=== PATIENT | male | born 1945 | race African-American/Black ===

== ENCOUNTER 2016-12-04 13:03 | Inpatient (IN) | payer MEDICARE, OTHER ==
[~2016-12-04] VITALS: Ht 182.9 cm; Wt 66.2 kg
[~2016-12-04 13:03] MED LIST: AMLO5TAB2 PEG; ENOX40DI3 SQ; HYDR-2666 PEG; HYDR20VI5 IJ; IPRA0.2S5 NEB; ONDA4DIS4 IJ; PRED-220 PO
[2016-12-04] MEDS ORDERED: IPRATRPIUM/ALBUTEROL 0.5/2.5MG 3 ML NEBU. ONE (13:21)
--- NOTE | 2016-12-04 13:21 | EKG ---
[facility] [address] [place] [address] Test Date: 2016-12-04 Test Time: 13:11:05 Pat Name: ELIESER DAVID Department: Room: Gender: Male Site Acquisition Manager: : 1945 Requested By: JIM DIAZ Order Number: [id number] Reading MD: Omari Boone Measurements Intervals [place] Rate: 104 P: 90 OR: 136 QRS: 25 QRSD: 86 T: 36 QT: 332 QTc: 437 Interpretive Statements SINUS TACHYCARDIA OTHERWISE NORMAL ECG Electronically Signed On 12-23-2016 15:46:49 CDT by Omari Boone
[2016-12-04] MEDS ORDERED: IPRATRPIUM/ALBUTEROL 0.5/2.5MG 3 ML NEBU. NEB ONE (13:30)
[2016-12-04 13:37] LABS: BASO % 0 % (0-3); EOS % 4 % (0-3); HEMATOCRIT 35.8 % (39.0-53.0); HEMOGLOBIN 11.9 g/dL (13.0-17.5); LYMPH # 1.1 x10^3/uL (1.0-4.8); LYMPH % 17 % (24-48); MEAN CORPUSCULAR HEMOGLOBIN 28 pg (25-35); MEAN CORPUSCULAR HGB CONC 33 g/dL (31-37); MEAN CORPUSCULAR VOLUME 85 fL (79-100); MONO % 12 % (0-9); NEUT % 67 % (31-73); PLATELET COUNT 177 x10^3/uL (140-400); RED BLOOD COUNT 4.22 x10^6/uL (4.30-5.70); RED CELL DISTRIBUTION WIDTH 15.8 % (11.5-14.5); WHITE BLOOD COUNT 6.4 x10^3/uL (4.0-11.0)
[2016-12-04 13:39] LABS: FIO2 ABG 40%; HCO3 ABG 24 mmol/L (21-28); PCO2 ABG 39 mmHg (35-46); PO2 ABG 67 mmHg (65-108); SAT O2 ABG 92 % (92-99)
[2016-12-04 13:55] LABS: CALCIUM 9.7 mg/dL (8.5-10.1); CREATININE 0.6 mg/dL (0.7-1.3); GFR 160.7; POTASSIUM 4.3 mmol/L (3.5-5.1)
[2016-12-04 14:01] LABS: ALBUMIN 2.6 g/dL (3.4-5.0); ALBUMIN/GLOBULIN RATIO 0.5 (1.0-1.7); TOTAL BILIRUBIN 0.3 mg/dL (0.2-1.0); TOTAL PROTEIN 8.2 g/dL (6.4-8.2)
--- NOTE | 2016-12-04 14:06 | RAD ---
EXAM: Chest one view. HISTORY: Respiratory distress, shortness of breath. COMPARISON: 11/10/2016. FINDINGS: A frontal view of the chest is obtained. The previously noted left lower lobe infiltrates have mostly resolved. There is mild residual atelectasis and left lower lobe volume loss. There is no pneumothorax or pleural effusion. The heart is not enlarged. IMPRESSION: 1. The previously noted left lower lobe pneumonia has mostly resolved, but there is residual volume loss. Correlate with bronchoscopic findings to exclude a left hilar mass and central obstruction as better demonstrated on recent CT.
[2016-12-04 14:11] LABS: CKMB MASS < 0.5 ng/mL (0.0-3.6); CREATINE KINASE 41 U/L (39-308)
[2016-12-04 14:12] LABS: OBC FLU VALID
--- NOTE | 2016-12-04 14:24 | PHYS DOC ---
Past Medical History Past Medical History: Dementia, Hypertension, Pneumonia, UTI Additional Past Medical Histor: dysphagia, urinary retention, falls, ARF, APHASIA Past Surgical History: Other Additional Past Surgical Histo: peg tube Alcohol Use: None Drug Use: None Adult General Chief Complaint Chief Complaint: DYSPNEA/RESPIRATOY DISTRESS HPI HPI Patient is a 71 year old male who presents with acute respiratory distress. Patient was brought to the emergency department by [facility] from his care home due to reported low oxygen saturation. Patient was found by nursing staff to have elevated oxygen saturation 79%. Patient has history of severe dementia and aphasia and is unable to provide any history. The patient was recently admitted to the hospital in October for treatment of left lower lobe pneumonia. The patient was treated with meropenem and doxycycline. Currently patient is off of antibiotics. Patient was given 2 breathing treatments by EMS prior to arrival with mild improvement in symptoms. Patient is currently on 8 L of oxygen to keep his oxygen saturation at 94%. Review of Systems Review of Systems Unable to obtain from patient due to severe dementia and aphasia Current Medications Current Medications Current Medications Medications (Trade) Dose Ordered Sig/Anh Start Time Stop Time Status Last Admin Dose Admin Acetaminophen (Tylenol) 650 mg PRN Q4HRS PRN 12/04/16 15:00 12/05/16 14:59 Albuterol/ Ipratropium (Duoneb) 3 ml RTQID 12/04/16 16:00 12/05/16 15:59 Info (Do NOT chart on this entry -- for MONITORING) 1 each PRN DAILY PRN 12/04/16 15:15 12/06/16 15:14 Iohexol (Omnipaque 300 Mg/ml) 75 ml 1X ONCE 12/04/16 15:00 12/04/16 15:09 DC 12/04/16 15:10 75 ML Methylprednisolone Sodium Succinate (Solu-Medrol 125mg Vial) 60 mg Q6HRS 12/04/16 16:00 12/04/16 15:32 60 MG Ondansetron HCl 4 mg 4 mg PRN Q8HRS PRN 12/04/16 15:00 12/05/16 14:59 Sodium Chloride (Iv Sodium Chloride 0.9% 1000ml Bag) 1,000 ml @ 100 mls/hr Q10H 12/04/16 14:52 12/05/16 14:51 12/04/16 15:27 100 MLS/HR Allergies Allergies Allergies Coded Allergies Type Severity Reaction Last Updated Verified No Known Drug Allergies 11/19/16 No Physical Exam Physical Exam Constitutional: Alert, afebrile, appears in chronically poor health, moderate respiratory distress present. [] HENT: Normocephalic, atraumatic, bilateral external ears normal, oral thrush present, nose normal. [] Eyes: PERRLA, EOMI, conjunctiva normal, no discharge. [] Neck: Normal range of motion, no tenderness, supple, no stridor. [] Cardiovascular: Tachycardia, regular rhythm, no murmur [] Lungs & Thorax: Moderate restriction of air movement bilaterally, decreased breath sounds in the left lower lobe, expiratory wheezes bilaterally [] Abdomen: Bowel sounds normal, soft, no tenderness, no masses, no pulsatile masses. [] Skin: Warm, dry, no erythema, no rash. [] Extremities: No tenderness, no cyanosis, no clubbing, ROM intact, no edema. [] Neurologic: Alert, aphasic, oriented to self, follows commands. [] Current Patient Data Vital Signs Vital Signs Date Time Temp Pulse Resp B/P Pulse Ox O2 Delivery O2 Flow Rate FiO2 12/04/16 14:34 98 26 132/86 98 Nasal Cannula 4 12/04/16 13:33 97.1 97.1 Lab Values Laboratory Tests Test 12/04/16 13:23 12/04/16 13:25 O2 Saturation 92% (92-99) Arterial Blood pH 7.40 (7.35-7.45) Arterial Blood pCO2 at Patient Temp 39mmHg (35-46) Arterial Blood pO2 at Patient Temp 67mmHg (65-108) Arterial Blood HCO3 24mmol/L (21-28) Arterial Blood Base Excess -1mmol/L (-3-3) FiO2 40% White Blood Count 6.4x10^3/uL (4.0-11.0) Red Blood Count 4.22x10^6/uL (4.30-5.70) L Hemoglobin 11.9g/dL (13.0-17.5) L Hematocrit 35.8% (39.0-53.0) L Mean Corpuscular Volume 85fL (79-100) Mean Corpuscular Hemoglobin 28pg (25-35) Mean Corpuscular Hemoglobin Concent 33g/dL (31-37) Red Cell Distribution Width 15.8% (11.5-14.5) H Platelet Count 177x10^3/uL (140-400) Neutrophils (%) (Auto) 67% (31-73) Lymphocytes (%) (Auto) 17% (24-48) L Monocytes (%) (Auto) 12% (0-9) H Eosinophils (%) (Auto) 4% (0-3) H Basophils (%) (Auto) 0% (0-3) Neutrophils # (Auto) 4.3x10^3uL (1.8-7.7) Lymphocytes # (Auto) 1.1x10^3/uL (1.0-4.8) Monocytes # (Auto) 0.7x10^3/uL (0.0-1.1) Eosinophils # (Auto) 0.3x10^3/uL (0.0-0.7) Basophils # (Auto) 0.0x10^3/uL (0.0-0.2) Sodium Level 140mmol/L (136-145) Potassium Level 4.3mmol/L (3.5-5.1) Chloride Level 103mmol/L (98-107) Carbon Dioxide Level 27mmol/L (21-32) Anion Gap 10 (6-14) Blood Urea Nitrogen 13mg/dL (8-26) Creatinine 0.6mg/dL (0.7-1.3) L Estimated GFR (Cockcroft-Gault) 160.7 BUN/Creatinine Ratio 22 (6-20) H Glucose Level 132mg/dL (70-99) H Lactic Acid Level 1.2mmol/L (0.4-2.0) Calcium Level 9.7mg/dL (8.5-10.1) Total Bilirubin 0.3mg/dL (0.2-1.0) Aspartate Amino Transferase (AST) 64U/L (15-37) H Alanine Aminotransferase (ALT) 115U/L (16-63) H Alkaline Phosphatase 118U/L (46-116) H Creatine Kinase 41U/L (39-308) Creatine Kinase MB (Mass) < 0.5ng/mL (0.0-3.6) Creatine Kinase MB Relative Index % (0-4) Troponin I Quantitative < 0.017ng/mL (0.000-0.055) WX-Igv-P-Type Natriuretic Peptide 26pg/mL (0-124) Total Protein 8.2g/dL (6.4-8.2) Albumin 2.6g/dL (3.4-5.0) L Albumin/Globulin Ratio 0.5 (1.0-1.7) L Influenza Type A Antigen Negative (NEGATIVE) Influenza Type B Antigen Negative (NEGATIVE) Laboratory Tests 12/04/16 13:25 Laboratory Tests 12/04/16 13:25 EKG EKG Interpreted by me: Heart rate 104, sinus tachycardia, normal intervals, normal axis, no acute ST/T-wave abnormalities present [] Radiology/Procedures Radiology/Procedures [facility] [address] [place], [place] [id number] IMAGING REPORT Signed PATIENT: ELIESER DAVID ACCOUNT: [id number] : 1945 LOCATION: ER AGE: 71 SEX: M EXAM STATUS: REG ER ORD. PHYSICIAN: JIM DIAZ MD REASON: respiratory distress PROCEDURE: PORTABLE CHEST 1V EXAM: Chest one view. HISTORY: Respiratory distress, shortness of breath. COMPARISON: 11/10/2016. FINDINGS: A frontal view of the chest is obtained. The previously noted left lower lobe infiltrates have mostly resolved. There is mild residual atelectasis and left lower lobe volume loss. There is no pneumothorax or pleural effusion. The heart is not enlarged. IMPRESSION: 1. The previously noted left lower lobe pneumonia has mostly resolved, but there is residual volume loss. Correlate with bronchoscopic findings to exclude a left hilar mass and central obstruction as better demonstrated on recent CT. DICTATED and SIGNED BY: SARAN HOU MD DATE: 12/04/16 [id number] CC: JIM DIAZ MD; LILIANA REN MD ~ [] Course & Med Decision Making Course & Med Decision Making Pertinent Labs and Imaging studies reviewed. (See chart for details) Patient was given 2 doses of DuoNeb in the emergency department. The patient's chest x-ray showed resolving left lower lobe infiltrates. The patient is afebrile with no leukocytosis. The patient appears to be in acute on chronic hypoxic respiratory failure. Patient will continue on IV Solu-Medrol and DuoNeb breathing treatments in hospital with a consult placed to Dr. Roman. I spoke with Dr. eRn who accepted care patient in hospital. Dragon Disclaimer Dragon Disclaimer This electronic medical record was generated, in whole or in part, using a voice recognition dictation system. Departure Departure Impression: Primary Impression: Acute on chronic respiratory failure with hypoxia Additional Impressions: Dementia Severe protein-calorie malnutrition Disposition: ADMITTED INPATIENT Admitting Physician: Other Condition: GUARDED Referrals: LILIANA REN MD (PCP) Problem Qualifiers Additional Impressions: Dementia Dementia type: unspecified type Dementia behavioral disturbance: without behavioral disturbance Qualified Code: F03.90 - Unspecified dementia without behavioral disturbance JIM DIZA MD Dec 04, 2016 14:24
[2016-12-04] MEDS ORDERED: ONDANSETRON PF 4 MG/2 ML VIAL. IV PRN (15:00)
[2016-12-04] MEDS ORDERED: IOHEXOL 300 MG/ML 75 ML VIAL IV ONE (15:00)
[2016-12-04] MEDS ORDERED: ACETAMINOPHEN 325 MG TABLET. PO PRN (15:00)
[2016-12-04] MEDS ORDERED: CONTRAST GIVEN MC PRN (15:15)
[2016-12-04] MEDS: IV NORMAL SALINE 1000ML BAG 1,000 ML IV SCH (15:27)
[2016-12-04] MEDS: methylPREDNISolone SOD SUCC PF 125 MG/2 ML VIAL. IV SCH (15:32)
--- NOTE | 2016-12-04 15:40 | ACF ---
Admission Forms Criteria RESPIRATORY FAILURE [facility] Clinical Indications for Admission to Inpatient Care (Place 'X' for any and all applicable criteria): Hospital admission is needed for appropriate care of the patient because of acute respiratory failure or insufficiency as indicated by ANY ONE of the following(1)(2)(3)(4)(5)(6)(7)(8): [ ]I. Mechanical ventilation needed (acute invasive or noninvasive) [ ]II. Severe ventilation deficit as indicated by ANY ONE of the following (9) [ ]a) Respiratory acidosis (pH less than 7.32 and partial pressure of carbon dioxide greater than 40 mm Hg (5.3 kPa)) [ ]b) Partial pressure of carbon dioxide greater than 44 mm Hg (5.9 kPa ) (new) [ ]c) Airflow measurements less than 25% of predicted (eg, peak expiratory flow rate less than 100 L/minute) [ ]d) Forced vital capacity less than 15 mL/kg of ideal body weight, or 50% decrease in vital capacity from baseline [ ]III. Noncardiac pulmonary edema not resolving with rapid emergency treatment (8) [X]IV. Severe respiratory distress as indicated by ANY ONE of the following: [X]a) Severe tachypnea (respiratory rate greater than 30, greater than 45 for 6-month-old, greater than 60 for ) [ ]b) Severe hypoxemia (partial pressure of oxygen less than 50 mm Hg ( 6.7 kPa) on greater than 50% oxygen or partial pressure of oxygen to FIO2 ratio less than 200) [ ]c) Mental status deterioration from respiratory disease [ ]V. Airway obstruction or inadequate protection [A](10)(11) The original [employer] content created by [employer] has been revised. The portions of the content which have been revised are identified through the use of italic text or in bold, and [employer] has neither reviewed nor approved the modified material. All other unmodified content is copyright [employer]. Please see references footnoted in the original [employer] edition 2016 Admission Criteria Met?: Yes SOPHY FORD Dec 04, 2016 15:40
--- NOTE | 2016-12-04 16:07 | RAD ---
CTA of the chest with contrast, 12/04/2016: History: Hypoxia, shortness of breath Multidetector CT imaging was performed following an IV bolus injection of iodinated contrast material. Multiplanar reconstructions were produced including coronal MIP images. No filling defects are seen in the central pulmonary arteries to suggest pulmonary emboli. Some of the smaller pulmonary arteries are less clearly defined due to artifacts. There is debris in the posterior aspect of the trachea extending predominantly into the left main bronchus.. The left main and upper and lower lobe left bronchi are nonaerated due to this material. The possibility of underlying tumor cannot be excluded. There is moderate infiltrate in the left lower lobe and posterior aspect of the left upper lobe. Left lower lobe atelectasis/consolidation has improved since 11/06/2016. The mild left upper lobe infiltrate has worsened. Increased density at the left hilum is inseparable from the pulmonary infiltrates. There is a small amount of debris in the posterior aspect of the right main bronchus. No significant right lung infiltrate is evident. No pleural fluid is seen. No mediastinal adenopathy is evident. A gastrostomy tube is in place extending into the body of the stomach. IMPRESSION: 1. No CT evidence of central pulmonary emboli. 2. Extensive inflammatory debris in the trachea and left bronchial tree, with moderate associated pneumonitis in the left lower and upper lobes. Left lower lobe consolidation has improved since 11/06/2016 while the left upper lobe infiltrates have worsened slightly. The possibility of underlying tumor at the left hilum cannot be excluded. PQRS Compliance Statement: One or more of the following individualized dose reduction techniques were utilized for this examination: 1. Automated exposure control 2. Adjustment of the mA and/or kV according to patient size 3. Use of iterative reconstruction technique
[2016-12-04] MEDS: IPRATRPIUM/ALBUTEROL 0.5/2.5MG 3 ML NEBU. NEB SCH ×2 (17:00→20:26)
[2016-12-04 17:30] VITALS: BP 162/86
[2016-12-04] MEDS ORDERED: ACET325T21 PEG (18:33)
[2016-12-04] MEDS ORDERED: CHLO473M MM (18:33)
[2016-12-04] MEDS ORDERED: INSU100C SQ (18:33)
[2016-12-04] MEDS ORDERED: DEXT1TAB7 PO (18:33)
[2016-12-04] MEDS ORDERED: PANT40GR PEG (18:33)
[2016-12-04 19:00] VITALS: BP 143/84
[2016-12-04 23:00] VITALS: BP 121/70
[2016-12-05] VITALS (11 sets, daily range): BP systolic 114–219; BP diastolic 68–102
[2016-12-05] MEDS: methylPREDNISolone SOD SUCC PF 125 MG/2 ML VIAL. IV SCH ×5 (01:14→23:54)
[2016-12-05] MEDS: IV NORMAL SALINE 1000ML BAG 1,000 ML IV SCH ×2 (01:14→16:35)
[2016-12-05] MEDS ORDERED: IPRATRPIUM/ALBUTEROL 0.5/2.5MG 3 ML NEBU. NEB ONE (02:30)
[2016-12-05 05:27] LABS: BASO % 0 % (0-3); EOS % 0 % (0-3); HEMATOCRIT 36.5 % (39.0-53.0); LYMPH # 0.4 x10^3/uL (1.0-4.8); LYMPH % 4 % (24-48); MEAN CORPUSCULAR HEMOGLOBIN 28 pg (25-35); MEAN CORPUSCULAR HGB CONC 33 g/dL (31-37); MEAN CORPUSCULAR VOLUME 85 fL (79-100); MONO % 2 % (0-9); NEUT % 94 % (31-73); PLATELET COUNT 208 x10^3/uL (140-400); RED BLOOD COUNT 4.28 x10^6/uL (4.30-5.70); RED CELL DISTRIBUTION WIDTH 15.8 % (11.5-14.5); WHITE BLOOD COUNT 10.1 x10^3/uL (4.0-11.0)
[2016-12-05 06:00] LABS: CALCIUM 9.6 mg/dL (8.5-10.1); GFR 89.1; POTASSIUM 4.5 mmol/L (3.5-5.1)
[2016-12-05] MEDS: IPRATRPIUM/ALBUTEROL 0.5/2.5MG 3 ML NEBU. NEB SCH ×3 (06:44→15:10)
--- NOTE | 2016-12-05 09:55 | PDOC ---
Provider Note Provider Note dictated mucous plug Bronch today MAT KEARNS MD Dec 05, 2016 09:55
[2016-12-05] MEDS ORDERED: PIP/TAZO PER PHARMACY MC PRN (10:00)
[2016-12-05 10:22] LABS: ANISOCYTOSIS SLIGHT; OVALOCYTES FEW; PLT ESTIMATE ADEQUATE (ADEQUATE)
[2016-12-05] MEDS ORDERED: IV RINGERS,LACTATED 1000ML 1,000 ML IV SCH (10:50)
[2016-12-05] MEDS ORDERED: FENTANYL PF 100 MCG/2 ML VIAL. IV PRN ×2 (11:00)
[2016-12-05] MEDS ORDERED: LIDOCAINE 1% 1 ML SYRINGE. ID PRN (11:00)
[2016-12-05] MEDS ORDERED: MORPHINE SULFATE 2 MG/ML DISP.SYRIN. IV PRN (11:00)
[2016-12-05] MEDS ORDERED: ONDANSETRON PF 4 MG/2 ML VIAL. IV PRN (11:00)
[2016-12-05] MEDS ORDERED: PROCHLORPERAZINE 10 MG/2 ML VIAL. IV PRN (11:00)
[2016-12-05] MEDS ORDERED: HYDROMORPHONE 2 MG/ML VIAL. IV PRN (11:00)
[2016-12-05] MEDS: PIPERACILLIN/TAZOBACTAM 4.5 GM in IV NORMAL SALINE 100ML 100 ML IV SCH ×3 (11:09→23:53)
--- NOTE | 2016-12-05 11:19 | CONS ---
DATE OF CONSULTATION: ATTENDING PHYSICIAN: Dr. Ren. REASON FOR CONSULTATION: Abnormal CT chest with complete collapse of lung due to mucus plug. HISTORY OF PRESENT ILLNESS: The patient is a 71-year-old male who has a history of aphasia. History of underlying dementia. He has a history of pneumonia and mucus plug in the past. He was brought into the Emergency Department ____ [facility] due to hypoxia. His saturation was 79% when first evaluated. The patient was initially placed on high flow oxygen and saturation went up to 94%. He is currently on 4 liters of oxygen. He underwent CT chest with PE protocol. There was no evidence of pulmonary emboli. There was extensive mucus debris in the trachea and left mainstem bronchus suggesting mucus plug. There was also left lower lobe consolidation, which could be mucus as well, and left upper lobe infiltrates which is slightly worsened. I have been asked to see him for further evaluation. I am unable to obtain much history from the patient due to his aphasia. PAST MEDICAL HISTORY: History of dementia, hypertension, pneumonia, UTI, aphasia, dysphagia, urinary retention and falls. PAST SURGICAL HISTORY: History of PEG tube. ALLERGIES: None. CURRENT MEDICATIONS: Reviewed including Solu-Medrol, DuoNebs. REVIEW OF SYSTEMS: Unable to obtain from the patient. SOCIAL HISTORY: Lives in ____ [facility]pc. PHYSICAL EXAMINATION: VITAL SIGNS: Blood pressure stable, afebrile, pulse ox 97% on 4 liters. NECK: Supple. LUNGS: Diminished breath sounds left lung. CARDIOVASCULAR: Regular rate and rhythm. ABDOMEN: Soft. EXTREMITIES: With no pitting edema. LABORATORY DATA: Reviewed. White cell count was ____, hemoglobin ____ and platelets are 208. BUN is 18, creatinine 1.0. Influenza is negative. IMPRESSION: 1. Acute hypoxic respiratory failure secondary to highly suspected mucus plug with significant collapse of the distal trachea and left mainstem bronchus. He would benefit from a repeat bronchoscopy. He had bronchoscopy done in the past as well. 2. Cannot exclude pneumonia. 3. Aphasia with inability to clear secretions. 4. Dysphagia. RECOMMENDATIONS: 1. Discussed with the patient's DPJERALD, Marya who agrees to proceed with bronchoscopy. All risk and benefits were explained. 2. Add empiric antibiotic. 3. Further recommendations to follow after bronchoscopy. 4. Continue DuoNebs. 5. Continue to taper steroids. We will follow along with you. MAT KEARNS MD DR: ADONIS/andres JOB#: [id number] / [id number] CODEY
--- NOTE | 2016-12-05 12:47 | HP ---
ADMIT DATE: 12/04/2016 HISTORY OF PRESENT ILLNESS: The patient is a 71-year-old -[place] male patient, a resident at [facility] who was noted yesterday by the nursing staff to be extremely hypoxic with an oxygen saturation of only 70% despite being on 4 liters of oxygen. He denied any chest pain, did complain of shortness of breath and given that he is mostly bedridden, I was concerned that he might have pulmonary embolism and therefore I recommended that he transfer to the Emergency Room of [facility] where he was initially evaluated. His lab works were mostly unremarkable. His chest x-ray was also unremarkable with previously noted left lower lobe pneumonia has mostly resolved but there is residual volume loss and the radiologist stated to correlate with bronchoscopic findings to exclude the left hilar mass and central obstruction as it will better demonstrate on that than the CT scan. I did consult Dr. Roman to evaluate the patient and recommended also to do a CT scan of the chest with PE protocol that was apparently done later on. The patient himself has severe dysarthria and very difficult to understand. PAST MEDICAL HISTORY: Significant for dementia, hypertension, urinary tract infection, dysphagia, recurrent falls. He has dysphagia for which he underwent percutaneous endoscopic gastrostomy tube placement. PAST SURGICAL HISTORY: Significant for PEG tube placement and previous bronchoscopy as he has a totally atelectatic left lower lobe with partially obstructed left mainstem. He was also intubated electively before bronchoscopy. ALLERGIES: APPARENTLY HE HAS KNOWN DRUG ALLERGIES. MEDICATIONS: He is currently on the following medications, acetaminophen 650 mg per feeding tube every 4 hours as needed, amlodipine 5 mg daily, chlorhexidine gluconate 15 mL swish and spit 3 times a day. He is on Lovenox 40 mg subcutaneously daily, hydrocodone/APAP 5/325 one tablet every 4 hours as needed. He is on Humalog insulin as insulin sliding scale every 6 hours, Protonix 40 mg once a day. FAMILY HISTORY: Unremarkable. SOCIAL HISTORY: He is currently a resident at [facility]. He does not smoke, drink alcohol, or use any recreational drugs. REVIEW OF SYSTEMS: As per history of present illness. PHYSICAL EXAMINATION: GENERAL: On arrival to the Emergency Room, patient was resting slightly propped up in bed, slightly tachypneic, tachycardic, but there is no pallor, jaundice, cyanosis, or thyromegaly. No jugular distention. No limb edema. His heart rate was 112, blood pressure was 219/112, temperature was 97.1, respiratory rate was 26, and oxygen saturation was 96% on 4 liters of oxygen by nasal cannula. HEAD: Showed normocephalic, atraumatic. NECK: Supple. HEART: Showed normal first and second heart sounds with no gallop, rub, or murmur. CHEST: Clear to auscultation. No crepitation or rhonchi. ABDOMEN: Distended, soft, nontender with a gastrostomy tube in place. There is no guarding or rigidity. No organomegaly. Hernial orifices intact. Bowel sounds normal. NEUROLOGIC: He is awake, alert. He is demented with dysarthria, difficult to understand. However, all his cranial nerves are intact. He seem to be able to move his upper extremities much greater extent than his lower extremities, although he is mostly bed bound. LABORATORY DATA: On admission showed that his serum sodium 140, potassium 4.3, chloride 103, bicarbonate 27, anion gap of 10, BUN 13, creatinine 0.6, estimated GFR was 160 mL/minute. His glucose was 132, calcium was 9.7, total bilirubin normal. AST, ALT, alkaline phosphatase are all elevated. CK is 41. Total protein was 8.2, albumin was 2.6. His white cell count was 6400, hemoglobin 12, hematocrit 36, MCV 85, and platelet count of 177,000 with normal manual differential. Blood gases showed a pH of 7.40, pCO2 of 39, pO2 of 67, bicarbonate 24, and oxygen saturation was 92% on FiO2 of 40%. His influenza A and B were negative. He has had a chest x-ray, which showed that the previously noted left lower lobe infiltrates have mostly resolved. There is mild degenerative atelectasis and left lower lobe volume loss. There is no pneumothorax or pleural effusion. The heart is not enlarged. ASSESSMENT AND PLAN: The impression is that the previously noted left lower lobe pneumonia has mostly resolved, but there is residual volume loss correlate with bronchoscopic finding to exclude a left hilar mass and central obstruction that are better demonstrated on CT scan. I did recommend to continue with his current medication, start him on IV antibiotic, and also consult the rod filler and also to arrange for him to have a CT scan of the chest with PE protocol. LILIANA ENCINAS MD DR: MAI/andres JOB#: [id number] / [id number]
[2016-12-05] MEDS ORDERED: PROPOFOL 20 ML IV ONE ×2 (12:52→13:35)
[2016-12-05] MEDS ORDERED: ALBUTEROL SULFATE 2.5 MG/3 ML NEBU. NEB ONE (13:15)
[2016-12-05] MEDS ORDERED: VANCOMYCIN 1.5 GM in IV NORMAL SALINE 500ML BAG 500 ML IV ONE (15:00)
--- NOTE | 2016-12-05 17:49 | OP ---
DATE OF SURGERY: INDICATIONS: Diffuse pneumonia and mucus plug and abnormal CT chest. DESCRIPTION OF THE PROCEDURE: Informed consent was obtained from the patient's daughter, who agreed to proceed with the procedure. All risks and benefits were explained. The patient had bronchoscopy in the past as well. Propofol was used by anesthesia for sedation. Bronch was introduced through the right nostril. The upper airways was passed. There were moderate amount of secretions which were aspirated. Vocal cords moves equally with respiration, but sluggish. Trachea was entered. There were thick white secretions seen in the distal trachea, which were aspirated. The left main stem bronchus was first examined. Thick purulent secretions seen throughout the left mainstem, left lower lobe and lingula. Saline irrigation and all secretions were removed. Multiple passes were made via bronchoscope as the secretions were very thick. Therapeutic bronchoscope was eventually use. All subsegments were examined. No endobronchial lesions seen. Bronchoalveolar lavage performed from the left lower lobe. Bronch was then introduced into the right lung. Again seen with thick purulent secretion in the right main stem bronchus. There were present all the way to the lower lobes. No endobronchial lesions seen. Secretions were removed. A bronchoalveolar lavage performed from right middle lobe. The patient tolerated the procedure well. IMPRESSION: 1. Diffuse mucus plug and mucopurulent secretions nearly completely occluding both the lungs. 2. Therapeutic bronchoscope was performed and all secretions were removed. There were very purulent and consistent with pneumonia. Broad-spectrum antibiotics will be initiated. 3. Bronchoalveolar lavage performed from the right middle lobe and left lower lobe and bronchoalveolar lavage performed from both mainstem and sent for appropriate studies. MAT KEARNS MD DR: ADONIS/andres JOB#: [id number] / [id number] CODEY
[2016-12-05] MEDS: VANCOMYCIN PER PHARMACY MC PRN ×2 (18:32→18:33)
[2016-12-05] MEDS: hydrALAZINE 20 MG/ML VIAL. IVP PRN (20:39)
[2016-12-05 20:43] LABS: BODY TEMP ABG 100.8 DEG; CORRECTED PCO2 ABG 90 mmHg; CORRECTED PH ABG 7.07; CORRECTED PO2 ABG 100 mmHg; HCO3 ABG 25 mmol/L (21-28); SAT O2 ABG 93 % (92-99)
[2016-12-05 20:44] LABS: PCO2 ABG 86 mmHg (35-46); PH ABG 7.09 (7.35-7.45); PO2 ABG 93 mmHg (65-108)
--- NOTE | 2016-12-05 20:54 | RAD ---
PROCEDURE Single-view chest. HISTORY Respiratory distress COMPARISON December 04, 2016 FINDINGS AP upright portable view of the chest is submitted. There has been progression of patchy airspace and interstitial opacity of the left ralph thorax. There is no pneumothorax or significant pleural fluid. Heart size is stable. There is likely some gas distention of stomach, not fully included. IMPRESSION There has been progression of airspace and interstitial opacity of the left ralph thorax, may be due to asymmetric pulmonary edema versus infiltrate. Electronically signed by: Mars Marin MD (Dec 05, 2016 20:53:21)
[2016-12-05 22:24] LABS: HCO3 ABG 20 mmol/L (21-28); PCO2 ABG 31 mmHg (35-46); PO2 ABG 80 mmHg (65-108); SAT O2 ABG 95 % (92-99)
[2016-12-05 22:26] LABS: PH ABG 7.43 (7.35-7.45)
[2016-12-05] MEDS ORDERED: FUROSEMIDE 20 MG/2 ML VIAL IVP ONE (22:45)
--- NOTE | 2016-12-05 23:08 | PN ---
DATE: 12/05/2016 SUBJECTIVE: The patient is resting slightly propped up in bed, in no apparent distress. On questioning him, he denied any chest pain. Did complain of mild shortness of breath, denied any cough, phlegm or hemoptysis. The nursing staff did not voice any concern and stated that he had an uneventful night. The patient has had a CT scan of the chest with PE protocol done yesterday, which showed that there is no CT scan evidence of central pulmonary emboli. He has extensive inflammatory debris in the trachea and left main bronchial tree with moderate associated pneumonitis in the left lower lobe and upper lobe and left lower lobe consolidation has improved since 11/06/2016 while the left upper lobe infiltrate has worsened slightly. The possibility of underlying tumor at the left hilum cannot be excluded. We did consult Dr. Roman and apparently he saw the patient and he is now scheduled for bronchoscopy, apparently has not had bronchoscopy before. PHYSICAL EXAMINATION: GENERAL: When I examined him, he looked well and was clearly in no apparent respiratory distress, pale, but no jaundice, cyanosis or thyromegaly. No jugular venous distention. No limb edema. VITAL SIGNS: His heart rate was 110, blood pressure 142/77, temperature was 97.7, respiratory rate was 18 and oxygen saturation was 97% on 4 liters of oxygen. HEAD, EYES, EARS, NOSE AND THROAT: Showed normocephalic, atraumatic. NECK: Supple. HEART: Showed normal first and second heart sounds with no gallop, rub or murmur. CHEST: Clear to auscultation. No crepitation or rhonchi. ABDOMEN: Distended, soft, nontender. No guarding or rigidity. No organomegaly. Hernial orifices intact. Bowel sounds normal. He has a gastrostomy tube in place. NEUROLOGIC: He is demented, but awake, alert. All his cranial nerves are intact, he moves upper extremities ____ his lower extremities had marked muscle wasting, is mostly bed bound. LABORATORY DATA: Today his lab showed a white cell count of 10,000, hemoglobin 12, hematocrit 36, MCV 85 and platelet count 208,000. His chemistry showed a serum sodium 145, potassium 4.5, chloride 107, bicarbonate 24, anion gap of 14, BUN 18, creatinine 1, estimated GFR was 89 mL per minute, his glucose 149 and calcium was 9.6. ASSESSMENT: In summary, this is a 71-year-old male patient who was admitted with marked hypoxemia and acute on chronic hypoxic respiratory failure. He has obviously dementia with aphasia and dysphagia. He has severe protein-calorie malnutrition with serum albumin is only 2.6 g/dL, has deranged liver enzymes. The patient was continued on bronchodilator, IV antibiotic, steroids and he was seen by Dr. Roman and plan is to be scheduled today for bronchoscopy as the CT scan of the chest showed that he has almost total occlusion of his left main bronchus. LILIANA ENCINAS MD DR: MAI/andres JOB#: [id number] / [id number]
[2016-12-06] VITALS (24 sets, daily range): BP systolic 103–203; BP diastolic 62–93
[2016-12-06] MEDS: VANCOMYCIN 1 GM in IV NORMAL SALINE 250ML 250 ML IV SCH ×2 (04:17→18:06)
[2016-12-06] MEDS: methylPREDNISolone SOD SUCC PF 125 MG/2 ML VIAL. IV SCH ×3 (06:06→18:08)
[2016-12-06] MEDS: PIPERACILLIN/TAZOBACTAM 4.5 GM in IV NORMAL SALINE 100ML 100 ML IV SCH ×3 (06:07→18:07)
[2016-12-06 06:10] LABS: BASO % 0 % (0-3); EOS % 0 % (0-3); HEMATOCRIT 35.4 % (39.0-53.0); HEMOGLOBIN 11.7 g/dL (13.0-17.5); LYMPH # 0.8 x10^3/uL (1.0-4.8); LYMPH % 5 % (24-48); MEAN CORPUSCULAR HEMOGLOBIN 28 pg (25-35); MEAN CORPUSCULAR HGB CONC 33 g/dL (31-37); MEAN CORPUSCULAR VOLUME 85 fL (79-100); MONO % 4 % (0-9); NEUT % 92 % (31-73); PLATELET COUNT 216 x10^3/uL (140-400); RED BLOOD COUNT 4.18 x10^6/uL (4.30-5.70); RED CELL DISTRIBUTION WIDTH 16.6 % (11.5-14.5); WHITE BLOOD COUNT 16.1 x10^3/uL (4.0-11.0)
[2016-12-06 06:15] LABS: ALBUMIN 2.6 g/dL (3.4-5.0); ALBUMIN/GLOBULIN RATIO 0.5 (1.0-1.7); CALCIUM 9.7 mg/dL (8.5-10.1); GFR 89.1; TOTAL BILIRUBIN 0.5 mg/dL (0.2-1.0); TOTAL PROTEIN 7.9 g/dL (6.4-8.2)
[2016-12-06] MEDS: IPRATRPIUM/ALBUTEROL 0.5/2.5MG 3 ML NEBU. NEB SCH ×4 (07:50→20:05)
[2016-12-06 08:05] LABS: HCO3 ABG 24 mmol/L (21-28); PCO2 ABG 30 mmHg (35-46); PH ABG 7.52 (7.35-7.45); PO2 ABG 75 mmHg (65-108); SAT O2 ABG 96 % (92-99)
[2016-12-06 08:08] LABS: FIO2 ABG 40
[2016-12-06] MEDS: VANCOMYCIN PER PHARMACY MC PRN (08:14)
--- NOTE | 2016-12-06 09:44 | PDOC ---
Infectious Disease Note Vital Sign Vital Signs Vital Signs Date Time Temp Pulse Resp B/P Pulse Ox O2 Delivery O2 Flow Rate FiO2 12/06/16 09:00 106 25 164/87 Nasal Cannula 5.0 12/06/16 08:00 97.8 97 97.8 Labs Lab Laboratory Tests Test 12/05/16 20:34 12/05/16 22:23 12/06/16 05:00 12/06/16 08:00 O2 Saturation 93% (92-99) 95% (92-99) 96% (92-99) Arterial Blood pH 7.09 (7.35-7.45) 7.43 (7.35-7.45) 7.52 (7.35-7.45) Arterial Blood pH (Temp corrected) 7.07 Arterial Blood pCO2 at Patient Temp 86mmHg (35-46) 31mmHg (35-46) 30mmHg (35-46) Arterial Blood pCO2 (Temp correct) 90mmHg Arterial Blood pO2 at Patient Temp 93mmHg (65-108) 80mmHg (65-108) 75mmHg (65-108) Arterial Blood pO2 (Temp corrected) 100mmHg Arterial Blood HCO3 25mmol/L (21-28) 20mmol/L (21-28) 24mmol/L (21-28) Arterial Blood Base Excess -6mmol/L (-3-3) -3mmol/L (-3-3) 2mmol/L (-3-3) White Blood Count 16.1x10^3/uL (4.0-11.0) Red Blood Count 4.18x10^6/uL (4.30-5.70) Hemoglobin 11.7g/dL (13.0-17.5) Hematocrit 35.4% (39.0-53.0) Mean Corpuscular Volume 85fL (79-100) Mean Corpuscular Hemoglobin 28pg (25-35) Mean Corpuscular Hemoglobin Concent 33g/dL (31-37) Red Cell Distribution Width 16.6% (11.5-14.5) Platelet Count 216x10^3/uL (140-400) Neutrophils (%) (Auto) 92% (31-73) Lymphocytes (%) (Auto) 5% (24-48) Monocytes (%) (Auto) 4% (0-9) Eosinophils (%) (Auto) 0% (0-3) Basophils (%) (Auto) 0% (0-3) Neutrophils # (Auto) 14.7x10^3uL (1.8-7.7) Lymphocytes # (Auto) 0.8x10^3/uL (1.0-4.8) Monocytes # (Auto) 0.6x10^3/uL (0.0-1.1) Eosinophils # (Auto) 0.0x10^3/uL (0.0-0.7) Basophils # (Auto) 0.0x10^3/uL (0.0-0.2) Sodium Level 146mmol/L (136-145) Potassium Level 4.0mmol/L (3.5-5.1) Chloride Level 106mmol/L (98-107) Carbon Dioxide Level 29mmol/L (21-32) Anion Gap 11 (6-14) Blood Urea Nitrogen 24mg/dL (8-26) Creatinine 1.0mg/dL (0.7-1.3) Estimated GFR (Cockcroft-Gault) 89.1 BUN/Creatinine Ratio 24 (6-20) Glucose Level 170mg/dL (70-99) Calcium Level 9.7mg/dL (8.5-10.1) Total Bilirubin 0.5mg/dL (0.2-1.0) Aspartate Amino Transf (AST/SGOT) 85U/L (15-37) Alanine Aminotransferase (ALT/SGPT) 140U/L (16-63) Alkaline Phosphatase 115U/L (46-116) Total Protein 7.9g/dL (6.4-8.2) Albumin 2.6g/dL (3.4-5.0) Albumin/Globulin Ratio 0.5 (1.0-1.7) FiO2 40 CXR IMPRESSION There has been progression of airspace and interstitial opacity of the left ralph thorax, may be due to asymmetric pulmonary edema versus infiltrate. Micro BLOOD CULTURE Preliminary NO GROWTH AFTER 1 DAY Sputum GRAM STAIN Final WBCS MANY GRAM NEGATIVE RODS MANY Objective Assessment HCAP. GNR Fever Leukocytosis, on steroids h/o latent syphilis. -Recently finished IV PCN Acute respiratory failure - refusing Bipap - states he wants to go home -s/p bronch/BAL 12/05. Thick purulent secretions Dementia PEG Plan Plan of Care Cont Vanc and Zosyn Await GNR ID Monitor WBC, Cr and temp Supportive care Thank you [id number] D/w Dr. Roman Attending Co-Sign Attending Co-Sign The patient was seen and interviewed as well as examined at the bedside. The chart was reviewed. The case was discussed. Agree with the plan of care. FRANCISCO SHAH APRN Dec 06, 2016 09:44 SHANNA FRANCIS MD Dec 06, 2016 12:38
[2016-12-06] MEDS: hydrALAZINE 20 MG/ML VIAL. IVP PRN (10:51)
--- NOTE | 2016-12-06 11:57 | PDOC ---
PULMONARY PROGRESS NOTES Subjective transfer to ICU last evening due to hypercapnic RF IMPROVED WITH BIPAP Vitals Vital Signs Date Time Temp Pulse Resp B/P Pulse Ox O2 Delivery O2 Flow Rate FiO2 12/06/16 11:17 94 Venturi Mask 12/06/16 11:00 116 20 168/81 5.0 12/06/16 08:00 97.8 97.8 General: Alert HEENT: Other Lungs: Other (rhonchi bilateral) Cardiovascular: S1 Abdomen: Soft, Non-tender, Other Extremities: No Edema Skin: Warm Labs Laboratory Tests Test 12/04/16 13:23 12/04/16 13:25 12/04/16 19:20 12/05/16 00:44 O2 Saturation 92% (92-99) Arterial Blood pH 7.40 (7.35-7.45) Arterial Blood pCO2 at Patient Temp 39mmHg (35-46) Arterial Blood pO2 at Patient Temp 67mmHg (65-108) Arterial Blood HCO3 24mmol/L (21-28) Arterial Blood Base Excess -1mmol/L (-3-3) FiO2 40% White Blood Count 6.4x10^3/uL (4.0-11.0) Red Blood Count 4.22x10^6/uL (4.30-5.70) Hemoglobin 11.9g/dL (13.0-17.5) Hematocrit 35.8% (39.0-53.0) Mean Corpuscular Volume 85fL (79-100) Mean Corpuscular Hemoglobin 28pg (25-35) Mean Corpuscular Hemoglobin Concent 33g/dL (31-37) Red Cell Distribution Width 15.8% (11.5-14.5) Platelet Count 177x10^3/uL (140-400) Neutrophils (%) (Auto) 67% (31-73) Lymphocytes (%) (Auto) 17% (24-48) Monocytes (%) (Auto) 12% (0-9) Eosinophils (%) (Auto) 4% (0-3) Basophils (%) (Auto) 0% (0-3) Neutrophils # (Auto) 4.3x10^3uL (1.8-7.7) Lymphocytes # (Auto) 1.1x10^3/uL (1.0-4.8) Monocytes # (Auto) 0.7x10^3/uL (0.0-1.1) Eosinophils # (Auto) 0.3x10^3/uL (0.0-0.7) Basophils # (Auto) 0.0x10^3/uL (0.0-0.2) Sodium Level 140mmol/L (136-145) Potassium Level 4.3mmol/L (3.5-5.1) Chloride Level 103mmol/L (98-107) Carbon Dioxide Level 27mmol/L (21-32) Anion Gap 10 (6-14) Blood Urea Nitrogen 13mg/dL (8-26) Creatinine 0.6mg/dL (0.7-1.3) Estimated GFR (Cockcroft-Gault) 160.7 BUN/Creatinine Ratio 22 (6-20) Glucose Level 132mg/dL (70-99) Lactic Acid Level 1.2mmol/L (0.4-2.0) Calcium Level 9.7mg/dL (8.5-10.1) Total Bilirubin 0.3mg/dL (0.2-1.0) Aspartate Amino Transf (AST/SGOT) 64U/L (15-37) Alanine Aminotransferase (ALT/SGPT) 115U/L (16-63) Alkaline Phosphatase 118U/L (46-116) Creatine Kinase 41U/L (39-308) Creatine Kinase MB (Mass) < 0.5ng/mL (0.0-3.6) Creatine Kinase MB Relative Index % (0-4) Troponin I Quantitative < 0.017ng/mL (0.000-0.055) XF-Ewz-P-Type Natriuretic Peptide 26pg/mL (0-124) Total Protein 8.2g/dL (6.4-8.2) Albumin 2.6g/dL (3.4-5.0) Albumin/Globulin Ratio 0.5 (1.0-1.7) Influenza Type A Antigen Negative (NEGATIVE) Influenza Type B Antigen Negative (NEGATIVE) Nasal Screen MRSA (PCR) Negative (Negative) Glucose (Fingerstick) 206mg/dL (70-99) Test 12/05/16 04:15 12/05/16 05:05 12/05/16 06:40 12/05/16 20:34 White Blood Count 10.1x10^3/uL (4.0-11.0) Red Blood Count 4.28x10^6/uL (4.30-5.70) Hemoglobin 12.0g/dL (13.0-17.5) Hematocrit 36.5% (39.0-53.0) Mean Corpuscular Volume 85fL (79-100) Mean Corpuscular Hemoglobin 28pg (25-35) Mean Corpuscular Hemoglobin Concent 33g/dL (31-37) Red Cell Distribution Width 15.8% (11.5-14.5) Platelet Count 208x10^3/uL (140-400) Neutrophils (%) (Auto) 94% (31-73) Lymphocytes (%) (Auto) 4% (24-48) Monocytes (%) (Auto) 2% (0-9) Eosinophils (%) (Auto) 0% (0-3) Basophils (%) (Auto) 0% (0-3) Neutrophils # (Auto) 9.4x10^3uL (1.8-7.7) Lymphocytes # (Auto) 0.4x10^3/uL (1.0-4.8) Monocytes # (Auto) 0.2x10^3/uL (0.0-1.1) Eosinophils # (Auto) 0.0x10^3/uL (0.0-0.7) Basophils # (Auto) 0.0x10^3/uL (0.0-0.2) Segmented Neutrophils % 74% (35-66) Band Neutrophils % 18% (0-9) Lymphocytes % 6% (24-48) Monocytes % 2% (0-10) Platelet Estimate Adequate (ADEQUATE) Anisocytosis Slight Ovalocytes Few Sodium Level 145mmol/L (136-145) Potassium Level 4.5mmol/L (3.5-5.1) Chloride Level 107mmol/L (98-107) Carbon Dioxide Level 24mmol/L (21-32) Anion Gap 14 (6-14) Blood Urea Nitrogen 18mg/dL (8-26) Creatinine 1.0mg/dL (0.7-1.3) Estimated GFR (Cockcroft-Gault) 89.1 Glucose Level 149mg/dL (70-99) Calcium Level 9.6mg/dL (8.5-10.1) Glucose (Fingerstick) 158mg/dL (70-99) O2 Saturation 93% (92-99) Arterial Blood pH 7.09 (7.35-7.45) Arterial Blood pH (Temp corrected) 7.07 Arterial Blood pCO2 at Patient Temp 86mmHg (35-46) Arterial Blood pCO2 (Temp correct) 90mmHg Arterial Blood pO2 at Patient Temp 93mmHg (65-108) Arterial Blood pO2 (Temp corrected) 100mmHg Arterial Blood HCO3 25mmol/L (21-28) Arterial Blood Base Excess -6mmol/L (-3-3) Test 12/05/16 22:23 12/06/16 05:00 12/06/16 08:00 O2 Saturation 95% (92-99) 96% (92-99) Arterial Blood pH 7.43 (7.35-7.45) 7.52 (7.35-7.45) Arterial Blood pCO2 at Patient Temp 31mmHg (35-46) 30mmHg (35-46) Arterial Blood pO2 at Patient Temp 80mmHg (65-108) 75mmHg (65-108) Arterial Blood HCO3 20mmol/L (21-28) 24mmol/L (21-28) Arterial Blood Base Excess -3mmol/L (-3-3) 2mmol/L (-3-3) White Blood Count 16.1x10^3/uL (4.0-11.0) Red Blood Count 4.18x10^6/uL (4.30-5.70) Hemoglobin 11.7g/dL (13.0-17.5) Hematocrit 35.4% (39.0-53.0) Mean Corpuscular Volume 85fL (79-100) Mean Corpuscular Hemoglobin 28pg (25-35) Mean Corpuscular Hemoglobin Concent 33g/dL (31-37) Red Cell Distribution Width 16.6% (11.5-14.5) Platelet Count 216x10^3/uL (140-400) Neutrophils (%) (Auto) 92% (31-73) Lymphocytes (%) (Auto) 5% (24-48) Monocytes (%) (Auto) 4% (0-9) Eosinophils (%) (Auto) 0% (0-3) Basophils (%) (Auto) 0% (0-3) Neutrophils # (Auto) 14.7x10^3uL (1.8-7.7) Lymphocytes # (Auto) 0.8x10^3/uL (1.0-4.8) Monocytes # (Auto) 0.6x10^3/uL (0.0-1.1) Eosinophils # (Auto) 0.0x10^3/uL (0.0-0.7) Basophils # (Auto) 0.0x10^3/uL (0.0-0.2) Sodium Level 146mmol/L (136-145) Potassium Level 4.0mmol/L (3.5-5.1) Chloride Level 106mmol/L (98-107) Carbon Dioxide Level 29mmol/L (21-32) Anion Gap 11 (6-14) Blood Urea Nitrogen 24mg/dL (8-26) Creatinine 1.0mg/dL (0.7-1.3) Estimated GFR (Cockcroft-Gault) 89.1 BUN/Creatinine Ratio 24 (6-20) Glucose Level 170mg/dL (70-99) Calcium Level 9.7mg/dL (8.5-10.1) Total Bilirubin 0.5mg/dL (0.2-1.0) Aspartate Amino Transf (AST/SGOT) 85U/L (15-37) Alanine Aminotransferase (ALT/SGPT) 140U/L (16-63) Alkaline Phosphatase 115U/L (46-116) Total Protein 7.9g/dL (6.4-8.2) Albumin 2.6g/dL (3.4-5.0) Albumin/Globulin Ratio 0.5 (1.0-1.7) FiO2 40 Laboratory Tests Test 12/05/16 20:34 12/05/16 22:23 12/06/16 05:00 12/06/16 08:00 O2 Saturation 93% (92-99) 95% (92-99) 96% (92-99) Arterial Blood pH 7.09 (7.35-7.45) 7.43 (7.35-7.45) 7.52 (7.35-7.45) Arterial Blood pH (Temp corrected) 7.07 Arterial Blood pCO2 at Patient Temp 86mmHg (35-46) 31mmHg (35-46) 30mmHg (35-46) Arterial Blood pCO2 (Temp correct) 90mmHg Arterial Blood pO2 at Patient Temp 93mmHg (65-108) 80mmHg (65-108) 75mmHg (65-108) Arterial Blood pO2 (Temp corrected) 100mmHg Arterial Blood HCO3 25mmol/L (21-28) 20mmol/L (21-28) 24mmol/L (21-28) Arterial Blood Base Excess -6mmol/L (-3-3) -3mmol/L (-3-3) 2mmol/L (-3-3) White Blood Count 16.1x10^3/uL (4.0-11.0) Red Blood Count 4.18x10^6/uL (4.30-5.70) Hemoglobin 11.7g/dL (13.0-17.5) Hematocrit 35.4% (39.0-53.0) Mean Corpuscular Volume 85fL (79-100) Mean Corpuscular Hemoglobin 28pg (25-35) Mean Corpuscular Hemoglobin Concent 33g/dL (31-37) Red Cell Distribution Width 16.6% (11.5-14.5) Platelet Count 216x10^3/uL (140-400) Neutrophils (%) (Auto) 92% (31-73) Lymphocytes (%) (Auto) 5% (24-48) Monocytes (%) (Auto) 4% (0-9) Eosinophils (%) (Auto) 0% (0-3) Basophils (%) (Auto) 0% (0-3) Neutrophils # (Auto) 14.7x10^3uL (1.8-7.7) Lymphocytes # (Auto) 0.8x10^3/uL (1.0-4.8) Monocytes # (Auto) 0.6x10^3/uL (0.0-1.1) Eosinophils # (Auto) 0.0x10^3/uL (0.0-0.7) Basophils # (Auto) 0.0x10^3/uL (0.0-0.2) Sodium Level 146mmol/L (136-145) Potassium Level 4.0mmol/L (3.5-5.1) Chloride Level 106mmol/L (98-107) Carbon Dioxide Level 29mmol/L (21-32) Anion Gap 11 (6-14) Blood Urea Nitrogen 24mg/dL (8-26) Creatinine 1.0mg/dL (0.7-1.3) Estimated GFR (Cockcroft-Gault) 89.1 BUN/Creatinine Ratio 24 (6-20) Glucose Level 170mg/dL (70-99) Calcium Level 9.7mg/dL (8.5-10.1) Total Bilirubin 0.5mg/dL (0.2-1.0) Aspartate Amino Transf (AST/SGOT) 85U/L (15-37) Alanine Aminotransferase (ALT/SGPT) 140U/L (16-63) Alkaline Phosphatase 115U/L (46-116) Total Protein 7.9g/dL (6.4-8.2) Albumin 2.6g/dL (3.4-5.0) Albumin/Globulin Ratio 0.5 (1.0-1.7) FiO2 40 Medications Active Scripts Medications Dose Route/Sig Days Date Category Acetaminophen 325 Mg Tablet 325 Mg PEG PRN Q6HRS PRN 12/04/16 Reported Chlorhexidine Gluconate 473 Ml Mouthwash 473 Ml MM TID 12/04/16 Reported Glucose (Dextrose) 1 Each Tab.chew 1 Each PO PRN PRN 12/04/16 Reported Protonix (Pantoprazole Sodium) 40 Mg Granpkt.dr 40 Mg PEG DAILY 12/04/16 Reported Humalog (Insulin Lispro) 100 Unit/1 Ml Cartridge Unknown Dose SQ 12/04/16 Reported Hydrocodone-Apap 5-325 (Hydrocodone Bit/Acetaminophen) 1 Each Tablet 1 Tab PEG PRN Q6HRS PRN 11/21/16 Reported Enoxaparin Sodium 40 Mg/0.4 Ml Disp.syrin 40 Mg SQ 11/19/16 Reported Amlodipine Besylate 5 Mg Tablet 5 Mg PEG DAILY 11/06/16 Reported Impression . 1. Acute hypoxic/ hypercapnic respiratory failure secondary to diffuse purulent mucus plug with significant collapse of the distal trachea and left mainstem bronchus. He is s/p therapeutic bronchoscopy 2. Diffuse pneumonia. 3. Aphasia with inability to clear secretions. 4. Dysphagia. Plan . 1. Try off BIPAP 2. BS antibiotic. 3. Follow bronchoscopy cultures 4. Continue DuoNebs. 5. Continue to taper steroids. 6. Need to address advance directives. poor prognosis MAT KEARNS MD Dec 06, 2016 11:57
--- NOTE | 2016-12-06 12:31 | CONS ---
DATE OF CONSULTATION: 12/05/2016 REQUESTING PHYSICIAN: Vidal Ren MD. REASON FOR CONSULTATION: Neurosyphilis and postobstructive pneumonia. HISTORY OF PRESENT ILLNESS: The patient is a 71-year-old -[place]wegian gentleman with dementia who was transferred to [facility] ER from the long term for hypoxia. A CT of the chest showed no evidence of pulmonary emboli. However, extensive inflammatory debris in the trachea and left bronchial tree with moderate associated pneumonitis in the left lower and upper lobes noted. Left lower lobe consolidation improved since 11/06/2016 while the left upper lobe infiltrates were worsened slightly. The possibility of underlining tumor at the left hilum could not be excluded. He was seen by pulmonology and underwent a bronchoscopy. Diffuse mucous plug and mucoid purulent secretions nearly completely occluded both the lungs. Secretions were removed. Cultures were sent. Gram-negative rods seen on Gram stain. Vancomycin and piperacillin/tazobactam were initiated empirically. The patient is currently in the intensive care unit. Oxygen saturation improved on 5 liters of oxygen nasal cannula. He developed a low grade temperature of 100.4. He is aphasic. Additional history of present illness, past medical history and review of systems are unobtainable. He was recently hospitalized a couple weeks ago for sepsis and respiratory failure. At that time, he was on antibiotics consisting of vancomycin, meropenem and doxycycline, which were eventually weaned off. Cultures were negative. He has a history of latent syphilis. Recent RPR titer was 1-4. He had undergone a lumbar puncture on . CSF fluid, clear. Analysis unavailable. He did complete 5-day course of IV penicillin. PAST MEDICAL HISTORY: History of latent syphilis with recent completion of a 5-day course of IV penicillin. Dementia, aphasia, dysphagia. History of intervertebral disk disorder, urinary retention, atherosclerosis of aorta. PAST SURGICAL HISTORY: PEG tube placement. FAMILY HISTORY: Unable to obtain. SOCIAL HISTORY: halfway resident. ALLERGIES: No known drug allergies. CURRENT MEDICATIONS: Vancomycin, piperacillin/tazobactam, methylprednisolone. Other medications are available and have been reviewed on the NOV. REVIEW OF SYSTEMS: Unobtainable. PHYSICAL EXAMINATION: GENERAL: A thin -[place]wegian male, propped up in bed, in no apparent distress. VITAL SIGNS: Temperature is 97.8. T-max 100.4. Blood pressure 164/87, heart rate 106, respiratory rate 25, pulse oximetry is 97% on 5 L nasal cannula. Weight is 141 pounds. HEENT: Pupils equally round. Normal conjunctivae. Oral cavity, pharynx dry with buildup of secretions. NECK: Supple. LUNGS: Diminished aeration in the bases. Nonlabored. HEART: Normal S1 and S2. ABDOMEN: Soft, no grimace or guarding to palpation. EXTREMITIES: No gross edema or cyanosis. SKIN: Without rash. Warm to touch. NEUROLOGIC: Alert. Speech is mumbled. Does not follow commands. LABORATORY DATA: Today's WBC 6.1 from 6.4 on admission, hemoglobin 11.7, platelet count 216,000. Electrolytes are unremarkable. Creatinine 1.0, BUN 24, glucose 170. Lactic acid 1.2, total bilirubin 0.5, AST 85, ALT 140, albumin 2.6. MRSA screen negative. Influenza screen negative. Gram-negative rods on sputum gram stain. Recent chest x-ray shows progression of airspace and interstitial opacity of the left hemothorax, may be due to asymmetric pulmonary edema versus infiltrate. Chest CT per HPI. IMPRESSION: 1. Healthcare acquired pneumonia with gram-negative rods. 2. Fever. 3. Leukocytosis. 4. History of latent syphilis status post-treatment. 5. Acute respiratory failure status post bronchoscopy. 6. Dementia. PLAN: Continue the vancomycin and piperacillin/tazobactam. Await gram-negative rods' identification. Monitor WBC count, creatinine and temperature . Supportive care. Thank you, Dr. Ren, for asking us to participate in this patient's care. SHANNA FRANCIS MD DR: SAMREEN/andres JOB#: [id number] / [id number] CODEY
[2016-12-06 12:47] LABS: HCO3 ABG 26 mmol/L (21-28); PCO2 ABG 49 mmHg (35-46); PH ABG 7.35 (7.35-7.45); PO2 ABG 51 mmHg (65-108); SAT O2 ABG 83 % (92-99)
[2016-12-06 12:50] LABS: FIO2 ABG 100
[2016-12-06 19:41] LABS: PLT ESTIMATE ADEQUATE (ADEQUATE)
--- NOTE | 2016-12-06 22:12 | PN ---
DATE: SUBJECTIVE: The patient he has had bronchoscopy yesterday and was found to have diffuse mucus plugs and mucopurulent secretions clearly completely occluding both lungs. Therapeutic bronchoscope was performed and all secretions were removed. They were very purulent and consistent with pneumonia. Broad spectrum antibiotics were initiated and the bronchoalveolar lavage was sent for culture and sensitivity. Unfortunately he went into severe hypoxic hypercapnic respiratory failure. His blood gases done around 10:30 in the last night showed a pH of 7.01. His pCO2 was 86 and pO2 was 90. The patient was transferred to the ICU and was started on BiPAP machine and his blood gases have improved. His pH was 7.43, pCO2 came down to 31 and pO2 was 80 and oxygen saturation was 95% on FIO2 of 40%. The patient is extremely weak and has difficulty clearing his secretions. I spoke to his daughter Frida and recommended palliative care and hospice care. She seems to be receptive to the idea and I advised her that she can come to the ICU. I can explain to her and show her the picture of his CT scans and that we feel that the palliative or hospice care will be more appropriate for him given that his weakness is unfixable. PHYSICAL EXAMINATION: GENERAL: When I examined him this afternoon, he was resting slightly propped up in bed, clearly tachypneic, tachycardic. VITAL SIGNS: His heart rate was 127, blood pressure was 192/89, temperature was 97.7, respiratory rate was 22 and oxygen saturation was 95% on FiO2 of 40% on BiPAP machine. HEAD, EYES, EARS, NOSE AND THROAT: Showed normocephalic, atraumatic. NECK: Supple. HEART: Showed normal first and second heart sounds with no gallop, rub or murmur. CHEST: Clear to auscultation. No crepitation or rhonchi. ABDOMEN: Distended, soft, nontender. No guarding or rigidity. No organomegaly. All hernial orifices intact. Bowel sounds normal. NEUROLOGIC: He was awake, alert, responding appropriately. Cranial nerves intact. He moves all extremities; however, is mostly bed bound. His intake over the last 24 hours was 915, output was 1118. LABORATORY DATA: This morning showed that his serum sodium was 146, potassium 4, chloride 106, bicarbonate 29, anion gap of 11, BUN 24, creatinine 1, estimated GFR was 89 mL per minute. His glucose was 170, calcium was 9.7. Total bilirubin and alkaline phosphatase normal. AST, ALT elevated. Total protein was 7.9, albumin 2.6. His white cell count was 16,000, hemoglobin 11, hematocrit 35, MCV 85 and platelet count of 216,000. ASSESSMENT: The patient developed acute hypoxic hypercapnic respiratory failure growing gram-negative rods. He has marked leukocytosis with steroids, history of latent syphilis. He is status post bronchoscopy and bronchoalveolar lavage during which thick purulent secretions were recovered and sent for culture and sensitivity. He has aphasia and dysphagia, severe cognitive impairment. He is status post PEG tube placement. PLAN: To continue with the BiPAP machine, continue with vancomycin and Zosyn. I did speak with his daughter and recommended that he should be on palliative care. She has not made up her mind, but she will discuss it with her family. LILIANA ENCINAS MD DR: MAI/andres JOB#: [id number] / [id number]
[2016-12-07] VITALS (23 sets, daily range): BP systolic 103–192; BP diastolic 57–94
[2016-12-07] MEDS: PIPERACILLIN/TAZOBACTAM 4.5 GM in IV NORMAL SALINE 100ML 100 ML IV SCH ×5 (00:41→22:53)
[2016-12-07] MEDS: methylPREDNISolone SOD SUCC PF 125 MG/2 ML VIAL. IV SCH ×5 (00:41→22:53)
[2016-12-07 04:20] LABS: BASO % 0 % (0-3); EOS % 0 % (0-3); HEMATOCRIT 28.8 % (39.0-53.0); HEMOGLOBIN 9.3 g/dL (13.0-17.5); LYMPH # 0.5 x10^3/uL (1.0-4.8); LYMPH % 4 % (24-48); MEAN CORPUSCULAR HEMOGLOBIN 28 pg (25-35); MEAN CORPUSCULAR HGB CONC 32 g/dL (31-37); MEAN CORPUSCULAR VOLUME 86 fL (79-100); MONO % 8 % (0-9); NEUT % 88 % (31-73); PLATELET COUNT 172 x10^3/uL (140-400); RED BLOOD COUNT 3.36 x10^6/uL (4.30-5.70); RED CELL DISTRIBUTION WIDTH 16.4 % (11.5-14.5); WHITE BLOOD COUNT 12.1 x10^3/uL (4.0-11.0)
[2016-12-07 04:41] LABS: ALBUMIN 2.1 g/dL (3.4-5.0); ALBUMIN/GLOBULIN RATIO 0.5 (1.0-1.7); GFR 89.1; POTASSIUM 3.9 mmol/L (3.5-5.1); TOTAL BILIRUBIN 0.3 mg/dL (0.2-1.0); TOTAL PROTEIN 6.5 g/dL (6.4-8.2)
[2016-12-07] MEDS: VANCOMYCIN 1 GM in IV NORMAL SALINE 250ML 250 ML IV SCH (04:49)
[2016-12-07] MEDS: VANCOMYCIN PER PHARMACY MC PRN (05:13)
[2016-12-07] MEDS: IPRATRPIUM/ALBUTEROL 0.5/2.5MG 3 ML NEBU. NEB SCH ×4 (08:01→20:33)
[2016-12-07 09:20] LABS: HCO3 ABG 25 mmol/L (21-28); PCO2 ABG 35 mmHg (35-46); PO2 ABG 98 mmHg (65-108); SAT O2 ABG 97 % (92-99)
[2016-12-07 09:21] LABS: FIO2 ABG 40; PH ABG 7.48 (7.35-7.45)
--- NOTE | 2016-12-07 11:10 | PDOC ---
PULMONARY PROGRESS NOTES Subjective Off BIPAP this am Vitals Vital Signs Date Time Temp Pulse Resp B/P Pulse Ox O2 Delivery O2 Flow Rate FiO2 12/07/16 09:00 77 22 123/66 99 BiPAP/CPAP 12/07/16 08:00 97.4 97.4 12/06/16 12:00 10.0 General: No acute distress, Confused HEENT: Other Lungs: Other (rhonchi ant) Cardiovascular: S1 Abdomen: Soft, Non-tender, Other Extremities: No Edema Skin: Warm Labs Laboratory Tests Test 12/05/16 20:34 12/05/16 22:23 12/06/16 05:00 12/06/16 08:00 O2 Saturation 93% (92-99) 95% (92-99) 96% (92-99) Arterial Blood pH 7.09 (7.35-7.45) 7.43 (7.35-7.45) 7.52 (7.35-7.45) Arterial Blood pH (Temp corrected) 7.07 Arterial Blood pCO2 at Patient Temp 86mmHg (35-46) 31mmHg (35-46) 30mmHg (35-46) Arterial Blood pCO2 (Temp correct) 90mmHg Arterial Blood pO2 at Patient Temp 93mmHg (65-108) 80mmHg (65-108) 75mmHg (65-108) Arterial Blood pO2 (Temp corrected) 100mmHg Arterial Blood HCO3 25mmol/L (21-28) 20mmol/L (21-28) 24mmol/L (21-28) Arterial Blood Base Excess -6mmol/L (-3-3) -3mmol/L (-3-3) 2mmol/L (-3-3) White Blood Count 16.1x10^3/uL (4.0-11.0) Red Blood Count 4.18x10^6/uL (4.30-5.70) Hemoglobin 11.7g/dL (13.0-17.5) Hematocrit 35.4% (39.0-53.0) Mean Corpuscular Volume 85fL (79-100) Mean Corpuscular Hemoglobin 28pg (25-35) Mean Corpuscular Hemoglobin Concent 33g/dL (31-37) Red Cell Distribution Width 16.6% (11.5-14.5) Platelet Count 216x10^3/uL (140-400) Neutrophils (%) (Auto) 92% (31-73) Lymphocytes (%) (Auto) 5% (24-48) Monocytes (%) (Auto) 4% (0-9) Eosinophils (%) (Auto) 0% (0-3) Basophils (%) (Auto) 0% (0-3) Neutrophils # (Auto) 14.7x10^3uL (1.8-7.7) Lymphocytes # (Auto) 0.8x10^3/uL (1.0-4.8) Monocytes # (Auto) 0.6x10^3/uL (0.0-1.1) Eosinophils # (Auto) 0.0x10^3/uL (0.0-0.7) Basophils # (Auto) 0.0x10^3/uL (0.0-0.2) Segmented Neutrophils % 73% (35-66) Band Neutrophils % 21% (0-9) Lymphocytes % 3% (24-48) Monocytes % 3% (0-10) Platelet Estimate Adequate (ADEQUATE) Large Platelets Few Sodium Level 146mmol/L (136-145) Potassium Level 4.0mmol/L (3.5-5.1) Chloride Level 106mmol/L (98-107) Carbon Dioxide Level 29mmol/L (21-32) Anion Gap 11 (6-14) Blood Urea Nitrogen 24mg/dL (8-26) Creatinine 1.0mg/dL (0.7-1.3) Estimated GFR (Cockcroft-Gault) 89.1 BUN/Creatinine Ratio 24 (6-20) Glucose Level 170mg/dL (70-99) Calcium Level 9.7mg/dL (8.5-10.1) Total Bilirubin 0.5mg/dL (0.2-1.0) Aspartate Amino Transf (AST/SGOT) 85U/L (15-37) Alanine Aminotransferase (ALT/SGPT) 140U/L (16-63) Alkaline Phosphatase 115U/L (46-116) Total Protein 7.9g/dL (6.4-8.2) Albumin 2.6g/dL (3.4-5.0) Albumin/Globulin Ratio 0.5 (1.0-1.7) FiO2 40 Test 3/11/17 12:31 12/07/16 04:15 12/07/16 08:38 O2 Saturation 83% (92-99) 97% (92-99) Arterial Blood pH 7.35 (7.35-7.45) 7.48 (7.35-7.45) Arterial Blood pCO2 at Patient Temp 49mmHg (35-46) 35mmHg (35-46) Arterial Blood pO2 at Patient Temp 51mmHg (65-108) 98mmHg (65-108) Arterial Blood HCO3 26mmol/L (21-28) 25mmol/L (21-28) Arterial Blood Base Excess 0mmol/L (-3-3) 2mmol/L (-3-3) FiO2 100 40 White Blood Count 12.1x10^3/uL (4.0-11.0) Red Blood Count 3.36x10^6/uL (4.30-5.70) Hemoglobin 9.3g/dL (13.0-17.5) Hematocrit 28.8% (39.0-53.0) Mean Corpuscular Volume 86fL (79-100) Mean Corpuscular Hemoglobin 28pg (25-35) Mean Corpuscular Hemoglobin Concent 32g/dL (31-37) Red Cell Distribution Width 16.4% (11.5-14.5) Platelet Count 172x10^3/uL (140-400) Neutrophils (%) (Auto) 88% (31-73) Lymphocytes (%) (Auto) 4% (24-48) Monocytes (%) (Auto) 8% (0-9) Eosinophils (%) (Auto) 0% (0-3) Basophils (%) (Auto) 0% (0-3) Neutrophils # (Auto) 10.6x10^3uL (1.8-7.7) Lymphocytes # (Auto) 0.5x10^3/uL (1.0-4.8) Monocytes # (Auto) 1.0x10^3/uL (0.0-1.1) Eosinophils # (Auto) 0.0x10^3/uL (0.0-0.7) Basophils # (Auto) 0.0x10^3/uL (0.0-0.2) Sodium Level 146mmol/L (136-145) Potassium Level 3.9mmol/L (3.5-5.1) Chloride Level 111mmol/L (98-107) Carbon Dioxide Level 29mmol/L (21-32) Anion Gap 6 (6-14) Blood Urea Nitrogen 31mg/dL (8-26) Creatinine 1.0mg/dL (0.7-1.3) Estimated GFR (Cockcroft-Gault) 89.1 BUN/Creatinine Ratio 31 (6-20) Glucose Level 236mg/dL (70-99) Calcium Level 9.0mg/dL (8.5-10.1) Total Bilirubin 0.3mg/dL (0.2-1.0) Aspartate Amino Transf (AST/SGOT) 91U/L (15-37) Alanine Aminotransferase (ALT/SGPT) 151U/L (16-63) Alkaline Phosphatase 95U/L (46-116) Total Protein 6.5g/dL (6.4-8.2) Albumin 2.1g/dL (3.4-5.0) Albumin/Globulin Ratio 0.5 (1.0-1.7) Vancomycin Level Trough 13.4mcg/mL (10.0-20.0) Vancomycin Last Dose Date [id number] Vancomycin Last Dose Time 1630 Laboratory Tests Test 12/06/16 12:31 12/07/16 04:15 12/07/16 08:38 O2 Saturation 83% (92-99) 97% (92-99) Arterial Blood pH 7.35 (7.35-7.45) 7.48 (7.35-7.45) Arterial Blood pCO2 at Patient Temp 49mmHg (35-46) 35mmHg (35-46) Arterial Blood pO2 at Patient Temp 51mmHg (65-108) 98mmHg (65-108) Arterial Blood HCO3 26mmol/L (21-28) 25mmol/L (21-28) Arterial Blood Base Excess 0mmol/L (-3-3) 2mmol/L (-3-3) FiO2 100 40 White Blood Count 12.1x10^3/uL (4.0-11.0) Red Blood Count 3.36x10^6/uL (4.30-5.70) Hemoglobin 9.3g/dL (13.0-17.5) Hematocrit 28.8% (39.0-53.0) Mean Corpuscular Volume 86fL (79-100) Mean Corpuscular Hemoglobin 28pg (25-35) Mean Corpuscular Hemoglobin Concent 32g/dL (31-37) Red Cell Distribution Width 16.4% (11.5-14.5) Platelet Count 172x10^3/uL (140-400) Neutrophils (%) (Auto) 88% (31-73) Lymphocytes (%) (Auto) 4% (24-48) Monocytes (%) (Auto) 8% (0-9) Eosinophils (%) (Auto) 0% (0-3) Basophils (%) (Auto) 0% (0-3) Neutrophils # (Auto) 10.6x10^3uL (1.8-7.7) Lymphocytes # (Auto) 0.5x10^3/uL (1.0-4.8) Monocytes # (Auto) 1.0x10^3/uL (0.0-1.1) Eosinophils # (Auto) 0.0x10^3/uL (0.0-0.7) Basophils # (Auto) 0.0x10^3/uL (0.0-0.2) Sodium Level 146mmol/L (136-145) Potassium Level 3.9mmol/L (3.5-5.1) Chloride Level 111mmol/L (98-107) Carbon Dioxide Level 29mmol/L (21-32) Anion Gap 6 (6-14) Blood Urea Nitrogen 31mg/dL (8-26) Creatinine 1.0mg/dL (0.7-1.3) Estimated GFR (Cockcroft-Gault) 89.1 BUN/Creatinine Ratio 31 (6-20) Glucose Level 236mg/dL (70-99) Calcium Level 9.0mg/dL (8.5-10.1) Total Bilirubin 0.3mg/dL (0.2-1.0) Aspartate Amino Transf (AST/SGOT) 91U/L (15-37) Alanine Aminotransferase (ALT/SGPT) 151U/L (16-63) Alkaline Phosphatase 95U/L (46-116) Total Protein 6.5g/dL (6.4-8.2) Albumin 2.1g/dL (3.4-5.0) Albumin/Globulin Ratio 0.5 (1.0-1.7) Vancomycin Level Trough 13.4mcg/mL (10.0-20.0) Vancomycin Last Dose Date Vancomycin Last Dose Time 163 Medications Active Scripts Medications Dose Route/Sig Days Date Category Acetaminophen 325 Mg Tablet 325 Mg PEG PRN Q6HRS PRN 12/04/16 Reported Chlorhexidine Gluconate 473 Ml Mouthwash 473 Ml MM TID 12/04/16 Reported Glucose (Dextrose) 1 Each Tab.chew 1 Each PO PRN PRN 12/04/16 Reported Protonix (Pantoprazole Sodium) 40 Mg Granpkt.dr 40 Mg PEG DAILY 12/04/16 Reported Humalog (Insulin Lispro) 100 Unit/1 Ml Cartridge Unknown Dose SQ 12/04/16 Reported Hydrocodone-Apap 5-325 (Hydrocodone Bit/Acetaminophen) 1 Each Tablet 1 Tab PEG PRN Q6HRS PRN 11/21/16 Reported Enoxaparin Sodium 40 Mg/0.4 Ml Disp.syrin 40 Mg SQ 11/19/16 Reported Amlodipine Besylate 5 Mg Tablet 5 Mg PEG DAILY 11/06/16 Reported Impression . 1. Acute hypoxic/ hypercapnic respiratory failure secondary to diffuse purulent mucus plug/ pneumonia with significant collapse of the distal trachea and left mainstem bronchus by secretions. He is s/p therapeutic bronchoscopy 2. Diffuse pneumonia. 3. Aphasia with inability to clear secretions. 4. Dysphagia. Plan . 1. off BIPAP/ VM 2. BS antibiotic. 3. Follow bronchoscopy cultures/ GRAM NEG RODS 4. Continue DuoNebs. 5. Continue to taper steroids. 6. Need to address advance directives. poor prognosis consult palliative care in am to determine goals of care MTA KEARNS MD Dec 07, 2016 11:10
--- NOTE | 2016-12-07 12:35 | PDOC ---
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 SKIN: No rash IV: ok Labs Lab Laboratory Tests Test 12/07/16 04:15 12/07/16 08:38 White Blood Count 12.1x10^3/uL (4.0-11.0) Red Blood Count 3.36x10^6/uL (4.30-5.70) Hemoglobin 9.3g/dL (13.0-17.5) Hematocrit 28.8% (39.0-53.0) Mean Corpuscular Volume 86fL (79-100) Mean Corpuscular Hemoglobin 28pg (25-35) Mean Corpuscular Hemoglobin Concent 32g/dL (31-37) Red Cell Distribution Width 16.4% (11.5-14.5) Platelet Count 172x10^3/uL (140-400) Neutrophils (%) (Auto) 88% (31-73) Lymphocytes (%) (Auto) 4% (24-48) Monocytes (%) (Auto) 8% (0-9) Eosinophils (%) (Auto) 0% (0-3) Basophils (%) (Auto) 0% (0-3) Neutrophils # (Auto) 10.6x10^3uL (1.8-7.7) Lymphocytes # (Auto) 0.5x10^3/uL (1.0-4.8) Monocytes # (Auto) 1.0x10^3/uL (0.0-1.1) Eosinophils # (Auto) 0.0x10^3/uL (0.0-0.7) Basophils # (Auto) 0.0x10^3/uL (0.0-0.2) Sodium Level 146mmol/L (136-145) Potassium Level 3.9mmol/L (3.5-5.1) Chloride Level 111mmol/L (98-107) Carbon Dioxide Level 29mmol/L (21-32) Anion Gap 6 (6-14) Blood Urea Nitrogen 31mg/dL (8-26) Creatinine 1.0mg/dL (0.7-1.3) Estimated GFR (Cockcroft-Gault) 89.1 BUN/Creatinine Ratio 31 (6-20) Glucose Level 236mg/dL (70-99) Calcium Level 9.0mg/dL (8.5-10.1) Total Bilirubin 0.3mg/dL (0.2-1.0) Aspartate Amino Transf (AST/SGOT) 91U/L (15-37) Alanine Aminotransferase (ALT/SGPT) 151U/L (16-63) Alkaline Phosphatase 95U/L (46-116) Total Protein 6.5g/dL (6.4-8.2) Albumin 2.1g/dL (3.4-5.0) Albumin/Globulin Ratio 0.5 (1.0-1.7) Vancomycin Level Trough 13.4mcg/mL (10.0-20.0) Vancomycin Last Dose Date Vancomycin Last Dose Time 1630 O2 Saturation 97% (92-99) Arterial Blood pH 7.48 (7.35-7.45) Arterial Blood pCO2 at Patient Temp 35mmHg (35-46) Arterial Blood pO2 at Patient Temp 98mmHg (65-108) Arterial Blood HCO3 25mmol/L (21-28) Arterial Blood Base Excess 2mmol/L (-3-3) FiO2 40 Objective Assessment HCAP. GNR Fever Leukocytosis, on steroids - better h/o latent syphilis. -Recently finished IV PCN Acute respiratory failure - refusing Bipap - states he wants to go home -s/p bronch/BAL 12/05. Thick purulent secretions Dementia PEG Plan Plan of Care Discont Vanc now Cont Zosyn Await GNR ID Monitor WBC, Cr and temp Supportive care D/w SHANNA Dunbar MD Dec 07, 2016 12:35
[2016-12-07] MEDS: hydrALAZINE 20 MG/ML VIAL. IVP PRN (15:40)
[2016-12-07] MEDS ORDERED: VANCOMYCIN 1.25 GM in IV NORMAL SALINE 250ML 250 ML IV SCH (16:30)
[2016-12-07] MEDS: HYDROCODONE/APAP 7.5/325MG ORAL 15 ML SOLUTION. PEG PRN ×2 (16:46→22:54)
--- NOTE | 2016-12-07 23:34 | PN ---
DATE: 12/06/2016 SUBJECTIVE: The patient is resting slightly propped up in bed, in no apparent respiratory distress. He was on BiPAP overnight and he was switched to a facemask and it also was not tolerated by him and he is now on nasal cannula. PHYSICAL EXAMINATION: GENERAL: On examining him, he looked well and was clearly in no apparent respiratory distress, pale, cachectic, but no jaundice, cyanosis or thyromegaly. No jugular venous distention. No limb edema. VITAL SIGNS: His heart rate was 77, blood pressure was 123/66, temperature was 97.4, respiratory rate was 22. His oxygen saturation was 99% on FiO2 at 40% with a facemask. HEAD, EYES, EARS, NOSE AND THROAT: Showed normocephalic, atraumatic. NECK: Supple. HEART: Showed normal first and second heart sounds with no gallop, rub or murmur. CHEST: Clear to auscultation. No crepitation or rhonchi. ABDOMEN: Distended, soft, nontender. No guarding or rigidity. No organomegaly. Hernial orifices intact. Bowel sounds normal. NEUROLOGIC: Awake, alert, is dysarthric. All his cranial nerves are intact, has marked muscle wasting and weakness, is mostly bed bound. His intake over the last 24 hours was 1150, output was 1180. LABORATORY WORK: Showed a white cell count of 12,100, hemoglobin 9.3, hematocrit 29, MCV 86 and platelet count of 172,000. His chemistry showed a serum sodium 146, potassium 3.9, chloride 111, bicarbonate 29, anion gap of 6, BUN 31, creatinine 1, estimated GFR was 89 mL per minute. His glucose was 236, calcium was 9. Total bilirubin and alkaline phosphatase normal. AST, ALT were slightly elevated, pH was 7.48, pCO2 of 35, pO2 of 98, bicarbonate 25, oxygen saturation was 97% on FiO2 of 40%. His sputum culture has grown gram-negative rods. The identification and sensitivity is still pending. PLAN: To continue with oxygen supplementation, BiPAP machine and continue with Zosyn, continue with steroids and inhalers, will consult the palliative care team to discuss with the family the option of hospice care and palliative care. LILIANA ENCINAS MD DR: MAI/andres JOB#: [id number] / [id number]
[2016-12-08] VITALS (24 sets, daily range): BP systolic 132–181; BP diastolic 59–92
[2016-12-08] MEDS: PIPERACILLIN/TAZOBACTAM 4.5 GM in IV NORMAL SALINE 100ML 100 ML IV SCH ×3 (04:52→18:22)
[2016-12-08] MEDS: methylPREDNISolone SOD SUCC PF 125 MG/2 ML VIAL. IV SCH ×3 (04:52→18:22)
[2016-12-08 05:30] LABS: BASO % 0 % (0-3); EOS % 0 % (0-3); HEMATOCRIT 32.4 % (39.0-53.0); HEMOGLOBIN 10.3 g/dL (13.0-17.5); LYMPH # 0.5 x10^3/uL (1.0-4.8); LYMPH % 4 % (24-48); MEAN CORPUSCULAR HEMOGLOBIN 27 pg (25-35); MEAN CORPUSCULAR HGB CONC 32 g/dL (31-37); MEAN CORPUSCULAR VOLUME 86 fL (79-100); MONO % 7 % (0-9); NEUT % 90 % (31-73); PLATELET COUNT 210 x10^3/uL (140-400); RED BLOOD COUNT 3.76 x10^6/uL (4.30-5.70); RED CELL DISTRIBUTION WIDTH 16.3 % (11.5-14.5)
[2016-12-08 05:48] LABS: ALBUMIN 2.2 g/dL (3.4-5.0); ALBUMIN/GLOBULIN RATIO 0.5 (1.0-1.7); CALCIUM 9.1 mg/dL (8.5-10.1); CREATININE 0.8 mg/dL (0.7-1.3); GFR 115.3; MAGNESIUM 2.3 mg/dL (1.8-2.4); TOTAL BILIRUBIN 0.3 mg/dL (0.2-1.0); TOTAL PROTEIN 6.7 g/dL (6.4-8.2)
[2016-12-08] MEDS: IPRATRPIUM/ALBUTEROL 0.5/2.5MG 3 ML NEBU. NEB SCH ×4 (07:44→18:38)
[2016-12-08 08:02] LABS: HCO3 ABG 28 mmol/L (21-28); PCO2 ABG 39 mmHg (35-46); PH ABG 7.48 (7.35-7.45); PO2 ABG 152 mmHg (65-108); SAT O2 ABG 99 % (92-99)
--- NOTE | 2016-12-08 08:02 | PDOC ---
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 SKIN: No rash IV: ok Labs Lab Laboratory Tests Test 12/07/16 08:38 12/08/16 04:25 12/08/16 04:50 O2 Saturation 97% (92-99) Arterial Blood pH 7.48 (7.35-7.45) Arterial Blood pCO2 at Patient Temp 35mmHg (35-46) Arterial Blood pO2 at Patient Temp 98mmHg (65-108) Arterial Blood HCO3 25mmol/L (21-28) Arterial Blood Base Excess 2mmol/L (-3-3) FiO2 40 White Blood Count 12.0x10^3/uL (4.0-11.0) Red Blood Count 3.76x10^6/uL (4.30-5.70) Hemoglobin 10.3g/dL (13.0-17.5) Hematocrit 32.4% (39.0-53.0) Mean Corpuscular Volume 86fL (79-100) Mean Corpuscular Hemoglobin 27pg (25-35) Mean Corpuscular Hemoglobin Concent 32g/dL (31-37) Red Cell Distribution Width 16.3% (11.5-14.5) Platelet Count 210x10^3/uL (140-400) Neutrophils (%) (Auto) 90% (31-73) Lymphocytes (%) (Auto) 4% (24-48) Monocytes (%) (Auto) 7% (0-9) Eosinophils (%) (Auto) 0% (0-3) Basophils (%) (Auto) 0% (0-3) Neutrophils # (Auto) 10.7x10^3uL (1.8-7.7) Lymphocytes # (Auto) 0.5x10^3/uL (1.0-4.8) Monocytes # (Auto) 0.8x10^3/uL (0.0-1.1) Eosinophils # (Auto) 0.0x10^3/uL (0.0-0.7) Basophils # (Auto) 0.0x10^3/uL (0.0-0.2) Sodium Level 151mmol/L (136-145) Potassium Level 4.0mmol/L (3.5-5.1) Chloride Level 114mmol/L (98-107) Carbon Dioxide Level 30mmol/L (21-32) Anion Gap 7 (6-14) Blood Urea Nitrogen 27mg/dL (8-26) Creatinine 0.8mg/dL (0.7-1.3) Estimated GFR (Cockcroft-Gault) 115.3 BUN/Creatinine Ratio 34 (6-20) Glucose Level 228mg/dL (70-99) Calcium Level 9.1mg/dL (8.5-10.1) Magnesium Level 2.3mg/dL (1.8-2.4) Total Bilirubin 0.3mg/dL (0.2-1.0) Aspartate Amino Transf (AST/SGOT) 75U/L (15-37) Alanine Aminotransferase (ALT/SGPT) 181U/L (16-63) Alkaline Phosphatase 93U/L (46-116) Total Protein 6.7g/dL (6.4-8.2) Albumin 2.2g/dL (3.4-5.0) Albumin/Globulin Ratio 0.5 (1.0-1.7) Micro Serratia marcescens Heavy growth SPUTUM CULT RES 2 Final Proteus mirabilis Light growth ANTIMICROBIAL SUSCEPTIBILITY Final Comment S = Susceptible; I = Intermediate; R = Resistant P = Positive; N = Negative MICS are expressed in micrograms per mL Antibiotic RSLT#1 RSLT#2 RSLT#3 RSLT#4 Amikacin S Amoxicillin/Clavulanic Acid S Ampicillin S Cefepime S S Cefotaxime S Ceftazidime S Ceftriaxone S S Cefuroxime S Ciprofloxacin S S Ertapenem S Gentamicin S S Imipenem S Levofloxacin S S Meropenem S Piperacillin S S Tetracycline S R Ticarcillin S Tigecycline S Tobramycin S S Objective Assessment HCAP. Serratia/Proteus 12/05 Fever Leukocytosis, on steroids - better h/o latent syphilis. -Recently finished IV PCN Acute respiratory failure - on Bipap - states he wants to go home -s/p bronch/BAL 12/05. Thick purulent secretions Dementia PEG Hypernatremia Plan Plan of Care Cont Zosyn Monitor WBC, Cr and temp Supportive care ? Palliative SHANNA Avelar MD Dec 08, 2016 08:02
[2016-12-08 08:47] LABS: FIO2 ABG 60
[2016-12-08] MEDS: HYDROCODONE/APAP 7.5/325MG ORAL 15 ML SOLUTION. PEG PRN (10:38)
--- NOTE | 2016-12-08 10:42 | PDOC ---
PULMONARY PROGRESS NOTES Subjective Off BIPAP this am Vitals Vital Signs Date Time Temp Pulse Resp B/P Pulse Ox O2 Delivery O2 Flow Rate FiO2 12/08/16 10:38 40 BiPAP/CPAP 12/08/16 10:00 88 30 181/92 12/08/16 08:07 4.0 12/08/16 04:00 98.2 98.2 General: No acute distress HEENT: Other Lungs: Crackles Cardiovascular: S1 Abdomen: Soft, Non-tender, Other Extremities: No Edema Skin: Warm Labs Laboratory Tests Test 12/06/16 12:31 12/07/16 04:15 12/07/16 08:38 12/08/16 04:25 O2 Saturation 83% (92-99) 97% (92-99) Arterial Blood pH 7.35 (7.35-7.45) 7.48 (7.35-7.45) Arterial Blood pCO2 at Patient Temp 49mmHg (35-46) 35mmHg (35-46) Arterial Blood pO2 at Patient Temp 51mmHg (65-108) 98mmHg (65-108) Arterial Blood HCO3 26mmol/L (21-28) 25mmol/L (21-28) Arterial Blood Base Excess 0mmol/L (-3-3) 2mmol/L (-3-3) FiO2 100 40 White Blood Count 12.1x10^3/uL (4.0-11.0) 12.0x10^3/uL (4.0-11.0) Red Blood Count 3.36x10^6/uL (4.30-5.70) 3.76x10^6/uL (4.30-5.70) Hemoglobin 9.3g/dL (13.0-17.5) 10.3g/dL (13.0-17.5) Hematocrit 28.8% (39.0-53.0) 32.4% (39.0-53.0) Mean Corpuscular Volume 86fL (79-100) 86fL (79-100) Mean Corpuscular Hemoglobin 28pg (25-35) 27pg (25-35) Mean Corpuscular Hemoglobin Concent 32g/dL (31-37) 32g/dL (31-37) Red Cell Distribution Width 16.4% (11.5-14.5) 16.3% (11.5-14.5) Platelet Count 172x10^3/uL (140-400) 210x10^3/uL (140-400) Neutrophils (%) (Auto) 88% (31-73) 90% (31-73) Lymphocytes (%) (Auto) 4% (24-48) 4% (24-48) Monocytes (%) (Auto) 8% (0-9) 7% (0-9) Eosinophils (%) (Auto) 0% (0-3) 0% (0-3) Basophils (%) (Auto) 0% (0-3) 0% (0-3) Neutrophils # (Auto) 10.6x10^3uL (1.8-7.7) 10.7x10^3uL (1.8-7.7) Lymphocytes # (Auto) 0.5x10^3/uL (1.0-4.8) 0.5x10^3/uL (1.0-4.8) Monocytes # (Auto) 1.0x10^3/uL (0.0-1.1) 0.8x10^3/uL (0.0-1.1) Eosinophils # (Auto) 0.0x10^3/uL (0.0-0.7) 0.0x10^3/uL (0.0-0.7) Basophils # (Auto) 0.0x10^3/uL (0.0-0.2) 0.0x10^3/uL (0.0-0.2) Sodium Level 146mmol/L (136-145) Potassium Level 3.9mmol/L (3.5-5.1) Chloride Level 111mmol/L (98-107) Carbon Dioxide Level 29mmol/L (21-32) Anion Gap 6 (6-14) Blood Urea Nitrogen 31mg/dL (8-26) Creatinine 1.0mg/dL (0.7-1.3) Estimated GFR (Cockcroft-Gault) 89.1 BUN/Creatinine Ratio 31 (6-20) Glucose Level 236mg/dL (70-99) Calcium Level 9.0mg/dL (8.5-10.1) Total Bilirubin 0.3mg/dL (0.2-1.0) Aspartate Amino Transf (AST/SGOT) 91U/L (15-37) Alanine Aminotransferase (ALT/SGPT) 151U/L (16-63) Alkaline Phosphatase 95U/L (46-116) Total Protein 6.5g/dL (6.4-8.2) Albumin 2.1g/dL (3.4-5.0) Albumin/Globulin Ratio 0.5 (1.0-1.7) Vancomycin Level Trough 13.4mcg/mL (10.0-20.0) Vancomycin Last Dose Date [id number] Vancomycin Last Dose Time 1630 Test 12/08/16 04:50 12/08/16 07:40 Sodium Level 151mmol/L (136-145) Potassium Level 4.0mmol/L (3.5-5.1) Chloride Level 114mmol/L (98-107) Carbon Dioxide Level 30mmol/L (21-32) Anion Gap 7 (6-14) Blood Urea Nitrogen 27mg/dL (8-26) Creatinine 0.8mg/dL (0.7-1.3) Estimated GFR (Cockcroft-Gault) 115.3 BUN/Creatinine Ratio 34 (6-20) Glucose Level 228mg/dL (70-99) Calcium Level 9.1mg/dL (8.5-10.1) Magnesium Level 2.3mg/dL (1.8-2.4) Total Bilirubin 0.3mg/dL (0.2-1.0) Aspartate Amino Transf (AST/SGOT) 75U/L (15-37) Alanine Aminotransferase (ALT/SGPT) 181U/L (16-63) Alkaline Phosphatase 93U/L (46-116) Total Protein 6.7g/dL (6.4-8.2) Albumin 2.2g/dL (3.4-5.0) Albumin/Globulin Ratio 0.5 (1.0-1.7) O2 Saturation 99% (92-99) Arterial Blood pH 7.48 (7.35-7.45) Arterial Blood pCO2 at Patient Temp 39mmHg (35-46) Arterial Blood pO2 at Patient Temp 152mmHg (65-108) Arterial Blood HCO3 28mmol/L (21-28) Arterial Blood Base Excess 5mmol/L (-3-3) FiO2 60 Laboratory Tests Test 12/08/16 04:25 12/08/16 04:50 12/08/16 07:40 White Blood Count 12.0x10^3/uL (4.0-11.0) Red Blood Count 3.76x10^6/uL (4.30-5.70) Hemoglobin 10.3g/dL (13.0-17.5) Hematocrit 32.4% (39.0-53.0) Mean Corpuscular Volume 86fL (79-100) Mean Corpuscular Hemoglobin 27pg (25-35) Mean Corpuscular Hemoglobin Concent 32g/dL (31-37) Red Cell Distribution Width 16.3% (11.5-14.5) Platelet Count 210x10^3/uL (140-400) Neutrophils (%) (Auto) 90% (31-73) Lymphocytes (%) (Auto) 4% (24-48) Monocytes (%) (Auto) 7% (0-9) Eosinophils (%) (Auto) 0% (0-3) Basophils (%) (Auto) 0% (0-3) Neutrophils # (Auto) 10.7x10^3uL (1.8-7.7) Lymphocytes # (Auto) 0.5x10^3/uL (1.0-4.8) Monocytes # (Auto) 0.8x10^3/uL (0.0-1.1) Eosinophils # (Auto) 0.0x10^3/uL (0.0-0.7) Basophils # (Auto) 0.0x10^3/uL (0.0-0.2) Sodium Level 151mmol/L (136-145) Potassium Level 4.0mmol/L (3.5-5.1) Chloride Level 114mmol/L (98-107) Carbon Dioxide Level 30mmol/L (21-32) Anion Gap 7 (6-14) Blood Urea Nitrogen 27mg/dL (8-26) Creatinine 0.8mg/dL (0.7-1.3) Estimated GFR (Cockcroft-Gault) 115.3 BUN/Creatinine Ratio 34 (6-20) Glucose Level 228mg/dL (70-99) Calcium Level 9.1mg/dL (8.5-10.1) Magnesium Level 2.3mg/dL (1.8-2.4) Total Bilirubin 0.3mg/dL (0.2-1.0) Aspartate Amino Transf (AST/SGOT) 75U/L (15-37) Alanine Aminotransferase (ALT/SGPT) 181U/L (16-63) Alkaline Phosphatase 93U/L (46-116) Total Protein 6.7g/dL (6.4-8.2) Albumin 2.2g/dL (3.4-5.0) Albumin/Globulin Ratio 0.5 (1.0-1.7) O2 Saturation 99% (92-99) Arterial Blood pH 7.48 (7.35-7.45) Arterial Blood pCO2 at Patient Temp 39mmHg (35-46) Arterial Blood pO2 at Patient Temp 152mmHg (65-108) Arterial Blood HCO3 28mmol/L (21-28) Arterial Blood Base Excess 5mmol/L (-3-3) FiO2 60 Medications Active Scripts Medications Dose Route/Sig Days Date Category Acetaminophen 325 Mg Tablet 325 Mg PEG PRN Q6HRS PRN 12/04/16 Reported Chlorhexidine Gluconate 473 Ml Mouthwash 473 Ml MM TID 12/04/16 Reported Glucose (Dextrose) 1 Each Tab.chew 1 Each PO PRN PRN 12/04/16 Reported Protonix (Pantoprazole Sodium) 40 Mg Granpkt.dr 40 Mg PEG DAILY 12/04/16 Reported Humalog (Insulin Lispro) 100 Unit/1 Ml Cartridge Unknown Dose SQ 12/04/16 Reported Hydrocodone-Apap 5-325 (Hydrocodone Bit/Acetaminophen) 1 Each Tablet 1 Tab PEG PRN Q6HRS PRN 11/21/16 Reported Enoxaparin Sodium 40 Mg/0.4 Ml Disp.syrin 40 Mg SQ 11/19/16 Reported Amlodipine Besylate 5 Mg Tablet 5 Mg PEG DAILY 11/06/16 Reported Impression . 1. Acute hypoxic/ hypercapnic respiratory failure secondary to diffuse purulent mucus plug/ pneumonia with significant collapse of the distal trachea and left mainstem bronchus by secretions. He is s/p therapeutic bronchoscopy 2. Diffuse pneumonia. 3. Aphasia with inability to clear secretions. 4. Dysphagia. 5. Negative CT for PE Plan . Antibs per ID 1. off BIPAP/ VM 2. BS antibiotic. 3. Follow bronchoscopy cultures/ GRAM NEG RODS 4. Continue DuoNebs. 5. Continue to taper steroids. 6. Need to address advance directives. poor prognosis consult palliative care in am to determine goals of care HUSSEIN BREEN MD Dec 08, 2016 10:42
[2016-12-08] MEDS: hydrALAZINE 20 MG/ML VIAL. IVP PRN (11:45)
[2016-12-08] MEDS ORDERED: FAMOTIDINE 20 MG TABLET. PO SCH (12:00)
[2016-12-08] MEDS: FAMOTIDINE 20 MG/2 ML VIAL IVP SCH (12:15)
--- NOTE | 2016-12-08 13:26 | PDOC2 ---
PALLIATIVE CARE Palliative Care Note Palliative Care Consult requested by Dr Roman and Dr. Ren to address goals of care Diagnosis; Respiratory Failure--off Bipap Bronchoscopy with mucous plugging; pneumonia, aphasia, dysphagia Attempt to reach daughter Miguelina to arrange family meeting. Message to return call. STEPHEN BELCHER Dec 08, 2016 13:26
[2016-12-08] MEDS: DO NOT USE 40 MG/0.4 ML DISP.SYRIN SQ SCH (16:36)
[2016-12-09] VITALS (24 sets, daily range): BP systolic 116–224; BP diastolic 63–106
[2016-12-09] MEDS: PIPERACILLIN/TAZOBACTAM 4.5 GM in IV NORMAL SALINE 100ML 100 ML IV SCH ×6 (00:19→19:20)
[2016-12-09] MEDS: methylPREDNISolone SOD SUCC PF 125 MG/2 ML VIAL. IV SCH ×6 (00:19→19:20)
--- NOTE | 2016-12-09 01:07 | PN ---
DATE: SUBJECTIVE: The patient is resting slightly propped up on BiPAP machine, maintaining his oxygen saturation at 95% on FiO2 40%. PHYSICAL EXAMINATION: GENERAL: When I examined him this morning, he looked well and was clearly in no apparent respiratory distress. He was pale, extremely cachectic, but not jaundiced, cyanosis, or thyromegaly. No jugular venous distension. No limb edema. VITAL SIGNS: His heart rate was 88, blood pressure was 181/92, temperature was 97, respiratory rate was 20, and oxygen saturation was 95% on FiO2 of 40% on BiPAP. HEAD, EYES, EARS, NOSE AND THROAT: Showed normocephalic, atraumatic. NECK: Supple. HEART: Showed normal first and second heart sounds with no gallop, rub or murmur. CHEST: Clear to auscultation. No crepitation or rhonchi. ABDOMEN: Distended, soft, nontender. No guarding or rigidity. No organomegaly. All hernial orifices intact. Bowel sounds normal. NEUROLOGIC: He was awake, alert. He is extremely dysarthric and difficult to understand. He has marked muscle wasting and weakness. His intake was 1400, output was 1100. LABORATORY DATA: As of this morning, his serum sodium was 151, potassium 4, chloride 114, bicarbonate 30, anion gap of 7, BUN 27, creatinine 0.8, estimated GFR was 115 mL per minute. His glucose was 125, calcium was 9.1, magnesium was 2.3. Total bilirubin and alkaline phosphatase normal. AST, ALT are elevated. Total protein 6.7, albumin 2.2. His white cell count was 12,000, hemoglobin 10.3, hematocrit 32, MCV 86 and platelet count of 210,000. As of this morning, his pH was 7.48, pCO2 of 39, pO2 of 152, bicarbonate 28, and oxygen saturation was 99%. ASSESSMENT: 1. Healthcare-associated pneumonia with growth of Serratia, Proteus mirabilis from the bronchoalveolar lavage. 2. Acute respiratory failure, on BiPAP. He was admitted with severe hypoxia marked mucus plugging that was cleared by bronchoscopy, has dementia with dysphagia and dysarthria and ____ hypernatremia. PLAN: I will increase his water flushes and his daughter is coming, ____ have already consulted the palliative care team as his problem is unsolvable, this is the second time comes with large amount of mucus plugging causing severe hypoxic respiratory failure. LILIANA ENCINAS MD DR: MAI/andres JOB#: [id number] / [id number]
[2016-12-09] MEDS: hydrALAZINE 20 MG/ML VIAL. IVP PRN ×4 (02:36→21:29)
[2016-12-09 05:56] LABS: BASO % 0 % (0-3); EOS % 0 % (0-3); HEMATOCRIT 33.3 % (39.0-53.0); HEMOGLOBIN 10.5 g/dL (13.0-17.5); LYMPH # 0.2 x10^3/uL (1.0-4.8); LYMPH % 1 % (24-48); MEAN CORPUSCULAR HEMOGLOBIN 28 pg (25-35); MEAN CORPUSCULAR HGB CONC 31 g/dL (31-37); MEAN CORPUSCULAR VOLUME 87 fL (79-100); MONO % 10 % (0-9); NEUT % 89 % (31-73); PLATELET COUNT 229 x10^3/uL (140-400); RED BLOOD COUNT 3.81 x10^6/uL (4.30-5.70); RED CELL DISTRIBUTION WIDTH 16.5 % (11.5-14.5); WHITE BLOOD COUNT 14.2 x10^3/uL (4.0-11.0)
[2016-12-09 06:11] LABS: CALCIUM 9.3 mg/dL (8.5-10.1); CREATININE 0.8 mg/dL (0.7-1.3); GFR 115.3; MAGNESIUM 2.5 mg/dL (1.8-2.4); POTASSIUM 3.9 mmol/L (3.5-5.1)
--- NOTE | 2016-12-09 07:22 | PDOC ---
Infectious Disease Note Subjective Subjective States ok - on BiPAP ROS ROS Difficult to ascertain Vital Sign Vital Signs Vital Signs Date Time Temp Pulse Resp B/P Pulse Ox O2 Delivery O2 Flow Rate FiO2 12/09/16 06:01 88 18 119/67 98 BiPAP/CPAP 12/09/16 04:00 4.0 12/09/16 03:00 98.2 98.2 Physical Exam PHYSICAL EXAM GENERAL: NAD, Alert, on Bipap HEENT: PERRL, OC/OP -dry NECK: Supple, no JVD, no LN LUNGS: Min rhonchi HEART: S1S2, no gallop, no murmur ABD: Soft, NT, no organomegaly, no rebound, PEG Pérez EXT: No edema, no cyanosis. ? 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, no focal neurologic deficit SKIN: No rash IV: ok Labs Lab Laboratory Tests Test 12/08/16 07:40 12/09/16 03:01 12/09/16 04:45 O2 Saturation 99% (92-99) Arterial Blood pH 7.48 (7.35-7.45) Arterial Blood pCO2 at Patient Temp 39mmHg (35-46) Arterial Blood pO2 at Patient Temp 152mmHg (65-108) Arterial Blood HCO3 28mmol/L (21-28) Arterial Blood Base Excess 5mmol/L (-3-3) FiO2 60 Glucose (Fingerstick) 210mg/dL (70-99) White Blood Count 14.2x10^3/uL (4.0-11.0) Red Blood Count 3.81x10^6/uL (4.30-5.70) Hemoglobin 10.5g/dL (13.0-17.5) Hematocrit 33.3% (39.0-53.0) Mean Corpuscular Volume 87fL (79-100) Mean Corpuscular Hemoglobin 28pg (25-35) Mean Corpuscular Hemoglobin Concent 31g/dL (31-37) Red Cell Distribution Width 16.5% (11.5-14.5) Platelet Count 229x10^3/uL (140-400) Neutrophils (%) (Auto) 89% (31-73) Lymphocytes (%) (Auto) 1% (24-48) Monocytes (%) (Auto) 10% (0-9) Eosinophils (%) (Auto) 0% (0-3) Basophils (%) (Auto) 0% (0-3) Neutrophils # (Auto) 12.6x10^3uL (1.8-7.7) Lymphocytes # (Auto) 0.2x10^3/uL (1.0-4.8) Monocytes # (Auto) 1.4x10^3/uL (0.0-1.1) Eosinophils # (Auto) 0.0x10^3/uL (0.0-0.7) Basophils # (Auto) 0.0x10^3/uL (0.0-0.2) Sodium Level 151mmol/L (136-145) Potassium Level 3.9mmol/L (3.5-5.1) Chloride Level 113mmol/L (98-107) Carbon Dioxide Level 30mmol/L (21-32) Anion Gap 8 (6-14) Blood Urea Nitrogen 29mg/dL (8-26) Creatinine 0.8mg/dL (0.7-1.3) Estimated GFR (Cockcroft-Gault) 115.3 Glucose Level 285mg/dL (70-99) Calcium Level 9.3mg/dL (8.5-10.1) Magnesium Level 2.5mg/dL (1.8-2.4) Micro Serratia marcescens Heavy growth SPUTUM CULT RES 2 Final Proteus mirabilis Light growth ANTIMICROBIAL SUSCEPTIBILITY Final Comment S = Susceptible; I = Intermediate; R = Resistant P = Positive; N = Negative MICS are expressed in micrograms per mL Antibiotic RSLT#1 RSLT#2 RSLT#3 RSLT#4 Amikacin S Amoxicillin/Clavulanic Acid S Ampicillin S Cefepime S S Cefotaxime S Ceftazidime S Ceftriaxone S S Cefuroxime S Ciprofloxacin S S Ertapenem S Gentamicin S S Imipenem S Levofloxacin S S Meropenem S Piperacillin S S Tetracycline S R Ticarcillin S Tigecycline S Tobramycin S S Objective Assessment HCAP. Serratia/Proteus 12/05 Fever Leukocytosis, on steroids - better h/o latent syphilis. -Recently finished IV PCN Acute respiratory failure - on Bipap - states he wants to go home -s/p bronch/BAL 12/05. Thick purulent secretions Dementia PEG Hypernatremia Plan Plan of Care Cont Zosyn F/u Temp/Cr and temp Supportive care Await Palliative SHANNA Avelar MD Dec 09, 2016 07:22
[2016-12-09] MEDS: IPRATRPIUM/ALBUTEROL 0.5/2.5MG 3 ML NEBU. NEB SCH ×4 (08:37→20:09)
[2016-12-09] MEDS: FAMOTIDINE 20 MG/2 ML VIAL IVP SCH (08:52)
[2016-12-09 09:01] LABS: HCO3 ABG 30 mmol/L (21-28); PCO2 ABG 47 mmHg (35-46); PH ABG 7.42 (7.35-7.45); PO2 ABG 94 mmHg (65-108); SAT O2 ABG 97 % (92-99)
[2016-12-09 09:03] LABS: FIO2 ABG 40
[2016-12-09] MEDS: HYDROCODONE/APAP 7.5/325MG ORAL 15 ML SOLUTION. PEG PRN ×2 (09:27→19:22)
--- NOTE | 2016-12-09 09:42 | PDOC ---
PULMONARY PROGRESS NOTES Subjective Off BIPAP this am Vitals Vital Signs Date Time Temp Pulse Resp B/P Pulse Ox O2 Delivery O2 Flow Rate FiO2 12/09/16 08:52 211/101 12/09/16 08:25 96 BiPAP/CPAP 12/09/16 06:01 88 18 12/09/16 04:00 4.0 12/09/16 03:00 98.2 98.2 General: No acute distress HEENT: Other Lungs: Crackles Cardiovascular: S1 Abdomen: Soft, Non-tender, Other Extremities: No Edema Skin: Warm Labs Laboratory Tests Test 12/08/16 04:25 12/08/16 04:50 12/08/16 07:40 12/09/16 03:01 White Blood Count 12.0x10^3/uL (4.0-11.0) Red Blood Count 3.76x10^6/uL (4.30-5.70) Hemoglobin 10.3g/dL (13.0-17.5) Hematocrit 32.4% (39.0-53.0) Mean Corpuscular Volume 86fL (79-100) Mean Corpuscular Hemoglobin 27pg (25-35) Mean Corpuscular Hemoglobin Concent 32g/dL (31-37) Red Cell Distribution Width 16.3% (11.5-14.5) Platelet Count 210x10^3/uL (140-400) Neutrophils (%) (Auto) 90% (31-73) Lymphocytes (%) (Auto) 4% (24-48) Monocytes (%) (Auto) 7% (0-9) Eosinophils (%) (Auto) 0% (0-3) Basophils (%) (Auto) 0% (0-3) Neutrophils # (Auto) 10.7x10^3uL (1.8-7.7) Lymphocytes # (Auto) 0.5x10^3/uL (1.0-4.8) Monocytes # (Auto) 0.8x10^3/uL (0.0-1.1) Eosinophils # (Auto) 0.0x10^3/uL (0.0-0.7) Basophils # (Auto) 0.0x10^3/uL (0.0-0.2) Sodium Level 151mmol/L (136-145) Potassium Level 4.0mmol/L (3.5-5.1) Chloride Level 114mmol/L (98-107) Carbon Dioxide Level 30mmol/L (21-32) Anion Gap 7 (6-14) Blood Urea Nitrogen 27mg/dL (8-26) Creatinine 0.8mg/dL (0.7-1.3) Estimated GFR (Cockcroft-Gault) 115.3 BUN/Creatinine Ratio 34 (6-20) Glucose Level 228mg/dL (70-99) Calcium Level 9.1mg/dL (8.5-10.1) Magnesium Level 2.3mg/dL (1.8-2.4) Total Bilirubin 0.3mg/dL (0.2-1.0) Aspartate Amino Transf (AST/SGOT) 75U/L (15-37) Alanine Aminotransferase (ALT/SGPT) 181U/L (16-63) Alkaline Phosphatase 93U/L (46-116) Total Protein 6.7g/dL (6.4-8.2) Albumin 2.2g/dL (3.4-5.0) Albumin/Globulin Ratio 0.5 (1.0-1.7) O2 Saturation 99% (92-99) Arterial Blood pH 7.48 (7.35-7.45) Arterial Blood pCO2 at Patient Temp 39mmHg (35-46) Arterial Blood pO2 at Patient Temp 152mmHg (65-108) Arterial Blood HCO3 28mmol/L (21-28) Arterial Blood Base Excess 5mmol/L (-3-3) FiO2 60 Glucose (Fingerstick) 210mg/dL (70-99) Test 12/09/16 04:45 12/09/16 08:00 White Blood Count 14.2x10^3/uL (4.0-11.0) Red Blood Count 3.81x10^6/uL (4.30-5.70) Hemoglobin 10.5g/dL (13.0-17.5) Hematocrit 33.3% (39.0-53.0) Mean Corpuscular Volume 87fL (79-100) Mean Corpuscular Hemoglobin 28pg (25-35) Mean Corpuscular Hemoglobin Concent 31g/dL (31-37) Red Cell Distribution Width 16.5% (11.5-14.5) Platelet Count 229x10^3/uL (140-400) Neutrophils (%) (Auto) 89% (31-73) Lymphocytes (%) (Auto) 1% (24-48) Monocytes (%) (Auto) 10% (0-9) Eosinophils (%) (Auto) 0% (0-3) Basophils (%) (Auto) 0% (0-3) Neutrophils # (Auto) 12.6x10^3uL (1.8-7.7) Lymphocytes # (Auto) 0.2x10^3/uL (1.0-4.8) Monocytes # (Auto) 1.4x10^3/uL (0.0-1.1) Eosinophils # (Auto) 0.0x10^3/uL (0.0-0.7) Basophils # (Auto) 0.0x10^3/uL (0.0-0.2) Sodium Level 151mmol/L (136-145) Potassium Level 3.9mmol/L (3.5-5.1) Chloride Level 113mmol/L (98-107) Carbon Dioxide Level 30mmol/L (21-32) Anion Gap 8 (6-14) Blood Urea Nitrogen 29mg/dL (8-26) Creatinine 0.8mg/dL (0.7-1.3) Estimated GFR (Cockcroft-Gault) 115.3 Glucose Level 285mg/dL (70-99) Calcium Level 9.3mg/dL (8.5-10.1) Magnesium Level 2.5mg/dL (1.8-2.4) O2 Saturation 97% (92-99) Arterial Blood pH 7.42 (7.35-7.45) Arterial Blood pCO2 at Patient Temp 47mmHg (35-46) Arterial Blood pO2 at Patient Temp 94mmHg (65-108) Arterial Blood HCO3 30mmol/L (21-28) Arterial Blood Base Excess 5mmol/L (-3-3) FiO2 40 Laboratory Tests Test 12/09/16 03:01 12/09/16 04:45 12/09/16 08:00 Glucose (Fingerstick) 210mg/dL (70-99) White Blood Count 14.2x10^3/uL (4.0-11.0) Red Blood Count 3.81x10^6/uL (4.30-5.70) Hemoglobin 10.5g/dL (13.0-17.5) Hematocrit 33.3% (39.0-53.0) Mean Corpuscular Volume 87fL (79-100) Mean Corpuscular Hemoglobin 28pg (25-35) Mean Corpuscular Hemoglobin Concent 31g/dL (31-37) Red Cell Distribution Width 16.5% (11.5-14.5) Platelet Count 229x10^3/uL (140-400) Neutrophils (%) (Auto) 89% (31-73) Lymphocytes (%) (Auto) 1% (24-48) Monocytes (%) (Auto) 10% (0-9) Eosinophils (%) (Auto) 0% (0-3) Basophils (%) (Auto) 0% (0-3) Neutrophils # (Auto) 12.6x10^3uL (1.8-7.7) Lymphocytes # (Auto) 0.2x10^3/uL (1.0-4.8) Monocytes # (Auto) 1.4x10^3/uL (0.0-1.1) Eosinophils # (Auto) 0.0x10^3/uL (0.0-0.7) Basophils # (Auto) 0.0x10^3/uL (0.0-0.2) Sodium Level 151mmol/L (136-145) Potassium Level 3.9mmol/L (3.5-5.1) Chloride Level 113mmol/L (98-107) Carbon Dioxide Level 30mmol/L (21-32) Anion Gap 8 (6-14) Blood Urea Nitrogen 29mg/dL (8-26) Creatinine 0.8mg/dL (0.7-1.3) Estimated GFR (Cockcroft-Gault) 115.3 Glucose Level 285mg/dL (70-99) Calcium Level 9.3mg/dL (8.5-10.1) Magnesium Level 2.5mg/dL (1.8-2.4) O2 Saturation 97% (92-99) Arterial Blood pH 7.42 (7.35-7.45) Arterial Blood pCO2 at Patient Temp 47mmHg (35-46) Arterial Blood pO2 at Patient Temp 94mmHg (65-108) Arterial Blood HCO3 30mmol/L (21-28) Arterial Blood Base Excess 5mmol/L (-3-3) FiO2 40 Medications Active Scripts Medications Dose Route/Sig Days Date Category Acetaminophen 325 Mg Tablet 325 Mg PEG PRN Q6HRS PRN 12/04/16 Reported Chlorhexidine Gluconate 473 Ml Mouthwash 473 Ml MM TID 12/04/16 Reported Glucose (Dextrose) 1 Each Tab.chew 1 Each PO PRN PRN 12/04/16 Reported Protonix (Pantoprazole Sodium) 40 Mg Granpkt.dr 40 Mg PEG DAILY 12/04/16 Reported Humalog (Insulin Lispro) 100 Unit/1 Ml Cartridge Unknown Dose SQ 12/04/16 Reported Hydrocodone-Apap 5-325 (Hydrocodone Bit/Acetaminophen) 1 Each Tablet 1 Tab PEG PRN Q6HRS PRN 11/21/16 Reported Enoxaparin Sodium 40 Mg/0.4 Ml Disp.syrin 40 Mg SQ 11/19/16 Reported Amlodipine Besylate 5 Mg Tablet 5 Mg PEG DAILY 11/06/16 Reported Impression . 1. Acute hypoxic/ hypercapnic respiratory failure secondary to diffuse purulent mucus plug/ pneumonia with significant collapse of the distal trachea and left mainstem bronchus by secretions. He is s/p therapeutic bronchoscopy 2. Diffuse pneumonia. 3. Aphasia with inability to clear secretions. 4. Dysphagia. 5. Negative CT for PE Plan . Antibs per ID pt does not tolerated being off BIPAP d/w RT 1. off BIPAP/ VM 2. BS antibiotic. 3. Follow bronchoscopy cultures/ GRAM NEG RODS 4. Continue DuoNebs. 5. Continue to taper steroids. 6. Need to address advance directives. poor prognosis consult palliative care in am to determine goals of care HUSSEIN BREEN MD Dec 09, 2016 09:42
--- NOTE | 2016-12-09 10:33 | PDOC2 ---
PALLIATIVE CARE Palliative Care Note Palliative Care Patient alert. Answers "yes" to all questions. Does not have the capacity to make his own health care decisions. Attempted to reach Marya --daughter. Message left to return call to discuss her father's care. Code Status: Full Code. 1052; spoke with daughter Marya unable to come to meeting today. Plan family meeting 1100 tomorrow. STEPHEN BELCHER Dec 09, 2016 10:33
[2016-12-09] MEDS: DO NOT USE 40 MG/0.4 ML DISP.SYRIN SQ SCH (19:27)
[2016-12-09] MEDS: LORAZEPAM 2 MG/ML VIAL IV PRN (21:29)
[2016-12-09] MEDS ORDERED: HYDROCODONE/APAP 7.5/325MG ORAL 15 ML SOLUTION. PEG PRN (23:00)
[2016-12-10] VITALS (24 sets, daily range): BP systolic 112–201; BP diastolic 63–95
[2016-12-10] MEDS: PIPERACILLIN/TAZOBACTAM 4.5 GM in IV NORMAL SALINE 100ML 100 ML IV SCH ×4 (00:32→17:18)
[2016-12-10] MEDS: methylPREDNISolone SOD SUCC PF 125 MG/2 ML VIAL. IV SCH ×4 (00:35→17:18)
[2016-12-10] MEDS: LORAZEPAM 2 MG/ML VIAL IV PRN (01:57)
--- NOTE | 2016-12-10 06:29 | PDOC ---
Infectious Disease Note Subjective Subjective States ok - on BiPAP ROS ROS Unobtainable Vital Sign Vital Signs Vital Signs Date Time Temp Pulse Resp B/P Pulse Ox O2 Delivery O2 Flow Rate FiO2 12/10/16 06:08 98.2 82 20 131/74 100 4.0 98.2 12/10/16 05:00 BiPAP/CPAP Physical Exam PHYSICAL EXAM GENERAL: NAD, Resting on Bipap HEENT: PERRL, OC/OP -dry NECK: Supple, no JVD, no LN LUNGS: Improved rhonchi HEART: S1S2, no gallop, no murmur ABD: Soft, NT, no organomegaly, no rebound, PEG Pérez EXT: No edema, no cyanosis. 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, no focal neurologic deficit SKIN: No rash IV: ok Labs Lab Laboratory Tests Test 12/09/16 08:00 O2 Saturation 97% (92-99) Arterial Blood pH 7.42 (7.35-7.45) Arterial Blood pCO2 at Patient Temp 47mmHg (35-46) Arterial Blood pO2 at Patient Temp 94mmHg (65-108) Arterial Blood HCO3 30mmol/L (21-28) Arterial Blood Base Excess 5mmol/L (-3-3) FiO2 40 Micro Serratia marcescens Heavy growth SPUTUM CULT RES 2 Final Proteus mirabilis Light growth ANTIMICROBIAL SUSCEPTIBILITY Final Comment S = Susceptible; I = Intermediate; R = Resistant P = Positive; N = Negative MICS are expressed in micrograms per mL Antibiotic RSLT#1 RSLT#2 RSLT#3 RSLT#4 Amikacin S Amoxicillin/Clavulanic Acid S Ampicillin S Cefepime S S Cefotaxime S Ceftazidime S Ceftriaxone S S Cefuroxime S Ciprofloxacin S S Ertapenem S Gentamicin S S Imipenem S Levofloxacin S S Meropenem S Piperacillin S S Tetracycline S R Ticarcillin S Tigecycline S Tobramycin S S Objective Assessment HCAP. Serratia/Proteus 12/05 Fever - better Leukocytosis, on steroids - better h/o latent syphilis. -Recently finished IV PCN Acute respiratory failure - on Bipap -s/p bronch/BAL 12/05. Thick purulent secretions Dementia PEG Hypernatremia Plan Plan of Care Cont Zosyn F/u Temp/Cr and temp Supportive care Await Palliative meeting today SHANNA FRANCIS MD Dec 10, 2016 06:29
[2016-12-10] MEDS: IPRATRPIUM/ALBUTEROL 0.5/2.5MG 3 ML NEBU. NEB SCH ×4 (07:12→20:00)
--- NOTE | 2016-12-10 07:25 | PN ---
DATE: 12/09/2016 SUBJECTIVE: The patient has continued to require BiPAP constantly. He desaturates immediately ____ on oxygen by nasal cannula and his blood pressure becomes extremely elevated. In fact, today even after he was put on BiPAP machine, his blood pressure continued to be extremely high. On examining him this morning, he was resting slightly propped up in bed, continues to be on BiPAP machine maintaining his oxygen saturation at 96% on FiO2 of 40%. PHYSICAL EXAMINATION: HEAD, EYES, EARS, NOSE AND THROAT: Showed normocephalic, atraumatic. NECK: Supple. HEART: Showed normal first and second heart sounds with no gallop, rub or murmur. CHEST: Clear to auscultation. No crepitation or rhonchi. ABDOMEN: Distended, soft, nontender. NEUROLOGIC: He was awake, alert, has marked dysarthria and dysphagia, some generalized weakness. His intake was 3650, and output was 1500. LABORATORY DATA: As of this morning showed a white cell count of 14,200, hemoglobin 10.5, hematocrit 33, MCV 87, and platelet count 259,000. His chemistry showed a serum sodium 151, potassium 3.9, chloride 113, bicarbonate 30, anion gap of 8, BUN 29, creatinine 0.8, estimated GFR was 115 mL per minute. His glucose was 255, calcium was 9.3, and magnesium was 2.5. ASSESSMENT: 1. Acute hypercapnic hypoxic respiratory failure secondary to diffuse purulent mucus plug pneumonia with significant collapse in distal trachea and left mainstem bronchus. He is status post therapeutic bronchoscopy. 2. Diffuse pneumonia. 3. Aphasia; inability to clear secretions, dysphagia, negative CT scan for pulmonary embolism. PLAN: Continue with BiPAP machine, continue with intravenous antibiotic. He has hypernatremia for which I increased his water flushes. Continue to monitor his blood pressure and adjust his insulin as needed. Start him on hydralazine 20 mg IV ____ hours for systolic pressure more than 160. Continue with tapering dose of steroids. I spoke with his son regarding advanced directives given his overall poor prognosis. He is in [place], and he would be here in the next few days or one week. LILIANA ENCINAS MD DR: MAI/andres JOB#: [id number] / [id number]
[2016-12-10 07:46] LABS: CALCIUM 8.6 mg/dL (8.5-10.1); CREATININE 0.9 mg/dL (0.7-1.3); GFR 100.7; MAGNESIUM 2.4 mg/dL (1.8-2.4); POTASSIUM 4.4 mmol/L (3.5-5.1)
[2016-12-10 08:15] LABS: HCO3 ABG 31 mmol/L (21-28); PCO2 ABG 42 mmHg (35-46); PH ABG 7.48 (7.35-7.45); PO2 ABG 120 mmHg (65-108); SAT O2 ABG 98 % (92-99)
[2016-12-10 08:17] LABS: FIO2 ABG 50
[2016-12-10] MEDS: FAMOTIDINE 20 MG/2 ML VIAL IVP SCH (08:53)
[2016-12-10] MEDS: hydrALAZINE 20 MG/ML VIAL. IVP PRN ×2 (10:19→14:39)
[2016-12-10] MEDS: HYDROCODONE/APAP 7.5/325MG ORAL 15 ML SOLUTION. PEG PRN ×3 (10:20→23:10)
--- NOTE | 2016-12-10 10:56 | PDOC ---
PULMONARY PROGRESS NOTES Subjective Off BIPAP this am Confused Vitals Vital Signs Date Time Temp Pulse Resp B/P Pulse Ox O2 Delivery O2 Flow Rate FiO2 12/10/16 10:19 201/95 12/10/16 09:39 100 BiPAP/CPAP 12/10/16 09:00 87 20 12/10/16 08:00 4.0 12/10/16 08:00 98.4 98.4 General: No acute distress HEENT: Other Lungs: Crackles Cardiovascular: S1 Abdomen: Soft, Non-tender, Other Extremities: No Edema Skin: Warm Labs Laboratory Tests Test 12/09/16 03:01 12/09/16 04:45 12/09/16 08:00 12/10/16 07:20 Glucose (Fingerstick) 210mg/dL (70-99) White Blood Count 14.2x10^3/uL (4.0-11.0) Red Blood Count 3.81x10^6/uL (4.30-5.70) Hemoglobin 10.5g/dL (13.0-17.5) Hematocrit 33.3% (39.0-53.0) Mean Corpuscular Volume 87fL (79-100) Mean Corpuscular Hemoglobin 28pg (25-35) Mean Corpuscular Hemoglobin Concent 31g/dL (31-37) Red Cell Distribution Width 16.5% (11.5-14.5) Platelet Count 229x10^3/uL (140-400) Neutrophils (%) (Auto) 89% (31-73) Lymphocytes (%) (Auto) 1% (24-48) Monocytes (%) (Auto) 10% (0-9) Eosinophils (%) (Auto) 0% (0-3) Basophils (%) (Auto) 0% (0-3) Neutrophils # (Auto) 12.6x10^3uL (1.8-7.7) Lymphocytes # (Auto) 0.2x10^3/uL (1.0-4.8) Monocytes # (Auto) 1.4x10^3/uL (0.0-1.1) Eosinophils # (Auto) 0.0x10^3/uL (0.0-0.7) Basophils # (Auto) 0.0x10^3/uL (0.0-0.2) Sodium Level 151mmol/L (136-145) 150mmol/L (136-145) Potassium Level 3.9mmol/L (3.5-5.1) 4.4mmol/L (3.5-5.1) Chloride Level 113mmol/L (98-107) 113mmol/L (98-107) Carbon Dioxide Level 30mmol/L (21-32) 31mmol/L (21-32) Anion Gap 8 (6-14) 6 (6-14) Blood Urea Nitrogen 29mg/dL (8-26) 29mg/dL (8-26) Creatinine 0.8mg/dL (0.7-1.3) 0.9mg/dL (0.7-1.3) Estimated GFR (Cockcroft-Gault) 115.3 100.7 Glucose Level 285mg/dL (70-99) 301mg/dL (70-99) Calcium Level 9.3mg/dL (8.5-10.1) 8.6mg/dL (8.5-10.1) Magnesium Level 2.5mg/dL (1.8-2.4) 2.4mg/dL (1.8-2.4) O2 Saturation 97% (92-99) Arterial Blood pH 7.42 (7.35-7.45) Arterial Blood pCO2 at Patient Temp 47mmHg (35-46) Arterial Blood pO2 at Patient Temp 94mmHg (65-108) Arterial Blood HCO3 30mmol/L (21-28) Arterial Blood Base Excess 5mmol/L (-3-3) FiO2 40 Test 12/10/16 08:15 O2 Saturation 98% (92-99) Arterial Blood pH 7.48 (7.35-7.45) Arterial Blood pCO2 at Patient Temp 42mmHg (35-46) Arterial Blood pO2 at Patient Temp 120mmHg (65-108) Arterial Blood HCO3 31mmol/L (21-28) Arterial Blood Base Excess 7mmol/L (-3-3) FiO2 50 Laboratory Tests Test 12/10/16 07:20 12/10/16 08:15 Sodium Level 150mmol/L (136-145) Potassium Level 4.4mmol/L (3.5-5.1) Chloride Level 113mmol/L (98-107) Carbon Dioxide Level 31mmol/L (21-32) Anion Gap 6 (6-14) Blood Urea Nitrogen 29mg/dL (8-26) Creatinine 0.9mg/dL (0.7-1.3) Estimated GFR (Cockcroft-Gault) 100.7 Glucose Level 301mg/dL (70-99) Calcium Level 8.6mg/dL (8.5-10.1) Magnesium Level 2.4mg/dL (1.8-2.4) O2 Saturation 98% (92-99) Arterial Blood pH 7.48 (7.35-7.45) Arterial Blood pCO2 at Patient Temp 42mmHg (35-46) Arterial Blood pO2 at Patient Temp 120mmHg (65-108) Arterial Blood HCO3 31mmol/L (21-28) Arterial Blood Base Excess 7mmol/L (-3-3) FiO2 50 Medications Active Scripts Medications Dose Route/Sig Days Date Category Acetaminophen 325 Mg Tablet 325 Mg PEG PRN Q6HRS PRN 12/04/16 Reported Chlorhexidine Gluconate 473 Ml Mouthwash 473 Ml MM TID 12/04/16 Reported Glucose (Dextrose) 1 Each Tab.chew 1 Each PO PRN PRN 12/04/16 Reported Protonix (Pantoprazole Sodium) 40 Mg Granpkt.dr 40 Mg PEG DAILY 12/04/16 Reported Humalog (Insulin Lispro) 100 Unit/1 Ml Cartridge Unknown Dose SQ 12/04/16 Reported Hydrocodone-Apap 5-325 (Hydrocodone Bit/Acetaminophen) 1 Each Tablet 1 Tab PEG PRN Q6HRS PRN 11/21/16 Reported Enoxaparin Sodium 40 Mg/0.4 Ml Disp.syrin 40 Mg SQ 11/19/16 Reported Amlodipine Besylate 5 Mg Tablet 5 Mg PEG DAILY 11/06/16 Reported Impression . 1. Acute hypoxic/ hypercapnic respiratory failure secondary to diffuse purulent mucus plug/ pneumonia with significant collapse of the distal trachea and left mainstem bronchus by secretions. He is s/p therapeutic bronchoscopy 2. Diffuse pneumonia. 3. Aphasia with inability to clear secretions. 4. Dysphagia. 5. Negative CT for PE Plan . Antibs per ID off Bipap for now on venturi mask d/w RT 1. off BIPAP/ VM 2. BS antibiotic. 3. Follow bronchoscopy cultures/ GRAM NEG RODS normal kavon 4. Continue DuoNebs. 5. Continue to taper steroids. 6. follow palliative care input HUSSEIN BREEN MD Dec 10, 2016 10:56
[2016-12-10] MEDS ORDERED: DEXTROSE 50% 25 GM / 50ML DISP.SYRIN. IV PRN (11:45)
[2016-12-10] MEDS: INSULIN ASPART 300 UNITS/3 ML INSULN.PEN SQ SCH ×2 (12:43→17:24)
--- NOTE | 2016-12-10 14:12 | PDOC2 ---
PALLIATIVE CARE Palliative Care Note Palliative Care Met with daughter Marya and her daughter Tianna. Patient has two sons Darwin (has not seen for 10-15 years per Marya) and son Andres; daughter Erika who is not involved in his life. Offered to include sons or other members of family per conference phone. Marya declined. Reviewed medical condition: Respiratory failure requiring BiPap. Patient unable to clear airway--purulent thick secretions. weak non-effective cough. Dementia, Aphagia and Dysphagia; PEG tube in place. PMH: CVA; latent syphilis Patient had multiple falls at home and in longterm. Family has seen progressive decline. Patient had indicated through gestures that he did not want intubation or BiPap. Patient tolerating BiPAP but has periods of restlessness/agitation, elevated blood pressure. Patient was able to rest more comfortable, remove Bipap with sedative. this am. Discussed goals of care; current aggressive care then returning to [facility] vs comfort care vs limitation of some aggressive care such as resuscitation. Daughter and granddaughter request DNR/DNI... Understand that without this attempt he likely would . Family would like to have [facility] at [facility] evaluate patient. Granddaughter is familiar with this facility. Informed that the goal of care would be comfort. Stopping those medications not adding to his comfort. They have concerns with stopping tube feedings and BiPap. This will be addressed with Hospice. Outside the Hospital DNR/DNI form completed. Brianne GOODMAN informed of above goals, Dr. Ren paged and informed. Plan: DNR/DNI outside the hospital form signed by daughter. [facility] evaluation Pastora HILL informed and will assist with discharge plan. STEPHEN BELCHER Dec 10, 2016 14:11
[2016-12-10] MEDS: DO NOT USE 40 MG/0.4 ML DISP.SYRIN SQ SCH (17:18)
[2016-12-11] VITALS (24 sets, daily range): BP systolic 120–181; BP diastolic 52–87
[2016-12-11] MEDS: methylPREDNISolone SOD SUCC PF 125 MG/2 ML VIAL. IV SCH ×4 (00:15→22:17)
[2016-12-11] MEDS: PIPERACILLIN/TAZOBACTAM 4.5 GM in IV NORMAL SALINE 100ML 100 ML IV SCH ×2 (00:15→06:00)
[2016-12-11] MEDS: HYDROCODONE/APAP 7.5/325MG ORAL 15 ML SOLUTION. PEG PRN (04:42)
--- NOTE | 2016-12-11 06:04 | PN ---
DATE: 12/10/2016 SUBJECTIVE: The patient was on BiPAP machine, which is now taken off. He is now on 50% Ventimask, maintaining his oxygen saturation at 92%. He has aphasia and dysarthria and it is very difficult to understand him. Continues to have excessive secretions requiring frequent suctioning. PHYSICAL EXAMINATION: GENERAL: When I examined him, he looked pale, cachectic, but not jaundiced, cyanosed. No lymphadenopathy or thyromegaly. No jugular venous distention. No lower limb edema. VITAL SIGNS: His heart rate was 87, blood pressure was 133/73, temperature was 98.4, respiratory rate was 20, and oxygen saturation was 92% on 50% Ventimask. HEAD, EYES, EARS, NOSE AND THROAT: Showed normocephalic, atraumatic. NECK: Supple. HEART: Showed normal first and second heart sounds. No gallop, rub or murmur. CHEST: Shows central trachea, equally reduced expansion, reduced air entry, has bilateral crepitations and scattered rhonchi. ABDOMEN: Scaphoid, soft, nontender. NEUROLOGIC: He is awake, alert, opens eyes, tracks. He ____ words, but it is difficult to understand what he says. All his cranial nerves are grossly intact. He has marked muscle wasting and weakness. He is mostly bed bound. His intake over the last 24 hours was 2950, output was 1300. LABORATORY DATA: Most recent lab work showed a white cell count of 14,000, hemoglobin 10.5, hematocrit 33, MCV was 87 and platelet count of 229,000. His chemistry showed a serum sodium 150, potassium 4.4, chloride 113, bicarbonate 31, anion gap of 6, BUN 29, creatinine 0.9, estimated GFR was 100 mL per minute. His glucose was 301. Calcium was 8.6 and magnesium was 2.4. His blood gases this morning showed a pH of 7.48, pCO2 of 42, pO2 of 120, bicarbonate 31, and oxygen saturation was 98% and FiO2 of 50%. ASSESSMENT: 1. Acute hypercapnic hypoxic respiratory failure secondary to diffuse purulent mucus plugging with pneumonia with significant collapse in the distal trachea and left main bronchus. 2. He is status post therapeutic bronchoscopy. 3. Diffuse pneumonia. 4. Aphasia, inability to clear secretions and dysphagia. CT scan was negative for pulmonary embolism. PLAN: Continue with BiPAP machine. Continue with intravenous antibiotic. Has hypernatremia, for which I increased his water flushes. Continue to monitor his blood sugar and adjust insulin as needed. Start him on hydralazine 20 mg IV every 4 hours for systolic pressure more than 160. Continue with tapering dose of steroids. I spoke with his son regarding advance directives given his overall poor prognosis. He is in [place]. He would be here in the next few days or one week. LILIANA ENCINAS MD DR: MAI/andres JOB#: [id number] / [id number]
[2016-12-11 06:41] LABS: CALCIUM 8.9 mg/dL (8.5-10.1); CREATININE 0.9 mg/dL (0.7-1.3); GFR 100.7; POTASSIUM 4.2 mmol/L (3.5-5.1)
[2016-12-11] MEDS: IPRATRPIUM/ALBUTEROL 0.5/2.5MG 3 ML NEBU. NEB SCH ×4 (06:58→20:01)
[2016-12-11 07:10] LABS: HCO3 ABG 29 mmol/L (21-28); PCO2 ABG 38 mmHg (35-46); PO2 ABG 175 mmHg (65-108); SAT O2 ABG 99 % (92-99)
[2016-12-11 07:11] LABS: FIO2 ABG 50; PH ABG 7.49 (7.35-7.45)
--- NOTE | 2016-12-11 07:26 | PDOC ---
Infectious Disease Note Subjective Subjective States ok - on BiPAP ROS ROS Denies pain or nausea but difficult to ascertain any more Vital Sign Vital Signs Vital Signs Date Time Temp Pulse Resp B/P Pulse Ox O2 Delivery O2 Flow Rate FiO2 12/11/16 06:58 100 BiPAP/CPAP 12/11/16 06:27 100 20 154/81 12/11/16 04:42 4.0 12/11/16 00:00 98.4 98.4 Physical Exam PHYSICAL EXAM GENERAL: NAD, Resting on Bipap. Alert HEENT: PERRL, OC/OP -dry NECK: Supple, no JVD, no LN LUNGS: Improved rhonchi HEART: S1S2, no gallop, no murmur ABD: Soft, NT, no organomegaly, no rebound, PEG Pérez EXT: No edema, no cyanosis. BODY FORMER: Alert, no focal neurologic deficit SKIN: No rash IV: ok Labs Lab Laboratory Tests Test 12/10/16 08:15 12/10/16 12:38 12/10/16 17:20 12/11/16 00:12 O2 Saturation 98% (92-99) Arterial Blood pH 7.48 (7.35-7.45) Arterial Blood pCO2 at Patient Temp 42mmHg (35-46) Arterial Blood pO2 at Patient Temp 120mmHg (65-108) Arterial Blood HCO3 31mmol/L (21-28) Arterial Blood Base Excess 7mmol/L (-3-3) FiO2 50 Glucose (Fingerstick) 199mg/dL (70-99) 193mg/dL (70-99) 194mg/dL (70-99) Test 12/11/16 05:55 12/11/16 06:19 12/11/16 07:00 Sodium Level 150mmol/L (136-145) Potassium Level 4.2mmol/L (3.5-5.1) Chloride Level 112mmol/L (98-107) Carbon Dioxide Level 31mmol/L (21-32) Anion Gap 7 (6-14) Blood Urea Nitrogen 35mg/dL (8-26) Creatinine 0.9mg/dL (0.7-1.3) Estimated GFR (Cockcroft-Gault) 100.7 Glucose Level 223mg/dL (70-99) Calcium Level 8.9mg/dL (8.5-10.1) Glucose (Fingerstick) 185mg/dL (70-99) O2 Saturation 99% (92-99) Arterial Blood pH 7.49 (7.35-7.45) Arterial Blood pCO2 at Patient Temp 38mmHg (35-46) Arterial Blood pO2 at Patient Temp 175mmHg (65-108) Arterial Blood HCO3 29mmol/L (21-28) Arterial Blood Base Excess 5mmol/L (-3-3) FiO2 50 Micro Serratia marcescens Heavy growth SPUTUM CULT RES 2 Final Proteus mirabilis Light growth ANTIMICROBIAL SUSCEPTIBILITY Final Comment S = Susceptible; I = Intermediate; R = Resistant P = Positive; N = Negative MICS are expressed in micrograms per mL Antibiotic RSLT#1 RSLT#2 RSLT#3 RSLT#4 Amikacin S Amoxicillin/Clavulanic Acid S Ampicillin S Cefepime S S Cefotaxime S Ceftazidime S Ceftriaxone S S Cefuroxime S Ciprofloxacin S S Ertapenem S Gentamicin S S Imipenem S Levofloxacin S S Meropenem S Piperacillin S S Tetracycline S R Ticarcillin S Tigecycline S Tobramycin S S Objective Assessment HCAP. Serratia/Proteus 12/05 Fever - better Leukocytosis, on steroids - better h/o latent syphilis. -Recently finished IV PCN Acute respiratory failure - on Bipap -s/p bronch/BAL 12/05. Thick purulent secretions Dementia PEG Hypernatremia Plan Plan of Care Notes reviewed Will discont Zosyn begin Cefpodoxime via PEG thru 12/14 Ok to transfer from ID standpoint SHANNA FRANCIS MD Dec 11, 2016 07:26
[2016-12-11] MEDS: INSULIN ASPART 300 UNITS/3 ML INSULN.PEN SQ SCH ×3 (08:00→18:27)
[2016-12-11] MEDS: FAMOTIDINE 20 MG/2 ML VIAL IVP SCH (10:35)
[2016-12-11] MEDS: CEFPODOXIME PROXETIL 100 MG TABLET PEG SCH ×2 (10:35→22:17)
--- NOTE | 2016-12-11 11:03 | PDOC ---
PULMONARY PROGRESS NOTES Subjective Off BIPAP this am Confused Vitals Vital Signs Date Time Temp Pulse Resp B/P Pulse Ox O2 Delivery O2 Flow Rate FiO2 12/11/16 10:00 65 15 147/77 97 Venturi Mask 15.0 12/11/16 08:00 98.4 98.4 General: No acute distress HEENT: Other Lungs: Crackles Cardiovascular: S1 Abdomen: Soft, Non-tender, Other Extremities: No Edema Skin: Warm Labs Laboratory Tests Test 12/10/16 07:20 12/10/16 08:15 12/10/16 12:38 12/10/16 17:20 Sodium Level 150mmol/L (136-145) Potassium Level 4.4mmol/L (3.5-5.1) Chloride Level 113mmol/L (98-107) Carbon Dioxide Level 31mmol/L (21-32) Anion Gap 6 (6-14) Blood Urea Nitrogen 29mg/dL (8-26) Creatinine 0.9mg/dL (0.7-1.3) Estimated GFR (Cockcroft-Gault) 100.7 Glucose Level 301mg/dL (70-99) Calcium Level 8.6mg/dL (8.5-10.1) Magnesium Level 2.4mg/dL (1.8-2.4) O2 Saturation 98% (92-99) Arterial Blood pH 7.48 (7.35-7.45) Arterial Blood pCO2 at Patient Temp 42mmHg (35-46) Arterial Blood pO2 at Patient Temp 120mmHg (65-108) Arterial Blood HCO3 31mmol/L (21-28) Arterial Blood Base Excess 7mmol/L (-3-3) FiO2 50 Glucose (Fingerstick) 199mg/dL (70-99) 193mg/dL (70-99) Test 12/11/16 00:12 12/11/16 05:55 12/11/16 06:19 12/11/16 07:00 Glucose (Fingerstick) 194mg/dL (70-99) 185mg/dL (70-99) Sodium Level 150mmol/L (136-145) Potassium Level 4.2mmol/L (3.5-5.1) Chloride Level 112mmol/L (98-107) Carbon Dioxide Level 31mmol/L (21-32) Anion Gap 7 (6-14) Blood Urea Nitrogen 35mg/dL (8-26) Creatinine 0.9mg/dL (0.7-1.3) Estimated GFR (Cockcroft-Gault) 100.7 Glucose Level 223mg/dL (70-99) Calcium Level 8.9mg/dL (8.5-10.1) O2 Saturation 99% (92-99) Arterial Blood pH 7.49 (7.35-7.45) Arterial Blood pCO2 at Patient Temp 38mmHg (35-46) Arterial Blood pO2 at Patient Temp 175mmHg (65-108) Arterial Blood HCO3 29mmol/L (21-28) Arterial Blood Base Excess 5mmol/L (-3-3) FiO2 50 Laboratory Tests Test 12/10/16 12:38 12/10/16 17:20 12/11/16 00:12 12/11/16 05:55 Glucose (Fingerstick) 199mg/dL (70-99) 193mg/dL (70-99) 194mg/dL (70-99) Sodium Level 150mmol/L (136-145) Potassium Level 4.2mmol/L (3.5-5.1) Chloride Level 112mmol/L (98-107) Carbon Dioxide Level 31mmol/L (21-32) Anion Gap 7 (6-14) Blood Urea Nitrogen 35mg/dL (8-26) Creatinine 0.9mg/dL (0.7-1.3) Estimated GFR (Cockcroft-Gault) 100.7 Glucose Level 223mg/dL (70-99) Calcium Level 8.9mg/dL (8.5-10.1) Test 12/11/16 06:19 12/11/16 07:00 Glucose (Fingerstick) 185mg/dL (70-99) O2 Saturation 99% (92-99) Arterial Blood pH 7.49 (7.35-7.45) Arterial Blood pCO2 at Patient Temp 38mmHg (35-46) Arterial Blood pO2 at Patient Temp 175mmHg (65-108) Arterial Blood HCO3 29mmol/L (21-28) Arterial Blood Base Excess 5mmol/L (-3-3) FiO2 50 Medications Active Scripts Medications Dose Route/Sig Days Date Category Acetaminophen 325 Mg Tablet 325 Mg PEG PRN Q6HRS PRN 12/04/16 Reported Chlorhexidine Gluconate 473 Ml Mouthwash 473 Ml MM TID 12/04/16 Reported Glucose (Dextrose) 1 Each Tab.chew 1 Each PO PRN PRN 12/04/16 Reported Protonix (Pantoprazole Sodium) 40 Mg Granpkt.dr 40 Mg PEG DAILY 12/04/16 Reported Humalog (Insulin Lispro) 100 Unit/1 Ml Cartridge Unknown Dose SQ 12/04/16 Reported Hydrocodone-Apap 5-325 (Hydrocodone Bit/Acetaminophen) 1 Each Tablet 1 Tab PEG PRN Q6HRS PRN 11/21/16 Reported Enoxaparin Sodium 40 Mg/0.4 Ml Disp.syrin 40 Mg SQ 11/19/16 Reported Amlodipine Besylate 5 Mg Tablet 5 Mg PEG DAILY 11/06/16 Reported Impression . 1. Acute hypoxic/ hypercapnic respiratory failure secondary to diffuse purulent mucus plug/ pneumonia with significant collapse of the distal trachea and left mainstem bronchus by secretions. He is s/p therapeutic bronchoscopy 2. Diffuse pneumonia. 3. Aphasia with inability to clear secretions. 4. Dysphagia. 5. Negative CT for PE Plan . Antibs per ID off Bipap for now on venturi mask d/w RT 1. off BIPAP/ VM 2. BS antibiotic. 3. Follow bronchoscopy cultures/ GRAM NEG RODS normal kavon 4. Continue DuoNebs. 5. Continue to taper steroids. 6. follow palliative care input HUSSEIN BREEN MD Dec 11, 2016 11:03
--- NOTE | 2016-12-11 11:41 | PDOC2 ---
PALLIATIVE CARE Palliative Care Note Palliative Care Patient alert. Answers questions--not sure if he understands Per staff family had declined Hospice visit. Spoke with daughter Marya. Stated that "I flipped on you,I know I told you hospice yesterday, this is my Dad and this is all I have. I want him to live as long as he can no matter what I have to do." I want a tracheostomy" Going to hospice he is just going to . I can't make these decisions myself. My brother will arrive from out of state tomorrow if I buy the ticket and Thursday if he buys the ticket." Attempted to reach son Cosmo and granddaughter Tianna. Discussed option of going back to the [facility] with BiPap. No decision made. Concerned that he is not getting better. Informed this may be the best he is going to get --since we have been doing aggressive treatments. Informed that he indicated that he did not want breathing tubes when asked earlier in his hospitalization and that we have followed his wishes. Will inform physicians of daughters concern and decisions. Spoke with Pastora HILL. Will also screen for LTAC for options to be considered. STEPHEN BELCHER Dec 11, 2016 11:41
[2016-12-11] MEDS: DO NOT USE 40 MG/0.4 ML DISP.SYRIN SQ SCH (18:24)
[2016-12-11] MEDS: hydrALAZINE 20 MG/ML VIAL. IVP PRN (22:17)
--- NOTE | 2016-12-11 23:47 | PN ---
DATE: 12/11/2016 SUBJECTIVE: The patient is resting slightly propped up in bed, in no apparent distress. He is on a facemask ____ his oxygen saturation was 100% on FIO2 of 50% via Ventimask. He is awake, alert, stating that he wants to eat. He has dysphagia and severe tendency to aspirate. He has already had gastrostomy tube and he is on tube feeding. His family has changed their mind. Yesterday, they wanted to go on hospice and today they wanted tracheostomy and all the aggressive management that comes with it. PHYSICAL EXAMINATION: GENERAL: When I examined him this afternoon, he looked well and was clearly in no apparent respiratory distress, pale, but no jaundice, cyanosis or thyromegaly. No jugular venous distention. No limb edema. VITAL SIGNS: His heart rate was 64, blood pressure 156/75, temperature was 98.4, respiratory rate was 30 and oxygen saturation was 99% on 50% Ventimask. HEAD, EYES, EARS, NOSE AND THROAT: Showed normocephalic, atraumatic. NECK: Supple. HEART: Showed normal first and second heart sounds. No gallop, rub or murmur. CHEST: Showed central trachea, equally reduced expansion, reduced air entry, bilateral scattered rhonchi and crepitations posteriorly. ABDOMEN: Distended, soft. Gastrostomy tube in place. NEUROLOGIC: He is awake, alert, opens eyes, tracks and responds appropriately. He has severe dysarthria and difficult to understand. He moves upper extremities to a much greater extent than lower extremities, mostly bed bound. His intake over the last 24 hours was 3466, output was 1000. LABORATORY DATA: His lab work this morning showed a white cell count of 14,200, hemoglobin 10.5, hematocrit 33, MCV 87, and platelet count 229,000. His chemistry showed a serum sodium continues to be high at 150, potassium 4.2, chloride 112, bicarbonate 31, anion gap of 7, BUN 35, creatinine 0.9, estimated GFR was 100 mL per minute. His glucose was 223 and calcium was 89. His serial blood gas showed a pH of 7.49, pCO2 of 38, pO2 175, bicarbonate 29, oxygen saturation was 99% on FIO2 of 50%. ASSESSMENT: 1. Acute hypoxic hypercapnic respiratory failure secondary to diffuse purulent mucus plug/pneumonia with significant distal trachea and left main bronchus by secretion. He is status post therapeutic bronchoscopy. 2. Diffuse pneumonitis. 3. Aphagia with inability ____ secretion. 4. Dysphagia. 5. His CT scan was negative for pulmonary embolism. PLAN: To arrange for a tracheostomy tube. Continue with BiPAP and Ventimask. Continue with IV antibiotic as recommended by Infectious Disease. He is now on cefpodoxime 200 mg per feeding tube twice a day. Continue with DVT prophylaxis. We will arrange for him to have a tracheostomy tube and he will be discharged to [facility]. LILIANA ENCINAS MD DR: MAI/andres JOB#: [id number] / [id number]
[2016-12-12] VITALS (24 sets, daily range): BP systolic 151–198; BP diastolic 76–112
[2016-12-12] MEDS: hydrALAZINE 20 MG/ML VIAL. IVP PRN ×2 (06:05→21:19)
[2016-12-12] MEDS: methylPREDNISolone SOD SUCC PF 125 MG/2 ML VIAL. IV SCH ×3 (06:06→21:19)
--- NOTE | 2016-12-12 07:01 | PDOC ---
Infectious Disease Note Subjective Subjective Wants to go home ELDON COLÓN Difficult to understand as he mumbles Vital Sign Vital Signs Vital Signs Date Time Temp Pulse Resp B/P Pulse Ox O2 Delivery O2 Flow Rate FiO2 12/12/16 06:05 68 191/86 12/12/16 06:00 17 99 Venturi Mask 12.0 12/12/16 04:00 97.4 97.4 Physical Exam PHYSICAL EXAM GENERAL: NAD, On facemask. Very Alert HEENT: PERRL, OC/OP -dry NECK: Supple, no JVD, no LN LUNGS: Improved rhonchi HEART: S1S2, no gallop, no murmur ABD: Soft, NT, no organomegaly, no rebound, PEG Pérez EXT: No edema, no cyanosis. 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, no focal neurologic deficit SKIN: No rash IV: ok Labs Lab Laboratory Tests Test 12/11/16 07:00 12/11/16 16:41 12/11/16 22:29 O2 Saturation 99% (92-99) Arterial Blood pH 7.49 (7.35-7.45) Arterial Blood pCO2 at Patient Temp 38mmHg (35-46) Arterial Blood pO2 at Patient Temp 175mmHg (65-108) Arterial Blood HCO3 29mmol/L (21-28) Arterial Blood Base Excess 5mmol/L (-3-3) FiO2 50 Glucose (Fingerstick) 178mg/dL (70-99) 161mg/dL (70-99) Micro Serratia marcescens Heavy growth SPUTUM CULT RES 2 Final Proteus mirabilis Light growth ANTIMICROBIAL SUSCEPTIBILITY Final Comment S = Susceptible; I = Intermediate; R = Resistant P = Positive; N = Negative MICS are expressed in micrograms per mL Antibiotic RSLT#1 RSLT#2 RSLT#3 RSLT#4 Amikacin S Amoxicillin/Clavulanic Acid S Ampicillin S Cefepime S S Cefotaxime S Ceftazidime S Ceftriaxone S S Cefuroxime S Ciprofloxacin S S Ertapenem S Gentamicin S S Imipenem S Levofloxacin S S Meropenem S Piperacillin S S Tetracycline S R Ticarcillin S Tigecycline S Tobramycin S S Objective Assessment HCAP. Serratia/Proteus 12/05 Fever - better Leukocytosis, on steroids h/o latent syphilis. -Recently finished IV PCN Acute respiratory failure - on Bipap -s/p bronch/BAL 12/05. Thick purulent secretions Dementia PEG Hypernatremia Plan Plan of Care Cont Cefpodoxime via PEG thru 12/14 Await ? trach Please call with questions SHANNA FRANCIS MD Dec 12, 2016 07:01
--- NOTE | 2016-12-12 08:01 | PDOC ---
PULMONARY PROGRESS NOTES Subjective Off BIPAP this am Confused, has cough, on 02 Vitals Vital Signs Date Time Temp Pulse Resp B/P Pulse Ox O2 Delivery O2 Flow Rate FiO2 12/12/16 07:00 79 21 177/86 97 Venturi Mask 12.0 12/12/16 04:00 97.4 97.4 Comments discussed w viola daley as mentioned as above other sys otherwise neg General: No acute distress HEENT: Other (nc at perrl, nose throat clear) Lungs: Crackles Cardiovascular: S1, S2 Abdomen: Soft, Non-tender, Other Extremities: No Edema Skin: Warm Labs Laboratory Tests Test 12/10/16 08:15 12/10/16 12:38 12/10/16 17:20 12/11/16 00:12 O2 Saturation 98% (92-99) Arterial Blood pH 7.48 (7.35-7.45) Arterial Blood pCO2 at Patient Temp 42mmHg (35-46) Arterial Blood pO2 at Patient Temp 120mmHg (65-108) Arterial Blood HCO3 31mmol/L (21-28) Arterial Blood Base Excess 7mmol/L (-3-3) FiO2 50 Glucose (Fingerstick) 199mg/dL (70-99) 193mg/dL (70-99) 194mg/dL (70-99) Test 12/11/16 05:55 12/11/16 06:19 12/11/16 07:00 12/11/16 16:41 Sodium Level 150mmol/L (136-145) Potassium Level 4.2mmol/L (3.5-5.1) Chloride Level 112mmol/L (98-107) Carbon Dioxide Level 31mmol/L (21-32) Anion Gap 7 (6-14) Blood Urea Nitrogen 35mg/dL (8-26) Creatinine 0.9mg/dL (0.7-1.3) Estimated GFR (Cockcroft-Gault) 100.7 Glucose Level 223mg/dL (70-99) Calcium Level 8.9mg/dL (8.5-10.1) Glucose (Fingerstick) 185mg/dL (70-99) 178mg/dL (70-99) O2 Saturation 99% (92-99) Arterial Blood pH 7.49 (7.35-7.45) Arterial Blood pCO2 at Patient Temp 38mmHg (35-46) Arterial Blood pO2 at Patient Temp 175mmHg (65-108) Arterial Blood HCO3 29mmol/L (21-28) Arterial Blood Base Excess 5mmol/L (-3-3) FiO2 50 Test 12/11/16 22:29 Glucose (Fingerstick) 161mg/dL (70-99) Laboratory Tests Test 12/11/16 16:41 12/11/16 22:29 Glucose (Fingerstick) 178mg/dL (70-99) 161mg/dL (70-99) Medications Active Scripts Medications Dose Route/Sig Days Date Category Acetaminophen 325 Mg Tablet 325 Mg PEG PRN Q6HRS PRN 12/04/16 Reported Chlorhexidine Gluconate 473 Ml Mouthwash 473 Ml MM TID 12/04/16 Reported Glucose (Dextrose) 1 Each Tab.chew 1 Each PO PRN PRN 12/04/16 Reported Protonix (Pantoprazole Sodium) 40 Mg Granpkt.dr 40 Mg PEG DAILY 12/04/16 Reported Humalog (Insulin Lispro) 100 Unit/1 Ml Cartridge Unknown Dose SQ 12/04/16 Reported Hydrocodone-Apap 5-325 (Hydrocodone Bit/Acetaminophen) 1 Each Tablet 1 Tab PEG PRN Q6HRS PRN 11/21/16 Reported Enoxaparin Sodium 40 Mg/0.4 Ml Disp.syrin 40 Mg SQ 11/19/16 Reported Amlodipine Besylate 5 Mg Tablet 5 Mg PEG DAILY 11/06/16 Reported Comments cxr reviewed, Impression . 1. Acute hypoxic/ hypercapnic respiratory failure secondary to diffuse purulent mucus plug/ pneumonia with significant collapse of the distal trachea and left mainstem bronchus by secretions. He is s/p therapeutic bronchoscopy 2. Diffuse pneumonia, Serratia, proteus. 3. Aphasia with inability to clear secretions. 4. Dysphagia. 5. Negative CT for PE Plan . Antibs per ID off Bipap for now on venturi mask, 02 titration d/w RT 1. elevate hob 2. antibiotic. 3. Serratia, proteus 4. Continue DuoNebs. 5. Continue to taper steroids. 6. follow palliative care input 7. bronchodilator 8. lovenox, pepcid for prophylaxis discussed w rn, rt. VANNESA LEOS MD Dec 12, 2016 08:01
[2016-12-12] MEDS: HYDROCODONE/APAP 7.5/325MG ORAL 15 ML SOLUTION. PEG PRN ×2 (08:05→21:20)
[2016-12-12] MEDS: CEFPODOXIME PROXETIL 100 MG TABLET PEG SCH ×2 (08:06→21:20)
[2016-12-12] MEDS: FAMOTIDINE 20 MG/2 ML VIAL IVP SCH (08:07)
[2016-12-12] MEDS: INSULIN ASPART 300 UNITS/3 ML INSULN.PEN SQ SCH ×3 (08:18→17:57)
[2016-12-12] MEDS: IPRATRPIUM/ALBUTEROL 0.5/2.5MG 3 ML NEBU. NEB SCH ×4 (08:57→19:24)
[2016-12-12] MEDS: AMLODIPINE BESYLATE 10 MG TABLET PO SCH (10:35)
--- NOTE | 2016-12-12 11:05 | PDOC2 ---
PALLIATIVE CARE Palliative Care Note Palliative Care Patient confused this am. Had increased respiratory distress this am with large mucous plugs removed with aggressive suctioning. Assisted by RT Son Andres to arrive tonight. He was made aware of patient's respiratory distress. Does not want to make any decisions until he has seen his father. Attempted to reach daughter Miguelina to confirm Code Status and plan of care. Message to return call to [phone] or [phone]. STEPHEN BELCHER Dec 12, 2016 11:05
--- NOTE | 2016-12-12 13:06 | RAD ---
Portable chest, 12/12/2016: History: Worsening shortness of breath Comparison is made to a study from 12/05/2016. Left lung consolidation has worsened with increasing volume loss. The heart and mediastinum are now shifted to the left. The right lung is clear. The pulmonary vascularity as visualized on the right is within normal limits. IMPRESSION: Increasing left lung consolidation and volume loss compatible with pneumonia and mucous plugging.
--- NOTE | 2016-12-12 17:26 | PDOC2 ---
CONSULT Date of Consult Date of Consult DATE: 12/12/16 TIME: 17:16 Reason for Consult Reason for Consult: Tracheostomy Referring Physician Referring Physician: Dr. Del Cid Identification/Chief Complaint Chief Complaint Hypoxia, recurrent mucus plugging Source Source: Chart review History of Present Illness Reason for Visit: The patient is a 71-year-old male who lives in a alf. He has severe oropharyngeal dysphagia following a stroke 5 years ago. He receives enteral nutrition through PEG. Owing to his dysphasia he's had long-term issues clearing his respiratory secretions. He develops recurrent mucus plugging. He was admitted last week with severe hypoxia secondary to a large mucous plug. This has occurred recurrently throughout his ICU stay. This morning he had a brief respiratory arrest again from a mucous plug which was successfully suctioned. The patient has dementia and his power of personal injury attorney is his daughter. I was consulted to consider the patient for a tracheostomy to help improve manage his secretions. Past Medical History CENTRAL NERVOUS SYSTEM: Dementia GI: Other Past Surgical History Past Surgical History: Other Family History Family History: Family History Unknown Social History ALCOHOL: none Lives: Senior [facility] Current Problem List Problem List Problems Medical Problems: (1) Acute on chronic respiratory failure with hypoxia Status: Acute (2) Dementia Status: Acute (3) Severe protein-calorie malnutrition Status: Acute Current Medications Current Medications Current Medications Albuterol/ Ipratropium (Duoneb) 3 ml STK-MED ONCE .ROUTE ; Start 12/04/16 at 13: 21; Stop 12/04/16 at 13:22; Status DC Albuterol/ Ipratropium (Duoneb) 6 ml 1X ONCE NEB Last administered on 13:29; Start 12/04/16 at 13:30; Stop 12/04/16 at 13:31; Status DC Ondansetron HCl 4 mg 4 mg PRN Q8HRS PRN IV NAUSEA/VOMITING; Start 12/04/16 at 15 :00; Stop 12/05/16 at 14:59; Status DC Sodium Chloride (Iv Sodium Chloride 0.9% 1000ml Bag) 1,000 ml @ 100 mls/hr Q10H IV Last administered on 12/05/16 16:35; Start 12/04/16 at 14:52; Stop 07/14 at 14:51; Status DC Acetaminophen (Tylenol) 650 mg PRN Q4HRS PRN PO FEVER; Start 12/04/16 at 15:00; Stop 12/05/16 at 14:59; Status DC Albuterol/ Ipratropium (Duoneb) 3 ml RTQID NEB Last administered on 12/06/16 07:50; Start 12/04/16 at 16:00; Stop 12/05/16 at 15:59; Status DC Methylprednisolone Sodium Succinate (Solu-Medrol 125mg Vial) 60 mg Q6HRS IV Last administered on 12/11/16 06:00; Start 12/04/16 at 16:00; Stop 12/11/16 at 12:22; Status DC Iohexol (Omnipaque 300 Mg/ml) 75 ml 1X ONCE IV Last administered on 12/04/16 15:10; Start 12/04/16 at 15:00; Stop 12/04/16 at 15:09; Status DC Info (Do NOT chart on this entry -- for MONITORING) 1 each PRN DAILY PRN MC SEE COMMENTS; Start 12/04/16 at 15:15; Stop 12/06/16 at 15:14; Status DC Albuterol/ Ipratropium (Duoneb) 3 ml 1X ONCE NEB Last administered on 02:33; Start 12/05/16 at 02:30; Stop 12/05/16 at 02:31; Status DC Piperacillin Sod/ Tazobactam Sod 1 each 1 each PRN DAILY PRN MC SEE COMMENTS; Start 12/05/16 at 10:00; Stop 12/11/16 at 07:27; Status DC Piperacillin Sod/ Tazobactam Sod/ Sodium Chloride (Zosyn/Iv Sodium Chloride 0.9 % 100ml) 100 ml @ 200 mls/hr Q6HRS IV Last administered on 12/11/16 06:00; Start 12/05/16 at 10:30; Stop 12/11/16 at 07:27; Status DC Ondansetron HCl (Zofran) 4 mg PRN Q6HRS PRN IV Nausea; Start 12/05/16 at 11:00 ; Stop 12/05/16 at 18:00; Status DC Fentanyl Citrate (Fentanyl 2ml Vial) 25 mcg PRN Q5MIN PRN IV MILD PAIN; Start 12/05/16 at 11:00; Stop 12/05/16 at 18:00; Status DC Fentanyl Citrate (Fentanyl 2ml Vial) 50 mcg PRN Q5MIN PRN IV MODERATE PAIN; Start 12/05/16 at 11:00; Stop 12/05/16 at 18:00; Status DC Morphine Sulfate 1 mg 1 mg PRN Q10MIN PRN IV SEVERE PAIN; Start 12/05/16 at 11: 00; Stop 12/05/16 at 18:00; Status DC Lactated Ringer's (Iv Lactated Ringers) 1,000 ml @ 30 mls/hr Q24H IV Last administered on 12/05/16 13:18; Start 12/05/16 at 10:50; Stop 12/05/16 at 22:49 ; Status DC Lidocaine HCl 2 ml 1X PRN PRN ID IV START; Start 12/05/16 at 11:00; Stop at 18:00; Status DC Hydromorphone HCl (Dilaudid) 0.5 mg PRN Q10MIN PRN IV SEV PAIN,Second choice; Start 12/05/16 at 11:00; Stop 12/05/16 at 18:00; Status DC Prochlorperazine Edisylate 5 mg 5 mg PACU PRN PRN IV NAUSEA; Start 12/05/16 at 11:00; Stop 12/05/16 at 18:00; Status DC Propofol (Diprivan) 20 ml @ As Directed STK-MED ONCE IV ; Start 12/05/16 at 12: 52; Stop 12/05/16 at 12:53; Status DC Albuterol Sulfate 2.5 mg 2.5 mg 1X ONCE NEB Last administered on 12/05/16 13: 05; Start 12/05/16 at 13:15; Stop 12/05/16 at 13:16; Status DC Propofol (Diprivan) 20 ml @ As Directed STK-MED ONCE IV ; Start 12/05/16 at 13: 35; Stop 12/05/16 at 13:36; Status DC Vancomycin HCl 1 each 1 each PRN DAILY PRN MC SEE COMMENTS Last administered on 12/07/16 05:13; Start 12/05/16 at 14:15; Stop 12/07/16 at 12:05; Status DC Vancomycin HCl 1.5 gm/Sodium Chloride 500 ml @ 250 mls/hr 1X ONCE IV Last administered on 12/05/16 16:35; Start 12/05/16 at 15:00; Stop 12/05/16 at 16:59 ; Status DC Vancomycin HCl/ Sodium Chloride (Iv Sodium Chloride 0.9% 250ml) 250 ml @ 250 mls/hr Q12H IV Last administered on 12/07/16 04:49; Start 12/06/16 at 04:30; Stop 12/07/16 at 05:05; Status DC Vancomycin HCl 1 each 1X ONCE MC Last administered on 12/07/16 04:00; Start 12/07/16 at 04:00; Stop 12/07/16 at 04:01; Status DC Hydralazine HCl (Apresoline) 10 mg PRN Q4HRS PRN IVP ELEVATED BP, SEE COMMENTS Last administered on 12/09/16 08:52; Start 12/05/16 at 20:15; Stop 12/09/16 at 11:26; Status DC Furosemide (Lasix) 20 mg 1X ONCE IVP Last administered on 12/05/16 22:57; Start 12/05/16 at 22:45; Stop 12/05/16 at 22:46; Status DC Acetaminophen/ Hydrocodone Bitart (Lortab 7.5-325/ 15ml Oral Solution) 10 ml PRN Q6HRS PRN PEG PAIN Last administered on 12/09/16 19:22; Start 12/05/16 at 23:00; Stop 12/09/16 at 20:59; Status DC Albuterol/ Ipratropium 3 ml 3 ml RTQID NEB Last administered on 12/12/16 11:34 ; Start 12/06/16 at 12:00 Vancomycin HCl/ Sodium Chloride (Iv Sodium Chloride 0.9% 250ml) 250 ml @ 167 mls/hr Q12H IV ; Start 12/07/16 at 16:30; Stop 12/07/16 at 16:30; Status DC Vancomycin HCl 1 each 1X ONCE MC ; Start 12/08/16 at 16:00; Stop 12/08/16 at 16 :01; Status Cancel Enoxaparin Sodium (Lovenox Per Pharmacy Prophylaxis Dosing) 1 each PRN DAILY PRN MC SEE COMMENTS; Start 12/08/16 at 11:30; Stop 12/11/16 at 10:17; Status DC Famotidine (Pepcid) 20 mg BID PO ; Start 12/08/16 at 12:00; Status Cancel Enoxaparin Sodium (Lovenox 40mg Syringe) 40 mg DAILY16 SQ Last administered on 12/11/16 18:24; Start 12/08/16 at 16:00 Famotidine (Pepcid) 20 mg DAILY IVP Last administered on 12/12/16 08:07; Start 12/08/16 at 12:00 Hydralazine HCl (Apresoline) 20 mg PRN Q4HRS PRN IVP ELEVATED BP, SEE COMMENTS Last administered on 12/12/16 06:05; Start 12/09/16 at 11:30 Acetaminophen/ Hydrocodone Bitart (Lortab 7.5-325/ 15ml Oral Solution) 10 ml PRN Q4HRS PRN PEG PAIN Last administered on 12/10/16 00:36; Start 12/09/16 at 23:00; Stop 12/10/16 at 08:48; Status DC Lorazepam (Ativan) 1 mg PRN Q4HRS PRN IV ANXIETY / AGITATION Last administered on 12/10/16 01:57; Start 12/09/16 at 21:00 Acetaminophen/ Hydrocodone Bitart (Lortab 7.5-325/ 15ml Oral Solution) 15 ml PRN Q4HRS PRN PEG PAIN Last administered on 12/12/16 08:05; Start 12/10/16 at 08:45 Insulin Aspart (Novolog) 0-7 UNITS TIDWMEALS SQ Last administered on 12/12/16 13:46; Start 12/10/16 at 12:00 Dextrose 12.5 gm PRN Q15MIN PRN IV SEE COMMENTS; Start 12/10/16 at 11:45 Cefpodoxime Proxetil (Vantin) 200 mg BID PEG Last administered on 12/12/16 08: 06; Start 12/11/16 at 09:00 Methylprednisolone Sodium Succinate (Solu-Medrol 125mg Vial) 60 mg Q8HRS IV Last administered on 12/12/16 06:06; Start 12/11/16 at 14:00; Stop 12/12/16 at 08:01; Status DC Methylprednisolone Sodium Succinate (Solu-Medrol 125mg Vial) 40 mg Q8HRS IV Last administered on 12/12/16t 14:24; Start 12/12/16 at 14:00 Amlodipine Besylate (Norvasc) 10 mg DAILY PO Last administered on 12/12/16t 10: 35; Start 12/12/16 at 10:00 Labetalol HCl (Normodyne) 10 mg Q4H PRN IVP HYPERTENSION, SEE COMMENTS; Start 12/12/16 at 09:15 Active Scripts Active Reported Acetaminophen 325 Mg Tablet 325 Mg PEG PRN Q6HRS PRN Chlorhexidine Gluconate 473 Ml Mouthwash 473 Ml MM TID Glucose (Dextrose) 1 Each Tab.chew 1 Each PO PRN PRN Protonix (Pantoprazole Sodium) 40 Mg Granpkt.dr 40 Mg PEG DAILY Humalog (Insulin Lispro) 100 Unit/1 Ml Cartridge Unknown Dose SQ Hydrocodone-Apap 5-325 (Hydrocodone Bit/Acetaminophen) 1 Each Tablet 1 Tab PEG PRN Q6HRS PRN Enoxaparin Sodium 40 Mg/0.4 Ml Disp.syrin 40 Mg SQ Amlodipine Besylate 5 Mg Tablet 5 Mg PEG DAILY Allergies Allergies: Coded Allergies: No Known Drug Allergies (Unverified , 12/05/16) ROS Review of System Unable to perform, patient severely demented Physical Exam General: Other (dementia, cachexia) HEENT: Atraumatic Lungs: Clear to auscultation Heart: Regular rate, Normal S1, Normal S2 Abdomen: Soft, No tenderness Extremities: No edema Skin: No significant lesion Psych/Mental Status: Other (dementia) MUSCULOSKELETAL: No deformity Vitals VITALS Vital Signs Date Time Temp Pulse Resp B/P Pulse Ox O2 Delivery O2 Flow Rate FiO2 12/12/16 16:00 97.8 89 15 170/85 96 Nasal Cannula 2.5 97.8 Labs Labs Laboratory Tests Test 12/10/16 17:20 12/11/16 00:12 12/11/16 05:55 12/11/16 06:19 Glucose (Fingerstick) 193mg/dL (70-99) 194mg/dL (70-99) 185mg/dL (70-99) Sodium Level 150mmol/L (136-145) Potassium Level 4.2mmol/L (3.5-5.1) Chloride Level 112mmol/L (98-107) Carbon Dioxide Level 31mmol/L (21-32) Anion Gap 7 (6-14) Blood Urea Nitrogen 35mg/dL (8-26) Creatinine 0.9mg/dL (0.7-1.3) Estimated GFR (Cockcroft-Gault) 100.7 Glucose Level 223mg/dL (70-99) Calcium Level 8.9mg/dL (8.5-10.1) Test 12/11/16 07:00 12/11/16 16:41 12/11/16 22:29 12/12/16 08:12 O2 Saturation 99% (92-99) Arterial Blood pH 7.49 (7.35-7.45) Arterial Blood pCO2 at Patient Temp 38mmHg (35-46) Arterial Blood pO2 at Patient Temp 175mmHg (65-108) Arterial Blood HCO3 29mmol/L (21-28) Arterial Blood Base Excess 5mmol/L (-3-3) FiO2 50 Glucose (Fingerstick) 178mg/dL (70-99) 161mg/dL (70-99) 187mg/dL (70-99) Laboratory Tests Test 12/11/16 22:29 12/12/16 08:12 Glucose (Fingerstick) 161mg/dL (70-99) 187mg/dL (70-99) Assessment/Plan Assessment/Plan 71-year-old male with severe oropharyngeal dysphagia following a stroke 5 years ago, he receives enteral nutrition via PEG, admitted a week ago with severe hypoxia secondary to mucous plugging. He's had a chronic issue clearing his respiratory secretions because of his dysphasia. He's had recurrent episodes of mucous plugging throughout his hospitalization. He had a respiratory arrest this morning again secondary to mucous plug. The patient has dementia and his power of personal injury attorney is his daughter. In terms of better managing his secretions, I think a tracheostomy would be beneficial. Obviously the tracheostomy would be permanent. His daughter who is his clinical decision maker and power of personal injury attorney is waiting for her brother to arrive in [place] from [facility]. They will together decide if they think a tracheostomy is what their father would've wanted. I have tentatively scheduled the patient for tracheostomy on Thursday, December 15, 2016. If they decide not to proceed with a tracheostomy, then I think hospice care would be a reasonable option. JV HALE MD Dec 12, 2016 17:26
[2016-12-12] MEDS: DO NOT USE 40 MG/0.4 ML DISP.SYRIN SQ SCH (17:56)
[2016-12-12] MEDS: LABETALOL 20 MG/4 ML DISP.SYRIN. IVP PRN (18:31)
[2016-12-13] VITALS (24 sets, daily range): BP systolic 109–207; BP diastolic 58–117
[2016-12-13] MEDS: hydrALAZINE 20 MG/ML VIAL. IVP PRN ×3 (01:09→10:06)
[2016-12-13] MEDS: LORAZEPAM 2 MG/ML VIAL IV PRN ×3 (01:57→22:00)
--- NOTE | 2016-12-13 02:19 | PN ---
DATE: SUBJECTIVE: The patient is resting slightly propped up in bed, in no apparent distress. He did become extremely distressed, hypoxic, tachypneic, and tachycardic. His blood pressure was extremely high when they tried to suction him and a large amount of mucus was suctioned. He was given amlodipine 10 mg through his gastrostomy tube, and by the time I saw him, he was resting slightly propped up in bed, in no apparent respiratory distress. PHYSICAL EXAMINATION: GENERAL: When I saw him, he was resting slightly propped up in bed, in no apparent respiratory distress, pale, and cachectic, but no jaundice, cyanosis, or thyromegaly. No jugular venous distention. No limb edema. VITAL SIGNS: Her heart rate was 89, blood pressure was 160/97, temperature was 98, respiratory rate was ____, and oxygen saturation was 98% by nasal cannula. HEAD, EYES, EARS, NOSE, AND THROAT: Showed normocephalic, atraumatic. NECK: Supple. HEART: Showed normal first and second heart sounds with no gallop, rub, or murmur. CHEST: Clear to auscultation. No crepitation or rhonchi. ABDOMEN: Distended, soft, and nontender. No guarding or rigidity. No organomegaly. Hernial orifices intact. Bowel sounds normal. NEUROLOGIC: He was awake, alert, had severe dysarthria, and was difficult to understand, had severe dysphagia tendency to aspirate. He moves all extremities without difficulty, although he has severe muscle wasting and weakness. He is mostly bed-bound. His intake over the last 24 hours was 4100, output was 1850. LABORATORY DATA: As of this morning, showed that his serum sodium continues to be high at 150, potassium 4.2, chloride 112, bicarbonate 31, anion gap of 7, BUN 35, creatinine 0.9, estimated GFR was 100 mL per minute, his glucose was 100-123, and calcium was 8.9. His blood sugar is much better controlled. ASSESSMENT: Acute hypoxic-hypercapnic respiratory failure secondary to diffuse purulent mucus plug/pneumonia, and significant collapse____ of distal trachea and left main bronchus. For light secretion, he is status post therapeutic bronchoscopy, diffuse pneumonia, growing Serratia marcescens and Proteus mirabilis, aphasia, and inability to clear secretions, dysphagia with tendency to aspirate, although his CT scan was negative for pulmonary embolism. PLAN: To continue with IV antibiotic. Continue with steroids, continue with nutritional support, and await the family's decision regarding tracheostomy tube placement. LILIANA ENCINAS MD DR: MAI/andres JOB#: [id number] / [id number]
[2016-12-13] MEDS: LABETALOL 20 MG/4 ML DISP.SYRIN. IVP PRN ×2 (03:07→07:07)
[2016-12-13] MEDS: methylPREDNISolone SOD SUCC PF 125 MG/2 ML VIAL. IV SCH ×3 (05:26→21:45)
[2016-12-13] MEDS: HYDROCODONE/APAP 7.5/325MG ORAL 15 ML SOLUTION. PEG PRN ×2 (06:06→21:45)
--- NOTE | 2016-12-13 06:57 | PDOC ---
PULMONARY PROGRESS NOTES Subjective ON BIPAP, has cough, secretion Confused, Vitals Vital Signs Date Time Temp Pulse Resp B/P Pulse Ox O2 Delivery O2 Flow Rate FiO2 12/13/16 06:28 92 BiPAP/CPAP 12/13/16 06:06 22 12/13/16 06:00 82 180/91 12/13/16 01:00 2.5 12/13/16 00:00 97.9 97.9 Comments discussed w rn, viola as mentioned as above other sys otherwise neg General: Alert, No acute distress HEENT: Other (nc at perrl, nose throat clear) Lungs: Wheezing, Crackles Cardiovascular: S1, S2 Abdomen: Soft, Non-tender, Other Extremities: No Edema Skin: Warm Labs Laboratory Tests Test 12/11/16 07:00 12/11/16 16:41 12/11/16 22:29 12/12/16 08:12 O2 Saturation 99% (92-99) Arterial Blood pH 7.49 (7.35-7.45) Arterial Blood pCO2 at Patient Temp 38mmHg (35-46) Arterial Blood pO2 at Patient Temp 175mmHg (65-108) Arterial Blood HCO3 29mmol/L (21-28) Arterial Blood Base Excess 5mmol/L (-3-3) FiO2 50 Glucose (Fingerstick) 178mg/dL (70-99) 161mg/dL (70-99) 187mg/dL (70-99) Laboratory Tests Test 12/12/16 08:12 Glucose (Fingerstick) 187mg/dL (70-99) Medications Active Scripts Medications Dose Route/Sig Days Date Category Acetaminophen 325 Mg Tablet 325 Mg PEG PRN Q6HRS PRN 12/04/16 Reported Chlorhexidine Gluconate 473 Ml Mouthwash 473 Ml MM TID 12/04/16 Reported Glucose (Dextrose) 1 Each Tab.chew 1 Each PO PRN PRN 12/04/16 Reported Protonix (Pantoprazole Sodium) 40 Mg Granpkt. 40 Mg PEG DAILY 12/04/16 Reported Humalog (Insulin Lispro) 100 Unit/1 Ml Cartridge Unknown Dose SQ 12/04/16 Reported Hydrocodone-Apap 5-325 (Hydrocodone Bit/Acetaminophen) 1 Each Tablet 1 Tab PEG PRN Q6HRS PRN 11/21/16 Reported Enoxaparin Sodium 40 Mg/0.4 Ml Disp.syrin 40 Mg SQ 11/19/16 Reported Amlodipine Besylate 5 Mg Tablet 5 Mg PEG DAILY 11/06/16 Reported Comments cxr reviewed, left lung consolidation and volume loss compatible with pneumonia and mucous plugging. Impression . 1. Acute hypoxic/ hypercapnic respiratory failure secondary to diffuse purulent mucus plug/ pneumonia with significant collapse of the distal trachea and left mainstem bronchus by secretions. He is s/p therapeutic bronchoscopy 2. Diffuse pneumonia, Serratia, proteus. 3. Aphasia with inability to clear secretions. 4. Dysphagia. 5. Negative CT for PE Plan . Antibs per ID Bipap prn, setting reviewed, 02 titration d/w RT 1. elevate hob 2. antibiotic. 3. Serratia, proteus 4. Continue DuoNebs. 5. steroids, no change in dose today. 6. follow palliative care input 7. increase bronchodilator, add ics, add pd and v of l lung 8. lovenox, pepcid for prophylaxis discussed w rn, rt. VANNESA LEOS MD Dec 13, 2016 06:57
[2016-12-13 07:58] LABS: HEMATOCRIT 39.3 % (39.0-53.0); HEMOGLOBIN 12.3 g/dL (13.0-17.5); RED BLOOD COUNT 4.5 x10^6/uL (4.30-5.70); RED CELL DISTRIBUTION WIDTH 17.4 % (11.5-14.5); WHITE BLOOD COUNT 19.7 x10^3/uL (4.0-11.0)
[2016-12-13 07:59] LABS: ALBUMIN 2.4 g/dL (3.4-5.0); ALBUMIN/GLOBULIN RATIO 0.6 (1.0-1.7); CALCIUM 9.3 mg/dL (8.5-10.1); CREATININE 0.7 mg/dL (0.7-1.3); GFR 134.5; MAGNESIUM 2.1 mg/dL (1.8-2.4); POTASSIUM 4.2 mmol/L (3.5-5.1); TOTAL BILIRUBIN 0.4 mg/dL (0.2-1.0); TOTAL PROTEIN 6.2 g/dL (6.4-8.2)
[2016-12-13] MEDS: FAMOTIDINE 20 MG/2 ML VIAL IVP SCH (08:12)
[2016-12-13] MEDS: AMLODIPINE BESYLATE 10 MG TABLET PO SCH (08:12)
[2016-12-13] MEDS: CEFPODOXIME PROXETIL 100 MG TABLET PEG SCH ×2 (08:12→21:46)
[2016-12-13] MEDS: INSULIN ASPART 300 UNITS/3 ML INSULN.PEN SQ SCH ×4 (08:15→23:43)
[2016-12-13] MEDS: BUDESONIDE 0.5 MG/2 ML NEBU NEB SCH ×2 (08:21→20:06)
[2016-12-13] MEDS: IPRATRPIUM/ALBUTEROL 0.5/2.5MG 3 ML NEBU. NEB SCH ×5 (09:00→23:30)
[2016-12-13] MEDS ORDERED: PROPOFOL 100 ML IV PRN (14:45)
[2016-12-13] MEDS: DO NOT USE 40 MG/0.4 ML DISP.SYRIN SQ SCH (17:03)
[2016-12-14] VITALS (24 sets, daily range): BP systolic 104–199; BP diastolic 58–101
[2016-12-14] MEDS: LORAZEPAM 2 MG/ML VIAL IV PRN ×3 (02:05→22:41)
[2016-12-14] MEDS: IPRATRPIUM/ALBUTEROL 0.5/2.5MG 3 ML NEBU. NEB SCH ×6 (03:44→23:21)
[2016-12-14] MEDS: methylPREDNISolone SOD SUCC PF 125 MG/2 ML VIAL. IV SCH ×3 (06:17→22:31)
[2016-12-14] MEDS: hydrALAZINE 20 MG/ML VIAL. IVP PRN (06:18)
[2016-12-14 06:45] LABS: BASO # 0.1 x10^3/uL (0.0-0.2); BASO % 1 % (0-3); EOS % 0 % (0-3); HEMATOCRIT 38.7 % (39.0-53.0); HEMOGLOBIN 12.1 g/dL (13.0-17.5); LYMPH # 0.3 x10^3/uL (1.0-4.8); LYMPH % 1 % (24-48); MEAN CORPUSCULAR HEMOGLOBIN 27 pg (25-35); MEAN CORPUSCULAR HGB CONC 31 g/dL (31-37); MEAN CORPUSCULAR VOLUME 87 fL (79-100); MONO % 2 % (0-9); NEUT % 96 % (31-73); PLATELET COUNT 191 x10^3/uL (140-400); RED BLOOD COUNT 4.44 x10^6/uL (4.30-5.70); RED CELL DISTRIBUTION WIDTH 17.1 % (11.5-14.5); WHITE BLOOD COUNT 28.4 x10^3/uL (4.0-11.0)
--- NOTE | 2016-12-14 06:50 | PN ---
DATE: 12/13/2016 SUBJECTIVE: The patient is resting slightly propped up in bed on BiPAP with an FIO2 of 100%. Nursing staff stated that he continues to desaturate and that she has to increase the FIO2 to 100% to be able to maintain his oxygen saturation more than 90. We had a lengthy discussion with his son and daughter explaining that his muscle weakness is the problem and is not something which can be cured and there two options either to consider palliative and hospice care or be aggressive and consider tracheostomy tube. The son has unrealistic expectation that his father is going to improve and get better. I explained to him this is a recurring problem that his muscles are so weak that he cannot expectorate his secretions and even tracheostomy just makes suctioning easier, but is not going to solve the problem, but we are happy to do whatever he and his family thinks good for his father. The plan was for him to talk to his father when he is in much better situation ____ perhaps on a nasal cannula and he is not in respiratory distress. PHYSICAL EXAMINATION: GENERAL: In any case, when I examined him today, he looked pale, cachectic, but not jaundiced, cyanosis, or thyromegaly. No jugular venous distension. No limb edema. VITAL SIGNS: His heart rate was 94, blood pressure was 158/79, temperature was 97, respiratory rate was 23, and oxygen saturation was 85% on FiO2 of 100%. HEAD, EYES, EARS, NOSE AND THROAT: Showed normocephalic, atraumatic. NECK: Supple. HEART: Showed normal first and second heart sounds with no gallop, rub or murmur. CHEST: Shows central trachea, equally reduced expansion, reduced air entry, vesicular breath sounds. No crepitation or rhonchi. ABDOMEN: Distended, soft, nontender with a gastrostomy tube in place. There is no guarding or rigidity. No organomegaly. Hernial orifices intact. Bowel sounds normal. NEUROLOGIC: He was arousable, opens his eyes, tracks and responds. He has very severe dysarthria, difficult to understand what he says even when on a nasal cannula only. He has marked muscle wasting and weakness. He moves upper extremities to much good extent than his lower extremities, mostly bed bound. His intake over the last 24 hours was 2481, output was 1380. LABORATORY DATA: As of this morning showed a white cell count of 19,700, hemoglobin 12, hematocrit 39, MCV 87, and platelet count 267,000. His chemistry this morning showed a serum sodium of 141, potassium 4.2, chloride 103, bicarbonate 26, anion gap of 12, BUN 29, creatinine 0.7, estimated GFR was 134 mL per minute. His glucose was 321 mg/dL. Calcium was 9.3, magnesium was 2.1. Total bilirubin, AST, ALT were normal. His total protein was 6.2, albumin was 2.4. ASSESSMENT: 1. Acute hypoxic hypercapnic respiratory failure secondary to diffuse purulent mucus plug/pneumonia, significant collapse of the distal trachea and left main bronchus. 2. Status post therapeutic bronchoscopy. 3. Diffuse pneumonia growing Serratia marcescens as well as Proteus mirabilis. 4. Aphasia, dysphagia and dysarthria. The patient is unable to clear secretion with marked tendency to aspirate; however, his CT scan was negative for pulmonary embolism. PLAN: To continue with BiPAP machine, continue with IV antibiotic. Continue with steroids. Continue with nutritional support. As I stated, we have a lengthy discussion with his son and we are awaiting his final decision regarding further management, which I believe that probably will involve tracheostomy tube that will be hopefully placed on Thursday or Thursday. LILIANA ENCINAS MD DR: MAI/andres JOB#: [id number] / [id number]
[2016-12-14 07:02] LABS: CALCIUM 9.4 mg/dL (8.5-10.1); CREATININE 0.6 mg/dL (0.7-1.3); GFR 160.7; POTASSIUM 4.9 mmol/L (3.5-5.1)
--- NOTE | 2016-12-14 07:33 | PDOC ---
PULMONARY PROGRESS NOTES Subjective ON BIPAP 00%, sat 97%, has cough, secretion Confused, Vitals Vital Signs Date Time Temp Pulse Resp B/P Pulse Ox O2 Delivery O2 Flow Rate FiO2 12/14/16 06:18 86 170/82 12/14/16 06:00 29 100 BiPAP/CPAP 12/14/16 04:00 98.0 98.0 12/13/16 21:45 2.5 Comments discussed w rn, viola as mentioned as above other sys otherwise neg lymphatics, no lap General: Alert HEENT: Other (nc at perrl, bipap mask on) Lungs: Wheezing, Crackles Cardiovascular: S1, S2 Abdomen: Soft, Non-tender, Other (no mass) Neuro Exam: Alert Extremities: No Edema Skin: Warm Labs Laboratory Tests Test 12/12/16 08:12 12/13/16 07:25 12/14/16 06:30 Glucose (Fingerstick) 187mg/dL (70-99) White Blood Count 19.7x10^3/uL (4.0-11.0) 28.4x10^3/uL (4.0-11.0) Red Blood Count 4.50x10^6/uL (4.30-5.70) 4.44x10^6/uL (4.30-5.70) Hemoglobin 12.3g/dL (13.0-17.5) 12.1g/dL (13.0-17.5) Hematocrit 39.3% (39.0-53.0) 38.7% (39.0-53.0) Mean Corpuscular Volume 87fL (79-100) 87fL (79-100) Mean Corpuscular Hemoglobin 27pg (25-35) 27pg (25-35) Mean Corpuscular Hemoglobin Concent 31g/dL (31-37) 31g/dL (31-37) Red Cell Distribution Width 17.4% (11.5-14.5) 17.1% (11.5-14.5) Platelet Count 267x10^3/uL (140-400) 191x10^3/uL (140-400) Sodium Level 141mmol/L (136-145) 140mmol/L (136-145) Potassium Level 4.2mmol/L (3.5-5.1) 4.9mmol/L (3.5-5.1) Chloride Level 103mmol/L (98-107) 103mmol/L (98-107) Carbon Dioxide Level 26mmol/L (21-32) 29mmol/L (21-32) Anion Gap 12 (6-14) 8 (6-14) Blood Urea Nitrogen 29mg/dL (8-26) 27mg/dL (8-26) Creatinine 0.7mg/dL (0.7-1.3) 0.6mg/dL (0.7-1.3) Estimated GFR (Cockcroft-Gault) 134.5 160.7 BUN/Creatinine Ratio 41 (6-20) Glucose Level 321mg/dL (70-99) 278mg/dL (70-99) Calcium Level 9.3mg/dL (8.5-10.1) 9.4mg/dL (8.5-10.1) Magnesium Level 2.1mg/dL (1.8-2.4) Total Bilirubin 0.4mg/dL (0.2-1.0) Aspartate Amino Transf (AST/SGOT) 35U/L (15-37) Alanine Aminotransferase (ALT/SGPT) 106U/L (16-63) Alkaline Phosphatase 95U/L (46-116) Total Protein 6.2g/dL (6.4-8.2) Albumin 2.4g/dL (3.4-5.0) Albumin/Globulin Ratio 0.6 (1.0-1.7) Neutrophils (%) (Auto) 96% (31-73) Lymphocytes (%) (Auto) 1% (24-48) Monocytes (%) (Auto) 2% (0-9) Eosinophils (%) (Auto) 0% (0-3) Basophils (%) (Auto) 1% (0-3) Neutrophils # (Auto) 27.3x10^3uL (1.8-7.7) Lymphocytes # (Auto) 0.3x10^3/uL (1.0-4.8) Monocytes # (Auto) 0.7x10^3/uL (0.0-1.1) Eosinophils # (Auto) 0.0x10^3/uL (0.0-0.7) Basophils # (Auto) 0.1x10^3/uL (0.0-0.2) Laboratory Tests Test 12/14/16 06:30 White Blood Count 28.4x10^3/uL (4.0-11.0) Red Blood Count 4.44x10^6/uL (4.30-5.70) Hemoglobin 12.1g/dL (13.0-17.5) Hematocrit 38.7% (39.0-53.0) Mean Corpuscular Volume 87fL (79-100) Mean Corpuscular Hemoglobin 27pg (25-35) Mean Corpuscular Hemoglobin Concent 31g/dL (31-37) Red Cell Distribution Width 17.1% (11.5-14.5) Platelet Count 191x10^3/uL (140-400) Neutrophils (%) (Auto) 96% (31-73) Lymphocytes (%) (Auto) 1% (24-48) Monocytes (%) (Auto) 2% (0-9) Eosinophils (%) (Auto) 0% (0-3) Basophils (%) (Auto) 1% (0-3) Neutrophils # (Auto) 27.3x10^3uL (1.8-7.7) Lymphocytes # (Auto) 0.3x10^3/uL (1.0-4.8) Monocytes # (Auto) 0.7x10^3/uL (0.0-1.1) Eosinophils # (Auto) 0.0x10^3/uL (0.0-0.7) Basophils # (Auto) 0.1x10^3/uL (0.0-0.2) Sodium Level 140mmol/L (136-145) Potassium Level 4.9mmol/L (3.5-5.1) Chloride Level 103mmol/L (98-107) Carbon Dioxide Level 29mmol/L (21-32) Anion Gap 8 (6-14) Blood Urea Nitrogen 27mg/dL (8-26) Creatinine 0.6mg/dL (0.7-1.3) Estimated GFR (Cockcroft-Gault) 160.7 Glucose Level 278mg/dL (70-99) Calcium Level 9.4mg/dL (8.5-10.1) Medications Active Scripts Medications Dose Route/Sig Days Date Category Acetaminophen 325 Mg Tablet 325 Mg PEG PRN Q6HRS PRN 12/04/16 Reported Chlorhexidine Gluconate 473 Ml Mouthwash 473 Ml MM TID 12/04/16 Reported Glucose (Dextrose) 1 Each Tab.chew 1 Each PO PRN PRN 12/04/16 Reported Protonix (Pantoprazole Sodium) 40 Mg Granpkt.dr 40 Mg PEG DAILY 12/04/16 Reported Humalog (Insulin Lispro) 100 Unit/1 Ml Cartridge Unknown Dose SQ 12/04/16 Reported Hydrocodone-Apap 5-325 (Hydrocodone Bit/Acetaminophen) 1 Each Tablet 1 Tab PEG PRN Q6HRS PRN 11/21/16 Reported Enoxaparin Sodium 40 Mg/0.4 Ml Disp.syrin 40 Mg SQ 11/19/16 Reported Amlodipine Besylate 5 Mg Tablet 5 Mg PEG DAILY 11/06/16 Reported Comments cxr reviewed, left lung consolidation and volume loss compatible with pneumonia and mucous plugging. Impression . 1. Acute hypoxic/ hypercapnic respiratory failure secondary to diffuse purulent mucus plug/ pneumonia with significant collapse of the distal trachea and left mainstem bronchus by secretions. He is s/p therapeutic bronchoscopy 2. Diffuse pneumonia, Serratia, proteus. 3. Aphasia with inability to clear secretions. 4. Dysphagia. 5. Negative CT for PE Plan . Antibs per ID Bipap, setting reviewed, changed to titration d/w RT 1. elevate hob 2. antibiotic. 3. Serratia, proteus 4. Continue DuoNebs. 5. steroids, no change in dose today. 6. follow palliative care input 7. bronchodilator, ics, pd and v of l lung 8. lovenox, pepcid for prophylaxis 9. cxr prognosis is poor discussed w rn, rt. VANNESA LEOS MD Dec 14, 2016 07:33
[2016-12-14] MEDS: INSULIN ASPART 300 UNITS/3 ML INSULN.PEN SQ SCH ×4 (07:47→20:42)
[2016-12-14] MEDS ORDERED: IV NORMAL SALINE 1000ML BAG 1,000 ML IV ONE ×2 (08:15)
[2016-12-14] MEDS: CEFPODOXIME PROXETIL 100 MG TABLET PEG SCH ×2 (08:48→20:41)
[2016-12-14] MEDS: AMLODIPINE BESYLATE 10 MG TABLET PO SCH (08:50)
[2016-12-14] MEDS: FAMOTIDINE 20 MG/2 ML VIAL IVP SCH (08:50)
[2016-12-14] MEDS: BUDESONIDE 0.5 MG/2 ML NEBU NEB SCH ×2 (08:52→20:46)
[2016-12-14] MEDS: LABETALOL 20 MG/4 ML DISP.SYRIN. IVP PRN ×2 (09:07→20:41)
--- NOTE | 2016-12-14 09:48 | PDOC ---
Infectious Disease Note Subjective Subjective Sepsis screen triggered per RN Asked to see for leukocytosis. No fever, diarrhea, or vomiting. On BiPAP FiO2 at 50% Tube feedings ROS ROS Unobtainable Vital Sign Vital Signs Vital Signs Date Time Temp Pulse Resp B/P Pulse Ox O2 Delivery O2 Flow Rate FiO2 12/14/16 09:07 91 194/96 12/14/16 09:04 25 99 BiPAP/CPAP 12/14/16 07:55 2.5 12/14/16 07:00 98.1 98.1 Physical Exam PHYSICAL EXAM GENERAL: Minimally responsive, on BiPAP LUNGS: Clear HEART: S1S2, no gallop, no murmur ABD: Soft, BS present, No grimace or guarding to palpation. PEG : Pérez EXT: Generalized trace edema SKIN: No rash. warm to touch IV: ok Labs Lab Laboratory Tests Test 12/14/16 06:30 White Blood Count 28.4x10^3/uL (4.0-11.0) Red Blood Count 4.44x10^6/uL (4.30-5.70) Hemoglobin 12.1g/dL (13.0-17.5) Hematocrit 38.7% (39.0-53.0) Mean Corpuscular Volume 87fL (79-100) Mean Corpuscular Hemoglobin 27pg (25-35) Mean Corpuscular Hemoglobin Concent 31g/dL (31-37) Red Cell Distribution Width 17.1% (11.5-14.5) Platelet Count 191x10^3/uL (140-400) Neutrophils (%) (Auto) 96% (31-73) Lymphocytes (%) (Auto) 1% (24-48) Monocytes (%) (Auto) 2% (0-9) Eosinophils (%) (Auto) 0% (0-3) Basophils (%) (Auto) 1% (0-3) Neutrophils # (Auto) 27.3x10^3uL (1.8-7.7) Lymphocytes # (Auto) 0.3x10^3/uL (1.0-4.8) Monocytes # (Auto) 0.7x10^3/uL (0.0-1.1) Eosinophils # (Auto) 0.0x10^3/uL (0.0-0.7) Basophils # (Auto) 0.1x10^3/uL (0.0-0.2) Sodium Level 140mmol/L (136-145) Potassium Level 4.9mmol/L (3.5-5.1) Chloride Level 103mmol/L (98-107) Carbon Dioxide Level 29mmol/L (21-32) Anion Gap 8 (6-14) Blood Urea Nitrogen 27mg/dL (8-26) Creatinine 0.6mg/dL (0.7-1.3) Estimated GFR (Cockcroft-Gault) 160.7 Glucose Level 278mg/dL (70-99) Calcium Level 9.4mg/dL (8.5-10.1) Objective Assessment HCAP. Serratia/Proteus 12/05 Fever - better Leukocytosis, on steroids h/o latent syphilis. -Recently finished IV PCN Acute respiratory failure - on Bipap -s/p bronch/BAL 12/05. Thick purulent secretions Dementia PEG Hypernatremia Plan Plan of Care Continue Cefpodoxime via PEG thru 12/14 Trach tentatively scheduled for Thursday, await family decision f/u cxr/cultures Attending Co-Sign The patient was seen and interviewed as well as examined at the bedside. The chart was reviewed. The case was discussed. Agree with the plan of care. prognosis poor FRANCISCO SHAH APRN Dec 14, 2016 09:36 MINDY TAI MD Dec 14, 2016 11:26
--- NOTE | 2016-12-14 10:59 | RAD ---
Indication: Pneumonia. Technique: Upright portable chest radiograph was obtained. Comparison is from 2 days earlier. Findings: Left hemithorax is now nearly completely opacified. Minimal patchy consolidation is now noted in the right mid and lower lung mario. Cardiomediastinal silhouette is not well evaluated. Leads overlie the patient. Impression: Further opacification of the left hemithorax may represent a combination of pneumonia and pleural fluid. Atelectasis related to bronchial plugging likely also contributes given appearance on recent CT chest. There are new infiltrates in the right mid and lower lung mario.
[2016-12-14 11:10] LABS: ANISOCYTOSIS SLIGHT; PLT ESTIMATE ADEQUATE (ADEQUATE)
[2016-12-14] MEDS: HYDROCODONE/APAP 7.5/325MG ORAL 15 ML SOLUTION. PEG PRN (15:33)
[2016-12-14] MEDS: DO NOT USE 40 MG/0.4 ML DISP.SYRIN SQ SCH (16:31)
--- NOTE | 2016-12-14 20:47 | PN ---
DATE: 12/14/2016 SUBJECTIVE: The patient is resting slightly propped up in bed, slightly tachypneic. He was on 100% oxygen which was titrated down to 50%. He is now draining it at around 96%. He continues to be tachypneic. PHYSICAL EXAMINATION: VITAL SIGNS: His heart rate was 75, blood pressure was 169/76, temperature was 98.1, respiratory rate was 32, and oxygen saturation was 97% on FiO2 of 50%. HEAD, EYES, EARS, NOSE, AND THROAT: Showed normocephalic, atraumatic. NECK: Supple. HEART: Showed normal first and second sounds. No gallop, rub, or murmur. CHEST: Clear to auscultation. No crepitation or rhonchi. ABDOMEN: Distended, soft. Gastrostomy tube in place. NEUROLOGIC: He is awake, alert. He is extremely aphasic, dysarthric, and difficult to understand. His intake was 2800, output was 2375. LABORATORY DATA: His lab work this morning showed a white cell count that has risen to 28.4, hemoglobin 12, hematocrit 38, MCV 87, and platelet count of 191,000. His chemistry showed a serum sodium 140, potassium 4.9, chloride 102, bicarbonate 29, anion gap of 8, BUN 27, creatinine 0.6, estimated GFR 160, blood sugar was 278, and calcium was 9.4. ASSESSMENT: 1. Healthcare-associated pneumonia growing Serratia and Proteus. 2. History of latent syphilis, recently finished IV penicillin. 3. Acute respiratory failure, on BiPAP, status post therapeutic bronchoscopy. 4. Dementia. 5. Dysphagia with status post PEG tube placement. 6. Hyponatremia, resolved. His serum sodium is down to 114. PLAN: To continue with current plan of management. Awaiting the decision by the family regarding tracheostomy tube placement. LILIANA ENCINAS MD DR: MAI/andres JOB#: [id number] / [id number]
[2016-12-15] VITALS (12 sets, daily range): BP systolic 130–181; BP diastolic 61–97
[2016-12-15] MEDS: HYDROCODONE/APAP 7.5/325MG ORAL 15 ML SOLUTION. PEG PRN (01:13)
[2016-12-15] MEDS: IPRATRPIUM/ALBUTEROL 0.5/2.5MG 3 ML NEBU. NEB SCH ×6 (03:55→22:57)
[2016-12-15] MEDS: methylPREDNISolone SOD SUCC PF 125 MG/2 ML VIAL. IV SCH ×3 (05:45→22:00)
[2016-12-15 05:52] LABS: BASO % 0 % (0-3); EOS % 0 % (0-3); HEMATOCRIT 33.6 % (39.0-53.0); HEMOGLOBIN 10.7 g/dL (13.0-17.5); LYMPH # 0.2 x10^3/uL (1.0-4.8); LYMPH % 1 % (24-48); MEAN CORPUSCULAR HEMOGLOBIN 27 pg (25-35); MEAN CORPUSCULAR HGB CONC 32 g/dL (31-37); MEAN CORPUSCULAR VOLUME 86 fL (79-100); MONO % 3 % (0-9); NEUT % 96 % (31-73); PLATELET COUNT 176 x10^3/uL (140-400); RED BLOOD COUNT 3.89 x10^6/uL (4.30-5.70); RED CELL DISTRIBUTION WIDTH 17.5 % (11.5-14.5); WHITE BLOOD COUNT 23.3 x10^3/uL (4.0-11.0)
[2016-12-15 06:15] LABS: ALBUMIN 1.8 g/dL (3.4-5.0); ALBUMIN/GLOBULIN RATIO 0.6 (1.0-1.7); CALCIUM 8.8 mg/dL (8.5-10.1); CREATININE 0.7 mg/dL (0.7-1.3); GFR 134.5; POTASSIUM 4.8 mmol/L (3.5-5.1); TOTAL BILIRUBIN 0.4 mg/dL (0.2-1.0); TOTAL PROTEIN 4.9 g/dL (6.4-8.2)
--- NOTE | 2016-12-15 07:49 | RAD ---
Portable chest, 12/15/2016: History: Respiratory failure Comparison is made yesterday study. The left chest remains opaque with a right to left shift of the heart and mediastinum. The findings suggest consolidation and atelectasis due to mucous plugging. A component of pleural fluid cannot be excluded. There is mild unchanged patchy infiltrate in the right midlung and right base. No right-sided pleural fluid is seen. IMPRESSION: 1. Ongoing extensive atelectasis and consolidation in the left lung. 2. Unchanged patchy right lung infiltrates.
--- NOTE | 2016-12-15 08:16 | PDOC ---
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 SKIN: No rash IV: ok Labs Lab Laboratory Tests Test 12/14/16 08:40 12/14/16 12:15 12/15/16 05:41 Lactic Acid Level 2.2mmol/L (0.4-2.0) 2.2mmol/L (0.4-2.0) Procalcitonin 5.91ng/mL (0.00-0.10) White Blood Count 23.3x10^3/uL (4.0-11.0) Red Blood Count 3.89x10^6/uL (4.30-5.70) Hemoglobin 10.7g/dL (13.0-17.5) Hematocrit 33.6% (39.0-53.0) Mean Corpuscular Volume 86fL (79-100) Mean Corpuscular Hemoglobin 27pg (25-35) Mean Corpuscular Hemoglobin Concent 32g/dL (31-37) Red Cell Distribution Width 17.5% (11.5-14.5) Platelet Count 176x10^3/uL (140-400) Neutrophils (%) (Auto) 96% (31-73) Lymphocytes (%) (Auto) 1% (24-48) Monocytes (%) (Auto) 3% (0-9) Eosinophils (%) (Auto) 0% (0-3) Basophils (%) (Auto) 0% (0-3) Neutrophils # (Auto) 22.5x10^3uL (1.8-7.7) Lymphocytes # (Auto) 0.2x10^3/uL (1.0-4.8) Monocytes # (Auto) 0.6x10^3/uL (0.0-1.1) Eosinophils # (Auto) 0.0x10^3/uL (0.0-0.7) Basophils # (Auto) 0.0x10^3/uL (0.0-0.2) Sodium Level 142mmol/L (136-145) Potassium Level 4.8mmol/L (3.5-5.1) Chloride Level 105mmol/L (98-107) Carbon Dioxide Level 30mmol/L (21-32) Anion Gap 7 (6-14) Blood Urea Nitrogen 25mg/dL (8-26) Creatinine 0.7mg/dL (0.7-1.3) Estimated GFR (Cockcroft-Gault) 134.5 BUN/Creatinine Ratio 36 (6-20) Glucose Level 305mg/dL (70-99) Calcium Level 8.8mg/dL (8.5-10.1) Total Bilirubin 0.4mg/dL (0.2-1.0) Aspartate Amino Transf (AST/SGOT) 23U/L (15-37) Alanine Aminotransferase (ALT/SGPT) 64U/L (16-63) Alkaline Phosphatase 79U/L (46-116) Total Protein 4.9g/dL (6.4-8.2) Albumin 1.8g/dL (3.4-5.0) Albumin/Globulin Ratio 0.6 (1.0-1.7) Objective Assessment HCAP. Serratia/Proteus 12/05 Fever - better Leukocytosis, on steroids h/o latent syphilis. -Recently finished IV PCN Acute respiratory failure - on Bipap -s/p bronch/BAL 12/05. Thick purulent secretions Dementia PEG Hypernatremia Plan Plan of Care Continue Cefpodoxime via PEG thru 12/14 Trach tentatively scheduled for Thursday, await family decision f/u cxr/cultures MINDY TAI MD Dec 15, 2016 08:16
[2016-12-15] MEDS: FAMOTIDINE 20 MG/2 ML VIAL IVP SCH (08:43)
[2016-12-15] MEDS: AMLODIPINE BESYLATE 10 MG TABLET PO SCH (08:43)
[2016-12-15] MEDS: CEFPODOXIME PROXETIL 100 MG TABLET PEG SCH ×3 (08:43→22:00)
[2016-12-15] MEDS: INSULIN ASPART 300 UNITS/3 ML INSULN.PEN SQ SCH ×4 (08:45→21:00)
[2016-12-15] MEDS: BUDESONIDE 0.5 MG/2 ML NEBU NEB SCH ×2 (09:24→19:48)
--- NOTE | 2016-12-15 13:18 | PDOC ---
PULMONARY PROGRESS NOTES Subjective ON BIPAP pt not seen Vitals Vital Signs Date Time Temp Pulse Resp B/P Pulse Ox O2 Delivery O2 Flow Rate FiO2 12/15/16 12:40 96 Venturi Mask 15.0 12/15/16 08:43 89 146/76 12/15/16 06:00 20 12/15/16 04:00 98.6 98.6 HEENT: Other (nc at perrl, bipap mask on) Labs Laboratory Tests Test 12/14/16 06:30 12/14/16 08:40 12/14/16 12:15 12/15/16 05:41 White Blood Count 28.4x10^3/uL (4.0-11.0) 23.3x10^3/uL (4.0-11.0) Red Blood Count 4.44x10^6/uL (4.30-5.70) 3.89x10^6/uL (4.30-5.70) Hemoglobin 12.1g/dL (13.0-17.5) 10.7g/dL (13.0-17.5) Hematocrit 38.7% (39.0-53.0) 33.6% (39.0-53.0) Mean Corpuscular Volume 87fL (79-100) 86fL (79-100) Mean Corpuscular Hemoglobin 27pg (25-35) 27pg (25-35) Mean Corpuscular Hemoglobin Concent 31g/dL (31-37) 32g/dL (31-37) Red Cell Distribution Width 17.1% (11.5-14.5) 17.5% (11.5-14.5) Platelet Count 191x10^3/uL (140-400) 176x10^3/uL (140-400) Neutrophils (%) (Auto) 96% (31-73) 96% (31-73) Lymphocytes (%) (Auto) 1% (24-48) 1% (24-48) Monocytes (%) (Auto) 2% (0-9) 3% (0-9) Eosinophils (%) (Auto) 0% (0-3) 0% (0-3) Basophils (%) (Auto) 1% (0-3) 0% (0-3) Neutrophils # (Auto) 27.3x10^3uL (1.8-7.7) 22.5x10^3uL (1.8-7.7) Lymphocytes # (Auto) 0.3x10^3/uL (1.0-4.8) 0.2x10^3/uL (1.0-4.8) Monocytes # (Auto) 0.7x10^3/uL (0.0-1.1) 0.6x10^3/uL (0.0-1.1) Eosinophils # (Auto) 0.0x10^3/uL (0.0-0.7) 0.0x10^3/uL (0.0-0.7) Basophils # (Auto) 0.1x10^3/uL (0.0-0.2) 0.0x10^3/uL (0.0-0.2) Segmented Neutrophils % 69% (35-66) Band Neutrophils % 30% (0-9) Lymphocytes % 1% (24-48) Platelet Estimate Adequate (ADEQUATE) Anisocytosis Slight Sodium Level 140mmol/L (136-145) 142mmol/L (136-145) Potassium Level 4.9mmol/L (3.5-5.1) 4.8mmol/L (3.5-5.1) Chloride Level 103mmol/L (98-107) 105mmol/L (98-107) Carbon Dioxide Level 29mmol/L (21-32) 30mmol/L (21-32) Anion Gap 8 (6-14) 7 (6-14) Blood Urea Nitrogen 27mg/dL (8-26) 25mg/dL (8-26) Creatinine 0.6mg/dL (0.7-1.3) 0.7mg/dL (0.7-1.3) Estimated GFR (Cockcroft-Gault) 160.7 134.5 Glucose Level 278mg/dL (70-99) 305mg/dL (70-99) Calcium Level 9.4mg/dL (8.5-10.1) 8.8mg/dL (8.5-10.1) Lactic Acid Level 2.2mmol/L (0.4-2.0) 2.2mmol/L (0.4-2.0) Procalcitonin 5.91ng/mL (0.00-0.10) BUN/Creatinine Ratio 36 (6-20) Total Bilirubin 0.4mg/dL (0.2-1.0) Aspartate Amino Transf (AST/SGOT) 23U/L (15-37) Alanine Aminotransferase (ALT/SGPT) 64U/L (16-63) Alkaline Phosphatase 79U/L (46-116) Total Protein 4.9g/dL (6.4-8.2) Albumin 1.8g/dL (3.4-5.0) Albumin/Globulin Ratio 0.6 (1.0-1.7) Laboratory Tests Test 12/15/16 05:41 White Blood Count 23.3x10^3/uL (4.0-11.0) Red Blood Count 3.89x10^6/uL (4.30-5.70) Hemoglobin 10.7g/dL (13.0-17.5) Hematocrit 33.6% (39.0-53.0) Mean Corpuscular Volume 86fL (79-100) Mean Corpuscular Hemoglobin 27pg (25-35) Mean Corpuscular Hemoglobin Concent 32g/dL (31-37) Red Cell Distribution Width 17.5% (11.5-14.5) Platelet Count 176x10^3/uL (140-400) Neutrophils (%) (Auto) 96% (31-73) Lymphocytes (%) (Auto) 1% (24-48) Monocytes (%) (Auto) 3% (0-9) Eosinophils (%) (Auto) 0% (0-3) Basophils (%) (Auto) 0% (0-3) Neutrophils # (Auto) 22.5x10^3uL (1.8-7.7) Lymphocytes # (Auto) 0.2x10^3/uL (1.0-4.8) Monocytes # (Auto) 0.6x10^3/uL (0.0-1.1) Eosinophils # (Auto) 0.0x10^3/uL (0.0-0.7) Basophils # (Auto) 0.0x10^3/uL (0.0-0.2) Sodium Level 142mmol/L (136-145) Potassium Level 4.8mmol/L (3.5-5.1) Chloride Level 105mmol/L (98-107) Carbon Dioxide Level 30mmol/L (21-32) Anion Gap 7 (6-14) Blood Urea Nitrogen 25mg/dL (8-26) Creatinine 0.7mg/dL (0.7-1.3) Estimated GFR (Cockcroft-Gault) 134.5 BUN/Creatinine Ratio 36 (6-20) Glucose Level 305mg/dL (70-99) Calcium Level 8.8mg/dL (8.5-10.1) Total Bilirubin 0.4mg/dL (0.2-1.0) Aspartate Amino Transf (AST/SGOT) 23U/L (15-37) Alanine Aminotransferase (ALT/SGPT) 64U/L (16-63) Alkaline Phosphatase 79U/L (46-116) Total Protein 4.9g/dL (6.4-8.2) Albumin 1.8g/dL (3.4-5.0) Albumin/Globulin Ratio 0.6 (1.0-1.7) Medications Active Scripts Medications Dose Route/Sig Days Date Category Acetaminophen 325 Mg Tablet 325 Mg PEG PRN Q6HRS PRN 12/04/16 Reported Chlorhexidine Gluconate 473 Ml Mouthwash 473 Ml MM TID 12/04/16 Reported Glucose (Dextrose) 1 Each Tab.chew 1 Each PO PRN PRN 12/04/16 Reported Protonix (Pantoprazole Sodium) 40 Mg Granpkt.dr 40 Mg PEG DAILY 12/04/16 Reported Humalog (Insulin Lispro) 100 Unit/1 Ml Cartridge Unknown Dose SQ 12/04/16 Reported Hydrocodone-Apap 5-325 (Hydrocodone Bit/Acetaminophen) 1 Each Tablet 1 Tab PEG PRN Q6HRS PRN 11/21/16 Reported Enoxaparin Sodium 40 Mg/0.4 Ml Disp.syrin 40 Mg SQ 11/19/16 Reported Amlodipine Besylate 5 Mg Tablet 5 Mg PEG DAILY 11/06/16 Reported Comments cxr reviewed, left lung consolidation and volume loss compatible with pneumonia and mucous plugging. Impression . 1. Acute hypoxic/ hypercapnic respiratory failure secondary to diffuse purulent mucus plug/ pneumonia with significant collapse of the distal trachea and left mainstem bronchus by secretions. He is s/p therapeutic bronchoscopy 2. Diffuse pneumonia, Serratia, proteus. 3. Aphasia with inability to clear secretions. 4. Dysphagia. 5. Negative CT for PE Plan . Case d/w DR Ren pt needs a trach to help manage secretions family to agree ethic has been consulted HUSSEIN BREEN MD Dec 15, 2016 13:18
--- NOTE | 2016-12-15 16:16 | PDOC2 ---
PALLIATIVE CARE Palliative Care Note Palliative Care Patient seen at 1230 and spoke with daughter Neema and son Ena. Tracheostomy on hold until further discussion Family will meet in am to discuss risks and benefits of tracheostomy as will as plan of care. STEPHEN BELCHER Dec 15, 2016 16:16
[2016-12-15] MEDS: DO NOT USE 40 MG/0.4 ML DISP.SYRIN SQ SCH (18:31)
[2016-12-16] VITALS (28 sets, daily range): BP systolic 108–173; BP diastolic 64–103
--- NOTE | 2016-12-16 00:53 | PN ---
DATE: SUBJECTIVE: The patient is resting slightly propped up clearly in respiratory distress. His chest x-ray showed total whiteout with extensive atelectasis and consolidation of the left lung and unchanged patchy right lung infiltrate. We had extensive discussion with the family who have not made up any decision. PHYSICAL EXAMINATION: GENERAL: When I examined him this morning, he was resting slightly propped up in bed, clearly tachypneic, recurrent bouts of cough. VITAL SIGNS: Her heart rate was 89, blood pressure was 146/76, temperature was 98.6, respiratory rate was 25, and oxygen saturation was 97%. HEAD, EYES, EARS, NOSE AND THROAT: Showed normocephalic, atraumatic. NECK: Supple. HEART: Showed normal first and second sounds. No gallop, rub or murmur. CHEST: Shows good air entry on the right side, absent breath sounds on the left side. ABDOMEN: Slightly distended, soft with the gastrostomy tube in place. There is no guarding or rigidity. No organomegaly. Hernial orifices intact. Bowel sounds normal. NEUROLOGIC: He is awake, alert, has severe dysarthria, difficult to understand what he is saying. He moves his upper extremities to much greater extent than the lower extremities. He is mostly bed bound. LABORATORY DATA: Showed a white cell count 23,000, hemoglobin 11, hematocrit 33, MCV 86 and platelet count of 176,000. His chemistry showed a serum sodium 142, potassium 4.8, chloride 105, bicarbonate 30, anion gap of 7, BUN 25, creatinine 0.7, estimated GFR was 134, blood sugar was 305 mg/dL. Calcium was 8.8. Total bilirubin, AST, ALT, alkaline phosphatase were normal. His total protein was 4.9, albumin was 1.8. ASSESSMENT: 1. Healthcare-associated pneumonia growing Serratia and Proteus mirabilis. 2. History of latent syphilis. Recently finished IV penicillin. 3. Acute respiratory failure, requiring BiPAP status post therapeutic bronchoscopy. 4. Dementia. 5. Dysphagia, status post PEG tube placement. 6. Hypernatremia, resolved. His most recent serum sodium is down to 142 mEq per liter. 7. Total whiteout of his left lung. PLAN: To await the family's decision regarding the tracheostomy tube placement and/or hospice care. Meanwhile, continue with the steroids. Continue with the cefpodoxime. Continue with the DVT prophylaxis, GI prophylaxis. Continue with nutritional support. LILIANA ENCINAS MD DR: MAI/anders JOB#: [id number] / [id number]
[2016-12-16] MEDS: IPRATRPIUM/ALBUTEROL 0.5/2.5MG 3 ML NEBU. NEB SCH ×5 (02:51→19:46)
[2016-12-16 05:12] LABS: HEMATOCRIT 30.8 % (39.0-53.0); HEMOGLOBIN 9.8 g/dL (13.0-17.5); RED BLOOD COUNT 3.54 x10^6/uL (4.30-5.70); RED CELL DISTRIBUTION WIDTH 17.8 % (11.5-14.5); WHITE BLOOD COUNT 18.8 x10^3/uL (4.0-11.0)
[2016-12-16 05:37] LABS: CALCIUM 9.2 mg/dL (8.5-10.1); CREATININE 0.7 mg/dL (0.7-1.3); GFR 134.5; POTASSIUM 4.2 mmol/L (3.5-5.1)
[2016-12-16] MEDS: methylPREDNISolone SOD SUCC PF 125 MG/2 ML VIAL. IV SCH ×3 (05:42→22:02)
[2016-12-16] MEDS: INSULIN ASPART 300 UNITS/3 ML INSULN.PEN SQ SCH ×4 (07:30→22:05)
[2016-12-16] MEDS: BUDESONIDE 0.5 MG/2 ML NEBU NEB SCH ×2 (08:17→19:46)
[2016-12-16 08:38] LABS: HCO3 ABG 28 mmol/L (21-28); PCO2 ABG 36 mmHg (35-46); PO2 ABG 86 mmHg (65-108); SAT O2 ABG 96 % (92-99)
--- NOTE | 2016-12-16 08:58 | PDOC ---
Infectious Disease Note Subjective Subjective opens eyes on bipap ROS ROS unable to do Vital Sign Vital Signs Vital Signs Date Time Temp Pulse Resp B/P Pulse Ox O2 Delivery O2 Flow Rate FiO2 12/16/16 08:17 100 BiPAP/CPAP 12/16/16 06:00 66 22 138/83 12/16/16 04:00 98.4 98.4 12/15/16 12:40 15.0 Physical Exam PHYSICAL EXAM GENERAL: NAD, Awake HEENT: PERRL, OC/OP NECK: Supple, no JVD, no LN LUNGS: Clear HEART: S1S2, no gallop, no murmur ABD: Soft, NT, no organomegaly, no rebound EXT: No edema, no cyanosis TRY ON BASTER: Awake SKIN: No rash IV: ok Labs Lab Laboratory Tests Test 12/16/16 04:42 12/16/16 04:52 Sodium Level 142mmol/L (136-145) Potassium Level 4.2mmol/L (3.5-5.1) Chloride Level 106mmol/L (98-107) Carbon Dioxide Level 28mmol/L (21-32) Anion Gap 8 (6-14) Blood Urea Nitrogen 28mg/dL (8-26) Creatinine 0.7mg/dL (0.7-1.3) Estimated GFR (Cockcroft-Gault) 134.5 Glucose Level 218mg/dL (70-99) Calcium Level 9.2mg/dL (8.5-10.1) White Blood Count 18.8x10^3/uL (4.0-11.0) Red Blood Count 3.54x10^6/uL (4.30-5.70) Hemoglobin 9.8g/dL (13.0-17.5) Hematocrit 30.8% (39.0-53.0) Mean Corpuscular Volume 87fL (79-100) Mean Corpuscular Hemoglobin 28pg (25-35) Mean Corpuscular Hemoglobin Concent 32g/dL (31-37) Red Cell Distribution Width 17.8% (11.5-14.5) Platelet Count 178x10^3/uL (140-400) Objective Assessment HCAP. Serratia/Proteus 3/10 Fever - better Leukocytosis, on steroids h/o latent syphilis. -Recently finished IV PCN Acute respiratory failure - on Bipap -s/p bronch/BAL 12/05. Thick purulent secretions Dementia PEG Hypernatremia Plan Plan of Care Continue Cefpodoxime via PEG thru 12/14 Trach , await family decision MINDY TAI MD Dec 16, 2016 08:58
[2016-12-16] MEDS: CEFPODOXIME PROXETIL 100 MG TABLET PEG SCH ×2 (10:01→21:52)
[2016-12-16] MEDS: FAMOTIDINE 20 MG/2 ML VIAL IVP SCH (10:01)
[2016-12-16] MEDS: AMLODIPINE BESYLATE 10 MG TABLET PO SCH (10:02)
--- NOTE | 2016-12-16 10:38 | PDOC ---
PULMONARY PROGRESS NOTES Subjective OFF BIPAP NO RESP COMPLAINTS Vitals Vital Signs Date Time Temp Pulse Resp B/P Pulse Ox O2 Delivery O2 Flow Rate FiO2 12/16/16 10:02 66 147/73 12/16/16 08:17 100 BiPAP/CPAP 12/16/16 06:00 22 12/16/16 04:00 98.4 98.4 12/15/16 12:40 15.0 HEENT: Other (nc at perrl, bipap mask on) Labs Laboratory Tests Test 12/14/16 12:15 12/15/16 05:41 12/16/16 04:42 12/16/16 04:52 Lactic Acid Level 2.2mmol/L (0.4-2.0) White Blood Count 23.3x10^3/uL (4.0-11.0) 18.8x10^3/uL (4.0-11.0) Red Blood Count 3.89x10^6/uL (4.30-5.70) 3.54x10^6/uL (4.30-5.70) Hemoglobin 10.7g/dL (13.0-17.5) 9.8g/dL (13.0-17.5) Hematocrit 33.6% (39.0-53.0) 30.8% (39.0-53.0) Mean Corpuscular Volume 86fL (79-100) 87fL (79-100) Mean Corpuscular Hemoglobin 27pg (25-35) 28pg (25-35) Mean Corpuscular Hemoglobin Concent 32g/dL (31-37) 32g/dL (31-37) Red Cell Distribution Width 17.5% (11.5-14.5) 17.8% (11.5-14.5) Platelet Count 176x10^3/uL (140-400) 178x10^3/uL (140-400) Neutrophils (%) (Auto) 96% (31-73) Lymphocytes (%) (Auto) 1% (24-48) Monocytes (%) (Auto) 3% (0-9) Eosinophils (%) (Auto) 0% (0-3) Basophils (%) (Auto) 0% (0-3) Neutrophils # (Auto) 22.5x10^3uL (1.8-7.7) Lymphocytes # (Auto) 0.2x10^3/uL (1.0-4.8) Monocytes # (Auto) 0.6x10^3/uL (0.0-1.1) Eosinophils # (Auto) 0.0x10^3/uL (0.0-0.7) Basophils # (Auto) 0.0x10^3/uL (0.0-0.2) Sodium Level 142mmol/L (136-145) 142mmol/L (136-145) Potassium Level 4.8mmol/L (3.5-5.1) 4.2mmol/L (3.5-5.1) Chloride Level 105mmol/L (98-107) 106mmol/L (98-107) Carbon Dioxide Level 30mmol/L (21-32) 28mmol/L (21-32) Anion Gap 7 (6-14) 8 (6-14) Blood Urea Nitrogen 25mg/dL (8-26) 28mg/dL (8-26) Creatinine 0.7mg/dL (0.7-1.3) 0.7mg/dL (0.7-1.3) Estimated GFR (Cockcroft-Gault) 134.5 134.5 BUN/Creatinine Ratio 36 (6-20) Glucose Level 305mg/dL (70-99) 218mg/dL (70-99) Calcium Level 8.8mg/dL (8.5-10.1) 9.2mg/dL (8.5-10.1) Total Bilirubin 0.4mg/dL (0.2-1.0) Aspartate Amino Transf (AST/SGOT) 23U/L (15-37) Alanine Aminotransferase (ALT/SGPT) 64U/L (16-63) Alkaline Phosphatase 79U/L (46-116) Total Protein 4.9g/dL (6.4-8.2) Albumin 1.8g/dL (3.4-5.0) Albumin/Globulin Ratio 0.6 (1.0-1.7) Laboratory Tests Test 12/16/16 04:42 12/16/16 04:52 Sodium Level 142mmol/L (136-145) Potassium Level 4.2mmol/L (3.5-5.1) Chloride Level 106mmol/L (98-107) Carbon Dioxide Level 28mmol/L (21-32) Anion Gap 8 (6-14) Blood Urea Nitrogen 28mg/dL (8-26) Creatinine 0.7mg/dL (0.7-1.3) Estimated GFR (Cockcroft-Gault) 134.5 Glucose Level 218mg/dL (70-99) Calcium Level 9.2mg/dL (8.5-10.1) White Blood Count 18.8x10^3/uL (4.0-11.0) Red Blood Count 3.54x10^6/uL (4.30-5.70) Hemoglobin 9.8g/dL (13.0-17.5) Hematocrit 30.8% (39.0-53.0) Mean Corpuscular Volume 87fL (79-100) Mean Corpuscular Hemoglobin 28pg (25-35) Mean Corpuscular Hemoglobin Concent 32g/dL (31-37) Red Cell Distribution Width 17.8% (11.5-14.5) Platelet Count 178x10^3/uL (140-400) Medications Active Scripts Medications Dose Route/Sig Days Date Category Acetaminophen 325 Mg Tablet 325 Mg PEG PRN Q6HRS PRN 12/04/16 Reported Chlorhexidine Gluconate 473 Ml Mouthwash 473 Ml MM TID 12/04/16 Reported Glucose (Dextrose) 1 Each Tab.chew 1 Each PO PRN PRN 12/04/16 Reported Protonix (Pantoprazole Sodium) 40 Mg Granpkt.dr 40 Mg PEG DAILY 12/04/16 Reported Humalog (Insulin Lispro) 100 Unit/1 Ml Cartridge Unknown Dose SQ 12/04/16 Reported Hydrocodone-Apap 5-325 (Hydrocodone Bit/Acetaminophen) 1 Each Tablet 1 Tab PEG PRN Q6HRS PRN 11/21/16 Reported Enoxaparin Sodium 40 Mg/0.4 Ml Disp.syrin 40 Mg SQ 11/19/16 Reported Amlodipine Besylate 5 Mg Tablet 5 Mg PEG DAILY 11/06/16 Reported Comments cxr reviewed, left lung consolidation and volume loss compatible with pneumonia and mucous plugging. Impression . 1. Acute hypoxic/ hypercapnic respiratory failure secondary to diffuse purulent mucus plug/ pneumonia with significant collapse of the distal trachea and left mainstem bronchus by secretions. He is s/p therapeutic bronchoscopy 2. Diffuse pneumonia, Serratia, proteus. 3. Aphasia with inability to clear secretions. 4. Dysphagia. 5. Negative CT for PE Plan . PT AGREED TO TRACH, BUT WANTS HIS FAMILY TO MAKE DECISION pt needs a trach to help manage secretions family to agree ethic has been consulted HUSSEIN BREEN MD Dec 16, 2016 10:37
[2016-12-16 12:50] LABS: FIO2 ABG 50
[2016-12-16] MEDS ORDERED: FENTANYL PF 100 MCG/2 ML VIAL. ONE (15:03)
[2016-12-16] MEDS ORDERED: ROCURONIUM 50 MG/5 ML VIAL. ONE (15:04)
[2016-12-16] MEDS ORDERED: DEXAMETHASONE SOD PHOS 20 MG/5 ML VIAL. ONE (15:04)
[2016-12-16] MEDS ORDERED: ONDANSETRON PF 4 MG/2 ML VIAL. ONE (15:04)
[2016-12-16] MEDS ORDERED: LIDOCAINE 2% 100 MG/5 ML DISP.SYRIN. ONE (15:04)
[2016-12-16] MEDS ORDERED: PROPOFOL 20 ML IV ONE (15:04)
[2016-12-16] MEDS ORDERED: PHENYLEPHRINE in 0.9% NACL PF 1 MG/10 ML DISP.SYRIN. IV ONE (15:37)
[2016-12-16] MEDS ORDERED: CEFAZOLIN 1GM IVPB FOR OMNI 50 ML IV ONE (16:03)
[2016-12-16] MEDS ORDERED: SEVOFLURANE 61 TO 120 MINUTES. IH ONE (16:03)
[2016-12-16] MEDS ORDERED: NEOSTIGMINE METHYLSULFATE 5 MG/5 ML SYRINGE. ONE (16:11)
[2016-12-16] MEDS ORDERED: GLYCOPYRROLATE 1 MG/5 ML VIAL. ONE (16:11)
--- NOTE | 2016-12-16 16:17 | PDOC2 ---
PALLIATIVE CARE Palliative Care Note Palliative Care Patient received tracheostomy today. Family wants to continue with aggressive care. Not interested in Hospice. Palliative Care will sign off. STEPHEN BELCHER Dec 16, 2016 16:17
--- NOTE | 2016-12-16 16:56 | PDOC ---
BRIEF OPERATIVE NOTE Pre-Op Diagnosis Oropharyngeal dysphagia Recurrent mucus plugging Pneumonia History of stroke Dementia Post-Op Diagnosis Oropharyngeal dysphagia Recurrent mucus plugging Pneumonia History of stroke Dementia Procedure Performed Tracheostomy Surgeon Jv Hale MD Grain Wafer Machine Operator SLOANE Kaba Anesthesia Type: General Blood Loss <5 mls IV Fluid N/A Urine Output N/A Specimens Obtained None Complications None Additional Remarks 8Fr, cuffed, non-fenestrated tracheostomy tube JV HALE MD Dec 16, 2016 16:56
--- NOTE | 2016-12-16 16:57 | PDOC4 ---
Operative Note Operative Note Preoperative diagnosis Oropharyngeal dysphagia Recurrent mucus plugging Pneumonia History of stroke Dementia Postoperative diagnosis Oropharyngeal dysphagia Recurrent mucus plugging Pneumonia History of stroke Dementia Operation Tracheostomy Surgeon Jv Hale MD Filteration Operator Mone Barragan, APARTMENT COMMUNITY MANAGER Anesthesia General Blood loss <5 mls IV fluids N/A Urine output N/A Specimens obtained None Complications None Additional Remarks 8Fr, cuffed, non-fenestrated tracheostomy tube Indication The patient is a 71-year-old male who lives in a shelter. He has severe oropharyngeal dysphagia following a stroke 5 years ago. He receives enteral nutrition through PEG. Owing to his dysphasia he's had long-term issues clearing his respiratory secretions. He develops recurrent mucus plugging. He was admitted last week with severe hypoxia secondary to a large mucous plug. This has occurred recurrently throughout his ICU stay. This morning he had a brief respiratory arrest again from a mucous plug which was successfully suctioned. The patient has dementia. I was consulted to consider the patient for a tracheostomy to help improve manage his secretions. Procedure The patient's ID was confirmed using 2 unique identifies. The patient was transferred to the OR intubated from the ICU. She was placed supine on the operating table with both arms tucked. A shoulder roll was also placed to facilitate mild neck extension which helped identify neck landmarks. The patient 's neck was prepped and draped in the usual sterile surgical fashion. Preoperative antibiotic prophylaxis was given. A timeout was then performed. A 3 cm transverse incision in the skin crease just below the level of the cricoid cartilage was made. The incision was deepened through the subcutaneous tissues followed by the platysma. The strap muscles were bluntly at the median raphe. The isthmus of the thyroid was identified and divided using electrocautery. The pretracheal fascia was incised. Hemostasis of the thyroid gland and surrounding tissues was performed. I clearly identified the cricoid cartilage, the first, second and third tracheal rings. I then asked anesthesia to deflate the endotracheal tube balloon. The first and second tracheal ring anteriorly were then excised. The endotracheal tube was slowly withdrawn and a 8 fr cuffed, non fenestrated tracheostomy tube was inserted with ease. The inner cannula was placed and secured. The tracheostomy was connected to the ventilator with excellent tidal volume return. Vertical mattress sutures with a 2-0 nylon stitch were used to reapproximate the incision on the lateral aspects of the tracheostomy. The tracheostomy was secured with four 2-0 nylon' s and a trach collar. At the end of the procedure, the instrument, sponge and needle counts were correct. The patient was transferred back to the ICU in stable condition. JV HALE MD Dec 16, 2016 16:57
[2016-12-16] MEDS: DO NOT USE 40 MG/0.4 ML DISP.SYRIN SQ SCH (17:36)
[2016-12-16] MEDS: HYDROCODONE/APAP 7.5/325MG ORAL 15 ML SOLUTION. PEG PRN (22:02)
--- NOTE | 2016-12-16 23:29 | PN ---
DATE: 12/16/2016 SUBJECTIVE: The patient is resting, slightly propped up in bed, in no apparent respiratory distress. OBJECTIVE: GENERAL: When I examined him, he looked well and was clearly in no apparent respiratory distress, pale, cachectic, no jaundice, cyanosis, or thyromegaly. No jugular venous distention. No limb edema. VITAL SIGNS: His heart rate was 66, blood pressure 147/73, temperature was 98.4, respiratory rate 22, and oxygen saturation was 100%. The rest of clinical examination is unremarkable, has not really changed. His intake over the last 24 hours was 5738, output was 4175. LABORATORY DATA: Showed a white cell count of 18,800, hemoglobin 9.8, hematocrit 31, MCV was 87 and platelet count of 178,000. His chemistry showed a serum sodium 142, potassium 4.2, chloride 106, bicarbonate 28, anion gap of 8, BUN 28, creatinine 0.7, estimated GFR was 134 mL per minute. His glucose was 218, calcium was 9.1. Total protein was 4.9, albumin was 1.8. ASSESSMENT AND PLAN: Healthcare-associated pneumonia, growing serratia/Proteus mirabilis, history of latent syphilis, acute respiratory failure, BiPAP. He is status post bronchoscopy, bronchoalveolar lavage, thick ____ purulent secretion. He has dementia, dysphagia. The patient is scheduled for tracheostomy tube today. Once he stabilize, we will transfer him to [facility]. LILIANA ENCINAS MD DR: MAI/andres JOB#: [id number] / [id number]
[2016-12-17] VITALS (16 sets, daily range): BP systolic 124–179; BP diastolic 65–84
[2016-12-17] MEDS: methylPREDNISolone SOD SUCC PF 125 MG/2 ML VIAL. IV SCH (05:54)
[2016-12-17 06:01] LABS: CALCIUM 8.9 mg/dL (8.5-10.1); CREATININE 0.8 mg/dL (0.7-1.3); GFR 115.3; POTASSIUM 3.9 mmol/L (3.5-5.1)
[2016-12-17] MEDS: CEFPODOXIME PROXETIL 100 MG TABLET PEG SCH (08:06)
[2016-12-17] MEDS: FAMOTIDINE 20 MG/2 ML VIAL IVP SCH (08:07)
[2016-12-17] MEDS: AMLODIPINE BESYLATE 10 MG TABLET PO SCH (08:10)
[2016-12-17] MEDS: INSULIN ASPART 300 UNITS/3 ML INSULN.PEN SQ SCH ×2 (08:18→12:34)
--- NOTE | 2016-12-17 08:20 | PDOC ---
Infectious Disease Note Subjective Subjective awake, has trach ROS ROS unable to do Vital Sign Vital Signs Vital Signs Date Time Temp Pulse Resp B/P Pulse Ox O2 Delivery O2 Flow Rate FiO2 12/17/16 08:10 64 169/78 12/17/16 06:00 20 97 Ventilator 12/17/16 05:00 98.1 98.1 12/17/16 04:00 15.0 Physical Exam PHYSICAL EXAM GENERAL: NAD, Alert HEENT: PERRL, OC/OP NECK: Supple, no JVD, no LN LUNGS: Clear HEART: S1S2, no gallop, no murmur ABD: Soft, NT, no organomegaly, no rebound EXT: No edema, no cyanosis FLOORWORKER LASTING: Alert, SKIN: No rash IV: ok Labs Lab Laboratory Tests Test 12/16/16 08:34 12/16/16 08:45 12/16/16 11:37 12/16/16 17:19 O2 Saturation 96% (92-99) Arterial Blood pH 7.50 (7.35-7.45) Arterial Blood pCO2 at Patient Temp 36mmHg (35-46) Arterial Blood pO2 at Patient Temp 86mmHg (65-108) Arterial Blood HCO3 28mmol/L (21-28) Arterial Blood Base Excess 4mmol/L (-3-3) FiO2 50 Glucose (Fingerstick) 184mg/dL (70-99) 152mg/dL (70-99) 170mg/dL (70-99) Test 12/16/16 21:58 12/17/16 05:17 Glucose (Fingerstick) 217mg/dL (70-99) Sodium Level 142mmol/L (136-145) Potassium Level 3.9mmol/L (3.5-5.1) Chloride Level 106mmol/L (98-107) Carbon Dioxide Level 26mmol/L (21-32) Anion Gap 10 (6-14) Blood Urea Nitrogen 32mg/dL (8-26) Creatinine 0.8mg/dL (0.7-1.3) Estimated GFR (Cockcroft-Gault) 115.3 Glucose Level 297mg/dL (70-99) Calcium Level 8.9mg/dL (8.5-10.1) Objective Assessment HCAP. Serratia/Proteus 12/05 Fever - better Leukocytosis, on steroids h/o latent syphilis. -Recently finished IV PCN Acute respiratory failure - on Bipap -s/p bronch/BAL 12/05. Thick purulent secretions Dementia PEG Hypernatremia Plan Plan of Care Continue Cefpodoxime via PEG thru 12/14 MINDY TAI MD Dec 17, 2016 08:20
[2016-12-17] MEDS: BUDESONIDE 0.5 MG/2 ML NEBU NEB SCH (08:52)
[2016-12-17] MEDS: IPRATRPIUM/ALBUTEROL 0.5/2.5MG 3 ML NEBU. NEB SCH ×2 (08:52→13:07)
--- NOTE | 2016-12-17 09:14 | RAD ---
Indication respiratory failure. A single view of the chest was obtained and is compared to a study 2 days previously. A tracheostomy tube is noted. Aeration of the left lung has improved. There is some persistent volume loss, compatible with atelectasis, in the left lower lobe. There may be a small left pleural effusion. Aeration of the right lung base has improved slightly although there is some volume loss in the right midlung which may reflect atelectasis or pneumonia. The heart and pulmonary vessels are unremarkable IMPRESSION: Improved aeration of the left lung. Some volume loss persists in the left lower lobe compatible with residual atelectasis. Patchy infiltrate or focal area of atelectasis in the right midlung.
--- NOTE | 2016-12-17 09:37 | PDOC ---
PULMONARY PROGRESS NOTES Subjective S/P TRACH 12/16 Vitals Vital Signs Date Time Temp Pulse Resp B/P Pulse Ox O2 Delivery O2 Flow Rate FiO2 12/17/16 08:53 98 Tracheal Collar 12/17/16 08:10 64 169/78 12/17/16 06:00 20 12/17/16 05:00 98.1 98.1 12/17/16 04:00 15.0 General: Alert HEENT: Other (nc at perrl, bipap mask on) Lungs: Clear Cardiovascular: S1, S2 Abdomen: Soft Neuro Exam: Alert Extremities: No Edema Skin: Warm Labs Laboratory Tests Test 12/15/16 13:27 12/15/16 18:34 12/15/16 22:02 12/16/16 04:42 Glucose (Fingerstick) 154mg/dL (70-99) 180mg/dL (70-99) 177mg/dL (70-99) Sodium Level 142mmol/L (136-145) Potassium Level 4.2mmol/L (3.5-5.1) Chloride Level 106mmol/L (98-107) Carbon Dioxide Level 28mmol/L (21-32) Anion Gap 8 (6-14) Blood Urea Nitrogen 28mg/dL (8-26) Creatinine 0.7mg/dL (0.7-1.3) Estimated GFR (Cockcroft-Gault) 134.5 Glucose Level 218mg/dL (70-99) Calcium Level 9.2mg/dL (8.5-10.1) Test 12/16/16 04:52 12/16/16 08:34 12/16/16 08:45 12/16/16 11:37 White Blood Count 18.8x10^3/uL (4.0-11.0) Red Blood Count 3.54x10^6/uL (4.30-5.70) Hemoglobin 9.8g/dL (13.0-17.5) Hematocrit 30.8% (39.0-53.0) Mean Corpuscular Volume 87fL (79-100) Mean Corpuscular Hemoglobin 28pg (25-35) Mean Corpuscular Hemoglobin Concent 32g/dL (31-37) Red Cell Distribution Width 17.8% (11.5-14.5) Platelet Count 178x10^3/uL (140-400) O2 Saturation 96% (92-99) Arterial Blood pH 7.50 (7.35-7.45) Arterial Blood pCO2 at Patient Temp 36mmHg (35-46) Arterial Blood pO2 at Patient Temp 86mmHg (65-108) Arterial Blood HCO3 28mmol/L (21-28) Arterial Blood Base Excess 4mmol/L (-3-3) FiO2 50 Glucose (Fingerstick) 184mg/dL (70-99) 152mg/dL (70-99) Test 12/16/16 17:19 12/16/16 21:58 12/17/16 05:17 12/17/16 08:13 Glucose (Fingerstick) 170mg/dL (70-99) 217mg/dL (70-99) 302mg/dL (70-99) Sodium Level 142mmol/L (136-145) Potassium Level 3.9mmol/L (3.5-5.1) Chloride Level 106mmol/L (98-107) Carbon Dioxide Level 26mmol/L (21-32) Anion Gap 10 (6-14) Blood Urea Nitrogen 32mg/dL (8-26) Creatinine 0.8mg/dL (0.7-1.3) Estimated GFR (Cockcroft-Gault) 115.3 Glucose Level 297mg/dL (70-99) Calcium Level 8.9mg/dL (8.5-10.1) Laboratory Tests Test 12/16/16 11:37 12/16/16 17:19 12/16/16 21:58 12/17/16 05:17 Glucose (Fingerstick) 152mg/dL (70-99) 170mg/dL (70-99) 217mg/dL (70-99) Sodium Level 142mmol/L (136-145) Potassium Level 3.9mmol/L (3.5-5.1) Chloride Level 106mmol/L (98-107) Carbon Dioxide Level 26mmol/L (21-32) Anion Gap 10 (6-14) Blood Urea Nitrogen 32mg/dL (8-26) Creatinine 0.8mg/dL (0.7-1.3) Estimated GFR (Cockcroft-Gault) 115.3 Glucose Level 297mg/dL (70-99) Calcium Level 8.9mg/dL (8.5-10.1) Test 12/17/16 08:13 Glucose (Fingerstick) 302mg/dL (70-99) Medications Active Scripts Medications Dose Route/Sig Days Date Category Acetaminophen 325 Mg Tablet 325 Mg PEG PRN Q6HRS PRN 12/04/16 Reported Chlorhexidine Gluconate 473 Ml Mouthwash 473 Ml MM TID 12/04/16 Reported Glucose (Dextrose) 1 Each Tab.chew 1 Each PO PRN PRN 12/04/16 Reported Protonix (Pantoprazole Sodium) 40 Mg Granpkt.dr 40 Mg PEG DAILY 12/04/16 Reported Humalog (Insulin Lispro) 100 Unit/1 Ml Cartridge Unknown Dose SQ 12/04/16 Reported Hydrocodone-Apap 5-325 (Hydrocodone Bit/Acetaminophen) 1 Each Tablet 1 Tab PEG PRN Q6HRS PRN 11/21/16 Reported Enoxaparin Sodium 40 Mg/0.4 Ml Disp.syrin 40 Mg SQ 11/19/16 Reported Amlodipine Besylate 5 Mg Tablet 5 Mg PEG DAILY 11/06/16 Reported Comments cxr reviewed, left lung consolidation and volume loss compatible with pneumonia and mucous plugging. Impression . 1. Acute hypoxic/ hypercapnic respiratory failure secondary to diffuse purulent mucus plug/ pneumonia with significant collapse of the distal trachea and left mainstem bronchus by secretions. He is s/p therapeutic bronchoscopy, S/P TRACH 2. Diffuse pneumonia, Serratia, proteus. 3. Aphasia with inability to clear secretions. 4. Dysphagia. 5. Negative CT for PE Plan . UNIDIRECTIONAL CATH FOR SUCTION TUBE FEEDING NEBS DVT AND GI PROPH TRANSFER TO [facility] IN AM, [facility] TRACH HUSSEIN BREEN MD Dec 17, 2016 09:37
--- NOTE | 2016-12-17 14:15 | PDOC ---
Progress Note Subjective Subjective No issues with tracheostomy. On trach shield this morning. No bleeding. ROS ROS No nausea No vomiting No pain No rash Vital Sign Vital Signs Vital Signs Date Time Temp Pulse Resp B/P Pulse Ox O2 Delivery O2 Flow Rate FiO2 12/17/16 13:08 100 Tracheal Collar 10.0 12/17/16 10:00 72 26 170/78 12/17/16 08:00 97.9 97.9 Physical Exam PHYSICAL EXAM GENERAL: NAD, Alert HEENT: PERRL, OC/OP NECK: Supple, no JVD, no LN LUNGS: Clear HEART: S1S2, no gallop, no murmur ABD: Soft, NT, no organomegaly, no rebound EXT: No edema, no cyanosis HIDE CLEANER: Alert, oriented x 3, no focal neurologic deficit SKIN: No rash IV: ok Labs Lab Laboratory Tests Test 12/16/16 17:19 12/16/16 21:58 12/17/16 05:17 12/17/16 08:13 Glucose (Fingerstick) 170mg/dL (70-99) 217mg/dL (70-99) 302mg/dL (70-99) Sodium Level 142mmol/L (136-145) Potassium Level 3.9mmol/L (3.5-5.1) Chloride Level 106mmol/L (98-107) Carbon Dioxide Level 26mmol/L (21-32) Anion Gap 10 (6-14) Blood Urea Nitrogen 32mg/dL (8-26) Creatinine 0.8mg/dL (0.7-1.3) Estimated GFR (Cockcroft-Gault) 115.3 Glucose Level 297mg/dL (70-99) Calcium Level 8.9mg/dL (8.5-10.1) Test 12/17/16 12:30 Glucose (Fingerstick) 269mg/dL (70-99) Objective Assessment POD#1, s/p tracheostomy. No issues, no bleeding, on trach shield this morning. Plan Plan of Care Send to LT[facility] when cleared by pulmonary / Dr. Del Cid Remove tracheostomy sutures in 1 week JV HALE MD Dec 17, 2016 14:15
--- NOTE | 2016-12-17 19:43 | DS ---
DATE OF DISCHARGE: 12/17/2016 HOSPITAL COURSE: The patient is a 71-year-old -[place] male patient, a resident at [facility] who was admitted with acute hypoxic respiratory failure, found to be due to extensive inflammatory debris in the trachea and left bronchial tree with moderate associated pneumonitis in the left lower and upper lobes. Left lower lobe consolidation has improved since 11/06/2016, but the left upper lobe infiltrate has worsened. The patient was seen by Dr. Roman and he underwent bronchoscopy and the mucus plugging was suctioned. The bronchial tree showed the growth of Serratia marcescens as well as Proteus mirabilis, both sensitive to cefpodoxime. The patient was continued on IV Solu-Medrol. Unfortunately, the patient continued to have recurrent mucus plugging and a decision was made to put a tracheostomy tube and that was done successfully yesterday. The patient has been on BiPAP machine overnight and has been tolerating it very well. He is now maintaining his oxygen saturation at 100% on FiO2 of 50%. As the patient remained hemodynamically stable and afebrile, decision was made to transfer him to [facility] to continue with weaning trial, continue with nutritional support, continue with antibiotic and to start the physical and occupational therapy. PHYSICAL EXAMINATION: GENERAL: When I saw him today, he looked well and was clearly in no apparent distress. He is awake, alert, responding appropriately. Cranial nerves intact. He moves his extremities without difficulty, although he is mostly bed bound. VITAL SIGNS: His heart rate was 72, blood pressure was 170/78, temperature was 97.9, respiratory rate was 26 and oxygen saturation was 100% on FiO2 of 50%. HEAD, EYES, EARS, NOSE AND THROAT: Showed normocephalic, atraumatic. NECK: Supple with tracheostomy tube in place. HEART: Showed normal first and second heart sounds with no gallop, rub or murmur. CHEST: Clear to auscultation. No crepitation or rhonchi. ABDOMEN: Distended, soft, nontender. There is gastrostomy tube in place. There is no guarding or rigidity. No organomegaly. Hernial orifices intact. Bowel sounds normal. NEUROLOGICAL: He was more awake, alert, responding appropriately. Cranial nerves intact. He has severe dysarthria and difficult to understand. He moves upper extremities to much good extent than his lower extremities, mostly bed bound. His intake over the last 24 hours was 1600, output was 1075. LABORATORY DATA: As of yesterday, his white cell count was 18,800, hemoglobin 10, hematocrit 30, MCV 87, and platelet count of 178,000. His chemistry this morning showed a serum sodium of 142, potassium 3.9, chloride 106, bicarbonate 26, anion gap of 10, BUN 32, creatinine 0.8, estimated GFR was 115 mL per minute. His glucose was 297 and calcium was 9.8. DISCHARGE MEDICATIONS: The patient was transferred to [facility] to continue with insulin sliding scale every 6 hours, Pulmicort 0.5 mg b.i.d., DuoNeb every 4 hours, Solu-Medrol 40 mg IV q. 8 hourly, amlodipine 10 mg once a day, ____ 10 mg every 4 hours for systolic pressure 160, ____ 200 mg p.o. b.i.d., hydrocodone/APAP, 7.5/25, 15 mL every 4 hours. Continue lorazepam 1 mg every 4 hours, hydralazine 20 mg every 4 hours, Lovenox 40 mg subcutaneously once a day and famotidine 20 mg once a day. FINAL DISCHARGE DIAGNOSES: 1. Healthcare-associated pneumonia growing Serratia and Proteus mirabilis. 2. History of latent syphilis. Recently finished a 10-day course of IV penicillin. 3. Acute respiratory failure requiring BiPAP status post therapeutic bronchoscopy. 4. Dementia. 5. Dysphagia status post PEG tube placement. 6. Hypernatremia, resolved. His most recent serum sodium is down to 142 mEq per liter. 7. Recurrent mucus plugging requiring bronchoscopy. LILIANA ENCINAS MD DR: MAI/andres JOB#: [id number] / [id number]
== END 2016-12-17 15:45 | DRG 4 ==
LOC: ER 13:03 → ED HOLD 14:44 → 5 NORTH 17:01 → 1 WEST ICU 12-05 21:24
PROVIDERS: ADMIT Internal Medicine; ATTEND Internal Medicine
PROC: 0BCB8ZZ Extirpation of Matter from Left Lower Lobe Bronchus, Via Natural or Artificial Opening Endoscopic (ICD-10-PCS; 2016-12-05)
PROC: 0BC38ZZ Extirpation of Matter from Right Main Bronchus, Via Natural or Artificial Opening Endoscopic (ICD-10-PCS; 2016-12-05)
PROC: 5A09557 Assistance with Respiratory Ventilation, Greater than 96 Consecutive Hours, Continuous Positive Airway Pressure (ICD-10-PCS; 2016-12-05)
PROC: 0BC78ZZ Extirpation of Matter from Left Main Bronchus, Via Natural or Artificial Opening Endoscopic (ICD-10-PCS; 2016-12-05)
PROC: 0BC68ZZ Extirpation of Matter from Right Lower Lobe Bronchus, Via Natural or Artificial Opening Endoscopic (ICD-10-PCS; 2016-12-05)
PROC: 5A1935Z Respiratory Ventilation, Less than 24 Consecutive Hours (ICD-10-PCS; 2016-12-16)
PROC: 0BH17EZ Insertion of Endotracheal Airway into Trachea, Via Natural or Artificial Opening (ICD-10-PCS; 2016-12-16)
PROC: 0B110F4 Bypass Trachea to Cutaneous with Tracheostomy Device, Open Approach (ICD-10-PCS; principal; 2016-12-16 15:00)
DX: T17.590A Other foreign object in bronchus causing asphyxiation, initial encounter (principal); J15.6 Pneumonia due to other Gram-negative bacteria; E43 Unspecified severe protein-calorie malnutrition; J96.21 Acute and chronic respiratory failure with hypoxia; J96.22 Acute and chronic respiratory failure with hypercapnia; E87.0 Hyperosmolality and hypernatremia; E87.1 Hypo-osmolality and hyponatremia; Z68.1 Body mass index [BMI] 19.9 or less, adult; R47.01 Aphasia; T17.890A Other foreign object in other parts of respiratory tract causing asphyxiation, initial encounter; F03.90 Unspecified dementia, unspecified severity, without behavioral disturbance, psychotic disturbance, mood disturbance, and anxiety; I10 Essential (primary) hypertension; R13.10 Dysphagia, unspecified; Y95 Nosocomial condition; Z51.5 Encounter for palliative care; D72.829 Elevated white blood cell count, unspecified; Z66 Do not resuscitate; R13.12 Dysphagia, oropharyngeal phase; B96.4 Proteus (mirabilis) (morganii) as the cause of diseases classified elsewhere; X58.XXXA Exposure to other specified factors, initial encounter; Z93.0 Tracheostomy status; Z86.73 Personal history of transient ischemic attack (TIA), and cerebral infarction without residual deficits; Z93.1 Gastrostomy status; Z87.01 Personal history of pneumonia (recurrent)
CPT/HCPCS: 31622; 31720; 36415; 36600; 71010; 71275; 80048; 80053; 80202; 82553; 82805; 82947; 83605; 83735; 83880; 84145; 84484; 85007; 85027; 87040; 87070; 87116; 87186; 87205; 87641; 87804; 88112; 93005; 94640; 94660; 94667; 94668; 94760; J0360; J0690; J1100; J1650; J1815; J2060; J2370; J2405; J2543; J2704; J2710; J2930; J3010; J3370; J3490; J7030; J7040; J7050; J7120; J7620; Q9967; S0028; 99285-25

== ENCOUNTER 2017-01-10 15:14 | Emergency (ER) | payer MEDICARE, OTHER ==
[2017-01-10 15:14] VITALS: BP 187/81
[~2017-01-10 15:14] MED LIST changes: +ACET325T21 PEG; +CHLO473M MM; +DEXT1TAB7 PO; +INSU100C SQ; +PANT40GR PEG
--- NOTE | 2017-01-10 16:46 | PHYS DOC ---
Past Medical History Past Medical History: Dementia, Hypertension, Pneumonia, UTI Additional Past Medical Histor: dysphagia, urinary retention, falls, ARF, APHASIA Past Surgical History: Other Additional Past Surgical Histo: peg tube Alcohol Use: None Drug Use: None Adult General Chief Complaint Chief Complaint: OTHER COMPLAINTS HPI HPI Patient is a 71 year old gentleman who presents here today from the retirement secondary to dislodgment of his tracheostomy tube. Patient without any other complaints at this time. History is difficult to obtain from patient secondary to his doctor because of state. Upon arrival to the ER patient had a dislodged trach that was dangling from the trach strap. Patient did appear tachypneic and was coughing up significant amount of thick purulent material. Patient's physical exam the ED was significant for coarse breath sounds bilaterally. Significant amount of yellow purulent material being expectorated from his tracheostomy site. Patient appeared to be in mild distress/discomfort upon arrival. Once the trach was reinserted patient had significant improvement in his respiratory status. Patient was still expectorating a significant amount of thick yellow purulent material. This was suctioned extensively by myself as well as the certified appliance service technician in the ER utilizing saline flushes. After significant amount of suctioning the patient did feel much improved. Patient's lung exams are currently clear and he is resting comfortably and sleeping in bed without any evidence of respiratory distress or discomfort. Patient's heart rate has also improved significant family. Prior to discharge patient's heart rate was running in the 80s and 90 range. A/P tracheostomy dislodged. Procedure performed by Dr. Dixon. Tracheostomy was reinserted into his trach site. This was suctioned with a significant amount of purulent material obtained. Patient appears much more comfortable is no longer in any respiratory distress. Patient's chest x-ray revealed haziness in his left lung however upon evaluation of his prior chest x-rays this appears to be at baseline. Patient did have multiple x-rays which revealed complete white out of his left lung at the end of November. Prior to that there was some persistent increased markings in his left lung which appears to be baseline from today. Patient was discharged back to his nursing facility in stable condition. Patient is to have continued tracheostomy care per the retirement protocols. Review of Systems Review of Systems Constitutional: Denies fever Respiratory: cough shortness of breath [] Cardiovascular: No additional information not addressed in HPI [] GI: Denies abdominal pain, nausea, vomiting, bloody stools or diarrhea [] All other review systems are negative except as documented in the history of present illness. Allergies Allergies Allergies Coded Allergies Type Severity Reaction Last Updated Verified No Known Drug Allergies 12/05/16 No Physical Exam Physical Exam Constitutional: Well developed, well nourished, mild respiratory distress upon arrival. This is improved significantly since the replacement of his tracheostomy tube., non-toxic appearance. [] HENT: Normocephalic, atraumatic, bilateral external ears normal, Eyes: EOMI, Neck: Normal range of motion, Cardiovascular:Heart rate regular rhythm, Lungs & Thorax: Bilateral breath sounds clear to auscultation [] Abdomen: Bowel sounds normal, soft, Skin: Warm, dry, Back: No tenderness, Extremities: No tenderness, Neurologic: Alert Psychologic: Affect normal, Current Patient Data Vital Signs Vital Signs Date Time Temp Pulse Resp B/P Pulse Ox O2 Delivery O2 Flow Rate FiO2 01/10/17 15:14 99.4 97 26 187/81 98 Simple Mask 10 99.4 EKG EKG [] Radiology/Procedures Radiology/Procedures [] Course & Med Decision Making Course & Med Decision Making Pertinent Labs and Imaging studies reviewed. (See chart for details) [] Dragon Disclaimer Dragon Disclaimer This electronic medical record was generated, in whole or in part, using a voice recognition dictation system. Departure Departure Impression: Primary Impression: Tracheostomy complication, unspecified Disposition: 05 TRANSFER OTHER Condition: STABLE Referrals: LILIANA ENCINAS MD (PCP) Patient Instructions: Care of a Tracheostomy Tube JESUS GORMAN MD Jan 10, 2017 16:46
--- NOTE | 2017-01-11 07:44 | RAD ---
CHEST AP ONLY Clinical Indication: cough Comparison: December 17, 2016 Technique: Upright portable AP view of the chest is obtained. Findings: Tracheostomy tube appears stable in position. Left basilar opacification remains, similar to slightly improved when compared to the previous exam. Mild blunting of the left costophrenic angle remains. Mild bilateral perihilar opacities are present. No pneumothorax is seen. Cardiomediastinal silhouette remains within normal limits of size. Visualized osseous structures and overlying soft tissues demonstrate no acute interval change. Chronic appearing deformity of the lateral left eighth rib. IMPRESSION: Bilateral opacities may represent infiltrate. Tiny left effusion likely.
== END 2017-01-10 17:13 | disposition short-term general hospital (02) ==
LOC: ER 15:14
DX: J95.03 Malfunction of tracheostomy stoma (principal); Z45.2 Encounter for adjustment and management of vascular access device; N17.9 Acute kidney failure, unspecified; I10 Essential (primary) hypertension; Z87.440 Personal history of urinary (tract) infections; Y83.8 Other surgical procedures as the cause of abnormal reaction of the patient, or of later complication, without mention of misadventure at the time of the procedure; Y82.8 Other medical devices associated with adverse incidents; Y92.89 Other specified places as the place of occurrence of the external cause
CPT/HCPCS: 31502; 71010; 99285-25

== ENCOUNTER 2017-02-16 19:49 | Observation (INO) | payer MEDICARE, OTHER ==
[~2017-02-16] VITALS: Ht 177.8 cm; Wt 59.1 kg
[~2017-02-16 19:49] MED LIST changes: +ATRO10DR OP; +FAMO-63 PO; -HYDR-2666 PEG; +HYDR-2758 PEG; +POLY17PO29 PEG; +SCOP1PAT TP; +[UNRECOGNIZED DRUG - CODE]
[2017-02-16] MEDS ORDERED: IPRATRPIUM/ALBUTEROL 0.5/2.5MG 3 ML NEBU. NEB ONE (20:45)
--- NOTE | 2017-02-16 20:47 | PHYS DOC ---
Past Medical History Past Medical History: Dementia, Hypertension, Pneumonia, UTI Additional Past Medical Histor: dysphagia, urinary retention, falls, ARF, APHASIA Past Surgical History: Other Additional Past Surgical Histo: peg tube Alcohol Use: None Drug Use: None Adult General Chief Complaint Chief Complaint: SHORTNESS OF BREATH HPI HPI Patient is a 71 year old MALE who presents with DYSPNEA, COUGH, INCREASED SECRETIONS AND HYPOXIA Pt is a resident on [facility] with trach and vent mask. Pt had recent admission [place] 01/10-01/18 for trach problems. Pt was found by EMS with sat 71% on nonhumidified oxygen. Pt was given a Nebulizer treatment with some improvement and came in with 100% O2. Pt has increased secretions here in ER and suction in ER with alot of white secretion put on Vent mask at 50% and saturations at 94-97% but needs frequent suction here in ER Pt usually on 30% mask. Review of Systems Review of Systems Constitutional: Denies fever or chills [] HENT: Denies nasal congestion or sore throat [] Respiratory: Has had significant cough or shortness of breath [] Cardiovascular: No additional information not addressed in HPI [] GI: Denies abdominal pain, nausea, vomiting, bloody stools or diarrhea [ pt c/o PEG tub pain] : Denies dysuria or hematuria [] Musculoskeletal: Denies back pain or joint pain [] Integument: Denies rash or skin lesions [] Neurologic: Denies headache, focal weakness or sensory changes [] Current Medications Current Medications Current Medications Medications (Trade) Dose Ordered Sig/Anh Start Time Stop Time Status Last Admin Dose Admin Albuterol/ Ipratropium (Duoneb) 3 ml 1X ONCE 02/16/17 20:45 02/16/17 20:46 DC 02/16/17 21:01 3 ML Allergies Allergies Allergies Coded Allergies Type Severity Reaction Last Updated Verified No Known Drug Allergies 01/22/17 No Physical Exam Physical Exam Constitutional: Pt mild distress from frequent coughing[] HENT: Normocephalic, atraumatic, bilateral external ears normal, oropharynx moist, no oral exudates, nose normal. [] Eyes: PERRLA, conjunctiva normal, no discharge. [] Neck: Normal range of motion, no tenderness, supple, no stridor. [] Cardiovascular sinus tachycardia] Lungs & Thorax: Bilateral rhonchi, secretions from trach no blood Abdomen: Bowel sounds normal, soft, no tenderness, no masses, no pulsatile masses. PEG tube in place no redness, no tender Skin: Warm, dry, no erythema, no rash. [] Extremities: No tenderness, no cyanosis, no clubbing, ROM intact, no edema. [] Neurologic: Alert and oriented , normal motor function, normal sensory function , no new focal deficits noted. [ BASELINE NEURO EXAM] Psychologic: Affect normal,[] Current Patient Data Vital Signs Vital Signs Date Time Temp Pulse Resp B/P (MAP) Pulse Ox O2 Delivery O2 Flow Rate FiO2 02/16/17 21:34 94 37 178/84 (115) 94 Tracheal Collar 10.0 02/16/17 19:50 99.0 99.0 Lab Values Laboratory Tests Test 02/16/17 20:50 White Blood Count 9.6 x10^3/uL (4.0-11.0) Red Blood Count 4.73 x10^6/uL (4.30-5.70) Hemoglobin 12.3 g/dL (13.0-17.5) L Hematocrit 39.3 % (39.0-53.0) Mean Corpuscular Volume 83 fL (79-100) Mean Corpuscular Hemoglobin 26 pg (25-35) Mean Corpuscular Hemoglobin Concent 31 g/dL (31-37) Red Cell Distribution Width 22.0 % (11.5-14.5) H Platelet Count 264 x10^3/uL (140-400) Neutrophils (%) (Auto) 66 % (31-73) Lymphocytes (%) (Auto) 21 % (24-48) L Monocytes (%) (Auto) 11 % (0-9) H Eosinophils (%) (Auto) 1 % (0-3) Basophils (%) (Auto) 0 % (0-3) Neutrophils # (Auto) 6.4 x10^3uL (1.8-7.7) Lymphocytes # (Auto) 2.0 x10^3/uL (1.0-4.8) Monocytes # (Auto) 1.1 x10^3/uL (0.0-1.1) Eosinophils # (Auto) 0.1 x10^3/uL (0.0-0.7) Basophils # (Auto) 0.0 x10^3/uL (0.0-0.2) Platelet Estimate Adequate (ADEQUATE) Poikilocytosis Slight Anisocytosis Mod Sodium Level 138 mmol/L (136-145) Potassium Level 4.0 mmol/L (3.5-5.1) Chloride Level 101 mmol/L (98-107) Carbon Dioxide Level 26 mmol/L (21-32) Anion Gap 11 (6-14) Blood Urea Nitrogen 15 mg/dL (8-26) Creatinine 0.7 mg/dL (0.7-1.3) Estimated GFR (Cockcroft-Gault) 134.5 BUN/Creatinine Ratio 21 (6-20) H Glucose Level 115 mg/dL (70-99) H Calcium Level 10.5 mg/dL (8.5-10.1) H Total Bilirubin 0.3 mg/dL (0.2-1.0) Aspartate Amino Transferase (AST) 38 U/L (15-37) H Alanine Aminotransferase (ALT) 44 U/L (16-63) Alkaline Phosphatase 88 U/L (46-116) Creatine Kinase 61 U/L (39-308) Creatine Kinase MB (Mass) < 0.5 ng/mL (0.0-3.6) Creatine Kinase MB Relative Index % (0-4) Troponin I Quantitative < 0.017 ng/mL (0.000-0.055) BS-Rsb-O-Type Natriuretic Peptide 41 pg/mL (0-124) Total Protein 8.9 g/dL (6.4-8.2) H Albumin 2.8 g/dL (3.4-5.0) L Albumin/Globulin Ratio 0.5 (1.0-1.7) L Laboratory Tests 02/16/17 20:50 Laboratory Tests 02/16/17 20:50 EKG EKG EKG--sinus tachycardia with PVC's no STEMI nonspecific st t wave changes read by ER physician[] Radiology/Procedures Radiology/Procedures portable Chest Xray---no pneumothorax, no infiltrate, borderline cardiomegally , no chf [] Impressions: 1. Acute on Chronic respiratory failure with episode of hypoxia Course & Med Decision Making Course & Med Decision Making Pertinent Labs and Imaging studies reviewed. (See chart for details) [] Dragon Disclaimer Dragon Disclaimer This electronic medical record was generated, in whole or in part, using a voice recognition dictation system. Departure Departure Impression: Primary Impression: Acute on chronic respiratory failure with hypoxia Disposition: ADMITTED INPATIENT Admitting Physician: Greg Rosenthal Condition: STABLE Referrals: LILIANA ENCINAS MD (PCP) KENDAL MARSHALL MD February 16, 2017 20:47
[2017-02-16 21:01] LABS: BASO % 0 % (0-3); EOS % 1 % (0-3); HEMATOCRIT 39.3 % (39.0-53.0); HEMOGLOBIN 12.3 g/dL (13.0-17.5); LYMPH % 21 % (24-48); MEAN CORPUSCULAR HEMOGLOBIN 26 pg (25-35); MEAN CORPUSCULAR HGB CONC 31 g/dL (31-37); MEAN CORPUSCULAR VOLUME 83 fL (79-100); MONO % 11 % (0-9); NEUT % 66 % (31-73); PLATELET COUNT 264 x10^3/uL (140-400); RED BLOOD COUNT 4.73 x10^6/uL (4.30-5.70); WHITE BLOOD COUNT 9.6 x10^3/uL (4.0-11.0)
[2017-02-16 21:16] LABS: CALCIUM 10.5 mg/dL (8.5-10.1); CREATININE 0.7 mg/dL (0.7-1.3); GFR 134.5
[2017-02-16 21:23] LABS: ALBUMIN 2.8 g/dL (3.4-5.0); ALBUMIN/GLOBULIN RATIO 0.5 (1.0-1.7); TOTAL BILIRUBIN 0.3 mg/dL (0.2-1.0); TOTAL PROTEIN 8.9 g/dL (6.4-8.2)
[2017-02-16 21:31] LABS: CKMB MASS < 0.5 ng/mL (0.0-3.6); CREATINE KINASE 61 U/L (39-308)
[2017-02-16 21:57] LABS: ANISOCYTOSIS MOD; PLT ESTIMATE ADEQUATE (ADEQUATE); POIKILOCYTOSIS SLIGHT
[2017-02-16] MEDS ORDERED: PIPERACILLIN/TAZOBACTAM 3.375 GM in IV NORMAL SALINE 50ML 50 ML IV ONE (22:00)
[2017-02-16] MEDS ORDERED: ONDANSETRON PF 4 MG/2 ML VIAL. IV PRN (22:00)
--- NOTE | 2017-02-16 22:39 | ACF ---
Admission Forms Criteria RESPIRATORY FAILURE [facility] Clinical Indications for Admission to Inpatient Care (Place 'X' for any and all applicable criteria): Hospital admission is needed for appropriate care of the patient because of acute respiratory failure or insufficiency as indicated by ANY ONE of the following(1)(2)(3)(4)(5)(6)(7)(8): [ ]I. Mechanical ventilation needed (acute invasive or noninvasive) [ ]II. Severe ventilation deficit as indicated by ANY ONE of the following (9) [ ]a) Respiratory acidosis (pH less than 7.32 and partial pressure of carbon dioxide greater than 40 mm Hg (5.3 kPa)) [ ]b) Partial pressure of carbon dioxide greater than 44 mm Hg (5.9 kPa ) (new) [ ]c) Airflow measurements less than 25% of predicted (eg, peak expiratory flow rate less than 100 L/minute) [ ]d) Forced vital capacity less than 15 mL/kg of ideal body weight, or 50% decrease in vital capacity from baseline [ ]III. Noncardiac pulmonary edema not resolving with rapid emergency treatment (8) [X ]IV. Severe respiratory distress as indicated by ANY ONE of the following: [X ]a) Severe tachypnea (respiratory rate greater than 30, greater than 45 for 6-month-old, greater than 60 for ) [ ]b) Severe hypoxemia (partial pressure of oxygen less than 50 mm Hg ( 6.7 kPa) on greater than 50% oxygen or partial pressure of oxygen to FIO2 ratio less than 200) [ ]c) Mental status deterioration from respiratory disease [ ]V. Airway obstruction or inadequate protection [A](10)(11) The original [employer] content created by [employer] has been revised. The portions of the content which have been revised are identified through the use of italic text or in bold, and [employer] has neither reviewed nor approved the modified material. All other unmodified content is copyright [employer]. Please see references footnoted in the original [employer] edition 2016 Admission Criteria Met?: Yes AURELIO MAYORGA February 16, 2017 22:38
[2017-02-17] VITALS: BP 132/84
[2017-02-17] MEDS ORDERED: IPRA3AMP NEB (01:10)
[2017-02-17] MEDS ORDERED: DEXT38GE2 PO (01:10)
[2017-02-17] MEDS ORDERED: ENOX40DI SQ (01:10)
[2017-02-17] MEDS ORDERED: POTA20PA PO (01:10)
[2017-02-17] MEDS ORDERED: INSU100C SQ (01:10)
[2017-02-17] MEDS ORDERED: MELA3TAB2 PO (01:10)
[2017-02-17] MEDS ORDERED: BISA10SU13 RC (01:10)
[2017-02-17] MEDS ORDERED: DOCU100C28 PO (01:10)
[2017-02-17] MEDS ORDERED: LORA1TAB PO (01:10)
[2017-02-17 03:00] VITALS: BP 116/69
[2017-02-17 07:00] VITALS: BP 94/63
--- NOTE | 2017-02-17 08:08 | RAD ---
Portable chest, 02/16/2017: History: Dyspnea, cough Comparison is made to a study from 01/26/2017. A tracheostomy tube remains in place in satisfactory position. The heart appears to be within normal limits in size. The pulmonary vascularity is normal. There has been considerable interval clearing of the left pulmonary infiltrates. There are only mild residual streaky opacities in the left lower chest. Previously seen left-sided pleural fluid has resolved. The right chest remains clear. A rounded opacity overlying the body of the stomach was likely represents a gastrostomy tube. IMPRESSION: 1. Interval clearing of the left pleural effusion and the majority of the left pulmonary infiltrates since 01/26/2017. 2. No new chest abnormality is detected.
[2017-02-17] MEDS ORDERED: HYDROcodone/APAP 5/325MG 1 TAB TABLET PEG PRN (09:30)
[2017-02-17] MEDS ORDERED: ACETAMINOPHEN 325 MG TABLET. PO PRN (09:30)
[2017-02-17] MEDS ORDERED: DEXTROSE ORAL GEL 15 GM TUBE. PO PRN (09:30)
--- NOTE | 2017-02-17 09:35 | PDOC ---
OBJECTIVE Vital Signs Vital Signs Date Time Temp Pulse Resp B/P (MAP) Pulse Ox O2 Delivery O2 Flow Rate FiO2 02/17/17 08:00 T-piece 8.0 02/17/17 07:00 98.9 79 16 94/63 (73) 97 T-Tube 98.9 02/17/17 03:00 98.8 84 20 116/69 (85) 96 T-Tube 98.8 02/17/17 00:15 99 AP NEB 8.0 02/17/17 00:00 98.6 90 22 132/84 (100) 95 T-Tube 98.6 02/17/17 00:00 T-piece 02/16/17 23:14 100 36 140/65 (90) 97 Tracheal Collar 10.0 02/16/17 22:54 104 40 142/74 (96) 98 Tracheal Collar 10.0 02/16/17 22:34 102 37 150/79 (102) 96 Tracheal Collar 10.0 02/16/17 22:14 102 38 129/80 (96) 96 Tracheal Collar 10.0 02/16/17 21:34 94 37 178/84 (115) 94 Tracheal Collar 10.0 02/16/17 21:20 100 36 137/76 (96) 99 Room Air 10.0 02/16/17 21:01 96 AP NEB 10.0 02/16/17 20:54 98 35 156/89 (111) 98 Tracheal Collar 10.0 02/16/17 20:34 98 35 155/85 (108) 98 Tracheal Collar 10.0 02/16/17 20:15 96 AP NEB 10.0 02/16/17 20:14 102 31 147/85 (105) 100 Tracheal Collar 10.0 02/16/17 19:50 99.0 104 31 148/89 (108) 92 NonRebreather Mask 10.0 99.0 I & O Intake and Output 02/17/17 07:00 Intake Total 50 ml Output Total 252 ml Balance -202 ml Intake IV Total 50 ml Output Urine Total 250 ml Stool Total 2 ml ASSESSMENT/PLAN Assessment/Plan [id number] H&P dictated Problems: COMMENT Lab Laboratory Tests Test 02/16/17 20:50 02/17/17 06:45 White Blood Count 9.6 x10^3/uL (4.0-11.0) Red Blood Count 4.73 x10^6/uL (4.30-5.70) Hemoglobin 12.3 g/dL (13.0-17.5) Hematocrit 39.3 % (39.0-53.0) Mean Corpuscular Volume 83 fL (79-100) Mean Corpuscular Hemoglobin 26 pg (25-35) Mean Corpuscular Hemoglobin Concent 31 g/dL (31-37) Red Cell Distribution Width 22.0 % (11.5-14.5) Platelet Count 264 x10^3/uL (140-400) Neutrophils (%) (Auto) 66 % (31-73) Lymphocytes (%) (Auto) 21 % (24-48) Monocytes (%) (Auto) 11 % (0-9) Eosinophils (%) (Auto) 1 % (0-3) Basophils (%) (Auto) 0 % (0-3) Neutrophils # (Auto) 6.4 x10^3uL (1.8-7.7) Lymphocytes # (Auto) 2.0 x10^3/uL (1.0-4.8) Monocytes # (Auto) 1.1 x10^3/uL (0.0-1.1) Eosinophils # (Auto) 0.1 x10^3/uL (0.0-0.7) Basophils # (Auto) 0.0 x10^3/uL (0.0-0.2) Platelet Estimate Adequate (ADEQUATE) Poikilocytosis Slight Anisocytosis Mod Sodium Level 138 mmol/L (136-145) Potassium Level 4.0 mmol/L (3.5-5.1) Chloride Level 101 mmol/L (98-107) Carbon Dioxide Level 26 mmol/L (21-32) Anion Gap 11 (6-14) Blood Urea Nitrogen 15 mg/dL (8-26) Creatinine 0.7 mg/dL (0.7-1.3) Estimated GFR (Cockcroft-Gault) 134.5 BUN/Creatinine Ratio 21 (6-20) Glucose Level 115 mg/dL (70-99) Calcium Level 10.5 mg/dL (8.5-10.1) Total Bilirubin 0.3 mg/dL (0.2-1.0) Aspartate Amino Transf (AST/SGOT) 38 U/L (15-37) Alanine Aminotransferase (ALT/SGPT) 44 U/L (16-63) Alkaline Phosphatase 88 U/L (46-116) Creatine Kinase 61 U/L (39-308) Creatine Kinase MB (Mass) < 0.5 ng/mL (0.0-3.6) Creatine Kinase MB Relative Index % (0-4) Troponin I Quantitative < 0.017 ng/mL (0.000-0.055) RV-Fpr-U-Type Natriuretic Peptide 41 pg/mL (0-124) Total Protein 8.9 g/dL (6.4-8.2) Albumin 2.8 g/dL (3.4-5.0) Albumin/Globulin Ratio 0.5 (1.0-1.7) Lactic Acid Level 1.2 mmol/L (0.4-2.0) LEONARDO ORTEGA MD February 17, 2017 09:35
[2017-02-17] MEDS ORDERED: DEXTROSE 50% 25 GM / 50ML DISP.SYRIN. IV PRN (09:45)
--- NOTE | 2017-02-17 09:48 | EKG ---
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
[2017-02-17] MEDS ORDERED: DOCUSATE SODIUM 100 MG CAPSULE. PO SCH (10:00)
[2017-02-17] MEDS ORDERED: BISACODYL 10 MG SUPP.RECT. RC SCH (10:00)
[2017-02-17] MEDS ORDERED: SCOPOLAMINE 1.5MG PATCH. TD SCH (10:00)
[2017-02-17] MEDS ORDERED: ENOXAPARIN 40 MG/0.4 ML SYRINGE. SQ SCH (10:00)
[2017-02-17] MEDS ORDERED: FAMOTIDINE 20 MG TABLET. PO SCH (10:00)
[2017-02-17] MEDS ORDERED: POLYETHYLENE GLYCOL 3350 17 GM PACKET. PEG SCH (10:00)
--- NOTE | 2017-02-17 10:09 | PDOC3 ---
Discharge Summary* Date of Admission: February 16, 2017 Date of Discharge: February 17, 2017 Admitting Diagnosis Problems Medical Problems: (1) Acute on chronic respiratory failure with hypoxia Status: Acute Final Diagnosis Problems Medical Problems: (1) Acute on chronic respiratory failure with hypoxia Status: Acute CONSULTS pulmonary Procedures CXR Brief Hospital Course Mr. Montgomery is a 71 old [sex] who presented with [ ] Disposition/Orders: D/C to Another Facility CONDITION AT DISCHARGE: Improved Diet: Tube Feeding, other Scheduled Amlodipine Besylate (Amlodipine Besylate), 5 MG PEG DAILY, (Reported) Atropine Sulfate in 0.9% NaCl (Atropine 0.01%-Ns Eye Drops), 10 ML OP QID, ( Reported) Bisacodyl (Biscolax), 10 MG RC DAILY, (Reported) Docusate Sodium (Docusate Sodium), 1 CAP PO BID, (Reported) Enoxaparin Sodium (Lovenox), 0.4 ML SQ DAILY, (Reported) Famotidine (Pepcid), 20 MG PO DAILY, (Reported) Ipratropium/Albuterol Sulfate (Duoneb 0.5-3(2.5) Mg/3 Ml), 3 ML NEB QID, ( Reported) Lorazepam (Lorazepam), 1 TAB PO Q4HRS, (Reported) Melatonin (Melatonin), 1 TAB PO QHS, (Reported) Polyethylene Glycol 3350 (Miralax), 1 PACKET PEG BID, (Reported) Potassium Chloride (Klor-Con), 20 MEQ PO TID, (Reported) Scopolamine (Transderm-Scop), 1 PATCH TP Q3DAYS, (Reported) Scheduled PRN Acetaminophen (Acetaminophen), 325 MG PEG PRN Q6HRS PRN for PAIN, (Reported) Hydrocodone Bit/Acetaminophen (Hydrocodone-Apap 5-325 ), 1 TAB PEG PRN Q6HRS PRN for PAIN, (Reported) Miscellaneous Medications Acetylcysteine in Water/Pf (Acetylcysteine 10% Eye Drops), 3 ML, (Reported) Dextrose (Glucose Gel), 15 GM PO, (Reported) Insulin Lispro (Humalog), 100 UNIT SQ, (Reported) FOLLOW UP APPOINTMENT: to be followed by facility physician Time Spent Total time spent with patient [] minutes for coordination of care, counseling, and education. LEONARDO ORTEGA MD February 17, 2017 10:09
[2017-02-17] MEDS: POTASSIUM CHLORIDE 20 MEQ TABLET.ER. PO SCH ×3 (10:28→11:42)
--- NOTE | 2017-02-17 10:52 | PDOC ---
PULMONARY PROGRESS NOTES Vitals Vital Signs Date Time Temp Pulse Resp B/P (MAP) Pulse Ox O2 Delivery O2 Flow Rate FiO2 02/17/17 08:00 T-piece 8.0 02/17/17 07:00 98.9 79 16 94/63 (73) 97 98.9 General: Alert Lungs: Clear Cardiovascular: S1, S2 Abdomen: Soft Extremities: No Edema Labs Laboratory Tests Test 02/16/17 20:50 02/17/17 06:45 White Blood Count 9.6 x10^3/uL (4.0-11.0) Red Blood Count 4.73 x10^6/uL (4.30-5.70) Hemoglobin 12.3 g/dL (13.0-17.5) Hematocrit 39.3 % (39.0-53.0) Mean Corpuscular Volume 83 fL (79-100) Mean Corpuscular Hemoglobin 26 pg (25-35) Mean Corpuscular Hemoglobin Concent 31 g/dL (31-37) Red Cell Distribution Width 22.0 % (11.5-14.5) Platelet Count 264 x10^3/uL (140-400) Neutrophils (%) (Auto) 66 % (31-73) Lymphocytes (%) (Auto) 21 % (24-48) Monocytes (%) (Auto) 11 % (0-9) Eosinophils (%) (Auto) 1 % (0-3) Basophils (%) (Auto) 0 % (0-3) Neutrophils # (Auto) 6.4 x10^3uL (1.8-7.7) Lymphocytes # (Auto) 2.0 x10^3/uL (1.0-4.8) Monocytes # (Auto) 1.1 x10^3/uL (0.0-1.1) Eosinophils # (Auto) 0.1 x10^3/uL (0.0-0.7) Basophils # (Auto) 0.0 x10^3/uL (0.0-0.2) Platelet Estimate Adequate (ADEQUATE) Poikilocytosis Slight Anisocytosis Mod Sodium Level 138 mmol/L (136-145) Potassium Level 4.0 mmol/L (3.5-5.1) Chloride Level 101 mmol/L (98-107) Carbon Dioxide Level 26 mmol/L (21-32) Anion Gap 11 (6-14) Blood Urea Nitrogen 15 mg/dL (8-26) Creatinine 0.7 mg/dL (0.7-1.3) Estimated GFR (Cockcroft-Gault) 134.5 BUN/Creatinine Ratio 21 (6-20) Glucose Level 115 mg/dL (70-99) Calcium Level 10.5 mg/dL (8.5-10.1) Total Bilirubin 0.3 mg/dL (0.2-1.0) Aspartate Amino Transf (AST/SGOT) 38 U/L (15-37) Alanine Aminotransferase (ALT/SGPT) 44 U/L (16-63) Alkaline Phosphatase 88 U/L (46-116) Creatine Kinase 61 U/L (39-308) Creatine Kinase MB (Mass) < 0.5 ng/mL (0.0-3.6) Creatine Kinase MB Relative Index % (0-4) Troponin I Quantitative < 0.017 ng/mL (0.000-0.055) AZ-Wpf-B-Type Natriuretic Peptide 41 pg/mL (0-124) Total Protein 8.9 g/dL (6.4-8.2) Albumin 2.8 g/dL (3.4-5.0) Albumin/Globulin Ratio 0.5 (1.0-1.7) Lactic Acid Level 1.2 mmol/L (0.4-2.0) Laboratory Tests Test 02/16/17 20:50 02/17/17 06:45 White Blood Count 9.6 x10^3/uL (4.0-11.0) Red Blood Count 4.73 x10^6/uL (4.30-5.70) Hemoglobin 12.3 g/dL (13.0-17.5) Hematocrit 39.3 % (39.0-53.0) Mean Corpuscular Volume 83 fL (79-100) Mean Corpuscular Hemoglobin 26 pg (25-35) Mean Corpuscular Hemoglobin Concent 31 g/dL (31-37) Red Cell Distribution Width 22.0 % (11.5-14.5) Platelet Count 264 x10^3/uL (140-400) Neutrophils (%) (Auto) 66 % (31-73) Lymphocytes (%) (Auto) 21 % (24-48) Monocytes (%) (Auto) 11 % (0-9) Eosinophils (%) (Auto) 1 % (0-3) Basophils (%) (Auto) 0 % (0-3) Neutrophils # (Auto) 6.4 x10^3uL (1.8-7.7) Lymphocytes # (Auto) 2.0 x10^3/uL (1.0-4.8) Monocytes # (Auto) 1.1 x10^3/uL (0.0-1.1) Eosinophils # (Auto) 0.1 x10^3/uL (0.0-0.7) Basophils # (Auto) 0.0 x10^3/uL (0.0-0.2) Platelet Estimate Adequate (ADEQUATE) Poikilocytosis Slight Anisocytosis Mod Sodium Level 138 mmol/L (136-145) Potassium Level 4.0 mmol/L (3.5-5.1) Chloride Level 101 mmol/L (98-107) Carbon Dioxide Level 26 mmol/L (21-32) Anion Gap 11 (6-14) Blood Urea Nitrogen 15 mg/dL (8-26) Creatinine 0.7 mg/dL (0.7-1.3) Estimated GFR (Cockcroft-Gault) 134.5 BUN/Creatinine Ratio 21 (6-20) Glucose Level 115 mg/dL (70-99) Calcium Level 10.5 mg/dL (8.5-10.1) Total Bilirubin 0.3 mg/dL (0.2-1.0) Aspartate Amino Transf (AST/SGOT) 38 U/L (15-37) Alanine Aminotransferase (ALT/SGPT) 44 U/L (16-63) Alkaline Phosphatase 88 U/L (46-116) Creatine Kinase 61 U/L (39-308) Creatine Kinase MB (Mass) < 0.5 ng/mL (0.0-3.6) Creatine Kinase MB Relative Index % (0-4) Troponin I Quantitative < 0.017 ng/mL (0.000-0.055) UE-Bcr-A-Type Natriuretic Peptide 41 pg/mL (0-124) Total Protein 8.9 g/dL (6.4-8.2) Albumin 2.8 g/dL (3.4-5.0) Albumin/Globulin Ratio 0.5 (1.0-1.7) Lactic Acid Level 1.2 mmol/L (0.4-2.0) Medications Active Scripts Medications Dose Route/Sig Max Daily Dose Days Date Category Klor-Con (Potassium Chloride) 20 Meq Packet 20 Meq PO TID 02/17/17 Reported Melatonin 3 Mg Tablet 1 Tab PO QHS 02/17/17 Reported Lorazepam 1 Mg Tablet 1 Tab PO Q4HRS 02/17/17 Reported Humalog (Insulin Lispro) 100 Unit/1 Ml Cartridge 100 Unit SQ 02/17/17 Reported Glucose Gel (Dextrose) 38 Gm Gel..gram. 15 Gm PO 02/17/17 Reported Lovenox (Enoxaparin Sodium) 40 Mg/0.4 Ml Disp.syrin 0.4 Ml SQ DAILY 02/17/17 Reported Duoneb 0.5-3(2.5) Mg/3 Ml (Albuterol/Ipratropium) 3 Ml Ampul.neb 3 Ml NEB QID 02/17/17 Reported Docusate Sodium 100 Mg Capsule 1 Cap PO BID 02/17/17 Reported Biscolax (Bisacodyl) 10 Mg Supp.rect 10 Mg RC DAILY 02/17/17 Reported Acetylcysteine 10% Eye Drops (Acetylcysteine in Water/Pf) 10 Ml Drops 3 Ml 01/18/17 Reported Atropine 0.01%-Ns Eye Drops (Atropine Sulfate in 0.9% NaCl) 10 Ml Drops 10 Ml OP QID 01/18/17 Reported Pepcid (Famotidine) 20 Mg Tablet 20 Mg PO DAILY 01/18/17 Reported Transderm-Scop (Scopolamine) 1 Each Patch.td72 1 Patch TP Q3DAYS 01/18/17 Reported Miralax (Polyethylene Glycol 3350) 17 Gm Powd.pack 1 Packet PEG BID 01/18/17 Reported Acetaminophen 325 Mg Tablet 325 Mg PEG PRN Q6HRS PRN 12/04/16 Reported Hydrocodone-Apap 5-325 (Hydrocodone Bit/Acetaminophen) 1 Each Tablet 1 Tab PEG PRN Q6HRS PRN 11/21/16 Reported Amlodipine Besylate 5 Mg Tablet 5 Mg PEG DAILY 11/06/16 Reported Impression . [id number] ok to HUSSEIN Carrion MD February 17, 2017 10:52
[2017-02-17 11:00] VITALS: BP 158/84
--- NOTE | 2017-02-17 11:02 | PREOP HP ---
DATE OF SERVICE: 02/16/2017 Location: Room #106 in ICU. HISTORY OF PRESENT ILLNESS: The patient is a 71-year-old gentleman who is a resident at a long-term care facility and was brought to the Emergency Room due to increasing dyspnea, cough, increasing secretions from his tracheostomy, and hypoxia. He was discharged from [facility] on 01/18/2017. He has been hypoxic, and when chemical machine tender arrived to his facility, his saturation was 71% on non-humidified oxygen. He was given nebulizer treatment with some improvement. He was brought to the Emergency Room on 100% oxygen. In the Emergency Room, they put him on a Ventimask at 50%, and he was saturating at 94% to 97%. He continued to have significant amount of secretions from the tracheostomy. PAST MEDICAL HISTORY: Significant for chronic respiratory failure, tracheostomy, and previous history of aspiration pneumonia. He had a feeding tube, PEG tube. 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 FAMILY HISTORY: Positive for hypertension. SOCIAL HISTORY: Currently, he is a resident at a long-term care facility. He does not smoke or drink alcohol. He does not use illicit drugs. REVIEW OF SYSTEMS: CONSTITUTIONAL: There is no fever or chills. HEENT: No sore throat. He does have increased congestion and production of sputum. RESPIRATORY: He has mild cough and chronic shortness of breath. He does have a chronic tracheostomy. CARDIOVASCULAR: No chest pain. GASTROINTESTINAL: No abdominal pain, nausea, vomiting, or diarrhea. GENITOURINARY: He is incontinent. No dysuria or hematuria. MUSCULOSKELETAL: He does have chronic arthritis and back pain. No acute complaints. NEUROLOGIC: He does not have any new focal weakness. PHYSICAL EXAMINATION: GENERAL: He is alert, disoriented, cooperative, and follows commands. HEENT: Normocephalic, atraumatic. EYES: With normal conjunctival color, no drainage. NECK: Supple. HEART: Mildly tachycardic. LUNGS: With bilateral rhonchi, scattered. He does have yellowish secretions from the tracheostomy with no blood. ABDOMEN: Soft, nontender, no organomegaly, no masses, no bruits, no ascites. He does have a PEG tube in place. SKIN: Warm and dry. EXTREMITIES: No edema, clubbing, or cyanosis. NEUROLOGY: He is alert. He does not have any new focal deficit. He is at his baseline. LABORATORY DATA: His chest x-ray shows improvement in the pneumonia. His lab was within normal limits. Hemoglobin 12.3, blood sugar 115, otherwise his labs were normal. IMPRESSION: 1. Acute on chronic respiratory failure with hypoxia, probably due to bronchospasm and bronchitis. 2. History of aspiration pneumonia that has improved on x-ray. 3. Previous history of cerebrovascular accident and dementia. 4. Hypertension, hypertensive cardiovascular disease. 5. Urinary incontinence. 6. Osteoarthritis and back pain. LEONARDO ORTEGA MD DR: ALEXA/andres JOB#: [id number] / [id number]
[2017-02-17] MEDS: LORazepam 1 MG TABLET PO SCH ×2 (11:41→15:55)
[2017-02-17] MEDS: IPRATRPIUM/ALBUTEROL 0.5/2.5MG 3 ML NEBU. NEB SCH ×2 (11:47→15:28)
[2017-02-17] MEDS ORDERED: INSULIN ASPART 300 UNITS/3 ML INSULN.PEN SQ SCH (12:00)
[2017-02-17 15:00] VITALS: BP 112/75
--- NOTE | 2017-02-18 02:25 | CONS ---
DATE OF CONSULTATION: 02/17/2017 ATTENDING PHYSICIAN: Greg Rosenthal MD REASON FOR CONSULTATION: The patient was seen in pulmonary consultation at the request of Dr. Rosenthal for mucous plugging, chronic respiratory failure. HISTORY OF PRESENT ILLNESS: The patient is a 71-year-old that resides at a fdc. He has a tracheostomy in place for chronic mucus plugging. He has a very weak cough. He also has a PEG in place for dysphagia, presented with decreased saturation. He is unable to cough up any mucus. EMS found his sats to be 71% on non-humidified oxygen. He was given breathing treatments, transferred to the Emergency Department. Upon arrival to the emergency Department, his O2 sat was improved. He was admitted, he was placed in the intensive care unit. I have reviewed the x-ray, which has greatly improved in comparison to the previous x-ray. There was minimal infiltrate in left lower lobe, but there is no significant evidence of atelectasis or effusion. The patient is awake, alert, following commands, is unable to cough up any secretions. There has been no documentation of fever. PAST MEDICAL HISTORY: 1. Chronic respiratory failure, status post tracheotomy. 2. Recurrent pneumonia, aspiration. 3. Dementia. 4. UTI. 5. Dysphagia, status post PEG. PAST SURGICAL HISTORY: As above. ALLERGIES: No known drug allergies. REVIEW OF SYSTEMS: Unobtainable secondary to the patient's condition. CURRENT MEDICATION: List was reviewed. Please see the MRAD. PHYSICAL EXAMINATION: GENERAL: The patient was awake, alert, following commands, in no respiratory distress. Since admission, he has been afebrile. HEENT AND NECK: Tracheostomy in place. LUNGS: With some scattered rhonchi, otherwise no wheezes. CARDIOVASCULAR: Regular rate and rhythm with S1, S2, no S3. ABDOMEN: Soft. PEG in place. EXTREMITIES: No clubbing, cyanosis, some muscle wasting. NEUROLOGIC: The patient was awake, alert, following commands. A detailed neuro exam was not performed. LABORATORY DATA: White count was normal, hemoglobin and hematocrit was noted. Electrolytes were noted. Albumin was low. Chest x-ray as indicated above. IMPRESSION: 1. Acute on chronic respiratory failure secondary to mucus plugging. 2. Recurrent mucous plugging. 3. Abnormal x-ray, significantly improved in comparison to previous x-ray. 4. Protein malnutrition, present upon admission. 5. Dysphagia, status post PEG. PLAN: Case was discussed with Dr. Ren who is the attending physician at his fdc. The patient is stable enough to be discharged back to the fdc. I recommend that he be placed on 20 mg of prednisone every other day for 2 weeks, 10 mg every other day for additional 2 weeks and then discontinue the prednisone. Sputum cultures were obtained today. I do appreciate the privilege in sharing the patient's care. HUSSEIN BREEN MD DR: VIKTORIA/andres JOB#: [id number] / [id number]
== END 2017-02-17 16:15 ==
LOC: ER 19:49 → 1 WEST ICU 21:50
PROVIDERS: ADMIT Internal Medicine; ATTEND Internal Medicine
DX: J96.21 Acute and chronic respiratory failure with hypoxia (principal); M54.9 Dorsalgia, unspecified; G89.29 Other chronic pain; I69.320 Aphasia following cerebral infarction; I69.391 Dysphagia following cerebral infarction; F03.90 Unspecified dementia, unspecified severity, without behavioral disturbance, psychotic disturbance, mood disturbance, and anxiety; I25.10 Atherosclerotic heart disease of native coronary artery without angina pectoris; F32.9 Major depressive disorder, single episode, unspecified; I11.9 Hypertensive heart disease without heart failure; R32 Unspecified urinary incontinence; Z93.1 Gastrostomy status; Z87.01 Personal history of pneumonia (recurrent); Z87.440 Personal history of urinary (tract) infections; Z82.49 Family history of ischemic heart disease and other diseases of the circulatory system
CPT/HCPCS: 31720; 36415; 71010; 80053; 82553; 82947; 83605; 83880; 84484; 85007; 85027; 87040; 87641; 93005; 94640; 96365; 96372; 96375; 99285; G0378; J1650; J2405; J2543; J7620; 82962; G0379; J1815

== ENCOUNTER 2017-02-19 23:25 | Inpatient (IN) | payer MEDICARE ==
[~2017-02-19] VITALS: Ht 188 cm; Wt 58.2 kg
[~2017-02-19 23:25] MED LIST changes: +BISA10SU13 RC; +DEXT38GE2 PO; +DOCU100C5 PO; +ENOX40DI SQ; +HYDR-2666 PEG; -HYDR-2758 PEG; +IPRA3AMP NEB; +LORA1TAB PO; +MELA3TAB PO; +POTA20PA PO
[2017-02-19 23:42] LABS: BASO % 0 % (0-3); EOS % 0 % (0-3); HEMATOCRIT 35.7 % (39.0-53.0); HEMOGLOBIN 11.4 g/dL (13.0-17.5); LYMPH # 1.5 x10^3/uL (1.0-4.8); LYMPH % 13 % (24-48); MEAN CORPUSCULAR HEMOGLOBIN 26 pg (25-35); MEAN CORPUSCULAR HGB CONC 32 g/dL (31-37); MEAN CORPUSCULAR VOLUME 81 fL (79-100); MONO % 10 % (0-9); NEUT % 77 % (31-73); PLATELET COUNT 315 x10^3/uL (140-400); RED BLOOD COUNT 4.39 x10^6/uL (4.30-5.70); RED CELL DISTRIBUTION WIDTH 21.1 % (11.5-14.5); WHITE BLOOD COUNT 11.9 x10^3/uL (4.0-11.0)
--- NOTE | 2017-02-19 23:45 | PHYS DOC ---
Past Medical History Past Medical History: Dementia, Hypertension, Pneumonia, UTI Additional Past Medical Histor: dysphagia, urinary retention, falls, ARF, APHASIA Past Surgical History: Other Additional Past Surgical Histo: peg tube, Trach Alcohol Use: None Drug Use: None Adult General Chief Complaint Chief Complaint: SHORTNESS OF BREATH HPI HPI Patient is a 71 year old male who presents by EMS from nursing facility for acute on chronic hypoxemia. He has recent increased sputum production. Nursing facility notes he has O2 in 70s today. They have suctioned and placed him on oxygen without great success, but EMS notes him being 95% on trach mask with normal respiratory effort upon their arrival. EMS states he was not getting humidified O2. He was given nebs without noted improvement until just prior to EMS arrival. He acknowledges dyspnea, but denies other complaints of chest pain, hemoptysis, rhinorrhea, nasal congestion, sore throat, fever or chills. Review of Systems Review of Systems Constitutional: Denies fever or chills [] Eyes: Denies change in visual acuity, redness, or eye pain [] HENT: Denies nasal congestion or sore throat [] Respiratory: Has cough and shortness of breath [] Cardiovascular: No additional information not addressed in HPI [] GI: Denies abdominal pain, nausea, vomiting, bloody stools or diarrhea [] : Denies dysuria or hematuria [] Musculoskeletal: Denies back pain or joint pain [] Integument: Denies rash or skin lesions [] Neurologic: Denies headache, focal weakness or sensory changes [] Endocrine: Denies polyuria or polydipsia [] Allergies Allergies Allergies Coded Allergies Type Severity Reaction Last Updated Verified No Known Drug Allergies 01/22/17 No Physical Exam Physical Exam Constitutional: Well developed, thin, no acute distress, non-toxic appearance. [ ] HENT: Normocephalic, atraumatic, bilateral external ears normal, oropharynx moist, nose normal. [] Eyes: PERRLA, EOMI, conjunctiva normal, no discharge. [] Neck: Normal range of motion, no tenderness, supple. Trach midline with frequent milky sputum production. [] Cardiovascular:Heart rate regular rhythm, no murmur [] Lungs & Thorax: Bilateral breath sounds clear to auscultation [] Abdomen: Bowel sounds normal, soft, no tenderness [] Skin: Warm, dry, no erythema, no rash. [] Back: Normal ROM. [] Extremities: No tenderness, ROM intact, no edema. [] Neurologic: Alert, normal motor function, normal sensory function, no focal deficits noted. [] Psychologic: Affect normal, mood normal. [] Current Patient Data Vital Signs Vital Signs Date Time Temp Pulse Resp B/P (MAP) Pulse Ox O2 Delivery O2 Flow Rate FiO2 02/19/17 23:25 98.5 124 28 116/70 (85) 94 NonRebreather Mask 98.5 Lab Values Laboratory Tests Test 02/19/17 23:34 White Blood Count 11.9 x10^3/uL (4.0-11.0) H Red Blood Count 4.39 x10^6/uL (4.30-5.70) Hemoglobin 11.4 g/dL (13.0-17.5) L Hematocrit 35.7 % (39.0-53.0) L Mean Corpuscular Volume 81 fL (79-100) Mean Corpuscular Hemoglobin 26 pg (25-35) Mean Corpuscular Hemoglobin Concent 32 g/dL (31-37) Red Cell Distribution Width 21.1 % (11.5-14.5) H Platelet Count 315 x10^3/uL (140-400) Neutrophils (%) (Auto) 77 % (31-73) H Lymphocytes (%) (Auto) 13 % (24-48) L Monocytes (%) (Auto) 10 % (0-9) H Eosinophils (%) (Auto) 0 % (0-3) Basophils (%) (Auto) 0 % (0-3) Neutrophils # (Auto) 9.1 x10^3uL (1.8-7.7) H Lymphocytes # (Auto) 1.5 x10^3/uL (1.0-4.8) Monocytes # (Auto) 1.2 x10^3/uL (0.0-1.1) H Eosinophils # (Auto) 0.0 x10^3/uL (0.0-0.7) Basophils # (Auto) 0.0 x10^3/uL (0.0-0.2) Platelet Estimate Adequate (ADEQUATE) Hypochromasia Slight Anisocytosis Mod Sodium Level 139 mmol/L (136-145) Potassium Level 4.0 mmol/L (3.5-5.1) Chloride Level 103 mmol/L (98-107) Carbon Dioxide Level 27 mmol/L (21-32) Anion Gap 9 (6-14) Blood Urea Nitrogen 16 mg/dL (8-26) Creatinine 0.8 mg/dL (0.7-1.3) Estimated GFR (Cockcroft-Gault) 115.3 Glucose Level 145 mg/dL (70-99) H Calcium Level 10.5 mg/dL (8.5-10.1) H Laboratory Tests 02/19/17 23:34 Laboratory Tests 02/19/17 23:34 Radiology/Procedures Radiology/Procedures Chest x-ray as interpreted by me with improving left lung field haziness compared to prior, otherwise nonacute Course & Med Decision Making Course & Med Decision Making Pertinent Labs and Imaging studies reviewed. (See chart for details) Workup is unremarkable. He is required 50% humidified trach shield and frequent trach suctioning. His work of breathing is otherwise well. Discussed case with Dr. Encinas, who agrees with admission. Pulmonology consultation placed. Dragon Disclaimer Dragon Disclaimer This electronic medical record was generated, in whole or in part, using a voice recognition dictation system. Departure Departure Impression: Primary Impression: Acute on chronic respiratory failure with hypoxia Additional Impression: Increased tracheal secretions Disposition: ADMITTED INPATIENT Condition: STABLE Referrals: LILIANA ENCINAS MD (PCP) Problem Qualifiers Héctor GALLEGOS MD February 19, 2017 23:45
[2017-02-19 23:53] LABS: CALCIUM 10.5 mg/dL (8.5-10.1); CREATININE 0.8 mg/dL (0.7-1.3); GFR 115.3
[2017-02-20] VITALS (7 sets, daily range): BP systolic 119–125; BP diastolic 66–74
[2017-02-20 00:05] LABS: ANISOCYTOSIS MOD; HYPOCHROMIA SLIGHT; PLT ESTIMATE ADEQUATE (ADEQUATE)
[2017-02-20] MEDS ORDERED: ONDANSETRON PF 4 MG/2 ML VIAL. IV PRN (00:30)
[2017-02-20] MEDS ORDERED: ACETAMINOPHEN 325 MG TABLET. PO PRN ×2 (00:30→11:00)
[2017-02-20] MEDS ORDERED: AMLO5TAB2 GT (03:02)
[2017-02-20] MEDS ORDERED: FAMO-63 GT (03:02)
[2017-02-20] MEDS ORDERED: PRED-220 GT (03:02)
[2017-02-20] MEDS ORDERED: DEXT38GE2 PO (03:02)
[2017-02-20] MEDS ORDERED: ACET650S19 GT (03:02)
[2017-02-20] MEDS ORDERED: PRED20TA GT (03:02)
--- NOTE | 2017-02-20 07:30 | RAD ---
Indication shortness of breath. A single view of the chest was obtained. Comparison is made to an exam 3 days earlier. Heart size and pulmonary vessels are normal. There is volume loss in the left lower lobe which may reflect atelectasis or pneumonia. The right lung is clear. There may be a tiny left pleural effusion. Tracheostomy tube is noted. Gastrostomy tube is noted. IMPRESSION: Volume loss in the left lower lobe may reflect atelectasis or pneumonia.
[2017-02-20] MEDS ORDERED: predniSONE 10 MG TABLET GT SCH (10:00)
[2017-02-20] MEDS: BISACODYL 10 MG SUPP.RECT. RC SCH ×2 (11:00→12:11)
[2017-02-20] MEDS ORDERED: DEXTROSE 50% 25 GM / 50ML DISP.SYRIN. IV PRN (11:00)
[2017-02-20] MEDS ORDERED: ACETAMINOPHEN 650 MG/20.3 ML SOLUTION. GT PRN (11:00)
[2017-02-20] MEDS ORDERED: HYDROcodone/APAP 5/325MG 1 TAB TABLET PEG PRN (11:00)
[2017-02-20] MEDS ORDERED: DEXTROSE ORAL GEL 15 GM TUBE. PO PRN (11:00)
[2017-02-20] MEDS ORDERED: SCOPOLAMINE 1.5MG PATCH. TD SCH (11:00)
[2017-02-20] MEDS ORDERED: predniSONE 20 MG TABLET GT SCH ×2 (11:00→12:00)
[2017-02-20] MEDS ORDERED: IPRATRPIUM/ALBUTEROL 0.5/2.5MG 3 ML NEBU. ONE (11:13)
[2017-02-20] MEDS: IPRATRPIUM/ALBUTEROL 0.5/2.5MG 3 ML NEBU. NEB SCH ×3 (11:15→20:14)
[2017-02-20] MEDS: DOCUSATE SODIUM 100 MG CAPSULE. PO SCH ×2 (12:10→19:33)
[2017-02-20] MEDS: POLYETHYLENE GLYCOL 3350 17 GM PACKET. PEG SCH ×2 (12:10→19:33)
[2017-02-20] MEDS: FAMOTIDINE 20 MG TABLET. GT SCH (12:11)
[2017-02-20] MEDS: LORazepam 1 MG TABLET PO SCH ×4 (12:12→23:31)
[2017-02-20] MEDS: amLODIPine BESYLATE 5 MG TABLET GT SCH (12:12)
[2017-02-20] MEDS: ENOXAPARIN 40 MG/0.4 ML SYRINGE. SQ SCH (12:12)
[2017-02-20] MEDS: INSULIN ASPART 300 UNITS/3 ML INSULN.PEN SQ SCH ×3 (12:13→23:00)
--- NOTE | 2017-02-20 12:46 | HP ---
ADMIT DATE: 02/20/2017 HISTORY OF PRESENT ILLNESS: The patient is a 71-year-old -[place] male patient, a resident at [facility], who yet again was noted yesterday to be extremely hypoxic with an oxygen saturation of only 70%. They have suctioned him multiple times and given breathing treatment, according to nursing staff, without much improvement and by the time the emergency medical service personnel arrived there, he was noted to be on oxygen saturation of 95% on tracheal mask with normal respiratory effort upon their arrival, apparently he was not getting humidified oxygen. The patient himself acknowledged dyspnea, but denied any other complaint of chest pain, hemoptysis, rhinorrhea, nasal congestion, sore throat, fever or chills. He was brought to the Emergency Room of [facility] where he was extensively evaluated. His chest x-ray showed that the patient has volume loss in the left lower lobe which may reflect atelectasis or pneumonia; however, the patient was afebrile and his white cell count was slightly elevated at 11.9. He was admitted to continue on all his medication and obviously, I have spoken with the health services administrator at [facility] to arrange for concentrator that can deliver higher oxygen concentration so that this recurring visits to the Emergency Room should stop. PAST MEDICAL HISTORY: Significant for dementia, hypertension, recurrent urinary tract infection, dysphagia, dysarthria, recurrent falls. He has also dysphagia for which he underwent percutaneous endoscopic gastrostomy tube placement and chronic respiratory failure, status post tracheostomy tube placement and recurrent excessive drainage requiring frequent suctioning and recurrent mucous plugging for which he underwent multiple bronchoscopies before. PAST SURGICAL HISTORY: Significant for percutaneous endoscopic gastrostomy tube placement, tracheostomy tube placement, multiple bronchoscopies for mucous plugging. ALLERGIES: He has no known drug allergies. FAMILY HISTORY: Unremarkable. SOCIAL HISTORY: He is . He currently resides at [facility]. He does not smoke, drink alcohol or use recreational drugs. REVIEW OF SYSTEMS: The patient did complain of shortness of breath, but denied any other complaint. MEDICATIONS: The patient is currently on following medications: Tylenol 650 mg every 4 hours as needed for pain or fever, acetylcysteine 3 mL twice a day, amlodipine 5 mg once a day, atropine sulfate 0.9% 4 times a day, and bisacodyl 10 mg suppositories rectally daily for constipation. He is on docusate sodium 100 mg twice a day, Lovenox 40 mg subcutaneously once a day, and famotidine 20 mg twice a day. He is on hydrocodone/APAP 5/325 one tablet every 4 hours as needed. He is on Humalog insulin as insulin sliding scale every 6 hours. He is on albuterol and DuoNeb ____ 3 mL by nebulizer 4 times a day, lorazepam 1 mg every 4 hours as needed, polyethylene glycol 17 grams in 8 ounces of water daily p.r.n. for constipation, potassium chloride 20 mEq 3 times a day, prednisone 10 mg every other day, prednisone 20 mg every other day, scopolamine transdermal patch 1 patch topically every 72 hours. PHYSICAL EXAMINATION: GENERAL: On examining him, he was resting slightly propped up in bed, in no apparent respiratory distress, he was pale, cachectic, but no jaundice, cyanosis or thyromegaly. No jugular venous distention. No limb edema. VITAL SIGNS: His heart rate was 124, blood pressure was 116/70, temperature was 98.5, respiratory rate was 28, and oxygen saturation was 92% on FiO2 of 50%. HEAD, EYES, EARS, NOSE AND THROAT: Showed normocephalic and atraumatic. NECK: Supple. HEART: Showed normal first and second heart sounds. No gallop, rub or murmur. CHEST: Shows central trachea, equal bilateral expansion, air entry. I could not really appreciate any crepitation or rhonchi. ABDOMEN: Distended, soft, and nontender. No guarding or rigidity. No organomegaly. Hernial orifices intact. Bowel sounds normal. He has a gastrostomy tube in place. NEUROLOGIC: He is sleepy, but arousable. He opens eyes, tracks and responds by nodding his head. All his cranial nerves were intact. He moves his upper extremities to much good extent than his lower extremities, mostly bed bound. LABORATORY DATA: His lab work on arrival to the Emergency Room showed a white cell count of 11,900, hemoglobin was 11.4, hematocrit 35.7, MCV 81 and platelet count 315,000 with normal manual differential. His serum sodium was 139, potassium 4, chloride 103, bicarbonate 27, anion gap of 9, BUN 16, creatinine was 0.8, estimated GFR was 115 mL per minute, his glucose 145, and calcium was 7.5. ASSESSMENT AND PLAN: The patient is yet again here with another episode of acute hypoxic respiratory failure on top of chronic respiratory failure. His chest x-ray showed that he has volume loss of his left lower lobe, may reflect atelectasis or pneumonia. He also apparently fell ____ he arrived to the room in the [facility], although so far, he has not complained of any pain and there is no obvious deformity or bruises or lacerations. My plan is to continue with his current medication. I will observe him for 24 hours and if he remains stable tomorrow, we will send him back to [facility]. I have already contacted administration to arrange for an oxygen concentrator that can deliver high oxygen that has 10 liters, so that we can avoid sending him every time his oxygen drops. LILIANA ENCINAS MD DR: MAI/andres JOB#: [id number] / [id number]
[2017-02-20] MEDS: POTASSIUM CHLORIDE 20 MEQ TABLET.ER. PO SCH ×2 (14:10→16:49)
--- NOTE | 2017-02-20 16:37 | PDOC ---
PULMONARY PROGRESS NOTES Vitals Vital Signs Date Time Temp Pulse Resp B/P (MAP) Pulse Ox O2 Delivery O2 Flow Rate FiO2 02/20/17 15:02 AP NEB 10.0 02/20/17 15:00 98.0 81 24 119/66 (83) 92 98.0 General: Alert Lungs: Clear Cardiovascular: S1, S2 Abdomen: Soft Extremities: No Edema Labs Laboratory Tests Test 02/19/17 23:34 02/20/17 07:33 02/20/17 11:14 White Blood Count 11.9 x10^3/uL (4.0-11.0) Red Blood Count 4.39 x10^6/uL (4.30-5.70) Hemoglobin 11.4 g/dL (13.0-17.5) Hematocrit 35.7 % (39.0-53.0) Mean Corpuscular Volume 81 fL (79-100) Mean Corpuscular Hemoglobin 26 pg (25-35) Mean Corpuscular Hemoglobin Concent 32 g/dL (31-37) Red Cell Distribution Width 21.1 % (11.5-14.5) Platelet Count 315 x10^3/uL (140-400) Neutrophils (%) (Auto) 77 % (31-73) Lymphocytes (%) (Auto) 13 % (24-48) Monocytes (%) (Auto) 10 % (0-9) Eosinophils (%) (Auto) 0 % (0-3) Basophils (%) (Auto) 0 % (0-3) Neutrophils # (Auto) 9.1 x10^3uL (1.8-7.7) Lymphocytes # (Auto) 1.5 x10^3/uL (1.0-4.8) Monocytes # (Auto) 1.2 x10^3/uL (0.0-1.1) Eosinophils # (Auto) 0.0 x10^3/uL (0.0-0.7) Basophils # (Auto) 0.0 x10^3/uL (0.0-0.2) Platelet Estimate Adequate (ADEQUATE) Hypochromasia Slight Anisocytosis Mod Sodium Level 139 mmol/L (136-145) Potassium Level 4.0 mmol/L (3.5-5.1) Chloride Level 103 mmol/L (98-107) Carbon Dioxide Level 27 mmol/L (21-32) Anion Gap 9 (6-14) Blood Urea Nitrogen 16 mg/dL (8-26) Creatinine 0.8 mg/dL (0.7-1.3) Estimated GFR (Cockcroft-Gault) 115.3 Glucose Level 145 mg/dL (70-99) Calcium Level 10.5 mg/dL (8.5-10.1) Glucose (Fingerstick) 123 mg/dL (70-99) 111 mg/dL (70-99) Laboratory Tests Test 02/19/17 23:34 02/20/17 07:33 02/20/17 11:14 White Blood Count 11.9 x10^3/uL (4.0-11.0) Red Blood Count 4.39 x10^6/uL (4.30-5.70) Hemoglobin 11.4 g/dL (13.0-17.5) Hematocrit 35.7 % (39.0-53.0) Mean Corpuscular Volume 81 fL (79-100) Mean Corpuscular Hemoglobin 26 pg (25-35) Mean Corpuscular Hemoglobin Concent 32 g/dL (31-37) Red Cell Distribution Width 21.1 % (11.5-14.5) Platelet Count 315 x10^3/uL (140-400) Neutrophils (%) (Auto) 77 % (31-73) Lymphocytes (%) (Auto) 13 % (24-48) Monocytes (%) (Auto) 10 % (0-9) Eosinophils (%) (Auto) 0 % (0-3) Basophils (%) (Auto) 0 % (0-3) Neutrophils # (Auto) 9.1 x10^3uL (1.8-7.7) Lymphocytes # (Auto) 1.5 x10^3/uL (1.0-4.8) Monocytes # (Auto) 1.2 x10^3/uL (0.0-1.1) Eosinophils # (Auto) 0.0 x10^3/uL (0.0-0.7) Basophils # (Auto) 0.0 x10^3/uL (0.0-0.2) Platelet Estimate Adequate (ADEQUATE) Hypochromasia Slight Anisocytosis Mod Sodium Level 139 mmol/L (136-145) Potassium Level 4.0 mmol/L (3.5-5.1) Chloride Level 103 mmol/L (98-107) Carbon Dioxide Level 27 mmol/L (21-32) Anion Gap 9 (6-14) Blood Urea Nitrogen 16 mg/dL (8-26) Creatinine 0.8 mg/dL (0.7-1.3) Estimated GFR (Cockcroft-Gault) 115.3 Glucose Level 145 mg/dL (70-99) Calcium Level 10.5 mg/dL (8.5-10.1) Glucose (Fingerstick) 123 mg/dL (70-99) 111 mg/dL (70-99) Medications Active Scripts Medications Dose Route/Sig Max Daily Dose Days Date Category Acetaminophen 650 Mg/20.3 Ml Solution 650 Mg GT PRN Q4HRS PRN 02/20/17 Reported Prednisone 20 Mg Tablet 1 Tab GT DAILY 02/20/17 Reported Prednisone 10 Mg Tablet 10 Mg GT QODAY 02/20/17 Reported Pepcid (Famotidine) 20 Mg Tablet 20 Mg GT DAILY 02/20/17 Reported Glucose Gel (Dextrose) 38 Gm Gel..gram. 15 Gm PO 02/20/17 Reported Amlodipine Besylate 5 Mg Tablet 5 Mg GT DAILY 02/20/17 Reported Klor-Con (Potassium Chloride) 20 Meq Packet 20 Meq PO TID 02/17/17 Reported Melatonin 3 Mg Tablet 1 Tab PO QHS 02/17/17 Reported Lorazepam 1 Mg Tablet 1 Tab PO Q4HRS 02/17/17 Reported Humalog (Insulin Lispro) 100 Unit/1 Ml Cartridge 100 Unit SQ 02/17/17 Reported Glucose Gel (Dextrose) 38 Gm Gel..gram. 15 Gm PO 02/17/17 Reported Lovenox (Enoxaparin Sodium) 40 Mg/0.4 Ml Disp.syrin 0.4 Ml SQ DAILY 02/17/17 Reported Duoneb 0.5-3(2.5) Mg/3 Ml (Albuterol/Ipratropium) 3 Ml Ampul.neb 3 Ml NEB QID 02/17/17 Reported Docusate Sodium 100 Mg Capsule 1 Cap PO BID 02/17/17 Reported Biscolax (Bisacodyl) 10 Mg Supp.rect 10 Mg RC DAILY 02/17/17 Reported Acetylcysteine 10% Eye Drops (Acetylcysteine in Water/Pf) 10 Ml Drops 3 Ml 01/18/17 Reported Atropine 0.01%-Ns Eye Drops (Atropine Sulfate in 0.9% NaCl) 10 Ml Drops 10 Ml OP QID 01/18/17 Reported Pepcid (Famotidine) 20 Mg Tablet 20 Mg PO DAILY 01/18/17 Reported Transderm-Scop (Scopolamine) 1 Each Patch.td72 1 Patch TP Q3DAYS 01/18/17 Reported Miralax (Polyethylene Glycol 3350) 17 Gm Powd.pack 1 Packet PEG BID 01/18/17 Reported Acetaminophen 325 Mg Tablet 325 Mg PEG PRN Q6HRS PRN 12/04/16 Reported Hydrocodone-Apap 5-325 (Hydrocodone Bit/Acetaminophen) 1 Each Tablet 1 Tab PEG PRN Q6HRS PRN 11/21/16 Reported Impression . FULL NOTE DICTATED OK TO D/C SOON THANKS HUSSEIN BREEN MD February 20, 2017 16:37
--- NOTE | 2017-02-21 03:01 | CONS ---
DATE OF CONSULTATION: 02/20/2017 ATTENDING PHYSICIAN: Dr. Ren. REASON FOR CONSULTATION: The patient is seen in pulmonary consultation at the request of Dr. Ren for [id number] respiratory failure. HISTORY OF PRESENT ILLNESS: The patient is a 71-year-old, well known to me with a tracheostomy in place for recurrent mucus plugging and poor airway protection, very weak cough, presented as a consequence of O2 sats in the 70s at a detention. There was also some concern about fall. The patient was admitted. I was asked to see him in consultation. The patient is currently not complaining of being short of breath. He has a very weak cough. Denies any chest pain or pressure. PAST MEDICAL HISTORY: Chronic respiratory failure, recurrent mucus plugging, recurrent urinary tract infection, dysphagia, dysarthria, recurrent falls, dementia and status post PEG tube placement. PAST SURGICAL HISTORY: As above. In addition, he has had multiple bronchoscopies for mucus plugging. ALLERGIES: No known drug allergies. FAMILY HISTORY: Noncontributory. SOCIAL HISTORY: Lives at [facility]. REVIEW OF SYSTEMS: As indicated above, otherwise other systems could not be reviewed as a consequence of his medical status. MEDICATIONS: List was reviewed. Please see the MRAD. PHYSICAL EXAMINATION: GENERAL: He has been afebrile. VITAL SIGNS: Stable. O2 saturation is greater than 92%. HEENT: Eyes, the sclerae were nonicteric. NECK: Jugular venous distention was not elevated. No lymphadenopathy. CHEST: Full expansion. LUNGS: Adequate airway flow with diminished breath sounds in the bases. CARDIOVASCULAR: Regular rate and rhythm with S1, S2, no S3. ABDOMEN: Soft, nontender. PEG in place. EXTREMITIES: No clubbing, cyanosis or edema. IMAGING: Chest x-ray was reviewed, volume loss in the left lower lobe, unchanged from previous exam. IMPRESSION: 1. Qevte-[id number] respiratory failure secondary to recurrent mucus plugging. 2. Left lower lobe volume loss and atelectasis. 3. Status post PEG. 4. Status post tracheostomy. PLAN: 1. Continue aggressive pulmonary hygiene. 2. Oxygen supplementation. 3. Nebulized treatments. 4. DVT prophylaxis. 5. Taper prednisone. 6. No need for antibiotics. Dr. Ren, I do appreciate the privilege in sharing in the patient's care. HUSSEIN BREEN MD DR: Zhao JOB#: [id number] / [id number]
[2017-02-21] MEDS: LORazepam 1 MG TABLET PO SCH ×3 (04:41→12:00)
[2017-02-21] MEDS: INSULIN ASPART 300 UNITS/3 ML INSULN.PEN SQ SCH ×2 (04:42→11:00)
[2017-02-21 06:14] LABS: BASO % 0 % (0-3); EOS % 1 % (0-3); HEMATOCRIT 30.9 % (39.0-53.0); HEMOGLOBIN 9.9 g/dL (13.0-17.5); LYMPH # 1.8 x10^3/uL (1.0-4.8); LYMPH % 24 % (24-48); MEAN CORPUSCULAR HEMOGLOBIN 26 pg (25-35); MEAN CORPUSCULAR HGB CONC 32 g/dL (31-37); MEAN CORPUSCULAR VOLUME 81 fL (79-100); MONO % 14 % (0-9); NEUT % 61 % (31-73); PLATELET COUNT 259 x10^3/uL (140-400); RED BLOOD COUNT 3.81 x10^6/uL (4.30-5.70); RED CELL DISTRIBUTION WIDTH 21.8 % (11.5-14.5); WHITE BLOOD COUNT 7.6 x10^3/uL (4.0-11.0)
[2017-02-21 06:29] LABS: ALBUMIN 2.6 g/dL (3.4-5.0); ALBUMIN/GLOBULIN RATIO 0.6 (1.0-1.7); CALCIUM 9.2 mg/dL (8.5-10.1); CREATININE 0.6 mg/dL (0.7-1.3); GFR 160.7; POTASSIUM 4.1 mmol/L (3.5-5.1); TOTAL BILIRUBIN 0.2 mg/dL (0.2-1.0)
[2017-02-21] MEDS: IPRATRPIUM/ALBUTEROL 0.5/2.5MG 3 ML NEBU. NEB SCH ×2 (07:37→11:23)
[2017-02-21 07:54] VITALS: BP 123/68
--- NOTE | 2017-02-21 07:57 | ACF ---
Admission Forms Criteria RESPIRATORY FAILURE [facility] Clinical Indications for Admission to Inpatient Care (Place 'X' for any and all applicable criteria): Hospital admission is needed for appropriate care of the patient because of acute respiratory failure or insufficiency as indicated by ANY ONE of the following(1)(2)(3)(4)(5)(6)(7)(8): [X]I. Mechanical ventilation needed (acute invasive or noninvasive) [ ]II. Severe ventilation deficit as indicated by ANY ONE of the following (9) [ ]a) Respiratory acidosis (pH less than 7.32 and partial pressure of carbon dioxide greater than 40 mm Hg (5.3 kPa)) [ ]b) Partial pressure of carbon dioxide greater than 44 mm Hg (5.9 kPa ) (new) [ ]c) Airflow measurements less than 25% of predicted (eg, peak expiratory flow rate less than 100 L/minute) [ ]d) Forced vital capacity less than 15 mL/kg of ideal body weight, or 50% decrease in vital capacity from baseline [ ]III. Noncardiac pulmonary edema not resolving with rapid emergency treatment (8) [ ]IV. Severe respiratory distress as indicated by ANY ONE of the following: [ ]a) Severe tachypnea (respiratory rate greater than 30, greater than 45 for 6-month-old, greater than 60 for ) [ ]b) Severe hypoxemia (partial pressure of oxygen less than 50 mm Hg ( 6.7 kPa) on greater than 50% oxygen or partial pressure of oxygen to FIO2 ratio less than 200) [ ]c) Mental status deterioration from respiratory disease [ ]V. Airway obstruction or inadequate protection [A](10)(11) The original [employer] content created by [employer] has been revised. The portions of the content which have been revised are identified through the use of italic text or in bold, and [employer] has neither reviewed nor approved the modified material. All other unmodified content is copyright [employer]. Please see references footnoted in the original [employer] edition 2016 Admission Criteria Met?: Yes NATHAN DIAZ February 21, 2017 07:57
[2017-02-21] MEDS ORDERED: predniSONE 10 MG TABLET GT SCH (09:00)
[2017-02-21] MEDS ORDERED: FAMOTIDINE 20 MG TABLET. PO SCH (09:00)
[2017-02-21] MEDS: amLODIPine BESYLATE 5 MG TABLET GT SCH (10:30)
[2017-02-21] MEDS: BISACODYL 10 MG SUPP.RECT. RC SCH (10:30)
[2017-02-21] MEDS: POTASSIUM CHLORIDE 20 MEQ TABLET.ER. PO SCH ×2 (10:31→12:00)
[2017-02-21] MEDS: POLYETHYLENE GLYCOL 3350 17 GM PACKET. PEG SCH (10:31)
[2017-02-21] MEDS: DOCUSATE SODIUM 100 MG CAPSULE. PO SCH (10:31)
[2017-02-21] MEDS: FAMOTIDINE 20 MG TABLET. GT SCH (10:31)
[2017-02-21 11:47] VITALS: BP 72/68
[2017-02-21] MEDS: ENOXAPARIN 40 MG/0.4 ML SYRINGE. SQ SCH (11:54)
--- NOTE | 2017-02-21 19:37 | DS ---
DATE OF DISCHARGE: 02/21/2017 HOSPITAL COURSE: The patient is a 71-year-old -[place] male patient, resident at [facility], who was admitted again with another acute on chronic hypoxic respiratory failure due to excessive secretion, transpired that the oxygen concentrator at the custodial delivers only 5 liters, so arrangement has been made for him to have another nasal concentrator that delivers 10 liters and as he has no evidence of pneumonia and the volume loss in the left lung is chronic, the plan is to discharge him back to [facility] to continue with oxygen supplementation. Continue with basically aggressive pulmonary toileting, oxygen supplementation, nebulized treatment, and tapering course of steroids as well as DVT prophylaxis. PHYSICAL EXAMINATION: GENERAL: When I saw him this morning, he looked well and was clearly in no apparent respiratory distress, pale. No jaundice, cyanosis, or thyromegaly. No jugular venous distension. No limb edema. VITAL SIGNS: Her heart rate was 72, blood pressure 123/68, temperature was 97.8, respiratory rate 20, and oxygen saturation was 97% on 8 liters of oxygen. HEAD, EYES, EARS, NOSE, AND THROAT: Showed normocephalic, atraumatic. NECK: Supple. HEART: Showed normal first and second heart sounds with no gallop, rub, or murmur. CHEST: Clear to auscultation. No crepitation or rhonchi. ABDOMEN: Distended, soft with gastrostomy tube in place. There is no guarding or rigidity. No organomegaly. Hernial orifices are intact. Bowel sounds are normal. NEUROLOGIC: He was sleepy, but arousable. He opens his eyes, tracks, and responds by nodding his head. Cranial nerves are intact. He moves his upper extremities ____ lower extremities. He is mostly bed bound. He is incontinent of bowel and bladder. His intake and output are incompletely recorded. LABORATORY DATA: As of this morning showed a white cell count of 7600, hemoglobin 9.9, hematocrit 30.9, MCV 81, and platelet count 259,000. His chemistry showed a serum of sodium 139, potassium 4.1, chloride 103, bicarbonate 26, anion gap of 10, BUN 15, creatinine 0.6, estimated GFR was 160 mL per minute. His glucose was 112. Calcium was 9.2. Total bilirubin 60, ALT slightly elevated. Alkaline phosphatase was normal. Total protein 7, albumin was 2.6. DISCHARGE MEDICATIONS: He will be discharged back to [facility] to continue on a tapering course of steroids, potassium 20 mEq 3 times a day, albuterol and Atrovent 4 times a day. He is on low dose sliding insulin every 6 hours, scopolamine patch topically q. 72h., polyethylene glycol 17 g twice a day, lorazepam 1 mg every 4 hours, hydrocodone/APAP 5/325 every 6 hours as needed for pain, famotidine 20 mg once a day, Lovenox 40 mg subcutaneously once a day, Colace 100 mg twice a day, bisacodyl 10 mg suppository rectally as needed, amlodipine 5 mg once a day, and acetaminophen 650 mg every 4 hours for pain or fever. FINAL DISCHARGE DIAGNOSES: 1. Acute on chronic hypoxic respiratory failure due to recurrent mucous plugging. 2. Left lower lobe volume loss and atelectasis; hypertension; dysphagia, status post gastrostomy tube; dysarthria; chronic respiratory failure, status post tracheostomy. DICTATION ENDS HERE. LILIANA ENCINAS MD DR: MAI/andres JOB#: [id number] / [id number]
--- NOTE | 2017-02-22 09:07 | PDOC ---
PULMONARY PROGRESS NOTES Subjective PT SEEN ON 02/21 LATE ENTRY Vitals Vital Signs Date Time Temp Pulse Resp B/P (MAP) Pulse Ox O2 Delivery O2 Flow Rate FiO2 02/21/17 11:47 98.1 74 22 72/68 (69) 97 Tracheal Collar 8.0 98.1 General: Alert Lungs: Clear Cardiovascular: S1, S2 Abdomen: Soft Extremities: No Edema Labs Laboratory Tests Test 02/20/17 11:14 02/20/17 16:04 02/20/17 20:46 02/20/17 23:19 Glucose (Fingerstick) 111 mg/dL (70-99) 155 mg/dL (70-99) 163 mg/dL (70-99) 133 mg/dL (70-99) Test 02/21/17 04:38 02/21/17 04:55 02/21/17 11:58 Glucose (Fingerstick) 131 mg/dL (70-99) 115 mg/dL (70-99) White Blood Count 7.6 x10^3/uL (4.0-11.0) Red Blood Count 3.81 x10^6/uL (4.30-5.70) Hemoglobin 9.9 g/dL (13.0-17.5) Hematocrit 30.9 % (39.0-53.0) Mean Corpuscular Volume 81 fL (79-100) Mean Corpuscular Hemoglobin 26 pg (25-35) Mean Corpuscular Hemoglobin Concent 32 g/dL (31-37) Red Cell Distribution Width 21.8 % (11.5-14.5) Platelet Count 259 x10^3/uL (140-400) Neutrophils (%) (Auto) 61 % (31-73) Lymphocytes (%) (Auto) 24 % (24-48) Monocytes (%) (Auto) 14 % (0-9) Eosinophils (%) (Auto) 1 % (0-3) Basophils (%) (Auto) 0 % (0-3) Neutrophils # (Auto) 4.6 x10^3uL (1.8-7.7) Lymphocytes # (Auto) 1.8 x10^3/uL (1.0-4.8) Monocytes # (Auto) 1.0 x10^3/uL (0.0-1.1) Eosinophils # (Auto) 0.1 x10^3/uL (0.0-0.7) Basophils # (Auto) 0.0 x10^3/uL (0.0-0.2) Sodium Level 139 mmol/L (136-145) Potassium Level 4.1 mmol/L (3.5-5.1) Chloride Level 103 mmol/L (98-107) Carbon Dioxide Level 26 mmol/L (21-32) Anion Gap 10 (6-14) Blood Urea Nitrogen 15 mg/dL (8-26) Creatinine 0.6 mg/dL (0.7-1.3) Estimated GFR (Cockcroft-Gault) 160.7 BUN/Creatinine Ratio 25 (6-20) Glucose Level 112 mg/dL (70-99) Calcium Level 9.2 mg/dL (8.5-10.1) Total Bilirubin 0.2 mg/dL (0.2-1.0) Aspartate Amino Transf (AST/SGOT) 49 U/L (15-37) Alanine Aminotransferase (ALT/SGPT) 71 U/L (16-63) Alkaline Phosphatase 74 U/L (46-116) Total Protein 7.0 g/dL (6.4-8.2) Albumin 2.6 g/dL (3.4-5.0) Albumin/Globulin Ratio 0.6 (1.0-1.7) Laboratory Tests Test 02/21/17 11:58 Glucose (Fingerstick) 115 mg/dL (70-99) Medications Active Scripts Medications Dose Route/Sig Max Daily Dose Days Date Category Acetaminophen 650 Mg/20.3 Ml Solution 650 Mg GT PRN Q4HRS PRN 02/20/17 Reported Prednisone 20 Mg Tablet 1 Tab GT DAILY 02/20/17 Reported Prednisone 10 Mg Tablet 10 Mg GT QODAY 02/20/17 Reported Pepcid (Famotidine) 20 Mg Tablet 20 Mg GT DAILY 02/20/17 Reported Glucose Gel (Dextrose) 38 Gm Gel..gram. 15 Gm PO 02/20/17 Reported Amlodipine Besylate 5 Mg Tablet 5 Mg GT DAILY 02/20/17 Reported Klor-Con (Potassium Chloride) 20 Meq Packet 20 Meq PO TID 02/17/17 Reported Melatonin 3 Mg Tablet 1 Tab PO QHS 02/17/17 Reported Lorazepam 1 Mg Tablet 1 Tab PO Q4HRS 02/17/17 Reported Humalog (Insulin Lispro) 100 Unit/1 Ml Cartridge 100 Unit SQ 02/17/17 Reported Glucose Gel (Dextrose) 38 Gm Gel..gram. 15 Gm PO 02/17/17 Reported Lovenox (Enoxaparin Sodium) 40 Mg/0.4 Ml Disp.syrin 0.4 Ml SQ DAILY 02/17/17 Reported Duoneb 0.5-3(2.5) Mg/3 Ml (Albuterol/Ipratropium) 3 Ml Ampul.neb 3 Ml NEB QID 02/17/17 Reported Docusate Sodium 100 Mg Capsule 1 Cap PO BID 02/17/17 Reported Biscolax (Bisacodyl) 10 Mg Supp.rect 10 Mg RC DAILY 02/17/17 Reported Acetylcysteine 10% Eye Drops (Acetylcysteine in Water/Pf) 10 Ml Drops 3 Ml 01/18/17 Reported Atropine 0.01%-Ns Eye Drops (Atropine Sulfate in 0.9% NaCl) 10 Ml Drops 10 Ml OP QID 01/18/17 Reported Pepcid (Famotidine) 20 Mg Tablet 20 Mg PO DAILY 01/18/17 Reported Transderm-Scop (Scopolamine) 1 Each Patch.td72 1 Patch TP Q3DAYS 01/18/17 Reported Miralax (Polyethylene Glycol 3350) 17 Gm Powd.pack 1 Packet PEG BID 01/18/17 Reported Acetaminophen 325 Mg Tablet 325 Mg PEG PRN Q6HRS PRN 12/04/16 Reported Hydrocodone-Apap 5-325 (Hydrocodone Bit/Acetaminophen) 1 Each Tablet 1 Tab PEG PRN Q6HRS PRN 11/21/16 Reported Impression . 1. Dqcia-mq-[id number] respiratory failure secondary to recurrent mucus plugging. 2. Left lower lobe volume loss and atelectasis. 3. Status post PEG. 4. Status post tracheostomy. Plan . OK TO D/C BACK TO SNU 1. Continue aggressive pulmonary hygiene. 2. Oxygen supplementation. 3. Nebulized treatments. 4. DVT prophylaxis. 5. Taper prednisone. 6. No need for antibiotics. HUSSEIN BREEN MD February 22, 2017 09:07
== END 2017-02-21 13:38 | DRG 189 ==
LOC: ER 23:25 → 5 SOUTH 02-20 00:16
PROVIDERS: ADMIT Internal Medicine; ATTEND Internal Medicine
DX: J96.21 Acute and chronic respiratory failure with hypoxia (principal); R47.01 Aphasia; J98.11 Atelectasis; T17.490A Other foreign object in trachea causing asphyxiation, initial encounter; R13.10 Dysphagia, unspecified; K59.00 Constipation, unspecified; R47.1 Dysarthria and anarthria; I10 Essential (primary) hypertension; F03.90 Unspecified dementia, unspecified severity, without behavioral disturbance, psychotic disturbance, mood disturbance, and anxiety; Z87.440 Personal history of urinary (tract) infections; Z93.0 Tracheostomy status; Z93.1 Gastrostomy status; Z91.81 History of falling; Z87.01 Personal history of pneumonia (recurrent); Z79.4 Long term (current) use of insulin; Z79.899 Other long term (current) drug therapy; Z79.1 Long term (current) use of non-steroidal anti-inflammatories (NSAID)
CPT/HCPCS: 36415; 71010; 80048; 80053; 82553; 82962; 83605; 83880; 84484; 85007; 85027; 87040; 87070; 87205; 87641; 94640; 94760; J1650; J1815; J7512; J7620; 99285-25

== ENCOUNTER 2017-02-25 04:06 | Inpatient (IN) | payer MEDICARE, MEDICAID ==
[~2017-02-25] VITALS: Ht 177.8 cm; Wt 58.1 kg
[2017-02-25] VITALS (16 sets, daily range): BP systolic 101–154; BP diastolic 62–99
[~2017-02-25 04:06] MED LIST changes: +ACET650S19 GT; +AMLO5TAB2 GT; +FAMO-63 GT; +PRED-220 GT; +PRED20TA GT
--- NOTE | 2017-02-25 04:16 | PHYS DOC ---
Past Medical History Past Medical History: Dementia, Hypertension, Pneumonia, UTI Additional Past Medical Histor: dysphagia, urinary retention, falls, ARF, [facility] Past Surgical History: Other Additional Past Surgical Histo: peg tube, Trach Alcohol Use: None Drug Use: None Adult General Chief Complaint Chief Complaint: SHORTNESS OF BREATH HPI HPI Patient is a 71 year old white male who presents for evaluation shortness of breath. Patient has chronic respiratory failure currently with tracheostomy in place. Patient was brought to the emergency department by [facility] Patient reportedly has had thick secretions from his tracheostomy tube and has been having desaturation to 88%. Patient has received suctioning prior to arrival with no improvement in symptoms. Patient was given 4 DuoNeb treatments by EMS prior to arrival. Patient's oxygen saturation saturations on 10 L/m trach shield have improved patient's oxygen saturation saturations to 91%. The patient nods his head yes when asked if he is short of breath and patient does follow commands at this time. Patient unable to provide verbal history. Review of Systems Review of Systems Constitutional: Denies fever or chills [] Eyes: Denies change in visual acuity, redness, or eye pain [] HENT: Denies nasal congestion or sore throat [] Respiratory: Shortness of breath, thick secretions from tracheostomy [] Cardiovascular: Denies chest pain or edema [] GI: Denies abdominal pain, nausea, vomiting, bloody stools or diarrhea [] : Denies dysuria or hematuria [] Musculoskeletal: Denies back pain or joint pain [] Integument: Denies rash or skin lesions [] Neurologic: Denies headache, focal weakness or sensory changes [] Allergies Allergies Allergies Coded Allergies Type Severity Reaction Last Updated Verified No Known Drug Allergies 01/22/17 No Physical Exam Physical Exam Constitutional: Alert, afebrile, appears in moderate respiratory distress. [] HENT: Normocephalic, atraumatic, bilateral external ears normal, oropharynx moist, no oral exudates, nose normal. [] Eyes: PERRLA, EOMI, conjunctiva normal, no discharge. [] Neck: Tracheostomy midline, supple, no stridor. [] Cardiovascular:Heart rate regular rhythm, no murmur [] Lungs & Thorax: Restricted air movement bilaterally, decreased breath sounds in left lung mario, coarse rales present, no wheezes [] Abdomen: Bowel sounds normal, soft, left-sided G-tube, no tenderness, no masses , no pulsatile masses. [] Skin: Warm, dry, no erythema, no rash. [] Back: No tenderness, no CVA tenderness. [] Extremities: No tenderness, no cyanosis, no clubbing, ROM intact, no edema. [] Neurologic: Alert, follows commands, normal motor function, normal sensory function, no focal deficits noted. [] Current Patient Data Vital Signs Vital Signs Date Time Temp Pulse Resp B/P (MAP) Pulse Ox O2 Delivery O2 Flow Rate FiO2 02/25/17 04:07 98.7 112 24 143/85 (104) 94 TRACH SHIELD WITH 100 % O2 10.0 98.7 Lab Values Laboratory Tests Test 02/25/17 05:40 White Blood Count 20.0 x10^3/uL (4.0-11.0) #H Red Blood Count 4.82 x10^6/uL (4.30-5.70) Hemoglobin 12.6 g/dL (13.0-17.5) L Hematocrit 38.5 % (39.0-53.0) L Mean Corpuscular Volume 80 fL (79-100) Mean Corpuscular Hemoglobin 26 pg (25-35) Mean Corpuscular Hemoglobin Concent 33 g/dL (31-37) Red Cell Distribution Width 21.2 % (11.5-14.5) H Platelet Count 332 x10^3/uL (140-400) Neutrophils (%) (Auto) 84 % (31-73) H Lymphocytes (%) (Auto) 11 % (24-48) L Monocytes (%) (Auto) 5 % (0-9) Eosinophils (%) (Auto) 0 % (0-3) Basophils (%) (Auto) 0 % (0-3) Neutrophils # (Auto) 16.7 x10^3uL (1.8-7.7) H Lymphocytes # (Auto) 2.2 x10^3/uL (1.0-4.8) Monocytes # (Auto) 1.0 x10^3/uL (0.0-1.1) Eosinophils # (Auto) 0.0 x10^3/uL (0.0-0.7) Basophils # (Auto) 0.0 x10^3/uL (0.0-0.2) Platelet Estimate Pending Laboratory Tests 02/25/17 05:40 EKG EKG Interpreted by me: Heart rate 113, sinus tachycardia, PVC present, normal intervals, normal axis, no acute ST/T-wave abnormalities present [] Radiology/Procedures Radiology/Procedures One view AP chest x-ray interpreted by me: No infiltrates, no effusions, normal cardiac silhouette [] Course & Med Decision Making Course & Med Decision Making Pertinent Labs and Imaging studies reviewed. (See chart for details) Patient had increased suctioning in the emergency department but unable to keep oxygen saturations above 90%. The patient was switched to mechanical ventilation. Patient's tracheostomy tube was replaced with a cuff tube in the emergency Department by respiratory care. During the process, the patient experienced vomiting and had aspiration of gastric contents which were suctioned after placement of the tracheostomy tube. Patient was placed on mechanical ventilation with improvement of oxygen saturation saturations 99%. Patient will be admitted for further care. I spoke with Dr. Encinas who accepted care patient in hospital. Dragon Disclaimer Dragon Disclaimer This electronic medical record was generated, in whole or in part, using a voice recognition dictation system. Departure Departure Impression: Primary Impression: Acute on chronic respiratory failure with hypoxia Disposition: ADMITTED INPATIENT Admitting Physician: Other Condition: CRITICAL Referrals: LILIANA ENCINAS MD (PCP) JIM DIAZ MD February 25, 2017 04:16
[2017-02-25 04:58] LABS: HCO3 ABG 27 mmol/L (21-28); PCO2 ABG 35 mmHg (35-46); PH ABG 7.51 (7.35-7.45); PO2 ABG 58 mmHg (65-108); SAT O2 ABG 90 % (92-99)
[2017-02-25 05:54] LABS: BASO % 0 % (0-3); EOS % 0 % (0-3); HEMATOCRIT 38.5 % (39.0-53.0); HEMOGLOBIN 12.6 g/dL (13.0-17.5); LYMPH # 2.2 x10^3/uL (1.0-4.8); LYMPH % 11 % (24-48); MEAN CORPUSCULAR HEMOGLOBIN 26 pg (25-35); MEAN CORPUSCULAR HGB CONC 33 g/dL (31-37); MEAN CORPUSCULAR VOLUME 80 fL (79-100); MONO % 5 % (0-9); NEUT % 84 % (31-73); PLATELET COUNT 332 x10^3/uL (140-400); RED BLOOD COUNT 4.82 x10^6/uL (4.30-5.70); RED CELL DISTRIBUTION WIDTH 21.2 % (11.5-14.5)
[2017-02-25 06:00] LABS: CALCIUM 10.4 mg/dL (8.5-10.1); CREATININE 0.9 mg/dL (0.7-1.3); GFR 100.7; POTASSIUM 4.1 mmol/L (3.5-5.1)
[2017-02-25 06:05] LABS: ALBUMIN/GLOBULIN RATIO 0.6 (1.0-1.7); TOTAL BILIRUBIN 0.4 mg/dL (0.2-1.0); TOTAL PROTEIN 7.8 g/dL (6.4-8.2)
[2017-02-25] MEDS ORDERED: fentaNYL PF VIAL 100 MCG/2 ML VIAL IV PRN (06:15)
[2017-02-25] MEDS ORDERED: ACETAMINOPHEN 325 MG TABLET. PO PRN (06:15)
[2017-02-25] MEDS ORDERED: ONDANSETRON PF 4 MG/2 ML VIAL. IV PRN (06:15)
--- NOTE | 2017-02-25 06:22 | ACF ---
Admission Forms Criteria RESPIRATORY FAILURE [facility] Clinical Indications for Admission to Inpatient Care (Place 'X' for any and all applicable criteria): Hospital admission is needed for appropriate care of the patient because of acute respiratory failure or insufficiency as indicated by ANY ONE of the following(1)(2)(3)(4)(5)(6)(7)(8): [X]I. Mechanical ventilation needed (acute invasive or noninvasive) [ ]II. Severe ventilation deficit as indicated by ANY ONE of the following (9) [ ]a) Respiratory acidosis (pH less than 7.32 and partial pressure of carbon dioxide greater than 40 mm Hg (5.3 kPa)) [ ]b) Partial pressure of carbon dioxide greater than 44 mm Hg (5.9 kPa ) (new) [ ]c) Airflow measurements less than 25% of predicted (eg, peak expiratory flow rate less than 100 L/minute) [ ]d) Forced vital capacity less than 15 mL/kg of ideal body weight, or 50% decrease in vital capacity from baseline [ ]III. Noncardiac pulmonary edema not resolving with rapid emergency treatment (8) [ ]IV. Severe respiratory distress as indicated by ANY ONE of the following: [ ]a) Severe tachypnea (respiratory rate greater than 30, greater than 45 for 6-month-old, greater than 60 for ) [ ]b) Severe hypoxemia (partial pressure of oxygen less than 50 mm Hg ( 6.7 kPa) on greater than 50% oxygen or partial pressure of oxygen to FIO2 ratio less than 200) [ ]c) Mental status deterioration from respiratory disease [ ]V. Airway obstruction or inadequate protection [A](10)(11) The original [employer] content created by [employer] has been revised. The portions of the content which have been revised are identified through the use of italic text or in bold, and [employer] has neither reviewed nor approved the modified material. All other unmodified content is copyright [employer]. Please see references footnoted in the original [employer] edition 2016 Admission Criteria Met?: Yes NITISH MELO February 25, 2017 06:22
[2017-02-25 06:26] LABS: CKMB MASS < 0.5 ng/mL (0.0-3.6); CREATINE KINASE 29 U/L (39-308)
[2017-02-25] MEDS: IV NORMAL SALINE 1000ML BAG 1,000 ML IV SCH ×2 (06:38→16:01)
[2017-02-25] MEDS: methylPREDNISolone SOD SUCC PF 125 MG/2 ML VIAL. IV SCH ×4 (06:46→23:51)
--- NOTE | 2017-02-25 06:47 | EKG ---
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
[2017-02-25 07:28] LABS: PLT ESTIMATE ADEQUATE (ADEQUATE)
[2017-02-25 07:29] LABS: ANISOCYTOSIS MOD
[2017-02-25 08:01] LABS: HCO3 ABG 26 mmol/L (21-28); PCO2 ABG 34 mmHg (35-46); PO2 ABG 154 mmHg (65-108); SAT O2 ABG 99 % (92-99)
[2017-02-25 08:03] LABS: FIO2 ABG 100
--- NOTE | 2017-02-25 08:08 | RAD ---
Indication respiratory distress. A single view of the chest was obtained and is compared to an examination 6 days earlier. There is some volume loss in the left lower lobe similar to the previous exam. This may reflect atelectasis scar or pneumonia. The appearance is similar to the previous exam. The heart and pulmonary vessels are within normal limits. Tracheostomy tube is noted. IMPRESSION: No significant change. Persistent volume loss in the left lower lobe
--- NOTE | 2017-02-25 08:08 | RAD ---
Indication replacement of tracheostomy tube. A single view of the chest was obtained at 0617 and is compared to a study approximately 2 hours earlier. There has not been a significant change. Some volume loss persists in the left lower lobe. Heart and pulmonary vessels are similar. Tracheostomy tube is noted.
[2017-02-25] MEDS: MEROPENEM 1 GM in IV NORMAL SALINE 100ML 100 ML IV SCH ×3 (09:38→22:26)
--- NOTE | 2017-02-25 10:28 | PDOC ---
Provider Note Provider Note dictated Bronch today MAT KEARNS MD February 25, 2017 10:28
--- NOTE | 2017-02-25 10:40 | PDOC ---
Infectious Disease Note ROS ROS GEN: Denies fevers, chills, sweats HEENT: Denies blurred vision, sore throat CV: Denies chest pain RESP: Denies shortness of air, cough GI: Denies n/v/d NEURO: Denies confusion, dizziness MSK: Denies weakness, joint pain/swelling Vital Sign Vital Signs Vital Signs Date Time Temp Pulse Resp B/P (MAP) Pulse Ox O2 Delivery O2 Flow Rate FiO2 02/25/17 07:45 100 Ventilator 02/25/17 07:19 15.0 02/25/17 06:49 24 02/25/17 06:40 118 134/85 (101) 02/25/17 04:07 98.7 98.7 Physical Exam PHYSICAL EXAM GENERAL: NAD, Alert HEENT: PERRL, OC/OP NECK: Supple, no JVD, no LN LUNGS: Clear HEART: S1S2, no gallop, no murmur ABD: Soft, NT, no organomegaly, no rebound EXT: No edema, no cyanosis 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6 g/dL (13.0-17.5) Hematocrit 38.5 % (39.0-53.0) Mean Corpuscular Volume 80 fL (79-100) Mean Corpuscular Hemoglobin 26 pg (25-35) Mean Corpuscular Hemoglobin Concent 33 g/dL (31-37) Red Cell Distribution Width 21.2 % (11.5-14.5) Platelet Count 332 x10^3/uL (140-400) Neutrophils (%) (Auto) 84 % (31-73) Lymphocytes (%) (Auto) 11 % (24-48) Monocytes (%) (Auto) 5 % (0-9) Eosinophils (%) (Auto) 0 % (0-3) Basophils (%) (Auto) 0 % (0-3) Neutrophils # (Auto) 16.7 x10^3uL (1.8-7.7) Lymphocytes # (Auto) 2.2 x10^3/uL (1.0-4.8) Monocytes # (Auto) 1.0 x10^3/uL (0.0-1.1) Eosinophils # (Auto) 0.0 x10^3/uL (0.0-0.7) Basophils # (Auto) 0.0 x10^3/uL (0.0-0.2) Segmented Neutrophils % 82 % (35-66) Lymphocytes % 12 % (24-48) Monocytes % 6 % (0-10) Platelet Estimate Adequate (ADEQUATE) Large Platelets Occ Anisocytosis Mod Sodium Level 142 mmol/L (136-145) Potassium Level 4.1 mmol/L (3.5-5.1) Chloride Level 102 mmol/L (98-107) Carbon Dioxide Level 29 mmol/L (21-32) Anion Gap 11 (6-14) Blood Urea Nitrogen 16 mg/dL (8-26) Creatinine 0.9 mg/dL (0.7-1.3) Estimated GFR (Cockcroft-Gault) 100.7 BUN/Creatinine Ratio 18 (6-20) Glucose Level 147 mg/dL (70-99) Calcium Level 10.4 mg/dL (8.5-10.1) Total Bilirubin 0.4 mg/dL (0.2-1.0) Aspartate Amino Transf (AST/SGOT) 41 U/L (15-37) Alanine Aminotransferase (ALT/SGPT) 69 U/L (16-63) Alkaline Phosphatase 82 U/L (46-116) Creatine Kinase 29 U/L (39-308) Creatine Kinase MB (Mass) < 0.5 ng/mL (0.0-3.6) Creatine Kinase MB Relative Index % (0-4) Troponin I Quantitative < 0.017 ng/mL (0.000-0.055) VV-Ipw-F-Type Natriuretic Peptide 66 pg/mL (0-124) Total Protein 7.8 g/dL (6.4-8.2) Albumin 3.0 g/dL (3.4-5.0) Albumin/Globulin Ratio 0.6 (1.0-1.7) FiO2 100 Lactic Acid Level 1.6 mmol/L (0.4-2.0) Objective Assessment Leukocytosis - now on Steroids Pneumonia Chronic resp failure Lower abd pain Plan Plan of Care Meropenem/Zyvox started Bladder scan Oral care F/u labs and cults To undergo Bronch Needs palliative care eval for goals of care D/w Dr. Roman Previous records reviewed Thank you # [id number] SHANNA FRANCIS MD February 25, 2017 10:40
--- NOTE | 2017-02-25 11:36 | CONS ---
DATE OF CONSULTATION: 02/25/2017 ATTENDING PHYSICIAN: Vidal Ren MD REASON FOR CONSULTATION: Respiratory failure. HISTORY OF PRESENT ILLNESS: The patient is a 71-year-old male who has a history of chronic respiratory failure with chronic tracheostomy and recurrent hospitalizations for mucous plugs and poor airway protection. He was recently hospitalized at [facility] and was discharged after being treated for pneumonia. His sputum had shown normal kavon, although there were initially gram-negative rods. He lives at [facility]. He was brought back with thick secretions from the tracheostomy tube and desaturations in the low 80s. The patient was given DuoNeb treatment and suctioning and was placed on a ventilator after changing his tracheostomy to a cuffed tracheostomy. Currently, his arterial blood gases on assist control and 100% FIO2 showed a pH of 7.50, pCO2 of 34, and a pO2 of 154. His chest x-ray had shown persistent volume loss in the left lower lobe. The patient had a fever which was reported at [facility] and had a white cell count of 20,000. Infectious Disease has been consulted. He has been started on antibiotics, and I have been asked to see him for further evaluation. He has been having copious amount of secretions through the tracheostomy. PAST MEDICAL HISTORY: History of chronic respiratory failure with chronic tracheostomy, history of recurrent mucous plugs, recurrent urinary tract infection, history of multiple bronchoscopies in the past, history of dysphagia, dysarthria, recurrent falls, dementia, and PEG tube placement. PAST SURGICAL HISTORY: Multiple bronchoscopies and PEG. ALLERGIES: None. FAMILY HISTORY: Unable to obtain from the patient. SOCIAL HISTORY: Lives at a [facility]. MEDICATIONS: Reviewed as listed in the [facility] including antibiotics, thyroxine, and meropenem. PHYSICAL EXAMINATION: GENERAL: He is awake, following commands. VITAL SIGNS: His blood pressure is stable, pulse oximetry is 100% on 15 liters of FiO2. HEENT: Sclerae are nonicteric. NECK: Supple. LUNGS: With diminished breath sounds bilaterally. CARDIOVASCULAR: Regular rate and rhythm. ABDOMEN: Soft. EXTREMITIES: With no pitting edema. LABORATORY DATA: Reviewed. White cell count 20,000, hemoglobin 12.6, and platelets of 332. BUN is 16, creatinine 0.9. IMPRESSION: 1. Acute on chronic hypoxic respiratory failure secondary to highly suspected gram-negative and gram-positive pneumonia. He may have resistant organisms. The other etiology is recurrent mucus plug. He is having copious amount of tracheal secretions. 2. Abnormal chest x-ray with persistent volume loss involving the left lower lobe consistent with pneumonia and mucus. 3. History of chronic respiratory failure with chronic debility. 4. History of dysphagia, status post PEG tube placement. 5. Leukocytosis. RECOMMENDATIONS: 1. Continue assist control mode. 2. Discussed with RN. We will proceed with a therapeutic bronchoscopy to improve his oxygenation. 3. Once oxygenation improves, I will discontinue ventilator and place him on trach collar/trach shield. 4. Broad-spectrum antibiotics to continue until cultures are available. 5. Bronchodilators. 6. We re-discussed the advance directives and code status and consult Palliative Care again. 7. DVT prophylaxis and stress ulcer prophylaxis. Critical Care Time: 37 minutes. MAT KEARNS MD DR: ADONIS/andres JOB#: [id number] / [id number] CODEY
[2017-02-25] MEDS ORDERED: MIDAZOLAM HCL/PF 5 MG/5 ML VIAL. ONE (11:59)
[2017-02-25] MEDS ORDERED: MIDAZOLAM HCL/PF 5 MG/5 ML VIAL. IV ONE (12:30)
[2017-02-25] MEDS ORDERED: DEXTROSE ORAL GEL 15 GM TUBE. PO PRN ×2 (13:15)
[2017-02-25] MEDS ORDERED: ACETAMINOPHEN 650 MG/20.3 ML SOLUTION. GT PRN (13:15)
[2017-02-25] MEDS ORDERED: DEXTROSE 50% 25 GM / 50ML DISP.SYRIN. IV PRN (13:30)
[2017-02-25] MEDS: IPRATRPIUM/ALBUTEROL 0.5/2.5MG 3 ML NEBU. NEB SCH ×3 (13:40→19:53)
[2017-02-25] MEDS: POLYETHYLENE GLYCOL 3350 17 GM PACKET. PEG SCH ×2 (13:56→20:19)
[2017-02-25] MEDS: BISACODYL 10 MG SUPP.RECT. RC SCH (14:00)
[2017-02-25] MEDS: DOCUSATE SODIUM 100 MG CAPSULE. PO SCH ×2 (14:00→20:19)
[2017-02-25] MEDS: POTASSIUM CHLORIDE 20 MEQ TABLET.ER. PO SCH (15:58)
[2017-02-25] MEDS: ENOXAPARIN 40 MG/0.4 ML SYRINGE. SQ SCH (15:59)
[2017-02-25] MEDS: FAMOTIDINE 20 MG TABLET. GT SCH (15:59)
[2017-02-25] MEDS: amLODIPine BESYLATE 5 MG TABLET GT SCH (16:00)
--- NOTE | 2017-02-25 16:20 | HP ---
ADMIT DATE: 02/25/2017 HISTORY OF PRESENT ILLNESS: The patient is 71-year-old -[place] male patient who was yet again admitted to the Emergency Room with another episode of acute hypoxic respiratory failure and despite being on 10 liters of oxygen at the [facility], he continued to desaturate and his oxygen saturation could not be increased to more than 95. The nursing staff stated that also he vomited and probably has aspirated and therefore, the patient was transferred to the Emergency Room where he continued to be hypoxic and had to be put on mechanical ventilation. He spiked also his temperature and his white cell count was found to be extremely high at 20,000 and therefore he was pancultured. His chest x-ray continued to show some volume loss in the left lower lobe and the patient was admitted to the ICU with diagnosis of acute on chronic hypoxic respiratory failure, sepsis with marked tachycardia, fever and leukocytosis. PAST MEDICAL HISTORY: Significant for dementia, hypertension, recurrent urinary tract infection, dysphagia, dysarthria, recurrent falls. He was also known to have dysphagia for which he underwent percutaneous endoscopic gastrostomy tube placement and chronic respiratory failure, status post tracheostomy tube placement, recurrent excessive drainage with mucus plugging requires frequent suctioning, recurrent mucus plugging for which he underwent multiple bronchoscopy before. PAST SURGICAL HISTORY: Significant for percutaneous endoscopic gastrostomy tube placement, tracheostomy tube placement, multiple bronchoscopies for mucous plugging. ALLERGIES: He has no known drug allergies. FAMILY HISTORY: Unremarkable. SOCIAL HISTORY: He is , currently resides at [facility] and [facility], does not smoke, drink alcohol or use any recreational drugs. REVIEW OF SYSTEMS: Unobtainable. MEDICATIONS: He is currently on following medications: Acetaminophen 650 mg every 6 hours as needed, acetylcysteine ____. He is on amlodipine besylate 5 mg once a day, atropine sulfate 1 drop 4 times a day, bisacodyl 10 mg rectally daily, Glucose Gel 15 grams as needed for hypoglycemia. He is on Colace 100 mg twice a day, Lovenox 40 mg subcutaneously once a day, famotidine 20 mg per feeding tube once a day, hydrocodone/APAP 5/325 one tablet every 6 hours. He is on Humalog insulin as per insulin sliding scale every 6 hours, ipratropium bromide, albuterol inhaler, atropine sulfate 4 times a day, lorazepam 1 mg every 4 hours, melatonin 3 mg at bedtime, polyethylene glycol 17 grams, 8 ounces of water daily p.r.n. for constipation, potassium chloride 20 mEq once a day. He was on a tapering course of steroids. PHYSICAL EXAMINATION: GENERAL: On arrival to the Emergency Room, he was tachypneic, hypoxic, extremely cachectic, but no jaundice, cyanosis or thyromegaly. No jugular venous distention. No limb edema. VITAL SIGNS: His heart rate was 112, blood pressure 143/85, temperature was 98.7, respiratory rate was 24, and at times went up to 42 breaths per minute. His oxygen saturation was 93% on 10 liters of oxygen. HEAD, EYES, EARS, NOSE AND THROAT: Showed normocephalic, atraumatic. NECK: Supple. HEART: Showed normal first and second heart sounds. No gallop, rub or murmur. CHEST: Clear to auscultation. Chest shows central trachea. Decreased chest expansion, decreased air entry particularly in the left side with coarse rales present. No wheezing. ABDOMEN: Slightly distended, soft with gastrostomy tube in place. No guarding or rigidity. No organomegaly. Hernial orifices intact. Bowel sounds normal. NEUROLOGIC: He was alert, follows command. He is able to move his upper extremities to much good extent than his extremities, mostly bed bound. LABORATORY DATA: His lab work in the emergency room showed white cell count 20,000, hemoglobin 12.6, hematocrit 38.5, MCV 80, and platelet count of 332,000 with normal manual differential. His blood gases showed pH of 7.51, pCO2 of 35, pO2 of 58, bicarbonate 27 and oxygen saturation was 90% on FIO2 100%. His chemistry showed a serum sodium 142, potassium 4.1, chloride 102, bicarbonate 29, anion gap of 11, BUN 16, creatinine 0.9. Estimated GFR was 100 mL per minute, his glucose 147, calcium was 10.4. Total bilirubin and alkaline phosphatase normal. AST and ALT slightly elevated. His total protein is 7.8 and albumin 3. ASSESSMENT AND PLAN: Sepsis, likely due to healthcare-associated pneumonia, [id number] hypoxic respiratory failure, left lower lobe atelectasis due to mucus plugging, chronic respiratory failure, status post tracheostomy, dysphagia, status post gastrostomy tube placement. We did triplett culture him, start him on the sepsis protocol. We did consult the health care sanitary technician as well as the infectious disease specialist. Given multiple times he has been in and out of the hospital, we have already discussed with the family the palliative care and they are not interested in that. I believe that he is a candidate to go to the [facility] to continue on ventilator, as he clearly has been constantly hypoxic despite all our attempts to improve that. LILIANA ENCINAS MD DR: MAI/andres JOB#: [id number] / [id number]
--- NOTE | 2017-02-25 16:44 | OP ---
DATE OF SURGERY: 02/25/2017 INDICATION: Mucous plug and pneumonia. Informed consent was obtained from the patient's family. They agreed to proceed with the procedure. Bronchoscope was introduced through the tracheostomy tube. The distal trachea was visualized. There were some light secretions seen in the distal trachea. Bronchoscope was introduced into the left mainstem. Upon further inspection of the distal left mainstem and all the way to the left lower lobe, there were thick purulent secretions seen. With saline irrigation, all the secretions were removed, and bronchial wash was obtained from the left lower lobe. Then, bronchoalveolar lavage was obtained from the left lower lobe as well with patency of the airway achieved after lavage. No endobronchial lesions were seen. Right lung was examined. No endobronchial lesions were seen in either right upper, right middle, or right lower lobe. The patient tolerated the procedure well. No significant secretions were seen in the right lung. IMPRESSION: 1. Severe purulent secretions were seen causing near-complete occlusion of the lateral and medial subsegment of the left lower lobe. 2. Bronchial wash was performed on the left lower lobe and bronchoalveolar lavage performed on the same area. 3. No endobronchial lesion seen. 4. Therapeutic lavage was performed, and all secretions were removed, and patency of the airway was achieved. 5. Follow the culture results. MAT KEARNS MD DR: ADONIS/andres JOB#: [id number] / [id number] CODEY
[2017-02-25] MEDS ORDERED: INSULIN ASPART 300 UNITS/3 ML INSULN.PEN SQ SCH (17:00)
[2017-02-25] MEDS: LORazepam 1 MG TABLET PO SCH ×3 (17:39→23:50)
[2017-02-26] VITALS (21 sets, daily range): BP systolic 104–146; BP diastolic 60–96
[2017-02-26] MEDS: INSULIN ASPART 300 UNITS/3 ML INSULN.PEN SQ SCH ×4 (00:32→18:00)
[2017-02-26] MEDS: IV NORMAL SALINE 1000ML BAG 1,000 ML IV SCH (03:49)
[2017-02-26] MEDS: LORazepam 1 MG TABLET PO SCH ×5 (03:51→20:00)
[2017-02-26] MEDS: methylPREDNISolone SOD SUCC PF 125 MG/2 ML VIAL. IV SCH ×3 (05:10→18:25)
[2017-02-26] MEDS: MEROPENEM 1 GM in IV NORMAL SALINE 100ML 100 ML IV SCH ×3 (05:11→21:43)
[2017-02-26 05:14] LABS: BASO % 0 % (0-3); EOS % 0 % (0-3); HEMATOCRIT 29.1 % (39.0-53.0); HEMOGLOBIN 9.3 g/dL (13.0-17.5); LYMPH # 0.8 x10^3/uL (1.0-4.8); LYMPH % 7 % (24-48); MEAN CORPUSCULAR HEMOGLOBIN 26 pg (25-35); MEAN CORPUSCULAR HGB CONC 32 g/dL (31-37); MEAN CORPUSCULAR VOLUME 80 fL (79-100); MONO % 2 % (0-9); NEUT % 91 % (31-73); PLATELET COUNT 216 x10^3/uL (140-400); RED BLOOD COUNT 3.63 x10^6/uL (4.30-5.70); WHITE BLOOD COUNT 12.2 x10^3/uL (4.0-11.0)
[2017-02-26 05:44] LABS: ALBUMIN 2.2 g/dL (3.4-5.0); ALBUMIN/GLOBULIN RATIO 0.5 (1.0-1.7); CALCIUM 8.9 mg/dL (8.5-10.1); CREATININE 0.7 mg/dL (0.7-1.3); GFR 134.5; POTASSIUM 3.9 mmol/L (3.5-5.1); TOTAL BILIRUBIN 0.3 mg/dL (0.2-1.0); TOTAL PROTEIN 6.9 g/dL (6.4-8.2)
[2017-02-26] MEDS: IPRATRPIUM/ALBUTEROL 0.5/2.5MG 3 ML NEBU. NEB SCH ×3 (07:24→19:38)
--- NOTE | 2017-02-26 08:38 | PDOC ---
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, oriented x 3, no focal neurologic deficit SKIN: No rash IV: ok Labs Lab Laboratory Tests Test 02/25/17 08:40 02/25/17 23:56 02/26/17 04:05 Lactic Acid Level 1.6 mmol/L (0.4-2.0) Glucose (Fingerstick) 161 mg/dL (70-99) White Blood Count 12.2 x10^3/uL (4.0-11.0) Red Blood Count 3.63 x10^6/uL (4.30-5.70) Hemoglobin 9.3 g/dL (13.0-17.5) Hematocrit 29.1 % (39.0-53.0) Mean Corpuscular Volume 80 fL (79-100) Mean Corpuscular Hemoglobin 26 pg (25-35) Mean Corpuscular Hemoglobin Concent 32 g/dL (31-37) Red Cell Distribution Width 21.0 % (11.5-14.5) Platelet Count 216 x10^3/uL (140-400) Neutrophils (%) (Auto) 91 % (31-73) Lymphocytes (%) (Auto) 7 % (24-48) Monocytes (%) (Auto) 2 % (0-9) Eosinophils (%) (Auto) 0 % (0-3) Basophils (%) (Auto) 0 % (0-3) Neutrophils # (Auto) 11.1 x10^3uL (1.8-7.7) Lymphocytes # (Auto) 0.8 x10^3/uL (1.0-4.8) Monocytes # (Auto) 0.3 x10^3/uL (0.0-1.1) Eosinophils # (Auto) 0.0 x10^3/uL (0.0-0.7) Basophils # (Auto) 0.0 x10^3/uL (0.0-0.2) Sodium Level 138 mmol/L (136-145) Potassium Level 3.9 mmol/L (3.5-5.1) Chloride Level 105 mmol/L (98-107) Carbon Dioxide Level 26 mmol/L (21-32) Anion Gap 7 (6-14) Blood Urea Nitrogen 17 mg/dL (8-26) Creatinine 0.7 mg/dL (0.7-1.3) Estimated GFR (Cockcroft-Gault) 134.5 BUN/Creatinine Ratio 24 (6-20) Glucose Level 175 mg/dL (70-99) Calcium Level 8.9 mg/dL (8.5-10.1) Total Bilirubin 0.3 mg/dL (0.2-1.0) Aspartate Amino Transf (AST/SGOT) 37 U/L (15-37) Alanine Aminotransferase (ALT/SGPT) 61 U/L (16-63) Alkaline Phosphatase 60 U/L (46-116) Total Protein 6.9 g/dL (6.4-8.2) Albumin 2.2 g/dL (3.4-5.0) Albumin/Globulin Ratio 0.5 (1.0-1.7) Objective Assessment Leukocytosis - better now on Steroids Pneumonia - s/p Bronch Chronic resp failure Lower abd pain Plan Plan of Care Cont Meropenem/Zyvox started Oral care F/u labs and cults Needs palliative care eval for goals of care SHANNA FRANCIS MD Feb 26, 2017 08:38
[2017-02-26 08:45] LABS: HCO3 ABG 24 mmol/L (21-28); PCO2 ABG 33 mmHg (35-46); PH ABG 7.48 (7.35-7.45); PO2 ABG 75 mmHg (65-108); SAT O2 ABG 95 % (92-99)
[2017-02-26 08:46] LABS: FIO2 ABG 40
[2017-02-26] MEDS: DOCUSATE SODIUM 100 MG CAPSULE. PO SCH (09:00)
[2017-02-26] MEDS: POLYETHYLENE GLYCOL 3350 17 GM PACKET. PEG SCH (09:00)
[2017-02-26] MEDS: BISACODYL 10 MG SUPP.RECT. RC SCH (09:00)
[2017-02-26] MEDS: CHLORHEXIDINE 0.12% 15 ML MOUTHWASH. SWSP SCH ×2 (10:27→21:00)
[2017-02-26] MEDS: POTASSIUM CHLORIDE 20 MEQ TABLET.ER. PO SCH (10:28)
[2017-02-26] MEDS: amLODIPine BESYLATE 5 MG TABLET GT SCH (10:28)
[2017-02-26] MEDS: FAMOTIDINE 20 MG TABLET. GT SCH (10:28)
--- NOTE | 2017-02-26 10:49 | PDOC ---
PULMONARY PROGRESS NOTES Subjective remains on CPAP Vitals Vital Signs Date Time Temp Pulse Resp B/P (MAP) Pulse Ox O2 Delivery O2 Flow Rate FiO2 02/26/17 10:28 91 130/74 02/26/17 08:48 100 Ventilator 02/26/17 06:00 19 02/26/17 04:00 98.4 98.4 02/25/17 07:19 15.0 General: Alert, No acute distress Lungs: Other (decrease bs) Cardiovascular: S1, S2 Abdomen: Soft Neuro Exam: Alert Extremities: Other (1+edema) Labs Laboratory Tests Test 02/25/17 04:15 02/25/17 05:40 02/25/17 07:00 02/25/17 07:45 O2 Saturation 90 % (92-99) 99 % (92-99) Arterial Blood pH 7.51 (7.35-7.45) 7.50 (7.35-7.45) Arterial Blood pCO2 at Patient Temp 35 mmHg (35-46) 34 mmHg (35-46) Arterial Blood pO2 at Patient Temp 58 mmHg (65-108) 154 mmHg (65-108) Arterial Blood HCO3 27 mmol/L (21-28) 26 mmol/L (21-28) Arterial Blood Base Excess 4 mmol/L (-3-3) 3 mmol/L (-3-3) White Blood Count 20.0 x10^3/uL (4.0-11.0) Red Blood Count 4.82 x10^6/uL (4.30-5.70) Hemoglobin 12.6 g/dL (13.0-17.5) Hematocrit 38.5 % (39.0-53.0) Mean Corpuscular Volume 80 fL (79-100) Mean Corpuscular Hemoglobin 26 pg (25-35) Mean Corpuscular Hemoglobin Concent 33 g/dL (31-37) Red Cell Distribution Width 21.2 % (11.5-14.5) Platelet Count 332 x10^3/uL (140-400) Neutrophils (%) (Auto) 84 % (31-73) Lymphocytes (%) (Auto) 11 % (24-48) Monocytes (%) (Auto) 5 % (0-9) Eosinophils (%) (Auto) 0 % (0-3) Basophils (%) (Auto) 0 % (0-3) Neutrophils # (Auto) 16.7 x10^3uL (1.8-7.7) Lymphocytes # (Auto) 2.2 x10^3/uL (1.0-4.8) Monocytes # (Auto) 1.0 x10^3/uL (0.0-1.1) Eosinophils # (Auto) 0.0 x10^3/uL (0.0-0.7) Basophils # (Auto) 0.0 x10^3/uL (0.0-0.2) Segmented Neutrophils % 82 % (35-66) Lymphocytes % 12 % (24-48) Monocytes % 6 % (0-10) Platelet Estimate Adequate (ADEQUATE) Large Platelets Occ Anisocytosis Mod Sodium Level 142 mmol/L (136-145) Potassium Level 4.1 mmol/L (3.5-5.1) Chloride Level 102 mmol/L (98-107) Carbon Dioxide Level 29 mmol/L (21-32) Anion Gap 11 (6-14) Blood Urea Nitrogen 16 mg/dL (8-26) Creatinine 0.9 mg/dL (0.7-1.3) Estimated GFR (Cockcroft-Gault) 100.7 BUN/Creatinine Ratio 18 (6-20) Glucose Level 147 mg/dL (70-99) Calcium Level 10.4 mg/dL (8.5-10.1) Total Bilirubin 0.4 mg/dL (0.2-1.0) Aspartate Amino Transf (AST/SGOT) 41 U/L (15-37) Alanine Aminotransferase (ALT/SGPT) 69 U/L (16-63) Alkaline Phosphatase 82 U/L (46-116) Creatine Kinase 29 U/L (39-308) Creatine Kinase MB (Mass) < 0.5 ng/mL (0.0-3.6) Creatine Kinase MB Relative Index % (0-4) Troponin I Quantitative < 0.017 ng/mL (0.000-0.055) WJ-Tvm-H-Type Natriuretic Peptide 66 pg/mL (0-124) Total Protein 7.8 g/dL (6.4-8.2) Albumin 3.0 g/dL (3.4-5.0) Albumin/Globulin Ratio 0.6 (1.0-1.7) Nasal Screen MRSA (PCR) Negative (Negative) FiO2 100 Test 02/25/17 08:40 02/25/17 23:56 02/26/17 04:05 02/26/17 08:45 Lactic Acid Level 1.6 mmol/L (0.4-2.0) Glucose (Fingerstick) 161 mg/dL (70-99) White Blood Count 12.2 x10^3/uL (4.0-11.0) Red Blood Count 3.63 x10^6/uL (4.30-5.70) Hemoglobin 9.3 g/dL (13.0-17.5) Hematocrit 29.1 % (39.0-53.0) Mean Corpuscular Volume 80 fL (79-100) Mean Corpuscular Hemoglobin 26 pg (25-35) Mean Corpuscular Hemoglobin Concent 32 g/dL (31-37) Red Cell Distribution Width 21.0 % (11.5-14.5) Platelet Count 216 x10^3/uL (140-400) Neutrophils (%) (Auto) 91 % (31-73) Lymphocytes (%) (Auto) 7 % (24-48) Monocytes (%) (Auto) 2 % (0-9) Eosinophils (%) (Auto) 0 % (0-3) Basophils (%) (Auto) 0 % (0-3) Neutrophils # (Auto) 11.1 x10^3uL (1.8-7.7) Lymphocytes # (Auto) 0.8 x10^3/uL (1.0-4.8) Monocytes # (Auto) 0.3 x10^3/uL (0.0-1.1) Eosinophils # (Auto) 0.0 x10^3/uL (0.0-0.7) Basophils # (Auto) 0.0 x10^3/uL (0.0-0.2) Sodium Level 138 mmol/L (136-145) Potassium Level 3.9 mmol/L (3.5-5.1) Chloride Level 105 mmol/L (98-107) Carbon Dioxide Level 26 mmol/L (21-32) Anion Gap 7 (6-14) Blood Urea Nitrogen 17 mg/dL (8-26) Creatinine 0.7 mg/dL (0.7-1.3) Estimated GFR (Cockcroft-Gault) 134.5 BUN/Creatinine Ratio 24 (6-20) Glucose Level 175 mg/dL (70-99) Calcium Level 8.9 mg/dL (8.5-10.1) Total Bilirubin 0.3 mg/dL (0.2-1.0) Aspartate Amino Transf (AST/SGOT) 37 U/L (15-37) Alanine Aminotransferase (ALT/SGPT) 61 U/L (16-63) Alkaline Phosphatase 60 U/L (46-116) Total Protein 6.9 g/dL (6.4-8.2) Albumin 2.2 g/dL (3.4-5.0) Albumin/Globulin Ratio 0.5 (1.0-1.7) O2 Saturation 95 % (92-99) Arterial Blood pH 7.48 (7.35-7.45) Arterial Blood pCO2 at Patient Temp 33 mmHg (35-46) Arterial Blood pO2 at Patient Temp 75 mmHg (65-108) Arterial Blood HCO3 24 mmol/L (21-28) Arterial Blood Base Excess 1 mmol/L (-3-3) FiO2 40 Laboratory Tests Test 02/25/17 23:56 02/26/17 04:05 02/26/17 08:45 Glucose (Fingerstick) 161 mg/dL (70-99) White Blood Count 12.2 x10^3/uL (4.0-11.0) Red Blood Count 3.63 x10^6/uL (4.30-5.70) Hemoglobin 9.3 g/dL (13.0-17.5) Hematocrit 29.1 % (39.0-53.0) Mean Corpuscular Volume 80 fL (79-100) Mean Corpuscular Hemoglobin 26 pg (25-35) Mean Corpuscular Hemoglobin Concent 32 g/dL (31-37) Red Cell Distribution Width 21.0 % (11.5-14.5) Platelet Count 216 x10^3/uL (140-400) Neutrophils (%) (Auto) 91 % (31-73) Lymphocytes (%) (Auto) 7 % (24-48) Monocytes (%) (Auto) 2 % (0-9) Eosinophils (%) (Auto) 0 % (0-3) Basophils (%) (Auto) 0 % (0-3) Neutrophils # (Auto) 11.1 x10^3uL (1.8-7.7) Lymphocytes # (Auto) 0.8 x10^3/uL (1.0-4.8) Monocytes # (Auto) 0.3 x10^3/uL (0.0-1.1) Eosinophils # (Auto) 0.0 x10^3/uL (0.0-0.7) Basophils # (Auto) 0.0 x10^3/uL (0.0-0.2) Sodium Level 138 mmol/L (136-145) Potassium Level 3.9 mmol/L (3.5-5.1) Chloride Level 105 mmol/L (98-107) Carbon Dioxide Level 26 mmol/L (21-32) Anion Gap 7 (6-14) Blood Urea Nitrogen 17 mg/dL (8-26) Creatinine 0.7 mg/dL (0.7-1.3) Estimated GFR (Cockcroft-Gault) 134.5 BUN/Creatinine Ratio 24 (6-20) Glucose Level 175 mg/dL (70-99) Calcium Level 8.9 mg/dL (8.5-10.1) Total Bilirubin 0.3 mg/dL (0.2-1.0) Aspartate Amino Transf (AST/SGOT) 37 U/L (15-37) Alanine Aminotransferase (ALT/SGPT) 61 U/L (16-63) Alkaline Phosphatase 60 U/L (46-116) Total Protein 6.9 g/dL (6.4-8.2) Albumin 2.2 g/dL (3.4-5.0) Albumin/Globulin Ratio 0.5 (1.0-1.7) O2 Saturation 95 % (92-99) Arterial Blood pH 7.48 (7.35-7.45) Arterial Blood pCO2 at Patient Temp 33 mmHg (35-46) Arterial Blood pO2 at Patient Temp 75 mmHg (65-108) Arterial Blood HCO3 24 mmol/L (21-28) Arterial Blood Base Excess 1 mmol/L (-3-3) FiO2 40 Medications Active Scripts Medications Dose Route/Sig Max Daily Dose Days Date Category Acetaminophen 650 Mg/20.3 Ml Solution 650 Mg GT PRN Q4HRS PRN 02/20/17 Reported Prednisone 20 Mg Tablet 1 Tab GT DAILY 02/20/17 Reported Prednisone 10 Mg Tablet 10 Mg GT QODAY 02/20/17 Reported Pepcid (Famotidine) 20 Mg Tablet 20 Mg GT DAILY 02/20/17 Reported Glucose Gel (Dextrose) 38 Gm Gel..gram. 15 Gm PO 02/20/17 Reported Amlodipine Besylate 5 Mg Tablet 5 Mg GT DAILY 02/20/17 Reported Klor-Con (Potassium Chloride) 20 Meq Packet 20 Meq PO TID 02/17/17 Reported Melatonin 3 Mg Tablet 1 Tab PO QHS 02/17/17 Reported Lorazepam 1 Mg Tablet 1 Tab PO Q4HRS 02/17/17 Reported Humalog (Insulin Lispro) 100 Unit/1 Ml Cartridge 100 Unit SQ 02/17/17 Reported Glucose Gel (Dextrose) 38 Gm Gel..gram. 15 Gm PO 02/17/17 Reported Lovenox (Enoxaparin Sodium) 40 Mg/0.4 Ml Disp.syrin 0.4 Ml SQ DAILY 02/17/17 Reported Duoneb 0.5-3(2.5) Mg/3 Ml (Albuterol/Ipratropium) 3 Ml Ampul.neb 3 Ml NEB QID 02/17/17 Reported Docusate Sodium 100 Mg Capsule 1 Cap PO BID 02/17/17 Reported Biscolax (Bisacodyl) 10 Mg Supp.rect 10 Mg RC DAILY 02/17/17 Reported Acetylcysteine 10% Eye Drops (Acetylcysteine in Water/Pf) 10 Ml Drops 3 Ml 01/18/17 Reported Atropine 0.01%-Ns Eye Drops (Atropine Sulfate in 0.9% NaCl) 10 Ml Drops 10 Ml OP QID 01/18/17 Reported Pepcid (Famotidine) 20 Mg Tablet 20 Mg PO DAILY 01/18/17 Reported Transderm-Scop (Scopolamine) 1 Each Patch.td72 1 Patch TP Q3DAYS 01/18/17 Reported Miralax (Polyethylene Glycol 3350) 17 Gm Powd.pack 1 Packet PEG BID 01/18/17 Reported Acetaminophen 325 Mg Tablet 325 Mg PEG PRN Q6HRS PRN 12/04/16 Reported Hydrocodone-Apap 5-325 (Hydrocodone Bit/Acetaminophen) 1 Each Tablet 1 Tab PEG PRN Q6HRS PRN 11/21/16 Reported Impression . 1. Acute on chronic hypoxic respiratory failure secondary to highly suspected gram-negative and gram-positive pneumonia. He may have resistant organisms. The other etiology is recurrent mucus plug. He is having copious amount of tracheal secretions. s/p Bronch 2. Abnormal chest x-ray with persistent volume loss involving the left lower lobe consistent with pneumonia and mucus. 3. History of chronic respiratory failure with chronic debility. 4. History of dysphagia, status post PEG tube placement. 5. Leukocytosis. 6. s/p Bronch with removal of significant purulent secretions LLL Plan . 1. Continue CPAP trial. May try TS later 2. Follow up bronchoscopy cultures (gram +rods and cocci) 3. ABG on CPAP trial 4. Broad-spectrum antibiotics to continue until cultures are available. 5. Bronchodilators. 6. Consider re-discussion of advance directives and code status and consult Palliative Care again. 7. DVT prophylaxis and stress ulcer prophylaxis. MAT KEARNS MD Feb 26, 2017 10:48
[2017-02-26 11:09] LABS: HCO3 ABG 25 mmol/L (21-28); PCO2 ABG 37 mmHg (35-46); PH ABG 7.44 (7.35-7.45); PO2 ABG 55 mmHg (65-108); SAT O2 ABG 87 % (92-99)
[2017-02-26 11:20] LABS: FIO2 ABG 40
--- NOTE | 2017-02-26 12:27 | CONS ---
DATE OF CONSULTATION: 02/25/2017 PATIENT'S ROOM: ICU 2 REQUESTING PHYSICIAN: Vidal Ren MD REASON FOR CONSULTATION: Severe sepsis. HISTORY OF PRESENT ILLNESS: The patient is a 71-year-old -[place] gentleman with a history of CVA as well as chronic respiratory failure with increased secretions who has undergone tracheostomy placement. Additionally, he has a chronic PEG tube in place. He has been treated in the distant past for latent syphilis as well as Serratia and Proteus pneumonia. He was discharged from the facility approximately on 02/21/2017 after having been readmitted for recurrent mucous plugging. He now returns to [facility] on 02/25/2017 secondary to shortness of air. He had thick secretions, had desaturated into the 88% area, was given 4 DuoNeb by EMS and was on 10 liters of trach, his sats improved to 91%. On arrival, white blood cell count was elevated at 20,000 with 82% segs. A chest x-ray was obtained and showed persistent volume loss in the left lower lobe. He has been afebrile but his blood pressure had been elevated, was consulted and instituted Zyvox and meropenem given his increasing white blood cell count. Currently, the patient is alert and difficult to ascertain what he was saying but appears to have some lower abdominal discomfort. PAST MEDICAL HISTORY: Positive for latent syphilis, aphasia, dementia, dysphagia intervertebral disk disorder, muscle weakness and urinary retention, UTIs, history of Serratia and Proteus pneumonia, history of complications of recurrent mucus plugging and chronic respiratory failure. PAST SURGICAL HISTORY: Positive for PEG tube, tracheostomy as well as multiple bronchoscopies. REVIEW OF SYSTEMS: Unobtainable. ALLERGIES: No known drug allergies. SOCIAL HISTORY: He is a [place] [facility] resident. No alcohol or tobacco. FAMILY HISTORY: Noncontributory. CURRENT MEDICATIONS: Again, I added Zyvox, meropenem, Phenazo, also Solu-Medrol has been ordered. PHYSICAL EXAMINATION: VITAL SIGNS: Temperature 98.7, pulse 118, respirations 24, blood pressure now 134/85, and satting 100% on 15 liters. CONSTITUTIONAL: He is alert. He is in no acute distress. He is trached. HEENT: His pupils are equal and reactive. Oral cavity, pharynx is dry. Bacterial overgrowth in his tongue. NECK: Supple, no JVD. LUNGS: Have some decreased breath sounds on the base, no wheezes. HEART: S1, S2. ABDOMEN: Soft, nondistended. He has a PEG tube without signs of complications. He has some discomfort over his suprapubic area. EXTREMITIES: Thin, no clubbing, cyanosis or gross edema. SKIN: Warm to touch without signs of rash. NEUROLOGIC: He is alert and moves his extremities. IV site is clean. LABORATORY DATA: White count 20, hemoglobin 12.6, platelets of 332 with 82 segs, 12 lymphs, and creatinine 0.9. Glucose 137. AST 41, ALT 69. DIAGNOSTIC DATA: Chest x-ray reviewed in the history of present illness. Most recent culture from his sputum on the had mixed kavon. IMPRESSION: 1. Leukocytosis, now on steroids. 2. Pneumonia. 3. Chronic respiratory failure. 4. Lower abdominal pain. RECOMMENDATIONS: Again, on meropenem and Zyvox has been started. We will order bladder scan to rule out the retention. He needs Peridex oral care. Follow up on labs and cultures. He will undergo a bronchoscopy and needs palliative care evaluation for goals of care. These were discussed with family. I did review his previous records. SHANNA FRANCIS MD DR: RERE/andres JOB#: [id number] / [id number]
--- NOTE | 2017-02-26 15:34 | PATHOLOGY ---
CYTOPATHOLOGY REPORT CLINICAL HISTORY: Mucous plug SPECIMEN(S) RECEIVED: A.Bronchoalveolar lavage, LLL B.Bronchial wash, LLL FINAL DIAGNOSIS: A. Left lower lobe bronchoalveolar lavage, ThinPrep: - Unsatisfactory specimen for cytologic evaluation due to lack of pulmonary macrophages. - Few squamous epithelial cells and predominantly inflammatory cells identified. B. Left lower lobe bronchial washing, ThinPrep: - No malignant cells identified. - Focally reactive bronchial epithelial cells, squamous epithelial cells, and rare pulmonary macrophages are identified within a background of obscuring acute inflammation. (JPM:csd; d/t: 02/26/2017) PATHOLOGIST: Alex Steiner M.D. REPORT ELECTRONICALLY SIGNED BY: Alex Steiner M.D. DATE/TIME: 02/26/2017 15:34 GROSS PATHOLOGY: A. Bronchoalveolar lavage, LLL: The specimen is submitted unfixed, labeled "Elieser Park Jr". Received by the Cytology Department is less than one mL of clear colorless fluid. One ThinPrep slide was prepared. (mm 02.25.2017) B. Bronchial wash, LLL: The specimen is submitted unfixed, labeled "Elieser Park Jr". Received by the Cytology Department is 12 mL of cloudy colorless fluid. One ThinPrep slide was prepared. (mm 02.25.2017) LEATHER STAMPER(S): CARLOS Ham(ASCP)[facility] INITIAL CPT CODE(S): A; 91173 B; 30107 Professional services performed [place] [facility] [place] [address] Technical services performed by [employer] at [address] [place] [address], [address], [place] [address]. PATIENT: ELIESER PARK JR /AGE: 1 1945 (Age: 71) SEX: M PATIENT #: [id number] ALT CASE #: SPECIMEN COLLECTION DATE: 02/25/2017 SPECIMEN RECEIVED DATE: 02/25/[address], [address] [place] [address] PHONE: [phone] DIRECTOR: Alber Navas M.D. * * * END OF REPORT * * *
[2017-02-26] MEDS: ENOXAPARIN 40 MG/0.4 ML SYRINGE. SQ SCH (18:25)
[2017-02-27] VITALS (24 sets, daily range): BP systolic 104–192; BP diastolic 71–98
[2017-02-27] MEDS: methylPREDNISolone SOD SUCC PF 125 MG/2 ML VIAL. IV SCH ×3 (00:05→11:15)
[2017-02-27] MEDS: LORazepam 1 MG TABLET PO SCH ×6 (00:05→20:00)
[2017-02-27] MEDS: INSULIN ASPART 300 UNITS/3 ML INSULN.PEN SQ SCH ×4 (00:08→18:00)
[2017-02-27] MEDS: MEROPENEM 1 GM in IV NORMAL SALINE 100ML 100 ML IV SCH ×3 (05:30→22:29)
[2017-02-27 05:37] LABS: BASO % 0 % (0-3); EOS % 0 % (0-3); HEMATOCRIT 28.5 % (39.0-53.0); HEMOGLOBIN 9.5 g/dL (13.0-17.5); LYMPH # 0.5 x10^3/uL (1.0-4.8); LYMPH % 2 % (24-48); MEAN CORPUSCULAR HEMOGLOBIN 26 pg (25-35); MEAN CORPUSCULAR HGB CONC 33 g/dL (31-37); MEAN CORPUSCULAR VOLUME 79 fL (79-100); MONO % 4 % (0-9); NEUT % 94 % (31-73); PLATELET COUNT 229 x10^3/uL (140-400); RED BLOOD COUNT 3.61 x10^6/uL (4.30-5.70); RED CELL DISTRIBUTION WIDTH 21.2 % (11.5-14.5); WHITE BLOOD COUNT 19.3 x10^3/uL (4.0-11.0)
[2017-02-27 06:01] LABS: ALBUMIN 2.1 g/dL (3.4-5.0); ALBUMIN/GLOBULIN RATIO 0.5 (1.0-1.7); CREATININE 0.6 mg/dL (0.7-1.3); GFR 160.7; POTASSIUM 3.8 mmol/L (3.5-5.1); TOTAL BILIRUBIN 0.2 mg/dL (0.2-1.0); TOTAL PROTEIN 6.5 g/dL (6.4-8.2)
[2017-02-27] MEDS: IPRATRPIUM/ALBUTEROL 0.5/2.5MG 3 ML NEBU. NEB SCH ×4 (07:09→19:42)
[2017-02-27 07:54] LABS: HCO3 ABG 27 mmol/L (21-28); PCO2 ABG 39 mmHg (35-46); PH ABG 7.46 (7.35-7.45); PO2 ABG 74 mmHg (65-108); SAT O2 ABG 95 % (92-99)
[2017-02-27 07:58] LABS: FIO2 ABG 45
[2017-02-27] MEDS: POTASSIUM CHLORIDE 20 MEQ TABLET.ER. PO SCH (08:17)
[2017-02-27] MEDS: FAMOTIDINE 20 MG TABLET. GT SCH (08:17)
[2017-02-27] MEDS: amLODIPine BESYLATE 5 MG TABLET GT SCH (08:19)
[2017-02-27] MEDS: CHLORHEXIDINE 0.12% 15 ML MOUTHWASH. SWSP SCH ×2 (08:20→22:29)
--- NOTE | 2017-02-27 09:15 | PDOC ---
Infectious Disease Note Subjective Subjective wants TV turned off Little nauseous, denies abdominal pain No fever Trach/vent. FiO2 45% Tube feedings ROS ROS Limited Vital Sign Vital Signs Vital Signs Date Time Temp Pulse Resp B/P (MAP) Pulse Ox O2 Delivery O2 Flow Rate FiO2 02/27/17 08:19 78 148/75 02/27/17 08:00 Mechanical Ventilator 02/27/17 07:12 100 02/27/17 06:00 18 02/27/17 04:00 98.2 98.2 Physical Exam PHYSICAL EXAM GENERAL: Alert, NAD HEENT: Oral cavity dry, thick film on tongue NECK: Trach LUNGS: Clear HEART: S1S2, regular ABDOMEN: ND, BS present, soft, NT EXT: No edema, no cyanosis TOOL CHECKER: Alert, nonverbal cues, follows commands SKIN: No rash IV: ok Labs Lab Laboratory Tests Test 02/26/17 11:05 02/26/17 18:23 02/27/17 00:04 02/27/17 05:00 O2 Saturation 87 % (92-99) Arterial Blood pH 7.44 (7.35-7.45) Arterial Blood pCO2 at Patient Temp 37 mmHg (35-46) Arterial Blood pO2 at Patient Temp 55 mmHg (65-108) Arterial Blood HCO3 25 mmol/L (21-28) Arterial Blood Base Excess 1 mmol/L (-3-3) FiO2 40 Glucose (Fingerstick) 173 mg/dL (70-99) 202 mg/dL (70-99) White Blood Count 19.3 x10^3/uL (4.0-11.0) Red Blood Count 3.61 x10^6/uL (4.30-5.70) Hemoglobin 9.5 g/dL (13.0-17.5) Hematocrit 28.5 % (39.0-53.0) Mean Corpuscular Volume 79 fL (79-100) Mean Corpuscular Hemoglobin 26 pg (25-35) Mean Corpuscular Hemoglobin Concent 33 g/dL (31-37) Red Cell Distribution Width 21.2 % (11.5-14.5) Platelet Count 229 x10^3/uL (140-400) Neutrophils (%) (Auto) 94 % (31-73) Lymphocytes (%) (Auto) 2 % (24-48) Monocytes (%) (Auto) 4 % (0-9) Eosinophils (%) (Auto) 0 % (0-3) Basophils (%) (Auto) 0 % (0-3) Neutrophils # (Auto) 18.0 x10^3uL (1.8-7.7) Lymphocytes # (Auto) 0.5 x10^3/uL (1.0-4.8) Monocytes # (Auto) 0.8 x10^3/uL (0.0-1.1) Eosinophils # (Auto) 0.0 x10^3/uL (0.0-0.7) Basophils # (Auto) 0.0 x10^3/uL (0.0-0.2) Sodium Level 140 mmol/L (136-145) Potassium Level 3.8 mmol/L (3.5-5.1) Chloride Level 105 mmol/L (98-107) Carbon Dioxide Level 27 mmol/L (21-32) Anion Gap 8 (6-14) Blood Urea Nitrogen 16 mg/dL (8-26) Creatinine 0.6 mg/dL (0.7-1.3) Estimated GFR (Cockcroft-Gault) 160.7 BUN/Creatinine Ratio 27 (6-20) Glucose Level 206 mg/dL (70-99) Calcium Level 9.0 mg/dL (8.5-10.1) Total Bilirubin 0.2 mg/dL (0.2-1.0) Aspartate Amino Transf (AST/SGOT) 39 U/L (15-37) Alanine Aminotransferase (ALT/SGPT) 69 U/L (16-63) Alkaline Phosphatase 58 U/L (46-116) Total Protein 6.5 g/dL (6.4-8.2) Albumin 2.1 g/dL (3.4-5.0) Albumin/Globulin Ratio 0.5 (1.0-1.7) Test 02/27/17 05:29 02/27/17 08:00 Glucose (Fingerstick) 193 mg/dL (70-99) O2 Saturation 95 % (92-99) Arterial Blood pH 7.46 (7.35-7.45) Arterial Blood pCO2 at Patient Temp 39 mmHg (35-46) Arterial Blood pO2 at Patient Temp 74 mmHg (65-108) Arterial Blood HCO3 27 mmol/L (21-28) Arterial Blood Base Excess 3 mmol/L (-3-3) FiO2 45 Micro SPUTUM CULT RES 1 Preliminary Gram negative rods AFB SPECIMEN PROCESSING Final Concentration AFB CULTURE FINAL PENDING AFB CULTURE GRAM STAIN Final Negative FUNGAL CULTURE,OTHER PENDING KUSUM CULT RES 1 PENDING Objective Assessment Leukocytosis - better, now on Steroids Pneumonia - s/p Bronch. GNR Chronic resp failure Lower abd pain-better Plan Plan of Care Zyvox and meropenem Oral care F/u labs and cults Needs palliative care eval for goals of care Attending Co-Sign The patient was seen and interviewed as well as examined at the bedside. The chart was reviewed. The case was discussed. Agree with the plan of care. FRANCISCO SHAH APRN Feb 27, 2017 09:15 MINDY TAI MD Feb 27, 2017 14:15
[2017-02-27 09:39] LABS: PLT ESTIMATE ADEQUATE (ADEQUATE)
[2017-02-27 09:40] LABS: ANISOCYTOSIS MOD; OVALOCYTES FEW; TEAR DROP CELLS OCC
--- NOTE | 2017-02-27 11:04 | PDOC ---
PULMONARY PROGRESS NOTES Subjective remains on CPAP Vitals Vital Signs Date Time Temp Pulse Resp B/P (MAP) Pulse Ox O2 Delivery O2 Flow Rate FiO2 02/27/17 10:00 94 24 178/85 (116) 100 Ventilator 02/27/17 08:00 98.6 98.6 General: Alert, No acute distress Lungs: Other (rhonchi left lung) Cardiovascular: S1, S2 Abdomen: Soft Neuro Exam: Alert Extremities: Other (1+edema) Labs Laboratory Tests Test 02/25/17 23:56 02/26/17 04:05 02/26/17 08:45 02/26/17 11:05 Glucose (Fingerstick) 161 mg/dL (70-99) White Blood Count 12.2 x10^3/uL (4.0-11.0) Red Blood Count 3.63 x10^6/uL (4.30-5.70) Hemoglobin 9.3 g/dL (13.0-17.5) Hematocrit 29.1 % (39.0-53.0) Mean Corpuscular Volume 80 fL (79-100) Mean Corpuscular Hemoglobin 26 pg (25-35) Mean Corpuscular Hemoglobin Concent 32 g/dL (31-37) Red Cell Distribution Width 21.0 % (11.5-14.5) Platelet Count 216 x10^3/uL (140-400) Neutrophils (%) (Auto) 91 % (31-73) Lymphocytes (%) (Auto) 7 % (24-48) Monocytes (%) (Auto) 2 % (0-9) Eosinophils (%) (Auto) 0 % (0-3) Basophils (%) (Auto) 0 % (0-3) Neutrophils # (Auto) 11.1 x10^3uL (1.8-7.7) Lymphocytes # (Auto) 0.8 x10^3/uL (1.0-4.8) Monocytes # (Auto) 0.3 x10^3/uL (0.0-1.1) Eosinophils # (Auto) 0.0 x10^3/uL (0.0-0.7) Basophils # (Auto) 0.0 x10^3/uL (0.0-0.2) Sodium Level 138 mmol/L (136-145) Potassium Level 3.9 mmol/L (3.5-5.1) Chloride Level 105 mmol/L (98-107) Carbon Dioxide Level 26 mmol/L (21-32) Anion Gap 7 (6-14) Blood Urea Nitrogen 17 mg/dL (8-26) Creatinine 0.7 mg/dL (0.7-1.3) Estimated GFR (Cockcroft-Gault) 134.5 BUN/Creatinine Ratio 24 (6-20) Glucose Level 175 mg/dL (70-99) Calcium Level 8.9 mg/dL (8.5-10.1) Total Bilirubin 0.3 mg/dL (0.2-1.0) Aspartate Amino Transf (AST/SGOT) 37 U/L (15-37) Alanine Aminotransferase (ALT/SGPT) 61 U/L (16-63) Alkaline Phosphatase 60 U/L (46-116) Total Protein 6.9 g/dL (6.4-8.2) Albumin 2.2 g/dL (3.4-5.0) Albumin/Globulin Ratio 0.5 (1.0-1.7) O2 Saturation 95 % (92-99) 87 % (92-99) Arterial Blood pH 7.48 (7.35-7.45) 7.44 (7.35-7.45) Arterial Blood pCO2 at Patient Temp 33 mmHg (35-46) 37 mmHg (35-46) Arterial Blood pO2 at Patient Temp 75 mmHg (65-108) 55 mmHg (65-108) Arterial Blood HCO3 24 mmol/L (21-28) 25 mmol/L (21-28) Arterial Blood Base Excess 1 mmol/L (-3-3) 1 mmol/L (-3-3) FiO2 40 40 Test 02/26/17 18:23 02/27/17 00:04 02/27/17 05:00 02/27/17 05:29 Glucose (Fingerstick) 173 mg/dL (70-99) 202 mg/dL (70-99) 193 mg/dL (70-99) White Blood Count 19.3 x10^3/uL (4.0-11.0) Red Blood Count 3.61 x10^6/uL (4.30-5.70) Hemoglobin 9.5 g/dL (13.0-17.5) Hematocrit 28.5 % (39.0-53.0) Mean Corpuscular Volume 79 fL (79-100) Mean Corpuscular Hemoglobin 26 pg (25-35) Mean Corpuscular Hemoglobin Concent 33 g/dL (31-37) Red Cell Distribution Width 21.2 % (11.5-14.5) Platelet Count 229 x10^3/uL (140-400) Neutrophils (%) (Auto) 94 % (31-73) Lymphocytes (%) (Auto) 2 % (24-48) Monocytes (%) (Auto) 4 % (0-9) Eosinophils (%) (Auto) 0 % (0-3) Basophils (%) (Auto) 0 % (0-3) Neutrophils # (Auto) 18.0 x10^3uL (1.8-7.7) Lymphocytes # (Auto) 0.5 x10^3/uL (1.0-4.8) Monocytes # (Auto) 0.8 x10^3/uL (0.0-1.1) Eosinophils # (Auto) 0.0 x10^3/uL (0.0-0.7) Basophils # (Auto) 0.0 x10^3/uL (0.0-0.2) Segmented Neutrophils % 92 % (35-66) Band Neutrophils % 2 % (0-9) Lymphocytes % 2 % (24-48) Monocytes % 4 % (0-10) Platelet Estimate Adequate (ADEQUATE) Anisocytosis Mod Tear Drop Cells Occ Ovalocytes Few Sodium Level 140 mmol/L (136-145) Potassium Level 3.8 mmol/L (3.5-5.1) Chloride Level 105 mmol/L (98-107) Carbon Dioxide Level 27 mmol/L (21-32) Anion Gap 8 (6-14) Blood Urea Nitrogen 16 mg/dL (8-26) Creatinine 0.6 mg/dL (0.7-1.3) Estimated GFR (Cockcroft-Gault) 160.7 BUN/Creatinine Ratio 27 (6-20) Glucose Level 206 mg/dL (70-99) Calcium Level 9.0 mg/dL (8.5-10.1) Total Bilirubin 0.2 mg/dL (0.2-1.0) Aspartate Amino Transf (AST/SGOT) 39 U/L (15-37) Alanine Aminotransferase (ALT/SGPT) 69 U/L (16-63) Alkaline Phosphatase 58 U/L (46-116) Total Protein 6.5 g/dL (6.4-8.2) Albumin 2.1 g/dL (3.4-5.0) Albumin/Globulin Ratio 0.5 (1.0-1.7) Test 02/27/17 08:00 O2 Saturation 95 % (92-99) Arterial Blood pH 7.46 (7.35-7.45) Arterial Blood pCO2 at Patient Temp 39 mmHg (35-46) Arterial Blood pO2 at Patient Temp 74 mmHg (65-108) Arterial Blood HCO3 27 mmol/L (21-28) Arterial Blood Base Excess 3 mmol/L (-3-3) FiO2 45 Laboratory Tests Test 02/26/17 11:05 02/26/17 18:23 02/27/17 00:04 02/27/17 05:00 O2 Saturation 87 % (92-99) Arterial Blood pH 7.44 (7.35-7.45) Arterial Blood pCO2 at Patient Temp 37 mmHg (35-46) Arterial Blood pO2 at Patient Temp 55 mmHg (65-108) Arterial Blood HCO3 25 mmol/L (21-28) Arterial Blood Base Excess 1 mmol/L (-3-3) FiO2 40 Glucose (Fingerstick) 173 mg/dL (70-99) 202 mg/dL (70-99) White Blood Count 19.3 x10^3/uL (4.0-11.0) Red Blood Count 3.61 x10^6/uL (4.30-5.70) Hemoglobin 9.5 g/dL (13.0-17.5) Hematocrit 28.5 % (39.0-53.0) Mean Corpuscular Volume 79 fL (79-100) Mean Corpuscular Hemoglobin 26 pg (25-35) Mean Corpuscular Hemoglobin Concent 33 g/dL (31-37) Red Cell Distribution Width 21.2 % (11.5-14.5) Platelet Count 229 x10^3/uL (140-400) Neutrophils (%) (Auto) 94 % (31-73) Lymphocytes (%) (Auto) 2 % (24-48) Monocytes (%) (Auto) 4 % (0-9) Eosinophils (%) (Auto) 0 % (0-3) Basophils (%) (Auto) 0 % (0-3) Neutrophils # (Auto) 18.0 x10^3uL (1.8-7.7) Lymphocytes # (Auto) 0.5 x10^3/uL (1.0-4.8) Monocytes # (Auto) 0.8 x10^3/uL (0.0-1.1) Eosinophils # (Auto) 0.0 x10^3/uL (0.0-0.7) Basophils # (Auto) 0.0 x10^3/uL (0.0-0.2) Segmented Neutrophils % 92 % (35-66) Band Neutrophils % 2 % (0-9) Lymphocytes % 2 % (24-48) Monocytes % 4 % (0-10) Platelet Estimate Adequate (ADEQUATE) Anisocytosis Mod Tear Drop Cells Occ Ovalocytes Few Sodium Level 140 mmol/L (136-145) Potassium Level 3.8 mmol/L (3.5-5.1) Chloride Level 105 mmol/L (98-107) Carbon Dioxide Level 27 mmol/L (21-32) Anion Gap 8 (6-14) Blood Urea Nitrogen 16 mg/dL (8-26) Creatinine 0.6 mg/dL (0.7-1.3) Estimated GFR (Cockcroft-Gault) 160.7 BUN/Creatinine Ratio 27 (6-20) Glucose Level 206 mg/dL (70-99) Calcium Level 9.0 mg/dL (8.5-10.1) Total Bilirubin 0.2 mg/dL (0.2-1.0) Aspartate Amino Transf (AST/SGOT) 39 U/L (15-37) Alanine Aminotransferase (ALT/SGPT) 69 U/L (16-63) Alkaline Phosphatase 58 U/L (46-116) Total Protein 6.5 g/dL (6.4-8.2) Albumin 2.1 g/dL (3.4-5.0) Albumin/Globulin Ratio 0.5 (1.0-1.7) Test 02/27/17 05:29 02/27/17 08:00 Glucose (Fingerstick) 193 mg/dL (70-99) O2 Saturation 95 % (92-99) Arterial Blood pH 7.46 (7.35-7.45) Arterial Blood pCO2 at Patient Temp 39 mmHg (35-46) Arterial Blood pO2 at Patient Temp 74 mmHg (65-108) Arterial Blood HCO3 27 mmol/L (21-28) Arterial Blood Base Excess 3 mmol/L (-3-3) FiO2 45 Medications Active Scripts Medications Dose Route/Sig Max Daily Dose Days Date Category Acetaminophen 650 Mg/20.3 Ml Solution 650 Mg GT PRN Q4HRS PRN 02/20/17 Reported Prednisone 20 Mg Tablet 1 Tab GT DAILY 02/20/17 Reported Prednisone 10 Mg Tablet 10 Mg GT QODAY 02/20/17 Reported Pepcid (Famotidine) 20 Mg Tablet 20 Mg GT DAILY 02/20/17 Reported Glucose Gel (Dextrose) 38 Gm Gel..gram. 15 Gm PO 02/20/17 Reported Amlodipine Besylate 5 Mg Tablet 5 Mg GT DAILY 02/20/17 Reported Klor-Con (Potassium Chloride) 20 Meq Packet 20 Meq PO TID 02/17/17 Reported Melatonin 3 Mg Tablet 1 Tab PO QHS 02/17/17 Reported Lorazepam 1 Mg Tablet 1 Tab PO Q4HRS 02/17/17 Reported Humalog (Insulin Lispro) 100 Unit/1 Ml Cartridge 100 Unit SQ 02/17/17 Reported Glucose Gel (Dextrose) 38 Gm Gel..gram. 15 Gm PO 02/17/17 Reported Lovenox (Enoxaparin Sodium) 40 Mg/0.4 Ml Disp.syrin 0.4 Ml SQ DAILY 02/17/17 Reported Duoneb 0.5-3(2.5) Mg/3 Ml (Albuterol/Ipratropium) 3 Ml Ampul.neb 3 Ml NEB QID 02/17/17 Reported Docusate Sodium 100 Mg Capsule 1 Cap PO BID 02/17/17 Reported Biscolax (Bisacodyl) 10 Mg Supp.rect 10 Mg RC DAILY 02/17/17 Reported Acetylcysteine 10% Eye Drops (Acetylcysteine in Water/Pf) 10 Ml Drops 3 Ml 01/18/17 Reported Atropine 0.01%-Ns Eye Drops (Atropine Sulfate in 0.9% NaCl) 10 Ml Drops 10 Ml OP QID 01/18/17 Reported Pepcid (Famotidine) 20 Mg Tablet 20 Mg PO DAILY 01/18/17 Reported Transderm-Scop (Scopolamine) 1 Each Patch.td72 1 Patch TP Q3DAYS 01/18/17 Reported Miralax (Polyethylene Glycol 3350) 17 Gm Powd.pack 1 Packet PEG BID 01/18/17 Reported Acetaminophen 325 Mg Tablet 325 Mg PEG PRN Q6HRS PRN 12/04/16 Reported Hydrocodone-Apap 5-325 (Hydrocodone Bit/Acetaminophen) 1 Each Tablet 1 Tab PEG PRN Q6HRS PRN 11/21/16 Reported Impression . 1. Acute on chronic hypoxic respiratory failure secondary to gram-negative and gram-positive pneumonia/ recurrent mucus plug He may have resistant organisms. He is having copious amount of tracheal secretions. s/p Bronch 2. Abnormal chest x-ray with persistent volume loss involving the left lower lobe consistent with pneumonia and mucus plug 3. History of chronic respiratory failure with chronic debility. 4. History of dysphagia, status post PEG tube placement. 5. Leukocytosis. 6. s/p Bronch with removal of significant purulent secretions LLL Plan . 1. Continue CPAP trial. May try TS later 2. Follow up bronchoscopy cultures (gram +rods, gm -rods and gm +cocci) 3. ABG on CPAP trial adequate 4. Broad-spectrum antibiotics to continue until cultures are available. 5. Bronchodilators. 6. re-discussion of advance directives and still full code 7. DVT prophylaxis and stress ulcer prophylaxis. 8. ok with transfer to [facility] Hosp MAT KEARNS MD Feb 27, 2017 11:04
[2017-02-27] MEDS ORDERED: amLODIPine BESYLATE 5 MG TABLET PO ONE (11:30)
[2017-02-27] MEDS: ENOXAPARIN 40 MG/0.4 ML SYRINGE. SQ SCH (14:00)
--- NOTE | 2017-02-27 14:53 | PN ---
DATE: 02/26/2017 SUBJECTIVE: The patient is resting, slightly propped up in bed, no apparent respiratory distress. He is awake, alert. On questioning him, he denied any complaint, in particular denied any chest pain, no shortness of breath. He is maintaining his oxygen saturation 100% on FiO2 45%. PHYSICAL EXAMINATION: GENERAL: When I examined him, he looked well and was clearly in no apparent respiratory distress, pale, but not jaundice, cyanosis or thyromegaly. No jugular venous distension, no limb edema. VITAL SIGNS: His heart rate was 67, blood pressure 128/70, temperature was 98.4, respiratory rate was 19 and oxygen saturation was 100% on FiO2 of 45%. HEAD, EYES, EARS, NOSE AND THROAT: Showed normocephalic, atraumatic. NECK: Supple. HEART: Showed normal first and second heart sounds with no gallop, rub or murmur. CHEST: Clear to auscultation. No crepitation or rhonchi. ABDOMEN: Distended, soft, nontender. No guarding or rigidity. No organomegaly. ____ intact. Bowel sounds normal. NEUROLOGIC: He was awake, alert, responding appropriately by nodding his head. All his cranial nerves were intact. He moves his upper extremities to much greater than extended lower extremities. He is mostly bed bound. His intake over the last 24 hours was 1500, output was incompletely recorded. LABORATORY DATA: As of this morning showed a white cell count down to 12,200, hemoglobin 9.3, hematocrit 29.1, MCV 80 and platelet count 216,000. His chemistry showed a serum sodium 158, potassium 3.9, chloride 105, bicarbonate 26, anion gap of 7, BUN 17, creatinine 0.7, estimated GFR was 134 mL per minute. His glucose was 175, calcium was 8.9. Total bilirubin, AST, ALT, alkaline phosphatase were normal. His total protein was 6.9, albumin was 2.2 g/dL. His bronchoalveolar lavage stain showed that he has gram-positive cocci, gram-positive rods. His blood culture is negative so far. ASSESSMENT: 1. Sepsis, most likely due to healthcare-associated pneumonia. 2. Acute on chronic hypoxic respiratory failure. 3. Left lower lobe atelectasis due to mucous plugging, status post bronchoscopy and ____ mucous plug. 4. Chronic respiratory failure, status post tracheostomy. 5. Dysphagia, status post gastrostomy tube placement. PLAN: To continue with IV antibiotic. Continue nutritional support. The patient was evaluated by the [facility] and if they accepted him and his family agreed to the transfer, we will discharge him day after tomorrow. LILIANA ENCINAS MD DR: MAI/andres JOB#: [id number] / [id number]
--- NOTE | 2017-02-27 15:30 | RAD ---
Indication assess nasogastric tube placement. A single view targeted to the lower chest and upper abdomen was obtained. Moderate dilatation of small bowel loops is noted the etiology of which is uncertain. There is volume loss in the left lower lobe similar to the examination of the chest 2 days previously. A nasogastric tube is coiled in the body of the stomach. IMPRESSION: NG tube in the stomach
--- NOTE | 2017-02-27 15:33 | RAD ---
Indication vomiting. A single view of the chest was obtained and is compared to an examination 2 days previously. Heart size and pulmonary vessels are similar. There is volume loss in the left lower lobe compatible with atelectasis or pneumonia similar to the previous exam. There may be a tiny left pleural effusion. There is no pneumothorax. Tracheostomy tube is noted as well as a nasogastric tube. IMPRESSION: Volume loss in the left lower lobe similar to the study 2 days previously.
[2017-02-27 15:58] LABS: HEMATOCRIT 35.7 % (39.0-53.0); HEMOGLOBIN 11.2 g/dL (13.0-17.5); RED BLOOD COUNT 4.39 x10^6/uL (4.30-5.70); WHITE BLOOD COUNT 24.1 x10^3/uL (4.0-11.0)
--- NOTE | 2017-02-27 16:13 | PDOC2 ---
GI CONSULT Reason For Consult: Vomiting HPI: HPI: 71 y/o male, well-known to us. Seen in ICU w/ Dr. Donaldson. Admitted w/ acute on chronic resp failure. Trach and PEG in place. (PEG replaced by Dr. Donaldson on 01/18/17.) Was set to DC to facility this afternoon when had significant amount of emesis, RN reports as dark brown and watery. Also noted to have increasing abdominal distention after vomiting started. No issues w/ PEG, tube feeds had been going well, no residuals. Two BMs today. NG was placed, KUB w/ dilated loops of small bowel. CT A/P and lactic acid ordered. PMH: PMH: per chart - CVA w/ dysphagia and aphasia, dementia, HTN, neurosyphilis, A Fib, Rodriguez's esophagus, hiatal hernia, UTI and urinary retention, PEG in place, chronic resp failure w/ trach, abnormal LFTs FH: Family History: No pertinent hx Social History: Smoke: No ALCOHOL: none Drugs: None ROS: Unable to obtain. Vitals: Vitals: Vital Signs Date Time Temp Pulse Resp B/P (MAP) Pulse Ox O2 Delivery O2 Flow Rate FiO2 02/27/17 16:00 Mechanical Ventilator 02/27/17 14:55 100 02/27/17 14:00 81 21 136/75 (95) 02/27/17 12:00 98.6 98.6 Labs: Labs: Laboratory Tests Test 02/26/17 18:23 02/27/17 00:04 02/27/17 05:00 02/27/17 05:29 Glucose (Fingerstick) 173 mg/dL (70-99) 202 mg/dL (70-99) 193 mg/dL (70-99) White Blood Count 19.3 x10^3/uL (4.0-11.0) Red Blood Count 3.61 x10^6/uL (4.30-5.70) Hemoglobin 9.5 g/dL (13.0-17.5) Hematocrit 28.5 % (39.0-53.0) Mean Corpuscular Volume 79 fL (79-100) Mean Corpuscular Hemoglobin 26 pg (25-35) Mean Corpuscular Hemoglobin Concent 33 g/dL (31-37) Red Cell Distribution Width 21.2 % (11.5-14.5) Platelet Count 229 x10^3/uL (140-400) Neutrophils (%) (Auto) 94 % (31-73) Lymphocytes (%) (Auto) 2 % (24-48) Monocytes (%) (Auto) 4 % (0-9) Eosinophils (%) (Auto) 0 % (0-3) Basophils (%) (Auto) 0 % (0-3) Neutrophils # (Auto) 18.0 x10^3uL (1.8-7.7) Lymphocytes # (Auto) 0.5 x10^3/uL (1.0-4.8) Monocytes # (Auto) 0.8 x10^3/uL (0.0-1.1) Eosinophils # (Auto) 0.0 x10^3/uL (0.0-0.7) Basophils # (Auto) 0.0 x10^3/uL (0.0-0.2) Segmented Neutrophils % 92 % (35-66) Band Neutrophils % 2 % (0-9) Lymphocytes % 2 % (24-48) Monocytes % 4 % (0-10) Platelet Estimate Adequate (ADEQUATE) Anisocytosis Mod Tear Drop Cells Occ Ovalocytes Few Sodium Level 140 mmol/L (136-145) Potassium Level 3.8 mmol/L (3.5-5.1) Chloride Level 105 mmol/L (98-107) Carbon Dioxide Level 27 mmol/L (21-32) Anion Gap 8 (6-14) Blood Urea Nitrogen 16 mg/dL (8-26) Creatinine 0.6 mg/dL (0.7-1.3) Estimated GFR (Cockcroft-Gault) 160.7 BUN/Creatinine Ratio 27 (6-20) Glucose Level 206 mg/dL (70-99) Calcium Level 9.0 mg/dL (8.5-10.1) Total Bilirubin 0.2 mg/dL (0.2-1.0) Aspartate Amino Transf (AST/SGOT) 39 U/L (15-37) Alanine Aminotransferase (ALT/SGPT) 69 U/L (16-63) Alkaline Phosphatase 58 U/L (46-116) Total Protein 6.5 g/dL (6.4-8.2) Albumin 2.1 g/dL (3.4-5.0) Albumin/Globulin Ratio 0.5 (1.0-1.7) Test 6/2/17 08:00 02/27/17 11:10 O2 Saturation 95 % (92-99) Arterial Blood pH 7.46 (7.35-7.45) Arterial Blood pCO2 at Patient Temp 39 mmHg (35-46) Arterial Blood pO2 at Patient Temp 74 mmHg (65-108) Arterial Blood HCO3 27 mmol/L (21-28) Arterial Blood Base Excess 3 mmol/L (-3-3) FiO2 45 Glucose (Fingerstick) 219 mg/dL (70-99) Allergies: Coded Allergies: No Known Drug Allergies (Unverified , 01/22/17) Medications: Please see EMR. Imaging: Imaging: KUB 02/27/17 Moderate dilatation of small bowel loops is noted the etiology of which is uncertain. There is volume loss in the left lower lobe similar to the examination of the chest 2 days previously. A nasogastric tube is coiled in the body of the stomach. IMPRESSION: NG tube in the stomach. CXR 02/27/17 IMPRESSION: Volume loss in the left lower lobe similar to the study 2 days previously. PE: GEN: NAD HEENT: Atraumatic, PERRL LUNGS: clear HEART: RRR ABD: distended, not many BS, PEG in place, flushed - some small black flecks noted EXTREMITY: No edema SKIN: No rashes, no jaundice NEURO/PSYCH: awake A/P: A/P: Vomiting, dilated small bowel on x-ray Resp failure, trach in place Dysphagia, PEG in place (replaced 01/18/17) -has Pepcid ordered -- Ileus. Continue NG suction. Await CT. JIAN OLEA Feb 27, 2017 16:13
[2017-02-27] MEDS ORDERED: fentaNYL PF VIAL 100 MCG/2 ML VIAL IV PRN (16:45)
[2017-02-27] MEDS ORDERED: IV NORMAL SALINE 1000ML BAG 1,000 ML IV ONE (18:30)
[2017-02-27] MEDS: IV NORMAL SALINE 1000ML BAG 1,000 ML IV SCH (19:32)
[2017-02-27] MEDS ORDERED: IOHEXOL 300 MG/ML 75 ML VIAL IV ONE ×2 (21:00→23:30)
[2017-02-27] MEDS ORDERED: CONTRAST GIVEN MC PRN ×2 (21:00→23:30)
--- NOTE | 2017-02-27 21:24 | DS ---
DATE OF DISCHARGE: 02/27/2017 HOSPITAL COURSE: The patient is a 71-year-old male patient, a resident at [facility], who has been in and out that facility multiple times because of severe hypoxemia and inability to keep his oxygen saturation above 90, has excessive secretions and recurrent mucus plugging and he was evaluated. We have actually even have an oxygen concentrator that delivered 10 liters of oxygen without much improvement and despite of frequent suctioning, he continued to become hypoxic and this time he came with severe hypoxia and sepsis due to probably healthcare-associated pneumonia. Decision was made, in consultation with the retort cooler and his family, to transfer him to [facility] as he is now ventilator dependent. When I examined him today, he was resting, slightly propped up in bed, in no apparent respiratory distress. He is awake, alert, responding appropriately, denied any complaint. The nursing staff stated that his blood pressure was slightly high today, other than that, he had an uneventful night. PHYSICAL EXAMINATION GENERAL: When I examined him, he looked pale, cachectic, but no jaundice, cyanosis, or thyromegaly. No jugular venous distention. No limb edema. VITAL SIGNS: His heart rate was 92, blood pressure was 192/75, temperature was 98.6, respiratory rate was 22 and oxygen saturation was 99% on FiO2 40%. HEAD, EYES, EARS, NOSE, THROAT: Showed normocephalic, atraumatic. NECK: Supple with tracheostomy tube in place. HEART: Showed normal first and second heart sounds with no gallop, rub, or murmur. CHEST: Clear to auscultation. No crepitation or rhonchi. ABDOMEN: Distended, soft with gastrostomy tube in place. There is no guarding or rigidity. No organomegaly. Hernial orifices intact. Bowel sounds normal. NEUROLOGIC: He is awake, alert, responding appropriately. Cranial nerves intact. He moves upper extremities to a much greater extent and lower extremities, he is mostly bedbound. He is incontinent to bowel and bladder. His intake was 4300, no output was recorded. LABORATORY DATA: This morning showed a serum sodium 140, potassium 3.8, chloride 105, bicarbonate 27, anion gap of 8, BUN 16, creatinine 0.6, estimated GFR was 160 mL per minute. His blood glucose was , calcium was 9. Total bilirubin and alkaline phosphatase normal. AST, ALT slightly elevated. Total protein was 6.5, albumin was 2.1. White cell count was 19,300; hemoglobin 9.5; hematocrit 28.5; MCV 79 and platelet count of 229,000. His blood gases showed a pH of 7.46, pCO2 of 39, pO2 of 74, bicarbonate 27, oxygen saturation was 95% on FiO2 45%. His bronchoalveolar lavage washing was negative for acid fast bacilli. His sputum culture showed a growth of gram-negative rods. The identification and sensitivity is still pending at the time of this dictation. His blood cultures are negative. DISCHARGE MEDICATIONS: He will be discharged to [facility] to continue chlorhexidine gluconate 15 mL swish and spit twice a day. He is on a low-dose insulin sliding scale q. 6 hours, lorazepam 1 mg q. 4 hours, potassium chloride 20 mEq once a day, DuoNeb 4 times a day via nebulizer, famotidine 20 mg once a day, Lovenox 40 mg subcutaneously once a day, amlodipine besylate 5 mg once a day. He is on Tylenol 650 mg q. 4 hours as needed, linezolid 600 mg IV q. 12 hours, meropenem 1 gram IV q. 8 hours, methylprednisolone sodium succinate 60 mg IV q. 6 hourly. FINAL DISCHARGE DIAGNOSES: 1. [id number] hypoxic respiratory failure secondary to gram-negative and gram-positive pneumonia, recurrent mucus plugging. He continued to have copious amounts of tracheal secretions, status post bronchoscopy; chronic respiratory failure, status post tracheostomy tube; dysphagia, status post percutaneous endoscopic gastrostomy tube placement; and sepsis, currently on IV linezolid and meropenem. LILIANA ENCINAS MD DR: MAI/andres JOB#: [id number] / [id number]
[2017-02-27] MEDS ORDERED: hydrALAZINE 20 MG/ML VIAL. IVP PRN (23:15)
[2017-02-27] MEDS ORDERED: IOHEXOL 240 MG/ML 50ML VIAL. PO ONE (23:30)
[2017-02-28] VITALS (24 sets, daily range): BP systolic 115–168; BP diastolic 65–96
[2017-02-28] MEDS: fentaNYL PF VIAL 100 MCG/2 ML VIAL IV PRN (00:22)
--- NOTE | 2017-02-28 03:35 | RAD ---
EXAM: CT chest and abdomen with contrast. HISTORY: Vomiting. TECHNIQUE: CT of the chest and abdomen was performed after the intravenous administration of 75 mL Omnipaque 300. COMPARISON: None. FINDINGS: A tracheostomy appliance is in expected position. A nasogastric tube has its tip within the proximal duodenum. A gastrostomy catheter is also in place. A right arm PICC line has its tip in the superior cavoatrial junction. The heart is mildly enlarged. There is no pericardial or pleural effusion. There are no pathologically enlarged mediastinal or axillary lymph nodes. The left lower lobe is completely atelectatic. There is milder atelectasis in the right lower lobe. Centrilobular emphysema is mild to moderate. There is milder atelectasis or infiltrate in the left upper lobe. The left lower lobe bronchi are filled with debris. There is a moderate hiatal hernia. The small bowel is diffusely dilated. A transition point is not clearly identified as the pelvis is not included. The colon is relatively decompressed. There is a small amount of ascites. A surgical clip is noted in the right lower quadrant. The liver, spleen, pancreas, adrenal glands and kidneys are unremarkable. There is a gallstone in the gallbladder. There are no pathologically enlarged lymph nodes. IMPRESSION: 1. Findings consistent with small bowel obstruction. A transition point is not identified as the pelvis is not included. It is likely relatively distally in the ileum given this pattern. 2. Small ascites. No pneumoperitoneum. 3. The left lower lobe is completely atelectatic. The left lower lobe bronchus is filled with debris. Correlate for aspiration. 4. Moderate hiatal hernia. 5. Cholelithiasis. 6. Mild cardiomegaly. 7. Mild to moderate centrilobular emphysema. *One or more of the following individualized dose reduction techniques were utilized for this examination: 1. Automated exposure control. 2. Adjustment of the mA and/or kV according to patient size. 3. Use of iterative reconstruction technique. Electronically signed by: Kitty Harley MD (02/28/2017 3:32 AM)
[2017-02-28] MEDS: LORazepam 1 MG TABLET PO SCH ×5 (04:00→16:00)
[2017-02-28] MEDS: IV NORMAL SALINE 1000ML BAG 1,000 ML IV SCH ×3 (04:08→19:06)
[2017-02-28] MEDS: INSULIN ASPART 300 UNITS/3 ML INSULN.PEN SQ SCH ×4 (05:43→18:00)
[2017-02-28] MEDS: MEROPENEM 1 GM in IV NORMAL SALINE 100ML 100 ML IV SCH ×3 (05:49→22:04)
[2017-02-28] MEDS: IPRATRPIUM/ALBUTEROL 0.5/2.5MG 3 ML NEBU. NEB SCH ×4 (07:32→20:27)
--- NOTE | 2017-02-28 09:08 | PDOC ---
Infectious Disease Note Subjective Subjective Transfer to LTAC cancelled. Patient developed N/V yesterday; NGT placed; CT revealed small bowel obstruction He denies pain, SOA No fever Trach/vent. FiO2 45% Tube feedings Vital Sign Vital Signs Vital Signs Date Time Temp Pulse Resp B/P (MAP) Pulse Ox O2 Delivery O2 Flow Rate FiO2 02/28/17 07:33 100 Ventilator 02/28/17 07:00 78 22 119/72 (88) 02/28/17 04:00 97.9 97.9 Physical Exam PHYSICAL EXAM GENERAL: Alert, NAD HEENT: Oral cavity dry, thick film on tongue, NGT NECK: Trach/vent LUNGS: Clear anteriorly HEART: S1S2, regular ABDOMEN: Mild distension, present, soft, NT. G- tube EXT: No cyanosis. 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 (02/27) clean Labs Lab Laboratory Tests Test 02/27/17 11:10 02/27/17 15:45 02/27/17 15:50 02/27/17 18:10 Glucose (Fingerstick) 219 mg/dL (70-99) 139 mg/dL (70-99) White Blood Count 24.1 x10^3/uL (4.0-11.0) Red Blood Count 4.39 x10^6/uL (4.30-5.70) Hemoglobin 11.2 g/dL (13.0-17.5) Hematocrit 35.7 % (39.0-53.0) Mean Corpuscular Volume 81 fL (79-100) Mean Corpuscular Hemoglobin 26 pg (25-35) Mean Corpuscular Hemoglobin Concent 31 g/dL (31-37) Red Cell Distribution Width 21.0 % (11.5-14.5) Platelet Count 265 x10^3/uL (140-400) Lactic Acid Level 2.7 mmol/L (0.4-2.0) Test 02/28/17 00:28 02/28/17 05:35 02/28/17 05:37 Glucose (Fingerstick) 184 mg/dL (70-99) 104 mg/dL (70-99) Lactic Acid Level 1.2 mmol/L (0.4-2.0) CT chest and abdomen with contrast. IMPRESSION: 1. Findings consistent with small bowel obstruction. A transition point is not identified as the pelvis is not included. It is likely relatively distally in the ileum given this pattern. 2. Small ascites. No pneumoperitoneum. 3. The left lower lobe is completely atelectatic. The left lower lobe bronchus is filled with debris. Correlate for aspiration. 4. Moderate hiatal hernia. 5. Cholelithiasis. 6. Mild cardiomegaly. 7. Mild to moderate centrilobular emphysema. Micro GRAM STAIN Final WBCS MANY GRAM POSITIVE COCCI FEW GRAM POSITIVE RODS FEW SQUAMOUS EPITHELIAL CELLS FEW SPUTUM CULT RES 1 Preliminary Serratia marcescens SPUTUM CULT RES 2 Preliminary Gram negative rods Antibiotic RSLT#1 Amoxicillin/Clavulanic Acid R Cefazolin R Cefepime S Ceftriaxone S Cefuroxime R Ciprofloxacin S Ertapenem S Gentamicin S Imipenem S Levofloxacin S Piperacillin S Tetracycline S Tobramycin S Trimethoprim/Sulfa S AFB SPECIMEN PROCESSING Final Concentration AFB CULTURE FINAL PENDING AFB CULTURE GRAM STAIN Final Negative FUNGAL CULTURE,OTHER PENDING KUSUM CULT RES 1 PENDING Objective Assessment Leukocytosis, Pneumonia - s/p Bronch. GPC & GPR on gram stain. cx: Serratia & GNR so far Chronic resp failure Lower abd pain-better; Small bowel obstruction N/V Lactic acidosis, improved Plan Plan of Care Zyvox and meropenem Oral care f/u cultures CBC Needs palliative care eval for goals of care Attending Co-Sign The patient was seen and interviewed as well as examined at the bedside. The chart was reviewed. The case was discussed. Agree with the plan of care. FRANCISCO SHAH APRN Feb 28, 2017 09:08 MINDY TAI MD Feb 28, 2017 12:27
[2017-02-28] MEDS: amLODIPine BESYLATE 5 MG TABLET GT SCH (09:19)
[2017-02-28] MEDS: CHLORHEXIDINE 0.12% 15 ML MOUTHWASH. SWSP SCH ×2 (09:19→22:04)
[2017-02-28] MEDS: POTASSIUM CHLORIDE 20 MEQ TABLET.ER. PO SCH (09:20)
[2017-02-28] MEDS: FAMOTIDINE 20 MG TABLET. GT SCH (09:20)
[2017-02-28] MEDS: predniSONE 20 MG TABLET PO SCH (09:20)
[2017-02-28 09:49] LABS: BASO % 0 % (0-3); EOS % 0 % (0-3); HEMATOCRIT 28.3 % (39.0-53.0); HEMOGLOBIN 9.3 g/dL (13.0-17.5); LYMPH # 0.9 x10^3/uL (1.0-4.8); LYMPH % 7 % (24-48); MEAN CORPUSCULAR HEMOGLOBIN 26 pg (25-35); MEAN CORPUSCULAR HGB CONC 33 g/dL (31-37); MEAN CORPUSCULAR VOLUME 79 fL (79-100); MONO % 11 % (0-9); NEUT % 83 % (31-73); PLATELET COUNT 220 x10^3/uL (140-400); RED BLOOD COUNT 3.57 x10^6/uL (4.30-5.70); RED CELL DISTRIBUTION WIDTH 21.4 % (11.5-14.5); WHITE BLOOD COUNT 12.9 x10^3/uL (4.0-11.0)
--- NOTE | 2017-02-28 10:22 | PDOC ---
PULMONARY PROGRESS NOTES Subjective remains on CPAP Vitals Vital Signs Date Time Temp Pulse Resp B/P (MAP) Pulse Ox O2 Delivery O2 Flow Rate FiO2 02/28/17 09:19 74 147/79 02/28/17 07:33 100 Ventilator 02/28/17 07:00 22 02/28/17 04:00 97.9 97.9 General: Alert, No acute distress Lungs: Other (rhonchi left lung) Cardiovascular: S1, S2 Abdomen: Soft Neuro Exam: Alert Extremities: Other (1+edema) Labs Laboratory Tests Test 02/26/17 11:05 02/26/17 18:23 02/27/17 00:04 02/27/17 05:00 O2 Saturation 87 % (92-99) Arterial Blood pH 7.44 (7.35-7.45) Arterial Blood pCO2 at Patient Temp 37 mmHg (35-46) Arterial Blood pO2 at Patient Temp 55 mmHg (65-108) Arterial Blood HCO3 25 mmol/L (21-28) Arterial Blood Base Excess 1 mmol/L (-3-3) FiO2 40 Glucose (Fingerstick) 173 mg/dL (70-99) 202 mg/dL (70-99) White Blood Count 19.3 x10^3/uL (4.0-11.0) Red Blood Count 3.61 x10^6/uL (4.30-5.70) Hemoglobin 9.5 g/dL (13.0-17.5) Hematocrit 28.5 % (39.0-53.0) Mean Corpuscular Volume 79 fL (79-100) Mean Corpuscular Hemoglobin 26 pg (25-35) Mean Corpuscular Hemoglobin Concent 33 g/dL (31-37) Red Cell Distribution Width 21.2 % (11.5-14.5) Platelet Count 229 x10^3/uL (140-400) Neutrophils (%) (Auto) 94 % (31-73) Lymphocytes (%) (Auto) 2 % (24-48) Monocytes (%) (Auto) 4 % (0-9) Eosinophils (%) (Auto) 0 % (0-3) Basophils (%) (Auto) 0 % (0-3) Neutrophils # (Auto) 18.0 x10^3uL (1.8-7.7) Lymphocytes # (Auto) 0.5 x10^3/uL (1.0-4.8) Monocytes # (Auto) 0.8 x10^3/uL (0.0-1.1) Eosinophils # (Auto) 0.0 x10^3/uL (0.0-0.7) Basophils # (Auto) 0.0 x10^3/uL (0.0-0.2) Segmented Neutrophils % 92 % (35-66) Band Neutrophils % 2 % (0-9) Lymphocytes % 2 % (24-48) Monocytes % 4 % (0-10) Platelet Estimate Adequate (ADEQUATE) Anisocytosis Mod Tear Drop Cells Occ Ovalocytes Few Sodium Level 140 mmol/L (136-145) Potassium Level 3.8 mmol/L (3.5-5.1) Chloride Level 105 mmol/L (98-107) Carbon Dioxide Level 27 mmol/L (21-32) Anion Gap 8 (6-14) Blood Urea Nitrogen 16 mg/dL (8-26) Creatinine 0.6 mg/dL (0.7-1.3) Estimated GFR (Cockcroft-Gault) 160.7 BUN/Creatinine Ratio 27 (6-20) Glucose Level 206 mg/dL (70-99) Calcium Level 9.0 mg/dL (8.5-10.1) Total Bilirubin 0.2 mg/dL (0.2-1.0) Aspartate Amino Transf (AST/SGOT) 39 U/L (15-37) Alanine Aminotransferase (ALT/SGPT) 69 U/L (16-63) Alkaline Phosphatase 58 U/L (46-116) Total Protein 6.5 g/dL (6.4-8.2) Albumin 2.1 g/dL (3.4-5.0) Albumin/Globulin Ratio 0.5 (1.0-1.7) Test 02/27/17 05:29 02/27/17 08:00 02/27/17 11:10 02/27/17 15:45 Glucose (Fingerstick) 193 mg/dL (70-99) 219 mg/dL (70-99) O2 Saturation 95 % (92-99) Arterial Blood pH 7.46 (7.35-7.45) Arterial Blood pCO2 at Patient Temp 39 mmHg (35-46) Arterial Blood pO2 at Patient Temp 74 mmHg (65-108) Arterial Blood HCO3 27 mmol/L (21-28) Arterial Blood Base Excess 3 mmol/L (-3-3) FiO2 45 White Blood Count 24.1 x10^3/uL (4.0-11.0) Red Blood Count 4.39 x10^6/uL (4.30-5.70) Hemoglobin 11.2 g/dL (13.0-17.5) Hematocrit 35.7 % (39.0-53.0) Mean Corpuscular Volume 81 fL (79-100) Mean Corpuscular Hemoglobin 26 pg (25-35) Mean Corpuscular Hemoglobin Concent 31 g/dL (31-37) Red Cell Distribution Width 21.0 % (11.5-14.5) Platelet Count 265 x10^3/uL (140-400) Test 02/27/17 15:50 02/27/17 18:10 02/28/17 00:28 02/28/17 05:35 Lactic Acid Level 2.7 mmol/L (0.4-2.0) Glucose (Fingerstick) 139 mg/dL (70-99) 184 mg/dL (70-99) 104 mg/dL (70-99) Test 02/28/17 05:37 02/28/17 09:30 Lactic Acid Level 1.2 mmol/L (0.4-2.0) White Blood Count 12.9 x10^3/uL (4.0-11.0) Red Blood Count 3.57 x10^6/uL (4.30-5.70) Hemoglobin 9.3 g/dL (13.0-17.5) Hematocrit 28.3 % (39.0-53.0) Mean Corpuscular Volume 79 fL (79-100) Mean Corpuscular Hemoglobin 26 pg (25-35) Mean Corpuscular Hemoglobin Concent 33 g/dL (31-37) Red Cell Distribution Width 21.4 % (11.5-14.5) Platelet Count 220 x10^3/uL (140-400) Neutrophils (%) (Auto) 83 % (31-73) Lymphocytes (%) (Auto) 7 % (24-48) Monocytes (%) (Auto) 11 % (0-9) Eosinophils (%) (Auto) 0 % (0-3) Basophils (%) (Auto) 0 % (0-3) Neutrophils # (Auto) 10.7 x10^3uL (1.8-7.7) Lymphocytes # (Auto) 0.9 x10^3/uL (1.0-4.8) Monocytes # (Auto) 1.4 x10^3/uL (0.0-1.1) Eosinophils # (Auto) 0.0 x10^3/uL (0.0-0.7) Basophils # (Auto) 0.0 x10^3/uL (0.0-0.2) Laboratory Tests Test 02/27/17 11:10 02/27/17 15:45 02/27/17 15:50 02/27/17 18:10 Glucose (Fingerstick) 219 mg/dL (70-99) 139 mg/dL (70-99) White Blood Count 24.1 x10^3/uL (4.0-11.0) Red Blood Count 4.39 x10^6/uL (4.30-5.70) Hemoglobin 11.2 g/dL (13.0-17.5) Hematocrit 35.7 % (39.0-53.0) Mean Corpuscular Volume 81 fL (79-100) Mean Corpuscular Hemoglobin 26 pg (25-35) Mean Corpuscular Hemoglobin Concent 31 g/dL (31-37) Red Cell Distribution Width 21.0 % (11.5-14.5) Platelet Count 265 x10^3/uL (140-400) Lactic Acid Level 2.7 mmol/L (0.4-2.0) Test 02/28/17 00:28 02/28/17 05:35 02/28/17 05:37 02/28/17 09:30 Glucose (Fingerstick) 184 mg/dL (70-99) 104 mg/dL (70-99) Lactic Acid Level 1.2 mmol/L (0.4-2.0) White Blood Count 12.9 x10^3/uL (4.0-11.0) Red Blood Count 3.57 x10^6/uL (4.30-5.70) Hemoglobin 9.3 g/dL (13.0-17.5) Hematocrit 28.3 % (39.0-53.0) Mean Corpuscular Volume 79 fL (79-100) Mean Corpuscular Hemoglobin 26 pg (25-35) Mean Corpuscular Hemoglobin Concent 33 g/dL (31-37) Red Cell Distribution Width 21.4 % (11.5-14.5) Platelet Count 220 x10^3/uL (140-400) Neutrophils (%) (Auto) 83 % (31-73) Lymphocytes (%) (Auto) 7 % (24-48) Monocytes (%) (Auto) 11 % (0-9) Eosinophils (%) (Auto) 0 % (0-3) Basophils (%) (Auto) 0 % (0-3) Neutrophils # (Auto) 10.7 x10^3uL (1.8-7.7) Lymphocytes # (Auto) 0.9 x10^3/uL (1.0-4.8) Monocytes # (Auto) 1.4 x10^3/uL (0.0-1.1) Eosinophils # (Auto) 0.0 x10^3/uL (0.0-0.7) Basophils # (Auto) 0.0 x10^3/uL (0.0-0.2) Medications Active Scripts Medications Dose Route/Sig Max Daily Dose Days Date Category Acetaminophen 650 Mg/20.3 Ml Solution 650 Mg GT PRN Q4HRS PRN 02/20/17 Reported Prednisone 20 Mg Tablet 1 Tab GT DAILY 02/20/17 Reported Prednisone 10 Mg Tablet 10 Mg GT QODAY 02/20/17 Reported Pepcid (Famotidine) 20 Mg Tablet 20 Mg GT DAILY 02/20/17 Reported Glucose Gel (Dextrose) 38 Gm Gel..gram. 15 Gm PO 02/20/17 Reported Amlodipine Besylate 5 Mg Tablet 5 Mg GT DAILY 02/20/17 Reported Klor-Con (Potassium Chloride) 20 Meq Packet 20 Meq PO TID 02/17/17 Reported Melatonin 3 Mg Tablet 1 Tab PO QHS 02/17/17 Reported Lorazepam 1 Mg Tablet 1 Tab PO Q4HRS 02/17/17 Reported Humalog (Insulin Lispro) 100 Unit/1 Ml Cartridge 100 Unit SQ 02/17/17 Reported Glucose Gel (Dextrose) 38 Gm Gel..gram. 15 Gm PO 02/17/17 Reported Lovenox (Enoxaparin Sodium) 40 Mg/0.4 Ml Disp.syrin 0.4 Ml SQ DAILY 02/17/17 Reported Duoneb 0.5-3(2.5) Mg/3 Ml (Albuterol/Ipratropium) 3 Ml Ampul.neb 3 Ml NEB QID 02/17/17 Reported Docusate Sodium 100 Mg Capsule 1 Cap PO BID 02/17/17 Reported Biscolax (Bisacodyl) 10 Mg Supp.rect 10 Mg RC DAILY 02/17/17 Reported Acetylcysteine 10% Eye Drops (Acetylcysteine in Water/Pf) 10 Ml Drops 3 Ml 01/18/17 Reported Atropine 0.01%-Ns Eye Drops (Atropine Sulfate in 0.9% NaCl) 10 Ml Drops 10 Ml OP QID 01/18/17 Reported Pepcid (Famotidine) 20 Mg Tablet 20 Mg PO DAILY 01/18/17 Reported Transderm-Scop (Scopolamine) 1 Each Patch.td72 1 Patch TP Q3DAYS 01/18/17 Reported Miralax (Polyethylene Glycol 3350) 17 Gm Powd.pack 1 Packet PEG BID 01/18/17 Reported Acetaminophen 325 Mg Tablet 325 Mg PEG PRN Q6HRS PRN 12/04/16 Reported Hydrocodone-Apap 5-325 (Hydrocodone Bit/Acetaminophen) 1 Each Tablet 1 Tab PEG PRN Q6HRS PRN 11/21/16 Reported Impression . 1. Acute on chronic hypoxic respiratory failure secondary to gram-negative and gram-positive pneumonia/ recurrent mucus plug. s/p Bronch (Serratia) 2. Abnormal chest x-ray with persistent volume loss involving the left lower lobe consistent with pneumonia and mucus plug 3. History of chronic respiratory failure with chronic debility. 4. History of dysphagia, status post PEG tube placement. 5. Leukocytosis. 6. s/p Bronch with removal of significant purulent secretions LLL 7. Abnormal ct chest/abdomen with LLL collapse/ SBO Plan . 1. Continue CPAP trial. try TS later 2. bronchoscopy cultures (gram +rods, gm -rods and gm +cocci)/ SERRATIA SO FAR 3. ABG on CPAP trial adequate 4. Broad-spectrum antibiotics to continue until cultures are available. 5. Bronchodilators. 6. re-discussion of advance directives and still full code 7. DVT prophylaxis and stress ulcer prophylaxis. MAT KEARNS MD Feb 28, 2017 10:21
--- NOTE | 2017-02-28 11:42 | PDOC ---
GI PROGRESS NOTES Date Date/Time DATE: 02/28/17 TIME: 11:39 Subjective Subjective Unresponsive Objective Vitals Vital Signs Date Time Temp Pulse Resp B/P (MAP) Pulse Ox O2 Delivery O2 Flow Rate FiO2 02/28/17 11:23 97 Tracheal Collar 02/28/17 10:30 100 Tracheal Collar 02/28/17 09:19 74 147/79 02/28/17 09:15 100 Ventilator 02/28/17 08:00 72 25 150/80 (103) 100 Ventilator 02/28/17 08:00 Mechanical Ventilator 02/28/17 07:33 100 Ventilator 02/28/17 07:00 78 22 119/72 (88) 100 Ventilator 02/28/17 06:00 68 24 115/72 (86) 100 Ventilator 02/28/17 05:31 100 Ventilator 02/28/17 05:00 68 24 135/91 (106) 100 Ventilator 02/28/17 04:09 74 164/96 02/28/17 04:00 97.9 72 18 164/96 (118) 100 Ventilator 97.9 02/28/17 04:00 Mechanical Ventilator 02/28/17 03:35 100 Ventilator 02/28/17 03:00 66 18 137/80 (99) 100 Ventilator 02/28/17 02:00 64 18 132/77 (95) 100 Ventilator 02/28/17 01:20 100 Ventilator 02/28/17 01:00 66 18 132/77 (95) 100 Ventilator 02/28/17 00:22 19 02/28/17 00:01 97.9 80 22 146/81 (102) 96 97.9 02/27/17 23:59 Mechanical Ventilator 02/27/17 23:15 100 Ventilator 02/27/17 23:00 74 25 100 Ventilator 02/27/17 22:00 76 18 150/83 (105) 100 Ventilator 02/27/17 21:10 100 Ventilator 02/27/17 21:00 84 34 169/91 (117) 100 Ventilator 02/27/17 20:00 Mechanical Ventilator 02/27/17 20:00 98.9 86 28 181/98 (125) 100 Ventilator 98.9 02/27/17 19:43 100 Ventilator 02/27/17 19:00 76 20 163/80 (107) 100 Ventilator 02/27/17 18:30 89 22 151/89 (109) 100 Ventilator 02/27/17 18:00 87 20 189/89 (122) 100 Ventilator 02/27/17 17:14 22 100 Ventilator 02/27/17 17:00 86 13 168/97 (120) 100 Ventilator 02/27/17 16:52 100 Ventilator 02/27/17 16:44 24 99 Ventilator 02/27/17 16:00 99.2 88 21 155/86 (109) 99 Ventilator 99.2 02/27/17 16:00 Mechanical Ventilator 02/27/17 15:00 90 22 165/96 (119) 96 Ventilator 02/27/17 14:55 100 Ventilator 02/27/17 14:00 81 21 136/75 (95) 100 Ventilator 02/27/17 13:05 94 Ventilator 02/27/17 13:00 80 19 143/83 (103) 99 Ventilator 02/27/17 12:00 98.6 88 20 156/75 (102) 100 Ventilator 98.6 02/27/17 12:00 Mechanical Ventilator Labs Labs Laboratory Tests Test 02/27/17 15:45 02/27/17 15:50 02/27/17 18:10 02/28/17 00:28 White Blood Count 24.1 x10^3/uL (4.0-11.0) Red Blood Count 4.39 x10^6/uL (4.30-5.70) Hemoglobin 11.2 g/dL (13.0-17.5) Hematocrit 35.7 % (39.0-53.0) Mean Corpuscular Volume 81 fL (79-100) Mean Corpuscular Hemoglobin 26 pg (25-35) Mean Corpuscular Hemoglobin Concent 31 g/dL (31-37) Red Cell Distribution Width 21.0 % (11.5-14.5) Platelet Count 265 x10^3/uL (140-400) Lactic Acid Level 2.7 mmol/L (0.4-2.0) Glucose (Fingerstick) 139 mg/dL (70-99) 184 mg/dL (70-99) Test 02/28/17 05:35 02/28/17 05:37 02/28/17 09:30 Glucose (Fingerstick) 104 mg/dL (70-99) Lactic Acid Level 1.2 mmol/L (0.4-2.0) White Blood Count 12.9 x10^3/uL (4.0-11.0) Red Blood Count 3.57 x10^6/uL (4.30-5.70) Hemoglobin 9.3 g/dL (13.0-17.5) Hematocrit 28.3 % (39.0-53.0) Mean Corpuscular Volume 79 fL (79-100) Mean Corpuscular Hemoglobin 26 pg (25-35) Mean Corpuscular Hemoglobin Concent 33 g/dL (31-37) Red Cell Distribution Width 21.4 % (11.5-14.5) Platelet Count 220 x10^3/uL (140-400) Neutrophils (%) (Auto) 83 % (31-73) Lymphocytes (%) (Auto) 7 % (24-48) Monocytes (%) (Auto) 11 % (0-9) Eosinophils (%) (Auto) 0 % (0-3) Basophils (%) (Auto) 0 % (0-3) Neutrophils # (Auto) 10.7 x10^3uL (1.8-7.7) Lymphocytes # (Auto) 0.9 x10^3/uL (1.0-4.8) Monocytes # (Auto) 1.4 x10^3/uL (0.0-1.1) Eosinophils # (Auto) 0.0 x10^3/uL (0.0-0.7) Basophils # (Auto) 0.0 x10^3/uL (0.0-0.2) Imaging Imaging CT- ileus vs SBO Physical Exam Physical Exam on vent abd- soft few bowel sounds heard Assessment Assessment Likely ileus based on sepsis and clinical setting- and little NGT outpt since inital emesis, some BM yesterday- but cant r/o partial sbo obstruction as well Problems: Plan Plan COntinue present treatment If ngt outpt continues low, consider clamping NGT and a trial of tube feedings via PEG as tolerated later TISH SAUCEDO MD Feb 28, 2017 11:42
--- NOTE | 2017-02-28 12:57 | RAD ---
Indication: Small bowel obstruction. Time of exam 12:29 PM Comparison is made with prior radiograph from one day earlier. The NG tube remains in place with tip in the region of the third portion of the duodenum. There appears to be a G-tube. Mild gaseous distention of central small bowel loops appears improved when compared with yesterday. The colon appears decompressed. No free air is identified. Impression: Improvement in small bowel gaseous distention when compared with exam one day earlier.
[2017-02-28 13:07] LABS: CALCIUM 8.5 mg/dL (8.5-10.1); CREATININE 0.6 mg/dL (0.7-1.3); GFR 160.7; POTASSIUM 3.5 mmol/L (3.5-5.1)
[2017-02-28] MEDS: ENOXAPARIN 40 MG/0.4 ML SYRINGE. SQ SCH (14:44)
[2017-03-01] VITALS (24 sets, daily range): BP systolic 118–167; BP diastolic 70–98
[2017-03-01] MEDS: IV NORMAL SALINE 1000ML BAG 1,000 ML IV SCH ×2 (03:02→09:48)
[2017-03-01] MEDS: MEROPENEM 1 GM in IV NORMAL SALINE 100ML 100 ML IV SCH ×3 (05:41→22:09)
[2017-03-01] MEDS: INSULIN ASPART 300 UNITS/3 ML INSULN.PEN SQ SCH ×4 (05:41→18:00)
[2017-03-01 06:05] LABS: HEMATOCRIT 30.3 % (39.0-53.0); HEMOGLOBIN 10.1 g/dL (13.0-17.5); RED BLOOD COUNT 3.84 x10^6/uL (4.30-5.70); RED CELL DISTRIBUTION WIDTH 20.8 % (11.5-14.5); WHITE BLOOD COUNT 10.9 x10^3/uL (4.0-11.0)
[2017-03-01 06:18] LABS: ALBUMIN 2.1 g/dL (3.4-5.0); ALBUMIN/GLOBULIN RATIO 0.5 (1.0-1.7); CALCIUM 8.3 mg/dL (8.5-10.1); CREATININE 0.5 mg/dL (0.7-1.3); GFR 198.3; POTASSIUM 3.2 mmol/L (3.5-5.1); TOTAL BILIRUBIN 0.3 mg/dL (0.2-1.0); TOTAL PROTEIN 6.2 g/dL (6.4-8.2)
--- NOTE | 2017-03-01 06:49 | PN ---
DATE: 02/28/2017 SUBJECTIVE: The patient was initially out to go to [facility] ____ when he had an emesis and therefore, the discharge was canceled and the patient had an NG tube placed and was started again and he was continued on mechanical ventilation. He had had a CT scan of the chest and abdomen, which showed that he has what seemed to be small-bowel obstruction versus paralytic ileus. PHYSICAL EXAMINATION: GENERAL: When I examined him today, he looked well and was clearly in no apparent respiratory distress, pale, cachectic, but no jaundice, cyanosis or thyromegaly. No jugular venous distention, no limb edema. VITAL SIGNS: Heart rate was 74, blood pressure 147/79, temperature was 98, respiratory rate was 25 and oxygen saturation was 100% by tracheal shield. HEAD, EYES, EARS, NOSE AND THROAT: Showed normocephalic, atraumatic. NECK: Supple with tracheostomy tube in place. HEART: Showed normal first and second sounds. No gallop, rub or murmur. CHEST: Showed central trachea, equal bilateral expansion, air entry. No crepitation or rhonchi. ABDOMEN: Distended, soft with gastrostomy tube in place. There is no guarding or rigidity. No organomegaly. Bowel sounds sluggish. NEUROLOGIC: He was awake, alert, responding by nodding his head. All cranial nerves intact. He moves upper extremities to a much greater extent than lower extremities, mostly bed bound. INTAKE AND OUTPUT: His intake over the last 24 hours was 3600, output was 925. LABORATORY DATA: His lab work as of this morning showed a white cell count of 12,900, hemoglobin 9.3, hematocrit 28.3, MCV 79 and platelet count of ____. His chemistry is still pending at the time of this dictation. His blood sugar seems to be well controlled. His lactic acid is down from 2.7 to 1.2. ASSESSMENT: Recurrent bouts of emesis, likely due to small-bowel obstruction; however, the transition point is not identified as the pelvis is not included. It is ____ distally in the ileum given this pattern. Healthcare-associated pneumonia, status post bronchoscopy with gram-positive cocci and gram-positive rods on Gram stain. Culture has grown Serratia and gram-negative rods so far. Chronic respiratory failure. Lactic acidosis, resolved. PLAN: To continue with IV fluid, continue with Zyvox and meropenem. I will repeat all his lab work today and decide on further management accordingly. LILIANA ENCINAS MD DR: MAI/andres JOB#: [id number] / [id number]
[2017-03-01] MEDS: IPRATRPIUM/ALBUTEROL 0.5/2.5MG 3 ML NEBU. NEB SCH ×4 (08:51→19:31)
[2017-03-01] MEDS: FAMOTIDINE 20 MG TABLET. GT SCH (09:47)
[2017-03-01] MEDS: predniSONE 20 MG TABLET PO SCH (09:47)
[2017-03-01] MEDS: CHLORHEXIDINE 0.12% 15 ML MOUTHWASH. SWSP SCH ×2 (09:47→21:02)
[2017-03-01] MEDS: amLODIPine BESYLATE 5 MG TABLET GT SCH (09:48)
[2017-03-01] MEDS: POTASSIUM CHLORIDE 20 MEQ TABLET.ER. PO SCH (09:48)
[2017-03-01] MEDS: fentaNYL PF VIAL 100 MCG/2 ML VIAL IV PRN ×3 (10:06→21:02)
--- NOTE | 2017-03-01 11:19 | PDOC ---
PULMONARY PROGRESS NOTES Subjective tolerated 8 hrs of TS cannot clear secretions Vitals Vital Signs Date Time Temp Pulse Resp B/P (MAP) Pulse Ox O2 Delivery O2 Flow Rate FiO2 03/01/17 10:10 99 29 159/84 (109) 87 Tracheal Collar 03/01/17 08:00 97.8 97.8 General: Alert, No acute distress Lungs: Other (rhonchi left lung) Cardiovascular: S1, S2 Abdomen: Soft Neuro Exam: Alert Extremities: Other (1+edema) Labs Laboratory Tests Test 02/27/17 15:45 02/27/17 15:50 02/27/17 18:10 02/28/17 00:28 White Blood Count 24.1 x10^3/uL (4.0-11.0) Red Blood Count 4.39 x10^6/uL (4.30-5.70) Hemoglobin 11.2 g/dL (13.0-17.5) Hematocrit 35.7 % (39.0-53.0) Mean Corpuscular Volume 81 fL (79-100) Mean Corpuscular Hemoglobin 26 pg (25-35) Mean Corpuscular Hemoglobin Concent 31 g/dL (31-37) Red Cell Distribution Width 21.0 % (11.5-14.5) Platelet Count 265 x10^3/uL (140-400) Lactic Acid Level 2.7 mmol/L (0.4-2.0) Glucose (Fingerstick) 139 mg/dL (70-99) 184 mg/dL (70-99) Test 02/28/17 05:35 02/28/17 05:37 02/28/17 09:30 02/28/17 12:49 Glucose (Fingerstick) 104 mg/dL (70-99) 124 mg/dL (70-99) Lactic Acid Level 1.2 mmol/L (0.4-2.0) White Blood Count 12.9 x10^3/uL (4.0-11.0) Red Blood Count 3.57 x10^6/uL (4.30-5.70) Hemoglobin 9.3 g/dL (13.0-17.5) Hematocrit 28.3 % (39.0-53.0) Mean Corpuscular Volume 79 fL (79-100) Mean Corpuscular Hemoglobin 26 pg (25-35) Mean Corpuscular Hemoglobin Concent 33 g/dL (31-37) Red Cell Distribution Width 21.4 % (11.5-14.5) Platelet Count 220 x10^3/uL (140-400) Neutrophils (%) (Auto) 83 % (31-73) Lymphocytes (%) (Auto) 7 % (24-48) Monocytes (%) (Auto) 11 % (0-9) Eosinophils (%) (Auto) 0 % (0-3) Basophils (%) (Auto) 0 % (0-3) Neutrophils # (Auto) 10.7 x10^3uL (1.8-7.7) Lymphocytes # (Auto) 0.9 x10^3/uL (1.0-4.8) Monocytes # (Auto) 1.4 x10^3/uL (0.0-1.1) Eosinophils # (Auto) 0.0 x10^3/uL (0.0-0.7) Basophils # (Auto) 0.0 x10^3/uL (0.0-0.2) Sodium Level 143 mmol/L (136-145) Potassium Level 3.5 mmol/L (3.5-5.1) Chloride Level 108 mmol/L (98-107) Carbon Dioxide Level 28 mmol/L (21-32) Anion Gap 7 (6-14) Blood Urea Nitrogen 17 mg/dL (8-26) Creatinine 0.6 mg/dL (0.7-1.3) Estimated GFR (Cockcroft-Gault) 160.7 Glucose Level 111 mg/dL (70-99) Calcium Level 8.5 mg/dL (8.5-10.1) Test 02/28/17 19:08 03/01/17 00:28 03/01/17 05:34 03/01/17 05:49 Glucose (Fingerstick) 114 mg/dL (70-99) 92 mg/dL (70-99) 83 mg/dL (70-99) White Blood Count 10.9 x10^3/uL (4.0-11.0) Red Blood Count 3.84 x10^6/uL (4.30-5.70) Hemoglobin 10.1 g/dL (13.0-17.5) Hematocrit 30.3 % (39.0-53.0) Mean Corpuscular Volume 79 fL (79-100) Mean Corpuscular Hemoglobin 26 pg (25-35) Mean Corpuscular Hemoglobin Concent 33 g/dL (31-37) Red Cell Distribution Width 20.8 % (11.5-14.5) Platelet Count 205 x10^3/uL (140-400) Sodium Level 141 mmol/L (136-145) Potassium Level 3.2 mmol/L (3.5-5.1) Chloride Level 106 mmol/L (98-107) Carbon Dioxide Level 28 mmol/L (21-32) Anion Gap 7 (6-14) Blood Urea Nitrogen 12 mg/dL (8-26) Creatinine 0.5 mg/dL (0.7-1.3) Estimated GFR (Cockcroft-Gault) 198.3 BUN/Creatinine Ratio 24 (6-20) Glucose Level 87 mg/dL (70-99) Calcium Level 8.3 mg/dL (8.5-10.1) Total Bilirubin 0.3 mg/dL (0.2-1.0) Aspartate Amino Transf (AST/SGOT) 39 U/L (15-37) Alanine Aminotransferase (ALT/SGPT) 71 U/L (16-63) Alkaline Phosphatase 59 U/L (46-116) Total Protein 6.2 g/dL (6.4-8.2) Albumin 2.1 g/dL (3.4-5.0) Albumin/Globulin Ratio 0.5 (1.0-1.7) Laboratory Tests Test 02/28/17 12:49 02/28/17 19:08 03/01/17 00:28 03/01/17 05:34 Glucose (Fingerstick) 124 mg/dL (70-99) 114 mg/dL (70-99) 92 mg/dL (70-99) 83 mg/dL (70-99) Test 03/01/17 05:49 White Blood Count 10.9 x10^3/uL (4.0-11.0) Red Blood Count 3.84 x10^6/uL (4.30-5.70) Hemoglobin 10.1 g/dL (13.0-17.5) Hematocrit 30.3 % (39.0-53.0) Mean Corpuscular Volume 79 fL (79-100) Mean Corpuscular Hemoglobin 26 pg (25-35) Mean Corpuscular Hemoglobin Concent 33 g/dL (31-37) Red Cell Distribution Width 20.8 % (11.5-14.5) Platelet Count 205 x10^3/uL (140-400) Sodium Level 141 mmol/L (136-145) Potassium Level 3.2 mmol/L (3.5-5.1) Chloride Level 106 mmol/L (98-107) Carbon Dioxide Level 28 mmol/L (21-32) Anion Gap 7 (6-14) Blood Urea Nitrogen 12 mg/dL (8-26) Creatinine 0.5 mg/dL (0.7-1.3) Estimated GFR (Cockcroft-Gault) 198.3 BUN/Creatinine Ratio 24 (6-20) Glucose Level 87 mg/dL (70-99) Calcium Level 8.3 mg/dL (8.5-10.1) Total Bilirubin 0.3 mg/dL (0.2-1.0) Aspartate Amino Transf (AST/SGOT) 39 U/L (15-37) Alanine Aminotransferase (ALT/SGPT) 71 U/L (16-63) Alkaline Phosphatase 59 U/L (46-116) Total Protein 6.2 g/dL (6.4-8.2) Albumin 2.1 g/dL (3.4-5.0) Albumin/Globulin Ratio 0.5 (1.0-1.7) Medications Active Scripts Medications Dose Route/Sig Max Daily Dose Days Date Category Acetaminophen 650 Mg/20.3 Ml Solution 650 Mg GT PRN Q4HRS PRN 02/20/17 Reported Prednisone 20 Mg Tablet 1 Tab GT DAILY 02/20/17 Reported Prednisone 10 Mg Tablet 10 Mg GT QODAY 02/20/17 Reported Pepcid (Famotidine) 20 Mg Tablet 20 Mg GT DAILY 02/20/17 Reported Glucose Gel (Dextrose) 38 Gm Gel..gram. 15 Gm PO 02/20/17 Reported Amlodipine Besylate 5 Mg Tablet 5 Mg GT DAILY 02/20/17 Reported Klor-Con (Potassium Chloride) 20 Meq Packet 20 Meq PO TID 02/17/17 Reported Melatonin 3 Mg Tablet 1 Tab PO QHS 02/17/17 Reported Lorazepam 1 Mg Tablet 1 Tab PO Q4HRS 02/17/17 Reported Humalog (Insulin Lispro) 100 Unit/1 Ml Cartridge 100 Unit SQ 02/17/17 Reported Glucose Gel (Dextrose) 38 Gm Gel..gram. 15 Gm PO 02/17/17 Reported Lovenox (Enoxaparin Sodium) 40 Mg/0.4 Ml Disp.syrin 0.4 Ml SQ DAILY 02/17/17 Reported Duoneb 0.5-3(2.5) Mg/3 Ml (Albuterol/Ipratropium) 3 Ml Ampul.neb 3 Ml NEB QID 02/17/17 Reported Docusate Sodium 100 Mg Capsule 1 Cap PO BID 02/17/17 Reported Biscolax (Bisacodyl) 10 Mg Supp.rect 10 Mg RC DAILY 02/17/17 Reported Acetylcysteine 10% Eye Drops (Acetylcysteine in Water/Pf) 10 Ml Drops 3 Ml 01/18/17 Reported Atropine 0.01%-Ns Eye Drops (Atropine Sulfate in 0.9% NaCl) 10 Ml Drops 10 Ml OP QID 01/18/17 Reported Pepcid (Famotidine) 20 Mg Tablet 20 Mg PO DAILY 01/18/17 Reported Transderm-Scop (Scopolamine) 1 Each Patch.td72 1 Patch TP Q3DAYS 01/18/17 Reported Miralax (Polyethylene Glycol 3350) 17 Gm Powd.pack 1 Packet PEG BID 01/18/17 Reported Acetaminophen 325 Mg Tablet 325 Mg PEG PRN Q6HRS PRN 12/04/16 Reported Hydrocodone-Apap 5-325 (Hydrocodone Bit/Acetaminophen) 1 Each Tablet 1 Tab PEG PRN Q6HRS PRN 11/21/16 Reported Impression . 1. Acute on chronic hypoxic respiratory failure secondary to gram-negative pneumonia/ recurrent mucus plug. s/p Bronch (Serratia, Enterobacter Cloacae ) 2. Abnormal chest x-ray with persistent volume loss involving the left lower lobe consistent with pneumonia and mucus plug 3. History of chronic respiratory failure with chronic debility. 4. History of dysphagia, status post PEG tube placement. 5. Leukocytosis. 6. s/p Bronch with removal of significant purulent secretions LLL 7. Abnormal ct chest/abdomen with LLL collapse/ SBO Plan . 1. Continue TS during the day / vent qhs 2. s/p bronchoscopy cultures ( SERRATIA and ENTEROBACTER) sensitive to meropenum. 3. ABG adequate 4. Broad-spectrum antibiotics to continue per ID recommendations 5. Bronchodilators. 6. re-discussion of advance directives and still full code 7. DVT prophylaxis and stress ulcer prophylaxis. 8. Consider transfer to LTAC soon d/w RN/RT MAT KEARNS MD Mar 01, 2017 11:19
[2017-03-01] MEDS: POTASSIUM CL 40MEQ IN 0.9%NACL 1,000 ML IV SCH ×2 (11:36→21:01)
--- NOTE | 2017-03-01 11:57 | PDOC ---
Infectious Disease Note Subjective Subjective He denies pain, SOA No fever No further N/V Trach/vent. Vital Sign Vital Signs Vital Signs Date Time Temp Pulse Resp B/P (MAP) Pulse Ox O2 Delivery O2 Flow Rate FiO2 03/01/17 11:14 97 Ventilator 03/01/17 10:10 99 29 159/84 (109) 03/01/17 08:00 97.8 97.8 Physical Exam PHYSICAL EXAM GENERAL: Alert, watching TV HEENT: Oral cavity dry, thick film on tongue, NGT NECK: Trach/vent LUNGS: Clear anteriorly HEART: S1S2, regular ABDOMEN: Mild distension, present, soft, NT. G- tube EXT: No cyanosis. 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 (02/27) clean Labs Lab Laboratory Tests Test 02/28/17 12:49 02/28/17 19:08 03/01/17 00:28 03/01/17 05:34 Glucose (Fingerstick) 124 mg/dL (70-99) 114 mg/dL (70-99) 92 mg/dL (70-99) 83 mg/dL (70-99) Test 03/01/17 05:49 White Blood Count 10.9 x10^3/uL (4.0-11.0) Red Blood Count 3.84 x10^6/uL (4.30-5.70) Hemoglobin 10.1 g/dL (13.0-17.5) Hematocrit 30.3 % (39.0-53.0) Mean Corpuscular Volume 79 fL (79-100) Mean Corpuscular Hemoglobin 26 pg (25-35) Mean Corpuscular Hemoglobin Concent 33 g/dL (31-37) Red Cell Distribution Width 20.8 % (11.5-14.5) Platelet Count 205 x10^3/uL (140-400) Sodium Level 141 mmol/L (136-145) Potassium Level 3.2 mmol/L (3.5-5.1) Chloride Level 106 mmol/L (98-107) Carbon Dioxide Level 28 mmol/L (21-32) Anion Gap 7 (6-14) Blood Urea Nitrogen 12 mg/dL (8-26) Creatinine 0.5 mg/dL (0.7-1.3) Estimated GFR (Cockcroft-Gault) 198.3 BUN/Creatinine Ratio 24 (6-20) Glucose Level 87 mg/dL (70-99) Calcium Level 8.3 mg/dL (8.5-10.1) Total Bilirubin 0.3 mg/dL (0.2-1.0) Aspartate Amino Transf (AST/SGOT) 39 U/L (15-37) Alanine Aminotransferase (ALT/SGPT) 71 U/L (16-63) Alkaline Phosphatase 59 U/L (46-116) Total Protein 6.2 g/dL (6.4-8.2) Albumin 2.1 g/dL (3.4-5.0) Albumin/Globulin Ratio 0.5 (1.0-1.7) Micro GRAM STAIN Final WBCS MANY GRAM POSITIVE COCCI FEW GRAM POSITIVE RODS FEW SQUAMOUS EPITHELIAL CELLS FEW SPUTUM CULT RES 1 Preliminary Serratia marcescens SPUTUM CULT RES 2 Preliminary Enterobacter cloacae complex Antibiotic RSLT#1 Amoxicillin/Clavulanic Acid R Cefazolin R Cefepime S Ceftriaxone S Cefuroxime R Ciprofloxacin S Ertapenem S Gentamicin S Imipenem S Levofloxacin S Piperacillin S Tetracycline S Tobramycin S Trimethoprim/Sulfa S Objective Assessment Leukocytosis, better Pneumonia - s/p Bronch. GPC & GPR on gram stain. cx: Serratia & Enterobacter Chronic resp failure Lower abd pain-better; Small bowel obstruction N/V, better Lactic acidosis, improved Plan Plan of Care meropenem Oral care Await sensitivities Needs palliative care eval for goals of care Attending Co-Sign The patient was seen and interviewed as well as examined at the bedside. The chart was reviewed. The case was discussed. Agree with the plan of care. FRANCISCO SHAH APRN Mar 01, 2017 11:57 MINDY TAI MD Mar 01, 2017 14:11
[2017-03-01] MEDS: ENOXAPARIN 40 MG/0.4 ML SYRINGE. SQ SCH (15:18)
--- NOTE | 2017-03-01 15:31 | PN ---
DATE: 03/01/2017 SUBJECTIVE: The patient is resting slightly propped up in bed, sleeping comfortably. He continued to complain of abdominal pain. He still has had an NG tube to intermittent suction as about 200 mL output, has had multiple episodes of loose bowel movement. PHYSICAL EXAMINATION: GENERAL: When I examined him, he looked pale, cachectic, but no jaundice, cyanosis, or thyromegaly. No jugular venous distention. No limb edema. VITAL SIGNS: His heart rate was 99, blood pressure 158/84, temperature was 97.8, respiratory rate 29 and oxygen saturation was 87% on a tracheal shield. HEAD, EYES, EARS, NOSE AND THROAT: Showed normocephalic, atraumatic. NECK: Supple. HEART: Showed normal first and second heart sounds with no gallop, rub or murmur. CHEST: Clear to auscultation. No crepitation or rhonchi. ABDOMEN: Scaphoid, soft, nontender. No guarding or rigidity. No organomegaly. All hernial orifices intact. Bowel sounds normal. NEUROLOGIC: He was sleepy, but arousable. All cranial nerves intact. He moves upper extremities to much greater extent than lower extremities, mostly bed bound. His intake over the last 24 hours was 3600, output was 925. LABORATORY DATA: This morning showed a serum sodium 141, potassium 3.2, chloride 106, bicarbonate 28, anion gap of 7, BUN 12, creatinine 0.5, estimated GFR was 198, glucose was 87, calcium was 8.3. Total bilirubin and alkaline phosphatase normal. AST, ALT slightly elevated. Total protein was 6.2, albumin 2.1. ASSESSMENT: Paralytic ileus versus partial small-bowel obstruction. The output from NG tube is little. [id number] respiratory failure secondary to pneumonia, recurrent mucus plugging status post bronchoscopy, history of chronic respiratory failure status post tracheostomy tube, dysphagia status post PEG tube placement, multiple episodes of mucus plugging requiring multiple bronchoscopies and left lower lobe collapse. PLAN: To continue with tracheal shield. Continue with IV antibiotic. Continue with NG tube. Continue with IV fluid. He has hypokalemia, for which I will add potassium to IV fluid and repeat all his labs tomorrow and also KUB. AHMED M. CE, MD DR: MAI/andres JOB#: [id number] / [id number]
--- NOTE | 2017-03-01 16:23 | PDOC ---
GI PROGRESS NOTES Date Date/Time DATE: 03/01/17 TIME: 16:21 Subjective Subjective ileus Objective Vitals Vital Signs Date Time Temp Pulse Resp B/P (MAP) Pulse Ox O2 Delivery O2 Flow Rate FiO2 03/01/17 16:16 97 Ventilator 03/01/17 16:12 Mechanical Ventilator 03/01/17 15:00 87 23 132/77 (95) 100 Ventilator 03/01/17 14:14 87 Ventilator 03/01/17 14:00 90 19 140/83 (102) 98 Ventilator 03/01/17 13:00 100 25 165/88 (113) 100 Ventilator 03/01/17 12:18 97 Ventilator 03/01/17 12:00 Mechanical Ventilator 03/01/17 12:00 97.9 96 25 163/89 (113) 100 Ventilator 97.9 03/01/17 11:14 97 Ventilator 03/01/17 11:00 71 27 163/89 (113) 97 Ventilator 03/01/17 10:10 99 29 159/84 (109) 87 Tracheal Collar 03/01/17 10:06 29 87 Tracheal Collar 03/01/17 09:48 96 159/84 03/01/17 09:00 104 29 151/98 (115) 91 Tracheal Collar 03/01/17 08:51 100 Ventilator 03/01/17 08:00 97.8 74 31 141/80 (100) 100 Ventilator 97.8 03/01/17 08:00 Mechanical Ventilator 03/01/17 07:41 91 Ventilator 03/01/17 07:08 86 31 167/87 (113) 100 Ventilator 03/01/17 06:00 74 24 161/92 (115) 100 Ventilator 03/01/17 05:00 32 166/92 (116) 100 Ventilator 03/01/17 04:00 Mechanical Ventilator 03/01/17 04:00 97.9 17 163/77 (105) 100 Ventilator 97.9 03/01/17 03:30 100 Ventilator 03/01/17 03:00 80 23 118/75 (89) 100 Ventilator 03/01/17 02:00 82 21 156/91 (112) 100 Ventilator 03/01/17 01:00 74 19 164/91 (115) 100 Ventilator 03/01/17 00:46 100 Ventilator 03/01/17 00:00 97.5 80 26 164/88 (113) 100 Ventilator 97.5 02/28/17 23:59 Mechanical Ventilator 02/28/17 23:00 74 18 131/76 (94) 100 Ventilator 02/28/17 22:00 82 27 167/91 (116) 100 Ventilator 02/28/17 21:00 86 24 154/86 (108) 100 Ventilator 02/28/17 20:27 100 Ventilator 02/28/17 20:25 100 Ventilator 02/28/17 20:00 Mechanical Ventilator 02/28/17 20:00 98.5 77 19 168/90 (116) 100 Ventilator 98.5 02/28/17 19:00 82 24 145/95 (112) 94 Ventilator 02/28/17 18:00 78 23 157/91 (113) 99 Tracheal Collar 02/28/17 17:30 100 Ventilator 02/28/17 17:00 76 26 153/81 (105) 95 Tracheal Collar Labs Labs Laboratory Tests Test 02/28/17 19:08 03/01/17 00:28 03/01/17 05:34 03/01/17 05:49 Glucose (Fingerstick) 114 mg/dL (70-99) 92 mg/dL (70-99) 83 mg/dL (70-99) White Blood Count 10.9 x10^3/uL (4.0-11.0) Red Blood Count 3.84 x10^6/uL (4.30-5.70) Hemoglobin 10.1 g/dL (13.0-17.5) Hematocrit 30.3 % (39.0-53.0) Mean Corpuscular Volume 79 fL (79-100) Mean Corpuscular Hemoglobin 26 pg (25-35) Mean Corpuscular Hemoglobin Concent 33 g/dL (31-37) Red Cell Distribution Width 20.8 % (11.5-14.5) Platelet Count 205 x10^3/uL (140-400) Sodium Level 141 mmol/L (136-145) Potassium Level 3.2 mmol/L (3.5-5.1) Chloride Level 106 mmol/L (98-107) Carbon Dioxide Level 28 mmol/L (21-32) Anion Gap 7 (6-14) Blood Urea Nitrogen 12 mg/dL (8-26) Creatinine 0.5 mg/dL (0.7-1.3) Estimated GFR (Cockcroft-Gault) 198.3 BUN/Creatinine Ratio 24 (6-20) Glucose Level 87 mg/dL (70-99) Calcium Level 8.3 mg/dL (8.5-10.1) Total Bilirubin 0.3 mg/dL (0.2-1.0) Aspartate Amino Transf (AST/SGOT) 39 U/L (15-37) Alanine Aminotransferase (ALT/SGPT) 71 U/L (16-63) Alkaline Phosphatase 59 U/L (46-116) Total Protein 6.2 g/dL (6.4-8.2) Albumin 2.1 g/dL (3.4-5.0) Albumin/Globulin Ratio 0.5 (1.0-1.7) Physical Exam Physical Exam on vent abd- soft bowel sounds heard NGT with little outpt Assessment Assessment Likely ileus based on sepsis and clinical setting- and little NGT outpt since inital emesis, some BM yesterday- but cant r/o partial sbo obstruction as well CLinically improved over yesterday- would recommend clamp NGT and trial of low rate of TF via PEG as tolerated Problems: Plan Plan COntinue present treatment If ngt outpt continues low, consider clamping NGT and a trial of tube feedings via PEG as tolerated later TISH SAUCEDO MD Mar 01, 2017 16:23
[2017-03-02] VITALS (22 sets, daily range): BP systolic 93–168; BP diastolic 64–95
[2017-03-02] MEDS: fentaNYL PF VIAL 100 MCG/2 ML VIAL IV PRN (01:43)
[2017-03-02] MEDS: INSULIN ASPART 300 UNITS/3 ML INSULN.PEN SQ SCH ×4 (06:00→17:55)
[2017-03-02] MEDS: MEROPENEM 1 GM in IV NORMAL SALINE 100ML 100 ML IV SCH ×3 (06:10→22:26)
[2017-03-02 06:35] LABS: BASO % 0 % (0-3); EOS % 0 % (0-3); HEMATOCRIT 28.6 % (39.0-53.0); HEMOGLOBIN 9.5 g/dL (13.0-17.5); LYMPH % 10 % (24-48); MEAN CORPUSCULAR HEMOGLOBIN 26 pg (25-35); MEAN CORPUSCULAR HGB CONC 33 g/dL (31-37); MEAN CORPUSCULAR VOLUME 78 fL (79-100); MONO % 7 % (0-9); NEUT % 82 % (31-73); PLATELET COUNT 212 x10^3/uL (140-400); RED BLOOD COUNT 3.64 x10^6/uL (4.30-5.70); RED CELL DISTRIBUTION WIDTH 20.8 % (11.5-14.5); WHITE BLOOD COUNT 10.5 x10^3/uL (4.0-11.0)
[2017-03-02] MEDS: POTASSIUM CL 40MEQ IN 0.9%NACL 1,000 ML IV SCH ×2 (06:43→20:48)
[2017-03-02 06:48] LABS: ALBUMIN/GLOBULIN RATIO 0.5 (1.0-1.7); CALCIUM 8.4 mg/dL (8.5-10.1); CREATININE 0.6 mg/dL (0.7-1.3); GFR 160.7; POTASSIUM 3.9 mmol/L (3.5-5.1); TOTAL BILIRUBIN 0.5 mg/dL (0.2-1.0)
--- NOTE | 2017-03-02 07:53 | PDOC ---
Infectious Disease Note Subjective Subjective He denies pain, SOA No fever No further N/V Trach/vent. 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 SKIN: No rash IV: ok Labs Lab Laboratory Tests Test 03/02/17 00:04 03/02/17 06:20 03/02/17 06:21 Glucose (Fingerstick) 90 mg/dL (70-99) 91 mg/dL (70-99) White Blood Count 10.5 x10^3/uL (4.0-11.0) Red Blood Count 3.64 x10^6/uL (4.30-5.70) Hemoglobin 9.5 g/dL (13.0-17.5) Hematocrit 28.6 % (39.0-53.0) Mean Corpuscular Volume 78 fL (79-100) Mean Corpuscular Hemoglobin 26 pg (25-35) Mean Corpuscular Hemoglobin Concent 33 g/dL (31-37) Red Cell Distribution Width 20.8 % (11.5-14.5) Platelet Count 212 x10^3/uL (140-400) Neutrophils (%) (Auto) 82 % (31-73) Lymphocytes (%) (Auto) 10 % (24-48) Monocytes (%) (Auto) 7 % (0-9) Eosinophils (%) (Auto) 0 % (0-3) Basophils (%) (Auto) 0 % (0-3) Neutrophils # (Auto) 8.7 x10^3uL (1.8-7.7) Lymphocytes # (Auto) 1.0 x10^3/uL (1.0-4.8) Monocytes # (Auto) 0.8 x10^3/uL (0.0-1.1) Eosinophils # (Auto) 0.0 x10^3/uL (0.0-0.7) Basophils # (Auto) 0.0 x10^3/uL (0.0-0.2) Sodium Level 139 mmol/L (136-145) Potassium Level 3.9 mmol/L (3.5-5.1) Chloride Level 106 mmol/L (98-107) Carbon Dioxide Level 26 mmol/L (21-32) Anion Gap 7 (6-14) Blood Urea Nitrogen 10 mg/dL (8-26) Creatinine 0.6 mg/dL (0.7-1.3) Estimated GFR (Cockcroft-Gault) 160.7 BUN/Creatinine Ratio 17 (6-20) Glucose Level 89 mg/dL (70-99) Calcium Level 8.4 mg/dL (8.5-10.1) Total Bilirubin 0.5 mg/dL (0.2-1.0) Aspartate Amino Transf (AST/SGOT) 39 U/L (15-37) Alanine Aminotransferase (ALT/SGPT) 78 U/L (16-63) Alkaline Phosphatase 65 U/L (46-116) Lactate Dehydrogenase 175 U/L (85-227) Total Protein 6.0 g/dL (6.4-8.2) Albumin 2.0 g/dL (3.4-5.0) Albumin/Globulin Ratio 0.5 (1.0-1.7) Objective Assessment Leukocytosis, better Pneumonia - s/p Bronch. GPC & GPR on gram stain. cx: Serratia & Enterobacter Chronic resp failure Lower abd pain-better; Small bowel obstruction N/V, better Lactic acidosis, improved Plan Plan of Care meropenem Oral care d/c to LTAC MINDY Smith MD Mar 02, 2017 07:53
[2017-03-02] MEDS: IPRATRPIUM/ALBUTEROL 0.5/2.5MG 3 ML NEBU. NEB SCH ×4 (07:58→19:15)
[2017-03-02] MEDS: amLODIPine BESYLATE 5 MG TABLET GT SCH (08:15)
[2017-03-02] MEDS: FAMOTIDINE 20 MG TABLET. GT SCH (08:15)
[2017-03-02] MEDS: POTASSIUM CHLORIDE 20 MEQ/15 ML ORAL LIQUID. PEG SCH (08:15)
[2017-03-02] MEDS: predniSONE 20 MG TABLET PO SCH (08:15)
[2017-03-02] MEDS: CHLORHEXIDINE 0.12% 15 ML MOUTHWASH. SWSP SCH ×2 (08:16→20:47)
--- NOTE | 2017-03-02 08:27 | RAD ---
Indication respiratory failure. A single view of the chest was obtained. Comparison is made to an examination 3 days earlier. There is volume loss, new relative to the previous examination, in the left lower lobe compatible with atelectasis or pneumonia. The right lung is clear of acute infiltrates. There is no gross congestive heart failure. A right PICC line extends to the SVC right atrial junction. Nasogastric tube has its tip probably beyond the duodenum. Tracheostomy tube is noted. IMPRESSION: Volume loss in the left lower lobe, new relative to the previous exam, compatible with atelectasis or pneumonia
--- NOTE | 2017-03-02 09:07 | PDOC ---
PULMONARY PROGRESS NOTES Subjective tolerated 8 hrs of TS cannot clear secretions Vitals Vital Signs Date Time Temp Pulse Resp B/P (MAP) Pulse Ox O2 Delivery O2 Flow Rate FiO2 03/02/17 08:15 99 154/88 03/02/17 07:55 97 Ventilator 03/02/17 07:00 26 03/02/17 03:00 98.5 98.5 General: Alert, No acute distress Lungs: Other (rhonchi left lung) Cardiovascular: S1, S2 Abdomen: Soft Neuro Exam: Alert Extremities: Other (1+edema) Labs Laboratory Tests Test 02/28/17 09:30 02/28/17 12:49 02/28/17 19:08 03/01/17 00:28 White Blood Count 12.9 x10^3/uL (4.0-11.0) Red Blood Count 3.57 x10^6/uL (4.30-5.70) Hemoglobin 9.3 g/dL (13.0-17.5) Hematocrit 28.3 % (39.0-53.0) Mean Corpuscular Volume 79 fL (79-100) Mean Corpuscular Hemoglobin 26 pg (25-35) Mean Corpuscular Hemoglobin Concent 33 g/dL (31-37) Red Cell Distribution Width 21.4 % (11.5-14.5) Platelet Count 220 x10^3/uL (140-400) Neutrophils (%) (Auto) 83 % (31-73) Lymphocytes (%) (Auto) 7 % (24-48) Monocytes (%) (Auto) 11 % (0-9) Eosinophils (%) (Auto) 0 % (0-3) Basophils (%) (Auto) 0 % (0-3) Neutrophils # (Auto) 10.7 x10^3uL (1.8-7.7) Lymphocytes # (Auto) 0.9 x10^3/uL (1.0-4.8) Monocytes # (Auto) 1.4 x10^3/uL (0.0-1.1) Eosinophils # (Auto) 0.0 x10^3/uL (0.0-0.7) Basophils # (Auto) 0.0 x10^3/uL (0.0-0.2) Sodium Level 143 mmol/L (136-145) Potassium Level 3.5 mmol/L (3.5-5.1) Chloride Level 108 mmol/L (98-107) Carbon Dioxide Level 28 mmol/L (21-32) Anion Gap 7 (6-14) Blood Urea Nitrogen 17 mg/dL (8-26) Creatinine 0.6 mg/dL (0.7-1.3) Estimated GFR (Cockcroft-Gault) 160.7 Glucose Level 111 mg/dL (70-99) Calcium Level 8.5 mg/dL (8.5-10.1) Glucose (Fingerstick) 124 mg/dL (70-99) 114 mg/dL (70-99) 92 mg/dL (70-99) Test 03/01/17 05:34 03/01/17 05:49 03/02/17 00:04 03/02/17 06:20 Glucose (Fingerstick) 83 mg/dL (70-99) 90 mg/dL (70-99) White Blood Count 10.9 x10^3/uL (4.0-11.0) 10.5 x10^3/uL (4.0-11.0) Red Blood Count 3.84 x10^6/uL (4.30-5.70) 3.64 x10^6/uL (4.30-5.70) Hemoglobin 10.1 g/dL (13.0-17.5) 9.5 g/dL (13.0-17.5) Hematocrit 30.3 % (39.0-53.0) 28.6 % (39.0-53.0) Mean Corpuscular Volume 79 fL (79-100) 78 fL (79-100) Mean Corpuscular Hemoglobin 26 pg (25-35) 26 pg (25-35) Mean Corpuscular Hemoglobin Concent 33 g/dL (31-37) 33 g/dL (31-37) Red Cell Distribution Width 20.8 % (11.5-14.5) 20.8 % (11.5-14.5) Platelet Count 205 x10^3/uL (140-400) 212 x10^3/uL (140-400) Sodium Level 141 mmol/L (136-145) 139 mmol/L (136-145) Potassium Level 3.2 mmol/L (3.5-5.1) 3.9 mmol/L (3.5-5.1) Chloride Level 106 mmol/L (98-107) 106 mmol/L (98-107) Carbon Dioxide Level 28 mmol/L (21-32) 26 mmol/L (21-32) Anion Gap 7 (6-14) 7 (6-14) Blood Urea Nitrogen 12 mg/dL (8-26) 10 mg/dL (8-26) Creatinine 0.5 mg/dL (0.7-1.3) 0.6 mg/dL (0.7-1.3) Estimated GFR (Cockcroft-Gault) 198.3 160.7 BUN/Creatinine Ratio 24 (6-20) 17 (6-20) Glucose Level 87 mg/dL (70-99) 89 mg/dL (70-99) Calcium Level 8.3 mg/dL (8.5-10.1) 8.4 mg/dL (8.5-10.1) Total Bilirubin 0.3 mg/dL (0.2-1.0) 0.5 mg/dL (0.2-1.0) Aspartate Amino Transf (AST/SGOT) 39 U/L (15-37) 39 U/L (15-37) Alanine Aminotransferase (ALT/SGPT) 71 U/L (16-63) 78 U/L (16-63) Alkaline Phosphatase 59 U/L (46-116) 65 U/L (46-116) Total Protein 6.2 g/dL (6.4-8.2) 6.0 g/dL (6.4-8.2) Albumin 2.1 g/dL (3.4-5.0) 2.0 g/dL (3.4-5.0) Albumin/Globulin Ratio 0.5 (1.0-1.7) 0.5 (1.0-1.7) Neutrophils (%) (Auto) 82 % (31-73) Lymphocytes (%) (Auto) 10 % (24-48) Monocytes (%) (Auto) 7 % (0-9) Eosinophils (%) (Auto) 0 % (0-3) Basophils (%) (Auto) 0 % (0-3) Neutrophils # (Auto) 8.7 x10^3uL (1.8-7.7) Lymphocytes # (Auto) 1.0 x10^3/uL (1.0-4.8) Monocytes # (Auto) 0.8 x10^3/uL (0.0-1.1) Eosinophils # (Auto) 0.0 x10^3/uL (0.0-0.7) Basophils # (Auto) 0.0 x10^3/uL (0.0-0.2) Lactate Dehydrogenase 175 U/L (85-227) Test 03/02/17 06:21 Glucose (Fingerstick) 91 mg/dL (70-99) Laboratory Tests Test 03/02/17 00:04 03/02/17 06:20 03/02/17 06:21 Glucose (Fingerstick) 90 mg/dL (70-99) 91 mg/dL (70-99) White Blood Count 10.5 x10^3/uL (4.0-11.0) Red Blood Count 3.64 x10^6/uL (4.30-5.70) Hemoglobin 9.5 g/dL (13.0-17.5) Hematocrit 28.6 % (39.0-53.0) Mean Corpuscular Volume 78 fL (79-100) Mean Corpuscular Hemoglobin 26 pg (25-35) Mean Corpuscular Hemoglobin Concent 33 g/dL (31-37) Red Cell Distribution Width 20.8 % (11.5-14.5) Platelet Count 212 x10^3/uL (140-400) Neutrophils (%) (Auto) 82 % (31-73) Lymphocytes (%) (Auto) 10 % (24-48) Monocytes (%) (Auto) 7 % (0-9) Eosinophils (%) (Auto) 0 % (0-3) Basophils (%) (Auto) 0 % (0-3) Neutrophils # (Auto) 8.7 x10^3uL (1.8-7.7) Lymphocytes # (Auto) 1.0 x10^3/uL (1.0-4.8) Monocytes # (Auto) 0.8 x10^3/uL (0.0-1.1) Eosinophils # (Auto) 0.0 x10^3/uL (0.0-0.7) Basophils # (Auto) 0.0 x10^3/uL (0.0-0.2) Sodium Level 139 mmol/L (136-145) Potassium Level 3.9 mmol/L (3.5-5.1) Chloride Level 106 mmol/L (98-107) Carbon Dioxide Level 26 mmol/L (21-32) Anion Gap 7 (6-14) Blood Urea Nitrogen 10 mg/dL (8-26) Creatinine 0.6 mg/dL (0.7-1.3) Estimated GFR (Cockcroft-Gault) 160.7 BUN/Creatinine Ratio 17 (6-20) Glucose Level 89 mg/dL (70-99) Calcium Level 8.4 mg/dL (8.5-10.1) Total Bilirubin 0.5 mg/dL (0.2-1.0) Aspartate Amino Transf (AST/SGOT) 39 U/L (15-37) Alanine Aminotransferase (ALT/SGPT) 78 U/L (16-63) Alkaline Phosphatase 65 U/L (46-116) Lactate Dehydrogenase 175 U/L (85-227) Total Protein 6.0 g/dL (6.4-8.2) Albumin 2.0 g/dL (3.4-5.0) Albumin/Globulin Ratio 0.5 (1.0-1.7) Medications Active Scripts Medications Dose Route/Sig Max Daily Dose Days Date Category Acetaminophen 650 Mg/20.3 Ml Solution 650 Mg GT PRN Q4HRS PRN 02/20/17 Reported Prednisone 20 Mg Tablet 1 Tab GT DAILY 02/20/17 Reported Prednisone 10 Mg Tablet 10 Mg GT QODAY 02/20/17 Reported Pepcid (Famotidine) 20 Mg Tablet 20 Mg GT DAILY 02/20/17 Reported Glucose Gel (Dextrose) 38 Gm Gel..gram. 15 Gm PO 02/20/17 Reported Amlodipine Besylate 5 Mg Tablet 5 Mg GT DAILY 02/20/17 Reported Klor-Con (Potassium Chloride) 20 Meq Packet 20 Meq PO TID 02/17/17 Reported Melatonin 3 Mg Tablet 1 Tab PO QHS 02/17/17 Reported Lorazepam 1 Mg Tablet 1 Tab PO Q4HRS 02/17/17 Reported Humalog (Insulin Lispro) 100 Unit/1 Ml Cartridge 100 Unit SQ 02/17/17 Reported Glucose Gel (Dextrose) 38 Gm Gel..gram. 15 Gm PO 02/17/17 Reported Lovenox (Enoxaparin Sodium) 40 Mg/0.4 Ml Disp.syrin 0.4 Ml SQ DAILY 02/17/17 Reported Duoneb 0.5-3(2.5) Mg/3 Ml (Albuterol/Ipratropium) 3 Ml Ampul.neb 3 Ml NEB QID 02/17/17 Reported Docusate Sodium 100 Mg Capsule 1 Cap PO BID 02/17/17 Reported Biscolax (Bisacodyl) 10 Mg Supp.rect 10 Mg RC DAILY 02/17/17 Reported Acetylcysteine 10% Eye Drops (Acetylcysteine in Water/Pf) 10 Ml Drops 3 Ml 01/18/17 Reported Atropine 0.01%-Ns Eye Drops (Atropine Sulfate in 0.9% NaCl) 10 Ml Drops 10 Ml OP QID 01/18/17 Reported Pepcid (Famotidine) 20 Mg Tablet 20 Mg PO DAILY 01/18/17 Reported Transderm-Scop (Scopolamine) 1 Each Patch.td72 1 Patch TP Q3DAYS 01/18/17 Reported Miralax (Polyethylene Glycol 3350) 17 Gm Powd.pack 1 Packet PEG BID 01/18/17 Reported Acetaminophen 325 Mg Tablet 325 Mg PEG PRN Q6HRS PRN 12/04/16 Reported Hydrocodone-Apap 5-325 (Hydrocodone Bit/Acetaminophen) 1 Each Tablet 1 Tab PEG PRN Q6HRS PRN 11/21/16 Reported Impression . 1. Acute on chronic hypoxic respiratory failure secondary to gram-negative pneumonia/ recurrent mucus plug. s/p Bronch (Serratia, Enterobacter Cloacae ) 2. Abnormal chest x-ray with persistent volume loss involving the left lower lobe consistent with pneumonia and mucus plug 3. History of chronic respiratory failure with chronic debility. 4. History of dysphagia, status post PEG tube placement. 5. Leukocytosis. 6. s/p Bronch with removal of significant purulent secretions LLL 7. Abnormal ct chest/abdomen with LLL collapse/ SBO Plan . 1. Continue TS during the day / vent qhs 2. s/p bronchoscopy cultures ( SERRATIA and ENTEROBACTER) sensitive to meropenem. 3. ABG adequate 4. Broad-spectrum antibiotics to continue per ID recommendations 5. Bronchodilators. 6. re-discussion of advance directives and still full code 7. DVT prophylaxis and stress ulcer prophylaxis. 8. Consider transfer to LTAC soon 9. re-try entral nutrition today d/w RN/RT MAT KEARNS MD Mar 02, 2017 09:07
--- NOTE | 2017-03-02 10:29 | PDOC ---
Subjective: Subjective: Denies pain. Objective: Objective: Per RN - plans to remove NG, tube feeds restarted a couple hours ago. Vital Signs: Vital Signs Date Time Temp Pulse Resp B/P (MAP) Pulse Ox O2 Delivery O2 Flow Rate FiO2 03/02/17 08:15 99 154/88 03/02/17 08:00 Mechanical Ventilator 03/02/17 07:55 97 03/02/17 07:00 26 03/02/17 03:00 98.5 98.5 Labs: Laboratory Tests Test 03/02/17 00:04 03/02/17 06:20 03/02/17 06:21 Glucose (Fingerstick) 90 mg/dL 91 mg/dL White Blood Count 10.5 x10^3/uL Red Blood Count 3.64 x10^6/uL Hemoglobin 9.5 g/dL Hematocrit 28.6 % Mean Corpuscular Volume 78 fL Mean Corpuscular Hemoglobin 26 pg Mean Corpuscular Hemoglobin Concent 33 g/dL Red Cell Distribution Width 20.8 % Platelet Count 212 x10^3/uL Neutrophils (%) (Auto) 82 % Lymphocytes (%) (Auto) 10 % Monocytes (%) (Auto) 7 % Eosinophils (%) (Auto) 0 % Basophils (%) (Auto) 0 % Neutrophils # (Auto) 8.7 x10^3uL Lymphocytes # (Auto) 1.0 x10^3/uL Monocytes # (Auto) 0.8 x10^3/uL Eosinophils # (Auto) 0.0 x10^3/uL Basophils # (Auto) 0.0 x10^3/uL Sodium Level 139 mmol/L Potassium Level 3.9 mmol/L Chloride Level 106 mmol/L Carbon Dioxide Level 26 mmol/L Anion Gap 7 Blood Urea Nitrogen 10 mg/dL Creatinine 0.6 mg/dL Estimated GFR (Cockcroft-Gault) 160.7 BUN/Creatinine Ratio 17 Glucose Level 89 mg/dL Calcium Level 8.4 mg/dL Total Bilirubin 0.5 mg/dL Aspartate Amino Transf (AST/SGOT) 39 U/L Alanine Aminotransferase (ALT/SGPT) 78 U/L Alkaline Phosphatase 65 U/L Lactate Dehydrogenase 175 U/L Total Protein 6.0 g/dL Albumin 2.0 g/dL Albumin/Globulin Ratio 0.5 PE: GEN: NAD LUNGS: trach/vent HEART: tachycardic ABD: no distention, non-tender, BS+, PEG in place NEURO/PSYCH: awake, nods/shakes head A/P: Ileus/SBO - resolved Resp failure w/ trach, dysphagia, PEG in place -- Tube feeds resumed, going well so far. JIAN OLEA Mar 02, 2017 10:29
[2017-03-02] MEDS: ENOXAPARIN 40 MG/0.4 ML SYRINGE. SQ SCH (14:39)
[2017-03-03] VITALS (11 sets, daily range): BP systolic 111–145; BP diastolic 63–79
--- NOTE | 2017-03-03 00:22 | PN ---
DATE: 03/02/2017 SUBJECTIVE: The patient is resting slightly propped up in bed, in no apparent distress. His NG tube is clamped. He continues to be on pressure support, maintaining his oxygen saturation 10% and FiO2 of 40%. He was started on tube feeding at 20 mL per hour and that will increase to 40 in 8 hours. PHYSICAL EXAMINATION: GENERAL: When I examined him, he looked well and was clearly in no apparent respiratory distress, pale, cachectic, no jaundice, cyanosis, or thyromegaly. No jugular venous distention. No limb edema. VITAL SIGNS: Heart rate was 88, blood pressure was 146/77, temperature was 98, and respiratory rate was 20, and oxygen saturation was 100% on FIO2 of 40% on pressure support. HEAD, EYES, EARS, NOSE AND THROAT: Showed normocephalic, atraumatic. He has a NG tube that is clamped. NECK: Supple with tracheostomy tube in place. HEART: Showed normal first and second sounds. No gallop, rub or murmur. CHEST: Clear to auscultation. No crepitation or rhonchi. ABDOMEN: Distended, soft. Gastrostomy tube in place. There is no guarding or rigidity. No organomegaly. Hernial orifices intact. Bowel sounds normal. NEUROLOGIC: He is awake, alert, responding appropriately. He moves his upper extremities demonstrate ____, mostly bed bound. His intake over the last 24 hours was 3800, output was 700. LABORATORY DATA: As of this morning, his white cell count was 10,500, hemoglobin 9.5, hematocrit 28.6, MCV 78 and platelet count ____. His chemistry this morning showed a serum sodium 139, potassium 3.9, chloride 106, bicarbonate 26, his anion gap of 7, BUN 10, creatinine 0.6, estimated GFR was 160 mL per minute. His glucose was 89, calcium was 8.4. Total bilirubin and alkaline phosphatase normal. AST, ALT slightly elevated. His LDH was 175. Total protein 6, albumin was 2. Paralytic ileus versus partial small-bowel obstruction resolved. The patient was started back on tube feeding at 20 mL per hour, acute respiratory failure, healthcare-associated pneumonia for which he continues to be on meropenem and chronic respiratory failure, status post tracheostomy, excessive secretion and recurrent mucus plugging requiring multiple bronchoscopies, dysphagia, status post percutaneous endoscopic gastrostomy tube placement. The patient has also dementia, hypertension seems to be well controlled, hypokalemia resolved. His potassium is up to 3.9. PLAN: To continue with IV antibiotic. Continue with nutritional support and we will discontinue IV fluid or at least cut it back for now and discontinue altogether tomorrow and if he remains stable. We will be able to discharge him to [facility] [place]. LILIANA ENCINAS MD DR: MAI/andres JOB#: [id number] / [id number]
[2017-03-03] MEDS: MEROPENEM 1 GM in IV NORMAL SALINE 100ML 100 ML IV SCH (05:43)
[2017-03-03] MEDS: POTASSIUM CL 40MEQ IN 0.9%NACL 1,000 ML IV SCH (05:44)
[2017-03-03] MEDS: INSULIN ASPART 300 UNITS/3 ML INSULN.PEN SQ SCH ×2 (05:46)
[2017-03-03 05:51] LABS: CALCIUM 8.5 mg/dL (8.5-10.1); CREATININE 0.5 mg/dL (0.7-1.3); GFR 198.3; POTASSIUM 4.2 mmol/L (3.5-5.1)
[2017-03-03] MEDS: IPRATRPIUM/ALBUTEROL 0.5/2.5MG 3 ML NEBU. NEB SCH (07:14)
--- NOTE | 2017-03-03 07:41 | PDOC ---
Infectious Disease Note Subjective Subjective He denies pain, SOA No fever No further N/V Trach/ off vent ROS ROS unable to do Vital Sign Vital Signs Vital Signs Date Time Temp Pulse Resp B/P (MAP) Pulse Ox O2 Delivery O2 Flow Rate FiO2 03/03/17 07:16 100 Tracheal Collar 10.0 03/03/17 06:00 73 18 138/76 (96) 03/03/17 04:00 98.0 98.0 Physical Exam PHYSICAL EXAM GENERAL: NAD, Alert HEENT: PERRL, OC/OP NECK: Supple, no JVD, no LN LUNGS: Clear HEART: S1S2, no gallop, no murmur ABD: Soft, NT, no organomegaly, no rebound EXT: No edema, no cyanosis PR[employer] FINISHER: Alert, trach SKIN: No rash IV: ok Labs Lab Laboratory Tests Test 03/02/17 12:19 03/02/17 17:55 03/03/17 05:27 03/03/17 05:30 Glucose (Fingerstick) 121 mg/dL (70-99) 119 mg/dL (70-99) 120 mg/dL (70-99) Sodium Level 139 mmol/L (136-145) Potassium Level 4.2 mmol/L (3.5-5.1) Chloride Level 108 mmol/L (98-107) Carbon Dioxide Level 28 mmol/L (21-32) Anion Gap 3 (6-14) Blood Urea Nitrogen 9 mg/dL (8-26) Creatinine 0.5 mg/dL (0.7-1.3) Estimated GFR (Cockcroft-Gault) 198.3 Glucose Level 120 mg/dL (70-99) Calcium Level 8.5 mg/dL (8.5-10.1) Objective Assessment Leukocytosis, better Pneumonia - s/p Bronch. GPC & GPR on gram stain. cx: Serratia & Enterobacter Chronic resp failure Lower abd pain-better; Small bowel obstruction N/V, better Lactic acidosis, improved Plan Plan of Care meropenem Oral care d/c to LTAC MINDY Smith MD Mar 03, 2017 07:41
[2017-03-03] MEDS: POTASSIUM CHLORIDE 20 MEQ/15 ML ORAL LIQUID. PEG SCH (08:51)
[2017-03-03] MEDS: FAMOTIDINE 20 MG TABLET. GT SCH (08:51)
[2017-03-03] MEDS: CHLORHEXIDINE 0.12% 15 ML MOUTHWASH. SWSP SCH (08:51)
[2017-03-03] MEDS: predniSONE 20 MG TABLET PO SCH (08:52)
[2017-03-03] MEDS: amLODIPine BESYLATE 5 MG TABLET GT SCH (08:52)
--- NOTE | 2017-03-03 10:38 | PDOC ---
PULMONARY PROGRESS NOTES Subjective Pt with no increase soa off vent QAM Vitals Vital Signs Date Time Temp Pulse Resp B/P (MAP) Pulse Ox O2 Delivery O2 Flow Rate FiO2 03/03/17 10:00 77 31 137/63 (87) 97 Tracheal Collar 03/03/17 08:00 98.4 98.4 03/03/17 07:16 10.0 ROS: No Chest Pain, No Abdominal Pain, No Increase Cough General: Alert Lungs: Other (sally rhonchi ) Cardiovascular: S1, S2 Abdomen: Soft Neuro Exam: Alert Extremities: Other (1+edema) Labs Laboratory Tests Test 03/02/17 00:04 03/02/17 06:20 03/02/17 06:21 03/02/17 12:19 Glucose (Fingerstick) 90 mg/dL (70-99) 91 mg/dL (70-99) 121 mg/dL (70-99) White Blood Count 10.5 x10^3/uL (4.0-11.0) Red Blood Count 3.64 x10^6/uL (4.30-5.70) Hemoglobin 9.5 g/dL (13.0-17.5) Hematocrit 28.6 % (39.0-53.0) Mean Corpuscular Volume 78 fL (79-100) Mean Corpuscular Hemoglobin 26 pg (25-35) Mean Corpuscular Hemoglobin Concent 33 g/dL (31-37) Red Cell Distribution Width 20.8 % (11.5-14.5) Platelet Count 212 x10^3/uL (140-400) Neutrophils (%) (Auto) 82 % (31-73) Lymphocytes (%) (Auto) 10 % (24-48) Monocytes (%) (Auto) 7 % (0-9) Eosinophils (%) (Auto) 0 % (0-3) Basophils (%) (Auto) 0 % (0-3) Neutrophils # (Auto) 8.7 x10^3uL (1.8-7.7) Lymphocytes # (Auto) 1.0 x10^3/uL (1.0-4.8) Monocytes # (Auto) 0.8 x10^3/uL (0.0-1.1) Eosinophils # (Auto) 0.0 x10^3/uL (0.0-0.7) Basophils # (Auto) 0.0 x10^3/uL (0.0-0.2) Sodium Level 139 mmol/L (136-145) Potassium Level 3.9 mmol/L (3.5-5.1) Chloride Level 106 mmol/L (98-107) Carbon Dioxide Level 26 mmol/L (21-32) Anion Gap 7 (6-14) Blood Urea Nitrogen 10 mg/dL (8-26) Creatinine 0.6 mg/dL (0.7-1.3) Estimated GFR (Cockcroft-Gault) 160.7 BUN/Creatinine Ratio 17 (6-20) Glucose Level 89 mg/dL (70-99) Calcium Level 8.4 mg/dL (8.5-10.1) Total Bilirubin 0.5 mg/dL (0.2-1.0) Aspartate Amino Transf (AST/SGOT) 39 U/L (15-37) Alanine Aminotransferase (ALT/SGPT) 78 U/L (16-63) Alkaline Phosphatase 65 U/L (46-116) Lactate Dehydrogenase 175 U/L (85-227) Total Protein 6.0 g/dL (6.4-8.2) Albumin 2.0 g/dL (3.4-5.0) Albumin/Globulin Ratio 0.5 (1.0-1.7) Test 03/02/17 17:55 03/03/17 05:27 03/03/17 05:30 Glucose (Fingerstick) 119 mg/dL (70-99) 120 mg/dL (70-99) Sodium Level 139 mmol/L (136-145) Potassium Level 4.2 mmol/L (3.5-5.1) Chloride Level 108 mmol/L (98-107) Carbon Dioxide Level 28 mmol/L (21-32) Anion Gap 3 (6-14) Blood Urea Nitrogen 9 mg/dL (8-26) Creatinine 0.5 mg/dL (0.7-1.3) Estimated GFR (Cockcroft-Gault) 198.3 Glucose Level 120 mg/dL (70-99) Calcium Level 8.5 mg/dL (8.5-10.1) Laboratory Tests Test 03/02/17 12:19 03/02/17 17:55 03/03/17 05:27 03/03/17 05:30 Glucose (Fingerstick) 121 mg/dL (70-99) 119 mg/dL (70-99) 120 mg/dL (70-99) Sodium Level 139 mmol/L (136-145) Potassium Level 4.2 mmol/L (3.5-5.1) Chloride Level 108 mmol/L (98-107) Carbon Dioxide Level 28 mmol/L (21-32) Anion Gap 3 (6-14) Blood Urea Nitrogen 9 mg/dL (8-26) Creatinine 0.5 mg/dL (0.7-1.3) Estimated GFR (Cockcroft-Gault) 198.3 Glucose Level 120 mg/dL (70-99) Calcium Level 8.5 mg/dL (8.5-10.1) Medications Active Scripts Medications Dose Route/Sig Max Daily Dose Days Date Category Acetaminophen 650 Mg/20.3 Ml Solution 650 Mg GT PRN Q4HRS PRN 02/20/17 Reported Prednisone 20 Mg Tablet 1 Tab GT DAILY 02/20/17 Reported Prednisone 10 Mg Tablet 10 Mg GT QODAY 02/20/17 Reported Pepcid (Famotidine) 20 Mg Tablet 20 Mg GT DAILY 02/20/17 Reported Glucose Gel (Dextrose) 38 Gm Gel..gram. 15 Gm PO 02/20/17 Reported Amlodipine Besylate 5 Mg Tablet 5 Mg GT DAILY 02/20/17 Reported Klor-Con (Potassium Chloride) 20 Meq Packet 20 Meq PO TID 02/17/17 Reported Melatonin 3 Mg Tablet 1 Tab PO QHS 02/17/17 Reported Lorazepam 1 Mg Tablet 1 Tab PO Q4HRS 02/17/17 Reported Humalog (Insulin Lispro) 100 Unit/1 Ml Cartridge 100 Unit SQ 02/17/17 Reported Glucose Gel (Dextrose) 38 Gm Gel..gram. 15 Gm PO 02/17/17 Reported Lovenox (Enoxaparin Sodium) 40 Mg/0.4 Ml Disp.syrin 0.4 Ml SQ DAILY 02/17/17 Reported Duoneb 0.5-3(2.5) Mg/3 Ml (Albuterol/Ipratropium) 3 Ml Ampul.neb 3 Ml NEB QID 02/17/17 Reported Docusate Sodium 100 Mg Capsule 1 Cap PO BID 02/17/17 Reported Biscolax (Bisacodyl) 10 Mg Supp.rect 10 Mg RC DAILY 02/17/17 Reported Acetylcysteine 10% Eye Drops (Acetylcysteine in Water/Pf) 10 Ml Drops 3 Ml 01/18/17 Reported Atropine 0.01%-Ns Eye Drops (Atropine Sulfate in 0.9% NaCl) 10 Ml Drops 10 Ml OP QID 01/18/17 Reported Pepcid (Famotidine) 20 Mg Tablet 20 Mg PO DAILY 01/18/17 Reported Transderm-Scop (Scopolamine) 1 Each Patch.td72 1 Patch TP Q3DAYS 01/18/17 Reported Miralax (Polyethylene Glycol 3350) 17 Gm Powd.pack 1 Packet PEG BID 01/18/17 Reported Acetaminophen 325 Mg Tablet 325 Mg PEG PRN Q6HRS PRN 12/04/16 Reported Hydrocodone-Apap 5-325 (Hydrocodone Bit/Acetaminophen) 1 Each Tablet 1 Tab PEG PRN Q6HRS PRN 11/21/16 Reported Impression . 1. Acute on chronic hypoxic respiratory failure secondary to gram-negative pneumonia/ recurrent mucus plug. s/p Bronch (Serratia, Enterobacter Cloacae ) 2. Abnormal chest x-ray with persistent volume loss involving the left lower lobe consistent with pneumonia and mucus plug 3. History of chronic respiratory failure with chronic debility. 4. History of dysphagia, status post PEG tube placement. 5. Leukocytosis. 6. s/p Bronch with removal of significant purulent secretions LLL 7. Abnormal ct chest/abdomen with LLL collapse/ SBO Plan . ok to transfer to LTAC 1. Continue TS during the day / vent qhs 2. s/p bronchoscopy cultures ( SERRATIA and ENTEROBACTER) sensitive to meropenem. 3. ABG adequate 4. Broad-spectrum antibiotics to continue per ID recommendations 5. Bronchodilators. 6. re-discussion of advance directives and still full code 7. DVT prophylaxis and stress ulcer prophylaxis. 8. Consider transfer to LTAC soon 9. tube feeding HUSSEIN BREEN MD Mar 03, 2017 10:38
--- NOTE | 2017-03-03 10:39 | PDOC ---
Subjective: Subjective: Denies pain. Objective: Objective: Per RN - DC today, no GI concerns, no issues w/ PEG/tube feeds. Vital Signs: Vital Signs Date Time Temp Pulse Resp B/P (MAP) Pulse Ox O2 Delivery O2 Flow Rate FiO2 03/03/17 10:00 77 31 137/63 (87) 97 Tracheal Collar 03/03/17 08:00 98.4 98.4 03/03/17 07:16 10.0 Labs: Laboratory Tests Test 03/02/17 12:19 03/02/17 17:55 03/03/17 05:27 Glucose (Fingerstick) 121 mg/dL (70-99) 119 mg/dL (70-99) 120 mg/dL (70-99) PE: GEN: NAD LUNGS:trach collar HEART: RRR ABD: BS+, PEG in place, non-tender NEURO/PSYCH: A & O 3 A/P: Ileus/SBO - resolved Resp failure w/ trach, dysphagia, PEG in place -- DC plans noted, okay per GI. JIAN OLEA Mar 03, 2017 10:39
--- NOTE | 2017-03-03 15:16 | DS ---
DATE OF DISCHARGE: 03/03/2017 HOSPITAL COURSE: The patient is a 71-year-old -[place]izen [place] male patient, a resident at [facility], who was actually in the process of being discharged to [facility] on 02/27/2017, when he had had recurrent bouts of nausea, vomiting and he spiked his temperature and therefore, the discharge was canceled and patient was started on IV antibiotics, IV fluids, and kept n.p.o. His CT scan of the abdomen and pelvis showed that he has paralytic ileus. He has had an NG tube placed to intermittent suction, kept him n.p.o., continued IV antibiotics in the form of vancomycin and meropenem. He did very well. The drainage from his stomach was dwindled and therefore, we discontinued the NG tube and started him on tube feeding at 20 mL per hour and that was increased slowly to the goal of 60 and he tolerated that very well. His vancomycin was discontinued and he remained stable and the decision was made to discharge him to [facility] to continue with the IV antibiotic, to continue with his tube feeding and water flushes, to continue with T-tube and obviously on ventilator support. PHYSICAL EXAMINATION: GENERAL: When I examined him this morning, he looked well and was clearly in no apparent respiratory distress, pale. No jaundice, cyanosis, or thyromegaly. No jugular venous distention. No limb edema. VITAL SIGNS: His heart rate was 77, blood pressure was 137/63, temperature was 98.4, respiratory rate 20, and oxygen saturation was 96% on FIO2 of 40% by T-tube. HEAD, EYES, EARS, NOSE, AND THROAT: Showed normocephalic, atraumatic. NECK: Supple. HEART: Showed normal first and second heart sounds with no gallop, rub, or murmur. CHEST: Clear to auscultation. No crepitation or rhonchi. ABDOMEN: Distended, soft with a gastrostomy tube in place. There was no guarding or rigidity. No organomegaly. Hernial orifices intact. Bowel sounds normal. NEUROLOGIC: He was awake, alert, responding appropriately. He opens eyes, tracks and nods his head. All his cranial nerves were intact. EXTREMITIES: He moves his upper extremities to a much good extent than his lower extremities. He was mostly bed bound. INTAKE AND OUTPUT: His intake over the last 24 hours was ____; no output was recorded, as he was incontinent of bowel and bladder. LABORATORY DATA: His lab work this morning showed a white cell count of 10,500, hemoglobin 9.5, hematocrit 29, MCV 78 and platelet count 112,000. His chemistry this morning showed serum sodium of 139, potassium 4.2, chloride 108, bicarbonate 28, anion gap of 3, BUN 9, creatinine 0.5. Estimated GFR was 198 mL per minute. His glucose was 120. Calcium was 8.5. DISCHARGE MEDICATIONS: He was discharged to continue on potassium chloride 20 mEq per feeding tube daily, lorazepam 1 mg p.o. every 6 hours, prednisone 20 mg p.o. daily, chlorhexidine gluconate swish and spit twice a day, he is on insulin sliding scale every 6 hours, albuterol and DuoNeb 3 mL 4 times a day, famotidine 20 mg once a day, Lovenox 40 mg once a day, amlodipine 5 mg once a day, acetaminophen 650 mg every 4 hours as needed and meropenem 1 gram IV every 8 hours. FINAL DISCHARGE DIAGNOSES: 1. [id number] hypoxic respiratory failure secondary to gram-negative and gram-positive pneumonia. 2. Recurrent mucus plugging. 3. Paralytic ileus, resolved. 4. Chronic respiratory failure, status post tracheostomy tube placement. 5. Dysphagia, status post percutaneous endoscopic gastrostomy tube placement. 6. Sepsis, for which he continues to be on IV meropenem. LILIANA ENCINAS MD DR: MAI/andres JOB#: [id number] / [id number]
== END 2017-03-03 10:45 | DRG 853 ==
LOC: ER 04:06 → 1 WEST ICU 05:33
PROVIDERS: ADMIT Internal Medicine; ATTEND Internal Medicine
PROC: 0B9J8ZX Drainage of Left Lower Lung Lobe, Via Natural or Artificial Opening Endoscopic, Diagnostic (ICD-10-PCS; principal; 2017-02-25)
PROC: 5A1945Z Respiratory Ventilation, 24-96 Consecutive Hours (ICD-10-PCS; 2017-02-25)
PROC: 0BH17EZ Insertion of Endotracheal Airway into Trachea, Via Natural or Artificial Opening (ICD-10-PCS; 2017-02-25)
PROC: 0B21XFZ Change Tracheostomy Device in Trachea, External Approach (ICD-10-PCS; 2017-02-25)
PROC: 0D9670Z Drainage of Stomach with Drainage Device, Via Natural or Artificial Opening (ICD-10-PCS; 2017-02-25)
PROC: 02HV33Z Insertion of Infusion Device into Superior Vena Cava, Percutaneous Approach (ICD-10-PCS; 2017-03-02)
DX: A41.9 Sepsis, unspecified organism (principal); J96.21 Acute and chronic respiratory failure with hypoxia; J15.6 Pneumonia due to other Gram-negative bacteria; K56.0 Paralytic ileus; Z99.11 Dependence on respirator [ventilator] status; I11.9 Hypertensive heart disease without heart failure; I48.91 Unspecified atrial fibrillation; J43.2 Centrilobular emphysema; K80.20 Calculus of gallbladder without cholecystitis without obstruction; F03.90 Unspecified dementia, unspecified severity, without behavioral disturbance, psychotic disturbance, mood disturbance, and anxiety; R13.10 Dysphagia, unspecified; R65.20 Severe sepsis without septic shock; Y95 Nosocomial condition; R29.6 Repeated falls; Z86.73 Personal history of transient ischemic attack (TIA), and cerebral infarction without residual deficits; Z87.440 Personal history of urinary (tract) infections; Z93.0 Tracheostomy status; Z93.1 Gastrostomy status
CPT/HCPCS: 31622; 36415; 36600; 71010; 71260; 74000; 74160; 80048; 80053; 82553; 82805; 82962; 83605; 83615; 83880; 84484; 85007; 85027; 87040; 87070; 87102; 87116; 87186; 87205; 87641; 88112; 93005; 94002; 94003; 94640; J0360; J1650; J1815; J2020; J2060; J2185; J2250; J2405; J2930; J3010; J3480; J7030; J7512; J7620; Q9966; Q9967

== ENCOUNTER 2017-03-25 00:46 | Inpatient (IN) | payer MEDICARE, MEDICAID ==
[2017-03-25] VITALS (10 sets, daily range): BP systolic 122–157; BP diastolic 59–75
[~2017-03-25] VITALS: Ht 170.2 cm; Wt 60.9 kg
[~2017-03-25 00:46] MED LIST changes: +DOCU100C28 PO; -DOCU100C5 PO; -HYDR-2666 PEG; +HYDR-2758 PEG; +LORA1TAB PEG; -LORA1TAB PO; -MELA3TAB PO; +MELA3TAB2 PO; +POTA20PA PEG; -POTA20PA PO
[2017-03-25 01:24] LABS: BASO % 0 % (0-3); EOS % 0 % (0-3); HEMATOCRIT 28.1 % (39.0-53.0); HEMOGLOBIN 9.2 g/dL (13.0-17.5); LYMPH # 1.7 x10^3/uL (1.0-4.8); LYMPH % 17 % (24-48); MEAN CORPUSCULAR HEMOGLOBIN 26 pg (25-35); MEAN CORPUSCULAR HGB CONC 33 g/dL (31-37); MEAN CORPUSCULAR VOLUME 79 fL (79-100); MONO % 16 % (0-9); NEUT % 67 % (31-73); PLATELET COUNT 203 x10^3/uL (140-400); RED BLOOD COUNT 3.57 x10^6/uL (4.30-5.70); RED CELL DISTRIBUTION WIDTH 20.3 % (11.5-14.5); WHITE BLOOD COUNT 10.4 x10^3/uL (4.0-11.0)
[2017-03-25 01:36] LABS: CALCIUM 9.6 mg/dL (8.5-10.1); CREATININE 0.8 mg/dL (0.7-1.3); GFR 115.3; POTASSIUM 4.5 mmol/L (3.5-5.1)
[2017-03-25 01:42] LABS: ALBUMIN 2.4 g/dL (3.4-5.0); DIRECT BILIRUBIN 0.1 mg/dL (0.0-0.2); TOTAL BILIRUBIN 0.3 mg/dL (0.2-1.0); TOTAL PROTEIN 7.2 g/dL (6.4-8.2)
[2017-03-25] MEDS ORDERED: PIP/TAZO PER PHARMACY MC PRN (02:00)
--- NOTE | 2017-03-25 02:10 | PHYS DOC ---
Past Medical History Past Medical History: Dementia, Hypertension, Pneumonia, UTI Additional Past Medical Histor: dysphagia, urinary retention, falls, ARF, APHASIA Past Surgical History: Other Additional Past Surgical Histo: peg tube, Trach Alcohol Use: None Drug Use: None Adult General Chief Complaint Chief Complaint: SHORTNESS OF BREATH HPI HPI 71-year-old male presenting to the emergency department today after having low oxygen saturations at his group home facility. This is started approximately 6 hours ago. EMS brings the patient in today. Report 78% on room air when they arrived. The patient is placed on trach mask and brought in for further care. There was report of the fever taken by EMS of 100.8. Onset today. Location lungs. Duration intermittent. No alleviating or exacerbating factors present. Review of systems is negative for chest pain abdominal pain nausea vomiting. Positive for fever. All other review of systems is negative unless otherwise noted in history of present illness. ED course: 71-year-old gentleman presenting to the emergency department today with fever cough and hypoxia. Concern for possible pneumonia. Chest x-ray looks like a left lower lobe pneumonia. No previous for comparison. Reviewed by myself. EKG obtained. ST segments congruent. Sinus rhythm. Unremarkable. Otherwise blood work obtained which showed normal white blood cell count with mild anemia. The patient was given broad-spectrum antibiotics. Respiratory therapy perform suctioning in the emergency department and pulmonary toilet. The patient was then admitted to our hospital for further evaluation workup and care to the patient's primary care physician Dr. Matthews whom I spoke to at approximately 2 AM at which point the patient's care was transferred. Review of Systems Review of Systems SEE ABOVE. Current Medications Current Medications Current Medications Medications (Trade) Dose Ordered Sig/Anh Start Time Stop Time Status Last Admin Dose Admin Piperacillin Sod/ Tazobactam Sod (Zosyn Per Pharmacy) 1 each PRN DAILY PRN 03/25/17 02:00 UNV Vancomycin HCl (Vanco Per Pharmacy) 1 each PRN DAILY PRN 03/25/17 02:00 UNV Allergies Allergies Allergies Coded Allergies Type Severity Reaction Last Updated Verified No Known Drug Allergies 01/22/17 No Physical Exam Physical Exam Constitutional: Well developed, well nourished, no acute distress, non-toxic appearance. [] HENT: Normocephalic, atraumatic, bilateral external ears normal, oropharynx moist, no oral exudates, nose normal. [] Eyes: PERRLA, EOMI, conjunctiva normal, no discharge. [] Neck: Normal range of motion, no tenderness, supple, no stridor. [] Cardiovascular:Heart rate regular rhythm, no murmur [] Lungs & Thorax: mild wheezing in the left greater than right Abdomen: Bowel sounds normal, soft, no tenderness, no masses, no pulsatile masses. [] Skin: Warm, dry, no erythema, no rash. [] Back: No tenderness, no CVA tenderness. [] Extremities: No tenderness, no cyanosis, no clubbing, ROM intact, no edema. [] Neurologic: Alert and oriented X 3, normal motor function, normal sensory function, no focal deficits noted. [] Psychologic: Affect normal, judgement normal, mood normal. [] Current Patient Data Vital Signs Vital Signs Date Time Temp Pulse Resp B/P (MAP) Pulse Ox O2 Delivery O2 Flow Rate FiO2 03/25/17 00:48 98.5 99 113/58 (76) 95 NonRebreather Mask 15.0 98.5 Lab Values Laboratory Tests Test 03/25/17 01:15 White Blood Count 10.4 x10^3/uL (4.0-11.0) Red Blood Count 3.57 x10^6/uL (4.30-5.70) L Hemoglobin 9.2 g/dL (13.0-17.5) L Hematocrit 28.1 % (39.0-53.0) L Mean Corpuscular Volume 79 fL (79-100) Mean Corpuscular Hemoglobin 26 pg (25-35) Mean Corpuscular Hemoglobin Concent 33 g/dL (31-37) Red Cell Distribution Width 20.3 % (11.5-14.5) H Platelet Count 203 x10^3/uL (140-400) Neutrophils (%) (Auto) 67 % (31-73) Lymphocytes (%) (Auto) 17 % (24-48) L Monocytes (%) (Auto) 16 % (0-9) H Eosinophils (%) (Auto) 0 % (0-3) Basophils (%) (Auto) 0 % (0-3) Neutrophils # (Auto) 6.9 x10^3uL (1.8-7.7) Lymphocytes # (Auto) 1.7 x10^3/uL (1.0-4.8) Monocytes # (Auto) 1.7 x10^3/uL (0.0-1.1) H Eosinophils # (Auto) 0.0 x10^3/uL (0.0-0.7) Basophils # (Auto) 0.0 x10^3/uL (0.0-0.2) Platelet Estimate Pending Sodium Level 135 mmol/L (136-145) L Potassium Level 4.5 mmol/L (3.5-5.1) Chloride Level 100 mmol/L (98-107) Carbon Dioxide Level 27 mmol/L (21-32) Anion Gap 8 (6-14) Blood Urea Nitrogen 19 mg/dL (8-26) Creatinine 0.8 mg/dL (0.7-1.3) Estimated GFR (Cockcroft-Gault) 115.3 Glucose Level 130 mg/dL (70-99) H Lactic Acid Level 1.5 mmol/L (0.4-2.0) Calcium Level 9.6 mg/dL (8.5-10.1) Total Bilirubin 0.3 mg/dL (0.2-1.0) Direct Bilirubin 0.1 mg/dL (0.0-0.2) Aspartate Amino Transferase (AST) 44 U/L (15-37) H Alanine Aminotransferase (ALT) 51 U/L (16-63) Alkaline Phosphatase 107 U/L (46-116) Troponin I Quantitative < 0.017 ng/mL (0.000-0.055) OP-Jcd-F-Type Natriuretic Peptide 363 pg/mL (0-124) H Total Protein 7.2 g/dL (6.4-8.2) Albumin 2.4 g/dL (3.4-5.0) L Lipase 115 U/L (73-393) Laboratory Tests 03/25/17 01:15 Laboratory Tests 03/25/17 01:15 EKG EKG [] Radiology/Procedures Radiology/Procedures [] Course & Med Decision Making Course & Med Decision Making Pertinent Labs and Imaging studies reviewed. (See chart for details) [] Dragon Disclaimer Dragon Disclaimer This electronic medical record was generated, in whole or in part, using a voice recognition dictation system. Departure Departure Impression: Primary Impression: HCAP (healthcare-associated pneumonia) Additional Impression: Increased tracheal secretions Disposition: 09 ADMITTED INPATIENT Admitting Physician: Vidal Encinas Condition: IMPROVED Referrals: VIDAL ENCINAS MD (PCP) Problem Qualifiers DAVID WALL MD Mar 25, 2017 02:10
--- NOTE | 2017-03-25 02:17 | RAD ---
EXAM: HIP BILATERAL WITH PELVIS HISTORY: fell this a.m. at half-way, pelvic pain COMPARISON: None. TECHNIQUE: Frontal view the pelvis and frontal and frog-leg lateral views of both hips are obtained. FINDINGS: The bony pelvis appears intact without acute fracture or dislocation. SI joints, hip joints and pubic symphysis are maintained. Neither hip joint demonstrates evidence of fracture. Mild degenerative changes are present. Surrounding soft tissues demonstrate no acute finding. Arterial calcifications are present. IMPRESSION: No acute osseous injury seen. Electronically signed by: Nettie Riggs MD (03/25/2017 2:14 AM)
[2017-03-25] MEDS ORDERED: ONDANSETRON PF 4 MG/2 ML VIAL. IV PRN ×2 (02:30→12:00)
[2017-03-25] MEDS ORDERED: PIPERACILLIN/TAZOBACTAM 3.375 GM in IV NORMAL SALINE 50ML 50 ML IV ONE (02:30)
[2017-03-25] MEDS ORDERED: MORPHINE SULFATE 2 MG/ML DISP.SYRIN. IV PRN ×2 (02:30→12:00)
[2017-03-25] MEDS: IV NORMAL SALINE 1000ML BAG 1,000 ML IV SCH ×3 (02:32→18:22)
[2017-03-25] MEDS ORDERED: VANCOMYCIN 1.5 GM in IV NORMAL SALINE 500ML BAG 500 ML IV ONE (03:00)
[2017-03-25] MEDS ORDERED: CHLO15MO2 PO (03:49)
[2017-03-25] MEDS ORDERED: ONDA4TAB7 PEG (03:49)
[2017-03-25] MEDS ORDERED: DEXT38GE2 PEG (03:49)
[2017-03-25] MEDS ORDERED: JEVITY PEG (03:49)
[2017-03-25] MEDS ORDERED: METO25TA4 PEG (03:49)
[2017-03-25] MEDS ORDERED: SERT50TA PEG (03:49)
[2017-03-25] MEDS: VANCOMYCIN PER PHARMACY MC PRN ×2 (04:28→13:23)
[2017-03-25 06:17] LABS: PLT ESTIMATE ADEQUATE (ADEQUATE)
[2017-03-25 06:19] LABS: ANISOCYTOSIS MOD
--- NOTE | 2017-03-25 06:27 | EKG ---
[facility] [address] [place] [address] Test Date: 2017-03-25 Test Time: 01:17:16 Pat Name: ELIESER DAVID Department: Room: [facility] Gender: M Caustic Loader: : 1945 Requested By: DAVID WALL Order Number: [id number] Reading MD: Anais Quintero Measurements Intervals [place] Rate: 77 P: 52 IA: 126 QRS: 38 QRSD: 80 T: 26 QT: 366 QTc: 416 Interpretive Statements SINUS RHYTHM QRS(T) CONTOUR ABNORMALITY CONSISTENT WITH SEPTAL INFARCT AGE UNDETERMINED Electronically Signed On 03-28-2017 13:39:38 CDT by Anais Quintero
--- NOTE | 2017-03-25 07:15 | RAD ---
Indication: Cough and shortness of air. Time of exam 0116 hours. Correlation is made with prior chest from 03/02/2017. The tracheostomy tube remains in place with tip above the nilesh. There continues to be left basilar consolidation consistent with pneumonia. This may be slightly improved since prior. Right lung is clear. No significant effusion or pneumothorax is detected. Impression: Left lower lobe pneumonia, slightly improved when compared with examination from 03/02/2017.
--- NOTE | 2017-03-25 10:09 | PDOC2 ---
CONSULT Date of Consult Date of Consult DATE: 03/25/17 TIME: 09:59 Reason for Consult Reason for Consult: Pneumonia Referring Physician Referring Physician: Dr. Ren Identification/Chief Complaint Chief Complaint Cough Problems: History of Present Illness Reason for Visit: Tavares is very well known to us. He has a history of chronic respiratory failure with recurring pnemonia and chronic tracheostomy. Patient has had multiple bronchoscopies. He has recently been treated for serratia and enterobacter pneumonia. Patient is readmitted with increasing cough, copious amounts of trach secretions, and increased oxygen need. His chest x-ray has shown persistent LLL pneumonia and increased oxygen needs. He has coarse breath sounds suggesting recurrent mucus plug. Past Medical History Pulmonary: COPD, Pneumonia CENTRAL NERVOUS SYSTEM: Dementia GI: Other (dysphagia) Heme/Onc: Anemia NOS Infectious disease: Other (serratia and enterobacter pneumonia) Past Surgical History Past Surgical History: Other (tracheostomy and PEG) Family History Family History: Family History Unknown, Other (Unable to obtain from the patient) Social History Quit (5 years ago) ALCOHOL: none Drugs: None Lives: Alf Current Problem List Problem List Problems Medical Problems: (1) HCAP (healthcare-associated pneumonia) Status: Acute (2) Increased tracheal secretions Status: Acute Current Medications Current Medications Current Medications Vancomycin HCl (Vanco Per Pharmacy) 1 each PRN DAILY PRN MC SEE COMMENTS Last administered on 03/25/17 04:28; Start 03/25/17 at 02:00 Piperacillin Sod/ Tazobactam Sod (Zosyn Per Pharmacy) 1 each PRN DAILY PRN MC SEE COMMENTS; Start 03/25/17 at 02:00 Vancomycin HCl 1.5 gm/Sodium Chloride 500 ml @ 250 mls/hr 1X ONCE IV Last administered on 03/25/17 03:00; Start 03/25/17 at 03:00; Stop 03/25/17 at 04:59 ; Status DC Piperacillin Sod/ Tazobactam Sod 3.375 gm/Sodium Chloride 50 ml @ 100 mls/hr 1X ONCE IV Last administered on 03/25/17 02:24; Start 03/25/17 at 02:30; Stop 03/25/17 at 02:59; Status DC Ondansetron HCl (Zofran) 4 mg PRN Q8HRS PRN IV NAUSEA/VOMITING; Start 03/25/17 at 02:30; Stop 03/26/17 at 02:29 Morphine Sulfate 2 mg PRN Q2HR PRN IV SEVERE PAIN; Start 03/25/17 at 02:30; Stop 03/26/17 at 02:29 Sodium Chloride 1,000 ml @ 125 mls/hr Q8H IV Last administered on 03/25/17t 02 :32; Start 03/25/17 at 02:22; Stop 03/26/17 at 02:21 Piperacillin Sod/ Tazobactam Sod 3.375 gm/Sodium Chloride 50 ml @ 100 mls/hr Q6HRS IV ; Start 03/25/17 at 12:00 Vancomycin HCl 1 gm/Sodium Chloride 250 ml @ 250 mls/hr Q18H IV ; Start at 21:00 Vancomycin HCl 1 each 1X ONCE MC ; Start 03/26/17 at 14:30; Stop 03/26/17 at 14 :31 Active Scripts Active Reported Zoloft (Sertraline Hcl) 50 Mg Tablet 1 Tab PEG DAILY Zofran (Ondansetron Hcl) 4 Mg Tablet 1 Tab PEG Q6HRS Metoprolol Tartrate 25 Mg Tablet 1 Tab PEG BID [jevity 1.2] 60 Ml PEG Q1HR Acetaminophen 650 Mg/20.3 Ml Solution 650 Mg GT PRN Q4HRS PRN Pepcid (Famotidine) 20 Mg Tablet 20 Mg GT DAILY Glucose Gel (Dextrose) 38 Gm Gel..gram. 15 Gm PO Amlodipine Besylate 5 Mg Tablet 5 Mg GT DAILY Klor-Con (Potassium Chloride) 20 Meq Packet 20 Meq PEG BID Lorazepam 1 Mg Tablet 0.5 Mg PEG Q4HRS PRN Duoneb 0.5-3(2.5) Mg/3 Ml (Albuterol/Ipratropium) 3 Ml Ampul.neb 3 Ml NEB QID Docusate Sodium 100 Mg Capsule 1 Cap PO BID Biscolax (Bisacodyl) 10 Mg Supp.rect 10 Mg RC DAILY PRN Miralax (Polyethylene Glycol 3350) 17 Gm Powd.pack 1 Packet PEG BID Glucose Gel (Dextrose) 38 Gm Gel..gram. 15 Gm PEG PRN glucose less than 70 Peridex (Chlorhexidine Gluconate) 15 Ml Mouthwash 15 Ml PO BID Allergies Allergies: Coded Allergies: No Known Drug Allergies (Unverified , 01/22/17) ROS Respiratory: YES: Cough, Shortness of breath, Tachypnea, Wheezing Physical Exam General: Alert, mild distress Lungs: Other (coarse breath sounds) Abdomen: Soft Extremities: No clubbing, No cyanosis, No edema Skin: No rashes Vitals VITALS Vital Signs Date Time Temp Pulse Resp B/P (MAP) Pulse Ox O2 Delivery O2 Flow Rate FiO2 03/25/17 08:00 Trach Collar 10.0 03/25/17 07:00 99.0 66 22 122/59 (80) 94 99.0 Labs Labs Laboratory Tests Test 03/25/17 01:15 White Blood Count 10.4 x10^3/uL (4.0-11.0) Red Blood Count 3.57 x10^6/uL (4.30-5.70) Hemoglobin 9.2 g/dL (13.0-17.5) Hematocrit 28.1 % (39.0-53.0) Mean Corpuscular Volume 79 fL (79-100) Mean Corpuscular Hemoglobin 26 pg (25-35) Mean Corpuscular Hemoglobin Concent 33 g/dL (31-37) Red Cell Distribution Width 20.3 % (11.5-14.5) Platelet Count 203 x10^3/uL (140-400) Neutrophils (%) (Auto) 67 % (31-73) Lymphocytes (%) (Auto) 17 % (24-48) Monocytes (%) (Auto) 16 % (0-9) Eosinophils (%) (Auto) 0 % (0-3) Basophils (%) (Auto) 0 % (0-3) Neutrophils # (Auto) 6.9 x10^3uL (1.8-7.7) Lymphocytes # (Auto) 1.7 x10^3/uL (1.0-4.8) Monocytes # (Auto) 1.7 x10^3/uL (0.0-1.1) Eosinophils # (Auto) 0.0 x10^3/uL (0.0-0.7) Basophils # (Auto) 0.0 x10^3/uL (0.0-0.2) Platelet Estimate Adequate (ADEQUATE) Anisocytosis Mod Sodium Level 135 mmol/L (136-145) Potassium Level 4.5 mmol/L (3.5-5.1) Chloride Level 100 mmol/L (98-107) Carbon Dioxide Level 27 mmol/L (21-32) Anion Gap 8 (6-14) Blood Urea Nitrogen 19 mg/dL (8-26) Creatinine 0.8 mg/dL (0.7-1.3) Estimated GFR (Cockcroft-Gault) 115.3 Glucose Level 130 mg/dL (70-99) Lactic Acid Level 1.5 mmol/L (0.4-2.0) Calcium Level 9.6 mg/dL (8.5-10.1) Total Bilirubin 0.3 mg/dL (0.2-1.0) Direct Bilirubin 0.1 mg/dL (0.0-0.2) Aspartate Amino Transf (AST/SGOT) 44 U/L (15-37) Alanine Aminotransferase (ALT/SGPT) 51 U/L (16-63) Alkaline Phosphatase 107 U/L (46-116) Troponin I Quantitative < 0.017 ng/mL (0.000-0.055) JC-Rgr-U-Type Natriuretic Peptide 363 pg/mL (0-124) Total Protein 7.2 g/dL (6.4-8.2) Albumin 2.4 g/dL (3.4-5.0) Lipase 115 U/L (73-393) Laboratory Tests Test 03/25/17 01:15 White Blood Count 10.4 x10^3/uL (4.0-11.0) Red Blood Count 3.57 x10^6/uL (4.30-5.70) Hemoglobin 9.2 g/dL (13.0-17.5) Hematocrit 28.1 % (39.0-53.0) Mean Corpuscular Volume 79 fL (79-100) Mean Corpuscular Hemoglobin 26 pg (25-35) Mean Corpuscular Hemoglobin Concent 33 g/dL (31-37) Red Cell Distribution Width 20.3 % (11.5-14.5) Platelet Count 203 x10^3/uL (140-400) Neutrophils (%) (Auto) 67 % (31-73) Lymphocytes (%) (Auto) 17 % (24-48) Monocytes (%) (Auto) 16 % (0-9) Eosinophils (%) (Auto) 0 % (0-3) Basophils (%) (Auto) 0 % (0-3) Neutrophils # (Auto) 6.9 x10^3uL (1.8-7.7) Lymphocytes # (Auto) 1.7 x10^3/uL (1.0-4.8) Monocytes # (Auto) 1.7 x10^3/uL (0.0-1.1) Eosinophils # (Auto) 0.0 x10^3/uL (0.0-0.7) Basophils # (Auto) 0.0 x10^3/uL (0.0-0.2) Platelet Estimate Adequate (ADEQUATE) Anisocytosis Mod Sodium Level 135 mmol/L (136-145) Potassium Level 4.5 mmol/L (3.5-5.1) Chloride Level 100 mmol/L (98-107) Carbon Dioxide Level 27 mmol/L (21-32) Anion Gap 8 (6-14) Blood Urea Nitrogen 19 mg/dL (8-26) Creatinine 0.8 mg/dL (0.7-1.3) Estimated GFR (Cockcroft-Gault) 115.3 Glucose Level 130 mg/dL (70-99) Lactic Acid Level 1.5 mmol/L (0.4-2.0) Calcium Level 9.6 mg/dL (8.5-10.1) Total Bilirubin 0.3 mg/dL (0.2-1.0) Direct Bilirubin 0.1 mg/dL (0.0-0.2) Aspartate Amino Transf (AST/SGOT) 44 U/L (15-37) Alanine Aminotransferase (ALT/SGPT) 51 U/L (16-63) Alkaline Phosphatase 107 U/L (46-116) Troponin I Quantitative < 0.017 ng/mL (0.000-0.055) JB-Kqh-B-Type Natriuretic Peptide 363 pg/mL (0-124) Total Protein 7.2 g/dL (6.4-8.2) Albumin 2.4 g/dL (3.4-5.0) Lipase 115 U/L (73-393) Assessment/Plan Assessment/Plan 1. Recurrent Acute on Chronic Hypoxic Respiratory Failure 2. Recurrent pneumonia/mucus plug 3. Chronic tracheostomy 4. History of recent serratia and enterobacter pneumonia 5. Dysphagia 6. Chronic debility Plan: 1. Bronchoscopy 2. Empiric Antibiotic 3. Nebs 4. Gradually wean oxygen 5. Supportive treatment 6. Enteral Feedings MAT KEARNS MD Mar 25, 2017 10:09
[2017-03-25] MEDS ORDERED: SODIUM BICARB ADULT 8.4% 50 MEQ/50 ML DISP.SYRIN. ONE (11:12)
[2017-03-25] MEDS ORDERED: EPINEPHrine SYRINGE 1 MG/10 ML SYRINGE ONE (11:12)
[2017-03-25] MEDS ORDERED: ACETAMINOPHEN 650 MG/20.3 ML SOLUTION. GT PRN (11:45)
[2017-03-25] MEDS ORDERED: IV RINGERS,LACTATED 1000ML 1,000 ML IV SCH ×2 (11:55→11:59)
[2017-03-25] MEDS ORDERED: fentaNYL PF VIAL 100 MCG/2 ML VIAL IV PRN ×2 (12:00)
[2017-03-25] MEDS ORDERED: HYDROmorphone 2 MG/ML VIAL IV PRN (12:00)
[2017-03-25] MEDS: amLODIPine BESYLATE 5 MG TABLET GT SCH (12:00)
[2017-03-25] MEDS: IPRATRPIUM/ALBUTEROL 0.5/2.5MG 3 ML NEBU. NEB SCH ×3 (12:00→19:41)
[2017-03-25] MEDS: METOPROLOL TART IMMED RELEASE 25 MG TABLET. PEG SCH ×2 (12:00→20:52)
[2017-03-25] MEDS ORDERED: PROCHLORPERAZINE 10 MG/2 ML VIAL. IV PRN (12:00)
[2017-03-25] MEDS ORDERED: LIDOCAINE 1% 1 ML SYRINGE. ID PRN (12:00)
[2017-03-25] MEDS: SERTRALINE 50 MG TABLET. PEG SCH (12:00)
[2017-03-25] MEDS ORDERED: ENTERAL NUTRITION FORMULA PEG SCH (12:00)
[2017-03-25] MEDS ORDERED: fentaNYL PF VIAL 100 MCG/2 ML VIAL ONE (12:17)
[2017-03-25] MEDS ORDERED: MIDAZOLAM HCL/PF 5 MG/5 ML VIAL. ONE (12:17)
[2017-03-25] MEDS ORDERED: MIDAZOLAM HCL/PF 5 MG/5 ML VIAL. IV ONE (13:12)
--- NOTE | 2017-03-25 13:42 | PDOC4 ---
PROCEDURE Procedure BRONCH FINDINGS (dictation not working) 1. Copious purulent secretions throughout both lungs , worse on left then right 2. Therapeutic Bronch done and all secretions removed 3. No endobronchial lesions seen 4. Mucosa erythematous 5. wash done from both main stem, BAL done SHERI, LLL . follow cultures MAT KEARNS MD Mar 25, 2017 13:42
[2017-03-25] MEDS: PIPERACILLIN/TAZOBACTAM 3.375 GM in IV NORMAL SALINE 50ML 50 ML IV SCH ×2 (14:17→18:40)
[2017-03-25] MEDS: POTASSIUM CHLORIDE 20 MEQ/15 ML ORAL LIQUID. PEG SCH ×2 (14:55→20:52)
[2017-03-25] MEDS: FAMOTIDINE 20 MG TABLET. GT SCH (14:56)
[2017-03-25] MEDS: ONDANSETRON ODT 4 MG TAB.RAPDIS. PEG SCH ×2 (14:56→18:00)
[2017-03-25] MEDS: LORazepam 0.5 MG TABLET PO PRN (14:56)
[2017-03-25] MEDS: CHLORHEXIDINE 0.12% 15 ML MOUTHWASH. SWSP SCH ×2 (15:09→20:52)
[2017-03-25] MEDS: VANCOMYCIN 1 GM in IV NORMAL SALINE 250ML 250 ML IV SCH (20:53)
[2017-03-26] MEDS: PIPERACILLIN/TAZOBACTAM 3.375 GM in IV NORMAL SALINE 50ML 50 ML IV SCH ×3 (00:20→13:30)
[2017-03-26] MEDS: ONDANSETRON ODT 4 MG TAB.RAPDIS. PEG SCH ×3 (00:22→13:30)
[2017-03-26 03:00] VITALS: BP 140/62
[2017-03-26 07:00] VITALS: BP 147/71
[2017-03-26] MEDS: IPRATRPIUM/ALBUTEROL 0.5/2.5MG 3 ML NEBU. NEB SCH ×3 (07:23→14:56)
[2017-03-26] MEDS: CHLORHEXIDINE 0.12% 15 ML MOUTHWASH. SWSP SCH (09:17)
[2017-03-26] MEDS: POTASSIUM CHLORIDE 20 MEQ/15 ML ORAL LIQUID. PEG SCH (09:17)
[2017-03-26] MEDS: SERTRALINE 50 MG TABLET. PEG SCH (09:17)
[2017-03-26] MEDS: METOPROLOL TART IMMED RELEASE 25 MG TABLET. PEG SCH (09:18)
[2017-03-26] MEDS: FAMOTIDINE 20 MG TABLET. GT SCH (09:18)
[2017-03-26] MEDS: amLODIPine BESYLATE 5 MG TABLET GT SCH (09:19)
[2017-03-26 11:00] VITALS: BP 127/67
--- NOTE | 2017-03-26 11:23 | PDOC ---
PULMONARY PROGRESS NOTES Subjective persistent trach secretions s/p Bronch 03/25 Vitals Vital Signs Date Time Temp Pulse Resp B/P (MAP) Pulse Ox O2 Delivery O2 Flow Rate FiO2 03/26/17 10:59 Tracheal Collar 03/26/17 09:19 80 147/71 03/26/17 08:00 10.0 03/26/17 07:00 97.7 20 90 97.7 General: Alert, No acute distress Lungs: Other (coarse bs) Cardiovascular: S1, S2 Abdomen: Soft Neuro Exam: Alert Extremities: No Edema Skin: Warm Labs Laboratory Tests Test 03/25/17 01:15 03/25/17 03:00 White Blood Count 10.4 x10^3/uL (4.0-11.0) Red Blood Count 3.57 x10^6/uL (4.30-5.70) Hemoglobin 9.2 g/dL (13.0-17.5) Hematocrit 28.1 % (39.0-53.0) Mean Corpuscular Volume 79 fL (79-100) Mean Corpuscular Hemoglobin 26 pg (25-35) Mean Corpuscular Hemoglobin Concent 33 g/dL (31-37) Red Cell Distribution Width 20.3 % (11.5-14.5) Platelet Count 203 x10^3/uL (140-400) Neutrophils (%) (Auto) 67 % (31-73) Lymphocytes (%) (Auto) 17 % (24-48) Monocytes (%) (Auto) 16 % (0-9) Eosinophils (%) (Auto) 0 % (0-3) Basophils (%) (Auto) 0 % (0-3) Neutrophils # (Auto) 6.9 x10^3uL (1.8-7.7) Lymphocytes # (Auto) 1.7 x10^3/uL (1.0-4.8) Monocytes # (Auto) 1.7 x10^3/uL (0.0-1.1) Eosinophils # (Auto) 0.0 x10^3/uL (0.0-0.7) Basophils # (Auto) 0.0 x10^3/uL (0.0-0.2) Platelet Estimate Adequate (ADEQUATE) Anisocytosis Mod Sodium Level 135 mmol/L (136-145) Potassium Level 4.5 mmol/L (3.5-5.1) Chloride Level 100 mmol/L (98-107) Carbon Dioxide Level 27 mmol/L (21-32) Anion Gap 8 (6-14) Blood Urea Nitrogen 19 mg/dL (8-26) Creatinine 0.8 mg/dL (0.7-1.3) Estimated GFR (Cockcroft-Gault) 115.3 Glucose Level 130 mg/dL (70-99) Lactic Acid Level 1.5 mmol/L (0.4-2.0) Calcium Level 9.6 mg/dL (8.5-10.1) Total Bilirubin 0.3 mg/dL (0.2-1.0) Direct Bilirubin 0.1 mg/dL (0.0-0.2) Aspartate Amino Transf (AST/SGOT) 44 U/L (15-37) Alanine Aminotransferase (ALT/SGPT) 51 U/L (16-63) Alkaline Phosphatase 107 U/L (46-116) Troponin I Quantitative < 0.017 ng/mL (0.000-0.055) YE-Xvg-H-Type Natriuretic Peptide 363 pg/mL (0-124) Total Protein 7.2 g/dL (6.4-8.2) Albumin 2.4 g/dL (3.4-5.0) Lipase 115 U/L (73-393) Nasal Screen MRSA (PCR) Negative (Negative) Medications Active Scripts Medications Dose Route/Sig Max Daily Dose Days Date Category Dose Instructions Zoloft (Sertraline Hcl) 50 Mg Tablet 1 Tab PEG DAILY 03/25/17 Reported Zofran (Ondansetron Hcl) 4 Mg Tablet 1 Tab PEG Q6HRS 03/25/17 Reported Metoprolol Tartrate 25 Mg Tablet 1 Tab PEG BID 03/25/17 Reported [jevity 1.2] 60 Ml PEG Q1HR 03/25/17 Reported Acetaminophen 650 Mg/20.3 Ml Solution 650 Mg GT PRN Q4HRS PRN 02/20/17 Reported Pepcid (Famotidine) 20 Mg Tablet 20 Mg GT DAILY 02/20/17 Reported Glucose Gel (Dextrose) 38 Gm Gel..gram. 15 Gm PO 02/20/17 Reported Amlodipine Besylate 5 Mg Tablet 5 Mg GT DAILY 02/20/17 Reported Klor-Con (Potassium Chloride) 20 Meq Packet 20 Meq PEG BID 02/17/17 Reported Lorazepam 1 Mg Tablet 0.5 Mg PEG Q4HRS PRN 02/17/17 Reported Duoneb 0.5-3(2.5) Mg/3 Ml (Albuterol/Ipratropium) 3 Ml Ampul.neb 3 Ml NEB QID 02/17/17 Reported Docusate Sodium 100 Mg Capsule 1 Cap PO BID 02/17/17 Reported Biscolax (Bisacodyl) 10 Mg Supp.rect 10 Mg RC DAILY PRN 02/17/17 Reported Miralax (Polyethylene Glycol 3350) 17 Gm Powd.pack 1 Packet PEG BID 01/18/17 Reported Glucose Gel (Dextrose) 38 Gm Gel..gram. 15 Gm PEG PRN 03/25/17 Reported glucose less than 70 Peridex (Chlorhexidine Gluconate) 15 Ml Mouthwash 15 Ml PO BID 03/25/17 Reported Impression . 1. Recurrent Acute on Chronic Hypoxic Respiratory Failure 2. Recurrent pneumonia/mucus plug 3. Chronic tracheostomy 4. History of recent serratia and Enterobacter pneumonia 5. Dysphagia 6. Chronic debility 7. s/p Bronch 03/25 Plan . 1. Follow Bronchoscopy cultures. GS with gram positive cocci, gram +rods 2. Empiric Antibiotic 3. Nebs 4. Gradually wean oxygen 5. Supportive treatment 6. Enteral Feedings 7. prn trach suction MAT KEARNS MD Mar 26, 2017 11:23
--- NOTE | 2017-03-26 14:36 | PDOC2 ---
CONSULT Date of Consult Date of Consult DATE: 03/26/17 TIME: 14:31 Reason for Consult Reason for Consult: pain with positioning after fall at halfway Referring Physician Referring Physician: Latoya Identification/Chief Complaint Chief Complaint none Problems: Source Source: Chart review, Unable to obtain due to (pt is nonverbal. history obtained from provider and nurse) History of Present Illness Reason for Visit: The patient is a 71 year old male who lives in a halfway and per report from Dr. Klein had a fall at the halfway. Xrays were checked and were negative for osseous injury, however the family requested and orthopedic consult. The patient is nonverbal, but was able to cooperate with exam and reported no pain to me. He is lying supine in bed, appears comfortable with a t- piece in place over his trach. Past Medical History Pulmonary: COPD, Pneumonia CENTRAL NERVOUS SYSTEM: Dementia GI: Other (dysphagia) Heme/Onc: Anemia NOS Infectious disease: Other (serratia and enterobacter pneumonia) Past Surgical History Past Surgical History: Other (tracheostomy and PEG) Family History Family History: Family History Unknown, Other (Unable to obtain from the patient) Social History Quit (5 years ago) ALCOHOL: none Drugs: None Lives: Assisted Current Problem List Problem List Problems Medical Problems: (1) HCAP (healthcare-associated pneumonia) Status: Acute (2) Increased tracheal secretions Status: Acute Current Medications Current Medications Current Medications Vancomycin HCl (Vanco Per Pharmacy) 1 each PRN DAILY PRN MC SEE COMMENTS Last administered on 03/25/17 13:23; Start 03/25/17 at 02:00 Piperacillin Sod/ Tazobactam Sod (Zosyn Per Pharmacy) 1 each PRN DAILY PRN MC SEE COMMENTS; Start 03/25/17 at 02:00 Vancomycin HCl 1.5 gm/Sodium Chloride 500 ml @ 250 mls/hr 1X ONCE IV Last administered on 03/25/17 03:00; Start 03/25/17 at 03:00; Stop 03/25/17 at 04:59 ; Status DC Piperacillin Sod/ Tazobactam Sod 3.375 gm/Sodium Chloride 50 ml @ 100 mls/hr 1X ONCE IV Last administered on 03/25/17 02:24; Start 03/25/17 at 02:30; Stop 03/25/17 at 02:59; Status DC Ondansetron HCl (Zofran) 4 mg PRN Q8HRS PRN IV NAUSEA/VOMITING; Start 03/25/17 at 02:30; Stop 03/26/17 at 02:29; Status DC Morphine Sulfate 2 mg PRN Q2HR PRN IV SEVERE PAIN; Start 03/25/17 at 02:30; Stop 03/26/17 at 02:29; Status DC Sodium Chloride 1,000 ml @ 125 mls/hr Q8H IV Last administered on 03/25/17 18 :22; Start 03/25/17 at 02:22; Stop 03/26/17 at 02:21; Status DC Piperacillin Sod/ Tazobactam Sod 3.375 gm/Sodium Chloride 50 ml @ 100 mls/hr Q6HRS IV Last administered on 03/26/17 13:30; Start 03/25/17 at 12:00 Vancomycin HCl 1 gm/Sodium Chloride 250 ml @ 250 mls/hr Q18H IV Last administered on 03/25/17 20:53; Start 03/25/17 at 21:00 Vancomycin HCl 1 each 1X ONCE MC ; Start 03/26/17 at 14:30; Stop 03/26/17 at 14 :31 Acetaminophen (Tylenol) 650 mg PRN Q4HRS PRN GT PAIN Last administered on 00:20; Start 03/25/17 at 11:45 Amlodipine Besylate (Norvasc) 5 mg DAILY GT Last administered on 03/26/17 09: 19; Start 03/25/17 at 12:00 Chlorhexidine Gluconate (Peridex) 15 ml BID SWSP Last administered on 09:17; Start 03/25/17 at 12:00 Famotidine (Pepcid) 20 mg DAILY GT Last administered on 03/26/17 09:18; Start 03/25/17 at 12:00 Albuterol/ Ipratropium (Duoneb) 3 ml RTQID NEB Last administered on 03/26/17 10:58; Start 03/25/17 at 12:00 Lorazepam (Ativan) 0.5 mg PRN Q4HRS PRN PO ANXIETY / AGITATION Last administered on 03/25/17 14:56; Start 03/25/17 at 12:00 Metoprolol Tartrate (Lopressor) 25 mg BID PEG Last administered on 03/26/17 09 :18; Start 03/25/17 at 12:00 Sertraline HCl (Zoloft) 50 mg DAILY PEG Last administered on 03/26/17 09:17; Start 03/25/17 at 12:00 Ondansetron HCl (Zofran Odt) 4 mg Q6HRS PEG Last administered on 03/26/17 13: 30; Start 03/25/17 at 12:00 Potassium Chloride (KCl Oral Soln) 20 meq BID PEG Last administered on 09:17; Start 03/25/17 at 12:00 Non-Formulary Medication 60 ml Q1HR PEG ; Start 03/25/17 at 12:00; Status UNV Ondansetron HCl (Zofran) 4 mg PRN Q6HRS PRN IV NAUSEA/VOMITING Last administered on 03/25/17 18:00; Start 03/25/17 at 12:00; Stop 03/26/17 at 11:59 ; Status DC Fentanyl Citrate (Fentanyl 2ml Vial) 25 mcg PRN Q5MIN PRN IV MILD PAIN; Start 03/25/17 at 12:00; Stop 03/26/17 at 11:59; Status DC Fentanyl Citrate (Fentanyl 2ml Vial) 50 mcg PRN Q5MIN PRN IV MODERATE PAIN; Start 03/25/17 at 12:00; Stop 03/26/17 at 11:59; Status DC Morphine Sulfate 1 mg PRN Q10MIN PRN IV SEVERE PAIN; Start 03/25/17 at 12:00; Stop 03/26/17 at 11:59; Status DC Ringer's Solution 1,000 ml @ 30 mls/hr Q24H IV ; Start 03/25/17 at 11:55; Stop 03/25/17 at 23:54; Status DC Lidocaine HCl 2 ml PRN 1X PRN ID PRIOR TO IV START; Start 03/25/17 at 12:00; Stop 03/26/17 at 11:59; Status DC Hydromorphone HCl (Dilaudid) 0.5 mg PRN Q10MIN PRN IV SEV PAIN, Second choice; Start 03/25/17 at 12:00; Stop 03/26/17 at 11:59; Status DC Prochlorperazine Edisylate (Compazine) 5 mg PACU PRN PRN IV NAUSEA, MRX1; Start 03/25/17 at 12:00; Stop 03/26/17 at 11:59; Status DC Ringer's Solution 1,000 ml @ 50 mls/hr Q20H IV ; Start 03/25/17 at 11:59; Stop 03/25/17 at 23:58; Status DC Midazolam HCl (Versed) 5 mg STK-MED ONCE .ROUTE ; Start 03/25/17 at 12:17; Stop 03/25/17 at 12:18; Status DC Fentanyl Citrate (Fentanyl 2ml Vial) 100 mcg STK-MED ONCE .ROUTE ; Start at 12:17; Stop 03/25/17 at 12:18; Status DC Midazolam HCl (Versed) 5 mg STK-MED ONCE IV Last administered on 03/25/17t 13: 12; Start 03/25/17 at 13:12; Stop 03/25/17 at 13:48; Status DC Active Scripts Active Reported Zoloft (Sertraline Hcl) 50 Mg Tablet 1 Tab PEG DAILY Zofran (Ondansetron Hcl) 4 Mg Tablet 1 Tab PEG Q6HRS Metoprolol Tartrate 25 Mg Tablet 1 Tab PEG BID [jevity 1.2] 60 Ml PEG Q1HR Acetaminophen 650 Mg/20.3 Ml Solution 650 Mg GT PRN Q4HRS PRN Pepcid (Famotidine) 20 Mg Tablet 20 Mg GT DAILY Glucose Gel (Dextrose) 38 Gm Gel..gram. 15 Gm PO Amlodipine Besylate 5 Mg Tablet 5 Mg GT DAILY Klor-Con (Potassium Chloride) 20 Meq Packet 20 Meq PEG BID Lorazepam 1 Mg Tablet 0.5 Mg PEG Q4HRS PRN Duoneb 0.5-3(2.5) Mg/3 Ml (Albuterol/Ipratropium) 3 Ml Ampul.neb 3 Ml NEB QID Docusate Sodium 100 Mg Capsule 1 Cap PO BID Biscolax (Bisacodyl) 10 Mg Supp.rect 10 Mg RC DAILY PRN Miralax (Polyethylene Glycol 3350) 17 Gm Powd.pack 1 Packet PEG BID Glucose Gel (Dextrose) 38 Gm Gel..gram. 15 Gm PEG PRN glucose less than 70 Peridex (Chlorhexidine Gluconate) 15 Ml Mouthwash 15 Ml PO BID Allergies Allergies: Coded Allergies: No Known Drug Allergies (Unverified , 03/25/17) ROS Review of System unable to obtain Physical Exam Physical Exam no pain with bilateral log roll, grossly moving feet and toes. reports silt distally. no pain with pelvic compression. no ecchymosis or swelling noted over the hips or distally. cachetic and chronically ill appearing. pleasant in nad. Vitals VITALS Vital Signs Date Time Temp Pulse Resp B/P (MAP) Pulse Ox O2 Delivery O2 Flow Rate FiO2 03/26/17 11:00 97.9 66 20 127/67 (87) 90 Tracheal Collar 10.0 97.9 Labs Labs Laboratory Tests Test 03/25/17 01:15 03/25/17 03:00 White Blood Count 10.4 x10^3/uL (4.0-11.0) Red Blood Count 3.57 x10^6/uL (4.30-5.70) Hemoglobin 9.2 g/dL (13.0-17.5) Hematocrit 28.1 % (39.0-53.0) Mean Corpuscular Volume 79 fL (79-100) Mean Corpuscular Hemoglobin 26 pg (25-35) Mean Corpuscular Hemoglobin Concent 33 g/dL (31-37) Red Cell Distribution Width 20.3 % (11.5-14.5) Platelet Count 203 x10^3/uL (140-400) Neutrophils (%) (Auto) 67 % (31-73) Lymphocytes (%) (Auto) 17 % (24-48) Monocytes (%) (Auto) 16 % (0-9) Eosinophils (%) (Auto) 0 % (0-3) Basophils (%) (Auto) 0 % (0-3) Neutrophils # (Auto) 6.9 x10^3uL (1.8-7.7) Lymphocytes # (Auto) 1.7 x10^3/uL (1.0-4.8) Monocytes # (Auto) 1.7 x10^3/uL (0.0-1.1) Eosinophils # (Auto) 0.0 x10^3/uL (0.0-0.7) Basophils # (Auto) 0.0 x10^3/uL (0.0-0.2) Platelet Estimate Adequate (ADEQUATE) Anisocytosis Mod Sodium Level 135 mmol/L (136-145) Potassium Level 4.5 mmol/L (3.5-5.1) Chloride Level 100 mmol/L (98-107) Carbon Dioxide Level 27 mmol/L (21-32) Anion Gap 8 (6-14) Blood Urea Nitrogen 19 mg/dL (8-26) Creatinine 0.8 mg/dL (0.7-1.3) Estimated GFR (Cockcroft-Gault) 115.3 Glucose Level 130 mg/dL (70-99) Lactic Acid Level 1.5 mmol/L (0.4-2.0) Calcium Level 9.6 mg/dL (8.5-10.1) Total Bilirubin 0.3 mg/dL (0.2-1.0) Direct Bilirubin 0.1 mg/dL (0.0-0.2) Aspartate Amino Transf (AST/SGOT) 44 U/L (15-37) Alanine Aminotransferase (ALT/SGPT) 51 U/L (16-63) Alkaline Phosphatase 107 U/L (46-116) Troponin I Quantitative < 0.017 ng/mL (0.000-0.055) YH-Rst-H-Type Natriuretic Peptide 363 pg/mL (0-124) Total Protein 7.2 g/dL (6.4-8.2) Albumin 2.4 g/dL (3.4-5.0) Lipase 115 U/L (73-393) Nasal Screen MRSA (PCR) Negative (Negative) Images Images Xrays of the bilateral hips and pelvis reveal no acute osseous injuries Assessment/Plan Assessment/Plan The patient is a 71 year old nonambulatory nonverbal patient who lives in a halfway. He is admitted for PNA. He does not report any pain currently. If he does have pain and there is significant concern for an occult hip fracture after his fall, may consider an MRI of the hip. However due to his nonambulatory status, it would be unlikely that he would have surgery for an occult fracture, so I would not recc any further imaging at this point. Thank you for this consult MELIDA ELIZALDE MD Mar 26, 2017 14:36
[2017-03-26] MEDS: LORazepam 0.5 MG TABLET PO PRN (14:47)
[2017-03-26] MEDS: VANCOMYCIN 1 GM in IV NORMAL SALINE 250ML 250 ML IV SCH (14:47)
[2017-03-26 15:00] VITALS: BP 123/62
[2017-03-26] MEDS ORDERED: VANCOMYCIN 1.25 GM in IV NORMAL SALINE 250ML 250 ML IV SCH (15:00)
[2017-03-26] MEDS: VANCOMYCIN PER PHARMACY MC PRN (15:07)
--- NOTE | 2017-03-27 08:31 | PATHOLOGY ---
CYTOPATHOLOGY REPORT CLINICAL HISTORY: Mucous plugs SPECIMEN(S) RECEIVED: A.Bronchoalveolar lavage, SHERI B.Bronchoalveolar lavage, LLL C.Bronchial wash,Right/Left mainstem FINAL DIAGNOSIS: A. Left upper lobe bronchoalveolar lavage, ThinPrep: - No malignant cells identified. - Focally reactive bronchial epithelial cells, squamous epithelial cells, and few pulmonary macrophages identified within a background of acute inflammatory cells. B. Left lower lobe bronchoalveolar lavage, ThinPrep: - No malignant cells identified. - Focally reactive bronchial epithelial cells, squamous epithelial cells, and few pulmonary macrophages identified within a background of acute inflammatory cells. C. Right/left mainstem bronchial washing, ThinPrep: - No malignant cells identified. - Few reactive bronchial epithelial cells and pulmonary macrophages, and squamous epithelial cells identified within a mucoid background containing acute inflammatory cells. (JPM:mgr; 03/26/2017) PATHOLOGIST: Alex Steiner M.D. REPORT ELECTRONICALLY SIGNED BY: Alex Steiner M.D. DATE/TIME: 03/27/2017 08:31 GROSS PATHOLOGY: A. Bronchoalveolar lavage, SHERI: The specimen is submitted unfixed, labeled "Elieser Park Jr". Received by the Cytology Department is two mL of cloudy white/yellow fluid. One ThinPrep slide was prepared. B. Bronchoalveolar lavage, LLL: The specimen is submitted unfixed, labeled "Ruddy Thomson Elieser Benitez". Received by the Cytology Department is one mL of cloudy colorless fluid. One ThinPrep slide was prepared. C. Bronchial wash,Right/Left mainstem: The specimen is submitted unfixed, labeled "Ruddy Thomson Elieser T". Received by the Cytology Department is two mL of thick yellow fluid. One ThinPrep slide was prepared. (mm 03.25.2017) NANNY BABYSITTER(S): CARLOS Haq(ASCP) INITIAL CPT CODE(S): A; 59992 B; 96988 C; 92462 Professional services performed by [facility] at [address] [address] Technical services performed by [facility] at [address] [place] [address], [address], [place] [address]. PATIENT: ELIESER PARK JR /AGE: 1 1945 (Age: 71) SEX: M PATIENT #: [id number] ALT CASE #: SPECIMEN COLLECTION DATE: 03/25/2017 SPECIMEN RECEIVED DATE: 03/25/2017 [facility] [address], [address] [place] [address] PHONE: [phone] DIRECTOR: Alber Navas M.D. * * * END OF REPORT * * *
== END 2017-03-26 21:27 | disposition expired | DRG 166 ==
LOC: ER 00:46 → 5 NORTH 02:10
PROVIDERS: ADMIT Internal Medicine; ATTEND Internal Medicine
PROC: 0B9G8ZX Drainage of Left Upper Lung Lobe, Via Natural or Artificial Opening Endoscopic, Diagnostic (ICD-10-PCS; 2017-03-25)
PROC: 0B9J8ZX Drainage of Left Lower Lung Lobe, Via Natural or Artificial Opening Endoscopic, Diagnostic (ICD-10-PCS; principal; 2017-03-25 13:00)
DX: J96.21 Acute and chronic respiratory failure with hypoxia (principal); J69.0 Pneumonitis due to inhalation of food and vomit; J44.0 Chronic obstructive pulmonary disease with (acute) lower respiratory infection; R47.01 Aphasia; I10 Essential (primary) hypertension; F03.90 Unspecified dementia, unspecified severity, without behavioral disturbance, psychotic disturbance, mood disturbance, and anxiety; W19.XXXA Unspecified fall, initial encounter; R13.19 Other dysphagia; Y95 Nosocomial condition; Y93.89 Activity, other specified; Y99.8 Other external cause status; Z87.01 Personal history of pneumonia (recurrent); Z93.0 Tracheostomy status; Z87.440 Personal history of urinary (tract) infections; Y92.128 Other place in nursing home as the place of occurrence of the external cause
CPT/HCPCS: 31622; 31720; 36415; 71010; 73521; 80048; 80076; 80202; 82962; 83605; 83690; 83880; 84484; 85007; 85027; 87040; 87070; 87102; 87116; 87186; 87205; 87641; 88112; 93005; 94640; 94760; 96374; A6539; J0171; J2250; J2405; J2543; J3010; J3370; J7030; J7040; J7050; J7620; Q0162; 99285-25